=== PATIENT | female | born 1975 | race Caucasian/White ===

== ENCOUNTER → 2023-09-05 12:54 | Outpatient (BNVA) | payer OTHER, SELFPAY | PROVIDERS: Visit Provider Physician Assistant Surgical ==

== ENCOUNTER 2023-09-29 11:00 | Outpatient (AMB) | payer OTHER, SELFPAY ==
--- NOTE | 2023-09-29 11:25 | A.OFFVIS_ITS ---
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 BMI 44.6 Allergies No Known Allergies Allergy (Verified 09/29/23 11:25) Medication List - Last Reconciled 09/29/23 by Bj Tate MD atorvastatin 20 mg PO QDAY bupropion HCl 300 mg PO QAM estradiol (Estrace) 0.5 mg PO DAILY hydroxyzine pamoate 25 mg PO BEDTIME levothyroxine 112 mcg PO DAILY lisinopril 20 mg PO DAILY losartan 25 mg PO DAILY lurasidone 80 mg PO DAILY omeprazole 20 mg PO DAILY progesterone micronized 100 mg PO QAM HPI 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 BMI 44.6 HPI Details Start time: 11.14am, End time: 12.14pm ?I spent 50 minutes speaking with the patient on the phone plus an additional 10 minutes reviewing and updating records for a total of 60 minutes HPI Comments History of Present Illness Details Previous weight loss efforts: [facility] program in [place] Wakes up: 8.30am, Sleeps: 9pm Breakfast: x3/wk 9.30am (banana with peanut butter, bagel) Lunch: 12.30pm (sandwich, or soup) Dinner: 5.30pm (chicken, vegetables, rice) Snacks: 7.30pm (chips, sweets) Exercise: Has an Elliptical Fluids: Coffee 24oz/day (syrup and creamer), iced and hot tea: with sugar and honey, soda: diet soda, juice: occasionally, ETOH: 1-2/wk Seedfuseelob Ultra x3/time [facility] Medical History (Updated 09/29/23 @ 11:34 by Bj Tate MD) Bipolar 1 disorder Anxiety Depression PTSD (post-traumatic stress disorder) GERD (gastroesophageal reflux disease) Hyperlipidemia Hypertension Sleep apnea treated with continuous positive airway pressure (CPAP) Morbid (severe) obesity due to excess calories Surgical History (Updated 09/05/23 @ 15:01 by Irene Winn CMA) Hx of brain surgery Hx of cholecystectomy Hx of hand surgery Hx of knee surgery Hx of tonsillectomy Hx of wisdom tooth extraction Social History (Updated 09/05/23 @ 15:01 by Irene Winn [facility]) Alcohol intake: current Alcohol intake frequency: holidays/special occasions only Alcohol type: beer Patient Tobacco Use Status: Never used Tobacco Assessment & Plan Assessment & Plan (1) Morbid (severe) obesity due to excess calories: Code(s): E66.01 - Morbid (severe) obesity due to excess calories Plan: 1.? Plan for lap sleeve gastrectomy. If diaphragmatic or ventral hernias are present at time of surgery, these will be repaired laparoscopically as well. 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 I emphasized the importance of close follow-up, adherence to instructions and good communication. 2. Nutritional counseling. Start with 2 CELEBRATE REBUILD protein (buy at the [facility]'s gift shop) shakes (ONE scoop EACH in 8oz low fat unsweetened almond milk each) at 9am-11am and 12pm-2pm, 1 protein bar (CELEBRATE protein bars, buy at the [facility]'s [employer] shop) at 2pm-4pm, dinner at 5pm (10 forks of protein and 10 forks of salad/vegetables) AND one more protein bar after dinner at 6pm-8pm. So you do 2 protein shakes, 2 protein bars and one meal per day. Meal to include lean meat (beef, fish, pork, turkey, chicken), or french yogurt, or egg whites, or beans with a salad with olive oil and fruits (berries, pears, apples, kiwi). Avoid salt, breads, potatoes, rice, pasta, desserts. 3. Each shake would be drunk slowly, like coffee in a period of 2 hours. 4. Cut each bar in 4 pieces and eat each piece in 30min ?to make each bar last 2 hours. 5. I emphasized the importance of measuring accurately the food portion and measure it when serving the food in plate 6. The meal portions include 10 full-size forks of meat and 10 full-size forks of salad. You always eat the meat portion but you can replace up to 5 forks for salad/vegetables with rice, potatoes or pasta, or a fruit ?if you like. The less you do it the better weight loss will be. 7. One full-size fork is what it can be scooped on the fork without falling aside and not what can be bit with the fork. Use regular forks like those you find in a typical restaurant. 8.? Please send me weight measurements as soon as possible and then once a week. Always include your diet and exercise plan. 9. Start Elliptical with an incline of 2.0 and resistance of 4.0. Increase resistance by 1 every 3 min to a max resistance of 10.0, and repeat cycles for 300 calories. 10. Alternatively start walking outside daily, tracking calories with a goal of 300 calories per day, daily. Goal is to burn 2000 calories per week on exercise. 11.?Goal is to lose at least 1.5-2lbs per week 12. Goal to lose 10% of your weight before surgery, which is about 26lbs. Ultimate weight goal: 242lbs before surgery 13. Please follow the diet plan exactly without any change. If you don't like something about the plan or you feel hungry you need to communicate with me so I can help you revise the plan. You should not change the plan yourself. Orders: Orders H Pylori Breath Test Today E66.01 - Morbid (severe) obesity due to excess calories, E78.5 - Hyperlipidemia, unspecified, G47.30 - Sleep apnea, unspecified, I10 - Essential (primary) hypertension, K21.9 - Gastro-esophageal reflux disease without esophagitis Complete Blood Count Auto Diff Today E66.01 - Morbid (severe) obesity due to excess calories, E78.5 - Hyperlipidemia, unspecified, G47.30 - Sleep apnea, unspecified, I10 - Essential (primary) hypertension, K21.9 - Gastro-esophageal reflux disease without esophagitis Vitamin B1 Today E66.01 - Morbid (severe) obesity due to excess calories, E78.5 - Hyperlipidemia, unspecified, G47.30 - Sleep apnea, unspecified, I10 - Essential (primary) hypertension, K21.9 - Gastro-esophageal reflux disease wit hout esophagitis Vitamin D 25-OH Total Today E66.01 - Morbid (severe) obesity due to excess calories, E78.5 - Hyperlipidemia, unspecified, G47.30 - Sleep apnea, unspecified, I10 - Essential (primary) hypertension, K21.9 - Gastro-esophageal reflux disease without esophagitis Insulin Today E66.01 - Morbid (severe) obesity due to excess calories, E78.5 - Hyperlipidemia, unspecified, G47.30 - Sleep apnea, unspecified, I10 - Essential (primary) hypertension, K21.9 - Gastro-esophageal reflux disease without esophagitis Hemoglobin A1c Today E66.01 - Morbid (severe) obesity due to excess calories, E78.5 - Hyperlipidemia, unspecified, G47.30 - Sleep apnea, unspecified, I10 - Essential (primary) hypertension, K21.9 - Gastro-esophageal reflux disease without esophagitis Lipid Panel Today E66.01 - Morbid (severe) obesity due to excess calories, E78.5 - Hyperlipidemia, unspecified, G47.30 - Sleep apnea, unspecified, I10 - Essential (primary) hypertension, K21.9 - Gastro-esophageal reflux disease without esophagitis IRON PROFILE Today E66.01 - Morbid (severe) obesity due to excess calories, E78.5 - Hyperlipidemia, unspecified, G47.30 - Sleep apnea, unspecified, I10 - Essential (primary) hypertension, K21.9 - Gastro-esophageal reflux disease without esophagitis Comprehensive Met. Panel Today E66.01 - Morbid (severe) obesity due to excess calories, E78.5 - Hyperlipidemia, unspecified, G47.30 - Sleep apnea, unspecified, I10 - Essential (primary) hypertension, K21.9 - Gastro-esophageal reflux disease without esophagitis Vitamin B12 and Folate Today E66.01 - Morbid (severe) obesity due to excess calories, E78.5 - Hyperlipidemia, unspecified, G47.30 - Sleep apnea, unspecified, I10 - Essential (primary) hypertension, K21.9 - Gastro-esophageal reflux disease without esophagitis Zinc Today E66.01 - Morbid (severe) obesity due to excess calories, E78.5 - Hyperlipidemia, unspecified, G47.30 - Sleep apnea, unspecified, I10 - Essential (primary) hypertension, K21.9 - Gastro-esophageal reflux disease without esophagitis C Reactive Protein Today E66.01 - Morbid (severe) obesity due to excess calories, E78.5 - Hyperlipidemia, unspecified, G47.30 - Sleep apnea, unspecified, I10 - Essential (primary) hypertension, K21.9 - Gastro-esophageal reflux disease without esophagitis Vitamin A Today E66.01 - Morbid (severe) obesity due to excess calories, E78.5 - Hyperlipidemia, unspecified, G47.30 - Sleep apnea, unspecified, I10 - Essential (primary) hypertension, K21.9 - Gastro-esophageal reflux disease without esophagitis TSH reflex Free T4 Today E66.01 - Morbid (severe) obesity due to excess calories, E78.5 - Hyperlipidemia, unspecified, G47.30 - Sleep apnea, unspecified, I10 - Essential (primary) hypertension, K21.9 - Gastro-esophageal reflux disease without esophagitis Ferritin Today E66.01 - Morbid (severe) obesity due to excess calories, E78.5 - Hyperlipidemia, unspecified, G47.30 - Sleep apnea, unspecified, I10 - Essential (primary) hypertension, K21.9 - Gastro-esophageal reflux disease without esophagitis US abdomen comp w elastography Today E66.01 - Morbid (severe) obesity due to excess calories, E78.5 - Hyperlipidemia, unspecified, G47.30 - Sleep apnea, unspecified, I10 - Essential (primary) hypertension, K21.9 - Gastro-esophageal reflux disease without esophagitis XR chest 2V Today E66.01 - Morbid (severe) obesity due to excess calories, E78.5 - Hyperlipidemia, unspecified, G47.30 - Sleep apnea, unspecified, I10 - Essential (primary) hypertension, K21.9 - Gastro-esophageal reflux disease without esophagitis ECG 12 lead EKG Today E66.01 - Morbid (severe) obesity due to excess calories, E78.5 - Hyperlipidemia, unspecified, G47.30 - Sleep apnea, unspecified, I10 - Essential (primary) hypertension, K21.9 - Gastro-esophageal reflux disease without esophagitis [place] upper GI w air Today E66.01 - Morbid (severe) obesity due to excess calories, E78.5 - Hyperlipidemia, unspecified, G47.30 - Sleep apnea, unspecified, I10 - Essential (primary) hypertension, K21.9 - Gastro-esophageal reflux disease without esophagitis Referrals Behavioral Health Referral E66.01 - Morbid (severe) obesity due to excess calories, E78.5 - Hyperlipidemia, unspecified, G47.30 - Sleep apnea, unspecified, I10 - Essential (primary) hypertension, K21.9 - Gastro-esophageal reflux disease without esophagitis Nutrition/Dietitian Referral E66.01 - Morbid (severe) obesity due to excess calories, E78.5 - Hyperlipidemia, unspecified, G47.30 - Sleep apnea, unspecified, I10 - Essential (primary) hypertension, K21.9 - Gastro-esophageal reflux disease without esophagitis Telehealth Telehealth Location of provider rendering services: practice address Location of patient: address on file Patient Identification confirmed using: Name, : Yes Telehealth method: voice only Patient verbally consented to treatment: Yes Patient verbally consented to billing insurance company: Yes Patient informed of any privacy concerns related to visit: Yes Minutes spent on Phone/Video with Pt.: 60 Coding Level of Care Code Tele [facility] Pt Level 5 (37422) Diagnoses Morbid (severe) obesity due to excess calories E66.01 Time Spent (min) 60
[2023-09-29 11:44] VITALS: BMI 44.6
== END 2023-09-29 12:15 | disposition home or self-care (01) ==
LOC: HO.HBS 11:00
PROVIDERS: PCP Nurse Practitioner Family; Visit Provider Surgery
DX: E66.01 Morbid (severe) obesity due to excess calories (principal); Z68.41 Body mass index [BMI] 40.0-44.9, adult
CPT/HCPCS: 99443

== ENCOUNTER → 2023-09-29 11:00 | Outpatient (BNVA) | payer OTHER, SELFPAY | PROVIDERS: PCP Nurse Practitioner Family; Visit Provider Surgery ==

== ENCOUNTER 2023-10-11 14:20 | Outpatient (AMB) | payer OTHER, SELFPAY ==
--- NOTE | 2023-10-11 14:10 | MHC.AMNUTRGE ---
Intake Intake Visit Reasons: VIDEO Initial Nutrition [facility] Academic Assistant Required: No Allergies No Known Allergies Allergy (Verified 09/29/23 11:25) HPI Nutrition Presentation Reason for consult elevated BMI Smoking assessment Reviewed Alcohol assessment Reviewed Diet Assmnt Details I really like the structure of the plan dinner is normally chicken,tuna, or steak with carrots, vegetable medley, or tomato. Likes veg. We talked about social situations and navigating these as far as food and alcohol. She does drink alcohol but we talked about non-alcoholic drinks and post op recs for alcohol. She does report cannabis use , is planning to figure out other forms she can use that are not smoking. [facility] online classes: 03/14 completed and reviewed, scored well. Dietary counseling reduction Who buys your food self Who prepares/cooks your food self Meal frequency regular: snacks and irregular: breakfast, lunch and dinner Diagnosis Nutrition problem #1 overweight/obesity As related to (etiology) #1 excess energy intake and physical inactivity As evidenced by (sign/symptom) #1 high BMI Monitoring/Goals Nutrition problem monitoring total energy intake, level of knowledge/skill, total PRO intake and weight Outcome progress progressing Learning/Education Readiness to learn excellent Stages of change action Educational materials provided Yes Most Recent Diabetes Results: No Data to Display [facility] Medical History (Updated 09/29/23 @ 11:34 by Bj Tate MD) Bipolar 1 disorder Anxiety Depression PTSD (post-traumatic stress disorder) GERD (gastroesophageal reflux disease) Hyperlipidemia Hypertension Sleep apnea treated with continuous positive airway pressure (CPAP) Morbid (severe) obesity due to excess calories Surgical History (Updated 09/05/23 @ 15:01 by Irene Winn CMA) Hx of brain surgery Hx of cholecystectomy Hx of hand surgery Hx of knee surgery Hx of tonsillectomy Hx of wisdom tooth extraction Social History (Updated 09/05/23 @ 15:01 by Irene Winn CMA) Alcohol intake: current Alcohol intake frequency: holidays/special occasions only Alcohol type: beer Patient Tobacco Use Status: Never used Tobacco Assessment & Plan Assessment & Plan (1) Morbid (severe) obesity due to excess calories: Code(s): E66.01 - Morbid (severe) obesity due to excess calories Plan Patient is cleared from a nutrition standpoint for bariatric surgery. Educational requirements have been completed. Reviewed vitamin supplementation and commitment to protein shake for several months post surgery. Encouraged communication with office as needed Telehealth Telehealth Location of provider rendering services: practice address Location of patient: address on file Patient Identification confirmed using: Name, : Yes Telehealth method: voice only Patient verbally consented to treatment: Yes Patient verbally consented to billing insurance company: Yes Patient informed of any privacy concerns related to visit: Yes Minutes spent on Phone/Video with Pt.: 40 Coding Level of Care Code Nutr Indiv Intake (14198) Diagnoses Morbid (severe) obesity due to excess calories E66.01 Time Spent (min) 40
== END 2023-10-11 14:47 | disposition home or self-care (01) ==
LOC: HO.HBS 14:20
PROVIDERS: PCP Nurse Practitioner Family; Visit Provider Dietitian, Registered
DX: E66.01 Morbid (severe) obesity due to excess calories (principal)

== ENCOUNTER → 2023-10-11 14:20 | Outpatient (BNVA) | payer OTHER, SELFPAY | PROVIDERS: PCP Nurse Practitioner Family; Visit Provider Dietitian, Registered | DX: E66.01 Morbid (severe) obesity due to excess calories (principal) | CPT/HCPCS: 97802 ==

== ENCOUNTER 2023-10-17 14:57 | Outpatient (AMB) | payer OTHER, SELFPAY ==
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
== END 2023-10-17 15:21 | disposition home or self-care (01) ==
LOC: HO.HBST 14:58
PROVIDERS: PCP Nurse Practitioner Family; Visit Provider Counselor Mental Health
DX: F31.9 Bipolar disorder, unspecified (principal); F43.10 Post-traumatic stress disorder, unspecified; E66.01 Morbid (severe) obesity due to excess calories
CPT/HCPCS: 90791

== ENCOUNTER → 2023-10-17 14:57 | Outpatient (BNVA) | payer OTHER, SELFPAY | PROVIDERS: PCP Nurse Practitioner Family; Visit Provider Counselor Mental Health ==

== ENCOUNTER 2023-10-18 09:48 | Outpatient (REF) | payer OTHER, SELFPAY ==
--- NOTE | ~2023-10-18 | XR_ITS ---
EXAMINATION: XR CHEST CLINICAL INFORMATION: Morbid obesity COMPARISON: None available. TECHNIQUE: 2 views of the chest were obtained. FINDINGS: Slight elevation the right hemidiaphragm. No pneumothorax. Trachea is midline. Cardiac mediastinal silhouette is not enlarged. No large pleural effusion. Osseous structures are intact. Soft tissues are unremarkable. XR/XR chest 2V IMPRESSION: No acute cardiopulmonary process.
--- NOTE | 2023-10-18 09:56 | ECG_ITS ---
Test Reason : E66.01 Blood Pressure : / mmHG Vent. Rate : 075 BPM Atrial Rate : 075 BPM P-R Int : 172 ms QRS Dur : 084 ms QT Int : 420 ms P-R-T Axes : 012 -05 052 degrees QTc Int : 469 ms Normal sinus rhythm Nonspecific ST and T wave abnormality Prolonged QT Abnormal ECG No previous ECGs available Referred By: Bj Tate Electronically Signed By:ERIC JOHANSEN MD
[2023-10-18 10:19] LABS: MANUAL DIFF FLAG NO
[2023-10-18 12:46] LABS: Alanine Aminotransferase 30 U/L (0-31); Albumin Level 4.4 g/dL (3.5-5.0); Alkaline Phosphatase 97 U/L (39-117); Anion Gap 13 (12-20); Aspartate Amino Transferase 23 U/L (5-31); Bilirubin Total 0.4 mg/dL (0.0-1.0); Blood Urea Nitrogen 14 mg/dL (9-16); C Reactive Protein 0.61 mg/dL (< or = 0.50); Calcium 9.8 mg/dL (8.4-10.2); Carbon Dioxide 26 mmol/L (22-29); Chloride 104 mmol/L (96-108); Cholesterol 107 mg/dL (<200); Estimated Glomerular Filt Rate > 60; Ferritin 69 ng/mL (10-250); Glucose Random 99 mg/dL (60-115); HDL Cholesterol 43 mg/dL (>40); Insulin 15 uU/mL (2-29); Iron 102 mcg/dL (30-160); LDL Cholesterol Calculated 46 mg/dL (<100); Percent Iron Saturation 27 % (15-50); Potassium 3.9 mmol/L (3.3-5.1); Sodium 139 mmol/L (135-145); Total Iron Binding Capacity 375 mcg/dL (228-428); Total Protein 7.4 g/dL (6.5-8.0); Triglycerides 91 mg/dL (<150); Unsaturated Iron Binding 273 ug/dL; Vitamin D 25-OH Total 23.6 ng/mL (>30)
[2023-10-18 12:48] LABS: Basophils Percent Auto 0.4 % (0-2); Eosinophils Absolute Auto 0.1 X10*3/uL (0.0-0.4); Eosinophils Percent Auto 1.1 % (0-4); Hematocrit 44.4 % (37.0-47.0); Hemoglobin 14.9 g/dl (12.0-16.0); Imm Gran Abs Auto 0.02 X10*3/uL (0.00-0.03); Imm Gran Pct Auto 0.2 % (0.0-0.4); Lymphocytes Absolute Auto 2.5 X10*3/uL (1.2-4.9); Lymphocytes Percent Auto 27.9 % (20-40); Mean Corpuscular HGB Conc 33.6 g/dl (31.0-35.0); Mean Corpuscular Hemoglobin 28.8 pg (27.0-33.0); Mean Corpuscular Volume 85.9 fL (80.0-98.0); Mean Platelet Volume 9.1 fL (9.4-12.3); Monocytes Absolute Auto 0.7 X10*3/uL (0.1-1.2); Monocytes Percent Auto 7.3 % (2-11); Neutrophils Absolute Auto 5.7 x10*3/uL (2.0-8.3); Neutrophils Percent Auto 63.1 % (45-73); Platelet Count 336 X10*3/uL (160-400); Red Blood Count 5.17 X10*6/uL (4.20-5.50); Red Cell Distribution Width 14.5 % (11.0-16.0)
[2023-10-18 14:49] LABS: Folate 5.7 ng/mL (> or = 4.0); Vitamin B12 364 pg/mL (200-900)
[2023-10-18 14:54] LABS: Estimated Average Glucose 108 mg/dL; Hemoglobin A1c % 5.4 % (<6.0)
[2023-10-21 04:13] LABS: Zinc 82 mcg/dL (60-130)
[2023-10-23 15:58] LABS: Vitamin B1 7 nmol/L (8-30)
[2023-10-24 02:48] LABS: Vitamin A 56 mcg/dL (38-98)
== END 2023-10-18 09:49 | disposition home or self-care (01) ==
LOC: HO.LAB 09:48
PROVIDERS: PCP Nurse Practitioner Family; Visit Provider Surgery
DX: E66.01 Morbid (severe) obesity due to excess calories (principal); G47.30 Sleep apnea, unspecified; I10 Essential (primary) hypertension; E78.5 Hyperlipidemia, unspecified; K21.9 Gastro-esophageal reflux disease without esophagitis
CPT/HCPCS: 36415; 71046; 80053; 80061; 82306; 82607; 82728; 82746; 83036; 83525; 83540; 84425; 84443; 84590; 84630; 85025; 86140; 93005

== ENCOUNTER → 2023-10-18 09:56 | Outpatient (BNV) | payer OTHER, SELFPAY | PROVIDERS: PCP Nurse Practitioner Family; Visit Provider Internal Medicine Cardiovascular Disease | DX: I45.81 Long QT syndrome (principal) | CPT/HCPCS: 93010 ==

== ENCOUNTER 2023-10-20 07:51 | Outpatient (AMB) | payer OTHER, SELFPAY ==
--- NOTE | 2023-10-20 11:17 | MHC.OFFVISWM ---
Intake VS Expanded 10/20/23 11:18 Height 5 ft 5 in Weight 261 lb BMI 43.4 Body Fat % 58.4 Body Fat Mass 152.4 Fat Free Mass 108.6 Visceral Fat Rating 24 Body Water % 28.5 Body Water Mass 74.3 Basal Metabolic Rate/Score 1,435 Intake Visit Reasons: TV Follow Up SWL - 1ST Allergies No Known Allergies Allergy (Verified 09/29/23 11:25) HPI TV Follow Up SWL - 1ST HPI Details Start time: 11.06am, End time: 11.26am ?I spent 15 minutes speaking with the patient on the phone plus an additional 5 minutes reviewing and updating records for a total of 20 minutes HPI Comments History of Present Illness Details Overall weight loss: 7.2lbs, or 2.7% TBWL Is doing 2 Celebrate Rebuild protein shakes (1 scoop in 8oz almond milk each), 2 Celebrate protein bars and one meal (10 forks of meat and 10 forks of salad or vegetables) Exercise: is doing Elliptical for 300 calories, 6 days per week [facility] Medical History (Updated 10/20/23 @ 11:00 by Bj Tate MD) Abnormal EKG Bipolar 1 disorder Anxiety Depression PTSD (post-traumatic stress disorder) GERD (gastroesophageal reflux disease) Hyperlipidemia Hypertension Sleep apnea treated with continuous positive airway pressure (CPAP) Morbid (severe) obesity due to excess calories Surgical History (Updated 09/05/23 @ 15:01 by Irene Winn CMA) Hx of brain surgery Hx of cholecystectomy Hx of hand surgery Hx of knee surgery Hx of tonsillectomy Hx of wisdom tooth extraction Social History (Updated 09/05/23 @ 15:01 by Irene Winn CMA) Alcohol intake: current Alcohol intake frequency: holidays/special occasions only Alcohol type: beer Patient Tobacco Use Status: Never used Tobacco Assessment & Plan Assessment & Plan (1) Morbid (severe) obesity due to excess calories: Code(s): E66.01 - Morbid (severe) obesity due to excess calories Plan: 1. Continue 2 Celebrate Rebuild protein shakes (1 scoop in 8oz almond milk each), 2 Celebrate protein bars and one meal (10 forks of meat and 10 forks of salad or vegetables) 2. Exercise: continue Elliptical for 300 calories, 6-7 days per week. Goal is to burn 2000 calories per week on aerobic exercise 3. Continue to send me weight measurements weekly on Fridays Orders: Orders CA echo transthorac w con Today R94.31 - Abnormal electrocardiogram [ECG] [EKG] CA stress test Today R94.31 - Abnormal electrocardiogram [ECG] [EKG] Medications: New mecobalamin (vitamin B12) place tablet under tongue and allow to dissolve for at least30 secs before swallowing 1,000 mcg sublingual DAILY 90 tabs 0RF E53.8 - Deficiency of other specified B group vitamins cholecalciferol (vitamin D3) 125 mcg PO DAILY 90 caps 0RF E55.9 - Vitamin D deficiency, unspecified Telehealth Telehealth Location of provider rendering services: practice address Location of patient: address on file Patient Identification confirmed using: Name, : Yes Telehealth method: voice only Patient verbally consented to treatment: Yes Patient verbally consented to billing insurance company: Yes Patient informed of any privacy concerns related to visit: Yes Minutes spent on Phone/Video with Pt.: 20 Coding Level of Care Code Tele Est Pt Level 3 (48292) Diagnoses Morbid (severe) obesity due to excess calories E66.01 Time Spent (min) 20
[2023-10-20 11:18] VITALS: BMI 43.4
== END 2023-10-20 11:27 | disposition home or self-care (01) ==
LOC: HO.HBS 07:51
PROVIDERS: PCP Nurse Practitioner Family; Visit Provider Surgery
DX: E66.01 Morbid (severe) obesity due to excess calories (principal)
CPT/HCPCS: 99213

== ENCOUNTER → 2023-10-20 07:51 | Outpatient (BNVA) | payer OTHER, SELFPAY | PROVIDERS: PCP Nurse Practitioner Family; Visit Provider Surgery ==

== ENCOUNTER 2023-10-23 08:38 | Outpatient (REF) | payer OTHER, SELFPAY ==
--- NOTE | ~2023-10-23 | US_ITS ---
EXAMINATION: US COMPLETE ABDOMEN WITH LIVER ELASTOGRAPHY CLINICAL INFORMATION: Morbid obesity. COMPARISON: None available. TECHNIQUE: Real-time imaging of the abdominal viscera. Noninvasive ultrasound liver fibrosis assessment is performed using Norberto ElastPQ point quantification shear wave elastography (2D-SWE) with a C5-2 MHz transducer. Multiple elastography samples are obtained. FINDINGS: PANCREAS: Normal. The visualized pancreatic head and body are normal in appearance. The remainder of the pancreas is obscured from visualization by the overlying bowel gas. ABDOMINAL AORTA: The proximal, middle, and distal aortic segments are normal in caliber. INFERIOR VENA CAVA: Visualized portions are normal. LIVER: The liver demonstrates normal size, contour and increased echogenicity. No focal lesion or intrahepatic biliary duct dilatation. The right lobe measures 15.7 cm in length. The left lobe measures 10.0 cm in length. Portal flow is towards the liver (hepatopetal). Shear wave liver elastography median stiffness is 1.98 m/s (reference: normal median stiffness is 1.3 m/s or less). IQR/median stiffness to assess sampling precision is 0.11 (reference: good quality data set is IQR/median stiffness of 0.15 or less). GALLBLADDER: Normal. The gallbladder is physiologically distended without evidence of stones, sludge, polyps, wall thickening or pericholecystic fluid. COMMON BILE DUCT: Normal in caliber measuring 0.6 cm in diameter. RIGHT KIDNEY: Normal. No hydronephrosis. No renal calculi or focal parenchymal lesions. The kidney measures 12.0 cm in maximum dimension. LEFT KIDNEY: Normal. No hydronephrosis. No renal calculi or focal parenchymal lesions. The kidney measures 11.0 cm in maximum dimension. SPLEEN: Normal. The spleen measures 9.6 cm in maximum dimension. FREE FLUID: None. US/US abdomen comp w elastography IMPRESSION: 1. There is generalized increase in hepatic echotexture, consistent with fatty infiltration or hepatocellular disease. Please correlate clinically. No focal hepatic mass or intrahepatic biliary dilatation is seen. 2. Liver elastography: Measurements are suggestive of compensated advanced chronic liver disease but need further test for confirmation. REFERENCE: Society of Radiologists in Ultrasound Liver Stiffness Thresholds (2020): LIVER STIFFNESS THRESHOLDS: *Liver Stiffness equal or less than 1.3 m/s: High probability of being normal. *Liver Stiffness less than 1.7 m/s: In the absence of other known clinical signs, rules out compensated advanced chronic liver disease. *Liver Stiffness 1.7-2.1 m/s: Suggestive of compensated advanced chronic liver disease but need further test for confirmation. *Liver Stiffness over 2.1 m/s: Rules in compensated advanced chronic liver disease. *Liver Stiffness over 2.4 m/s: Suggestive of clinically significant portal hypertension. QUALITY OF DATA SET: *IQR/Median value equal or less than 0.15 implies a quality data set. *IQR/Median value over 0.15 implies a poor quality data set. SIGNIFICANT CHANGE FROM PRIOR EXAM: Significant change if liver stiffness measurement is 10% or greater from prior exam. OTHER CONSIDERATIONS: The stage of liver fibrosis may be overestimated in the setting of acute hepatitis, liver inflammation, elevated liver function tests, hepatic vascular congestion, obstructive cholestasis, non-fasting state, and infiltrative diseases such as amyloidosis and lymphoma. In some patients with NAFLD, the liver stiffness thresholds for compensated advanced chronic liver disease may be lower. In causes other than viral hepatitis and NAFLD, liver stiffness thresholds are not well established.
== END 2023-10-23 08:39 | disposition home or self-care (01) ==
LOC: HO.US 08:38
PROVIDERS: PCP Nurse Practitioner Family; Visit Provider Surgery
DX: E66.01 Morbid (severe) obesity due to excess calories (principal); I10 Essential (primary) hypertension; K21.9 Gastro-esophageal reflux disease without esophagitis
CPT/HCPCS: 76700; 76981

== ENCOUNTER 2023-11-17 08:16 | Outpatient (AMB) | payer OTHER, SELFPAY ==
--- NOTE | 2023-11-17 11:15 | MHC.OFFVISWM ---
Intake VS Expanded 11/17/23 11:21 Height 5 ft 5 in Weight 248 lb 2 oz BMI 41.3 Body Fat % 55.1 Body Fat Mass 136.7 Fat Free Mass 111.4 Visceral Fat Rating 22 Body Water % 30.8 Body Water Mass 76.4 Basal Metabolic Rate/Score 1,464 Intake Visit Reasons: TV Follow Up SWL Allergies No Known Allergies Allergy (Verified 09/29/23 11:25) HPI TV Follow Up SWL HPI Details Start time: 11.07am, End time: 11.27am ?I spent 15 minutes speaking with the patient on the phone plus an additional 5 minutes reviewing and updating records for a total of 20 minutes HPI Comments History of Present Illness Details Overall weight loss: 20lbs or 7.46% TBWL Is doing 2 Celebrate Rebuild protein shakes (1 scoop in almond milk), 2 Celebrate protein bars and one meal (10 forks of protein and 10 forks of salad or vegetables) Exercise: walking outside daily for 300 calories, or Elliptical for 300 calories daily PFSH Medical History (Updated 10/28/23 @ 11:48 by Bj Tate MD) Abnormal EKG Bipolar 1 disorder Anxiety Depression PTSD (post-traumatic stress disorder) GERD (gastroesophageal reflux disease) Hyperlipidemia Hypertension Sleep apnea treated with continuous positive airway pressure (CPAP) Morbid (severe) obesity due to excess calories Surgical History (Updated 09/05/23 @ 15:01 by Irene Winn CMA) Hx of brain surgery Hx of cholecystectomy Hx of hand surgery Hx of knee surgery Hx of tonsillectomy Hx of wisdom tooth extraction Social History (Updated 09/05/23 @ 15:01 by Irene Winn CMA) Alcohol intake: current Alcohol intake frequency: holidays/special occasions only Alcohol type: beer Patient Tobacco Use Status: Never used Tobacco Assessment & Plan Assessment & Plan (1) Morbid (severe) obesity due to excess calories: Code(s): E66.01 - Morbid (severe) obesity due to excess calories Plan: 1. Continue same nutritional plan of 2 Celebrate Rebuild protein shakes (1 scoop in almond milk), 2 Celebrate protein bars and one meal (10 forks of protein and 10 forks of salad or vegetables) 2. Exercise: continue walking outside daily for 300 calories, or Elliptical for 300 calories daily 3. Continue to send weight measurementa weekly on Saturdays Telehealth Telehealth Location of provider rendering services: practice address Location of patient: address on file Patient Identification confirmed using: Name, : Yes Telehealth method: voice only Patient verbally consented to treatment: Yes Patient verbally consented to billing insurance company: Yes Patient informed of any privacy concerns related to visit: Yes Minutes spent on Phone/Video with Pt.: 20 Coding Level of Care Code Tele Est Pt Level 3 (74357) Diagnoses Morbid (severe) obesity due to excess calories E66.01 Time Spent (min) 20
[2023-11-17 11:21] VITALS: BMI 41.3
== END 2023-11-17 11:27 | disposition home or self-care (01) ==
LOC: HO.HBS 08:16
PROVIDERS: PCP Nurse Practitioner Family; Visit Provider Surgery
DX: E66.01 Morbid (severe) obesity due to excess calories (principal)
CPT/HCPCS: 99213

== ENCOUNTER → 2023-11-17 08:16 | Outpatient (BNVA) | payer OTHER, SELFPAY | PROVIDERS: PCP Nurse Practitioner Family; Visit Provider Surgery ==

== ENCOUNTER 2023-11-24 08:46 | Outpatient (REF) | payer OTHER, SELFPAY ==
--- NOTE | ~2023-11-24 | FL_ITS ---
EXAMINATION: XR FLUOROSCOPY UPPER GI WITH AIR CLINICAL INFORMATION: Preop evaluation prior to bariatric surgery COMPARISON: None TECHNIQUE: Fluoroscopic air contrast upper GI examination was performed utilizing standard techniques with thin and thick barium and effervescent granules. Numerous spot images were obtained. FINDINGS: Lateral cine images of the oropharynx and hypopharynx demonstrate normal swallow mechanism with normal epiglottic inversion and soft palate elevation. No tracheal penetration, glottic or subglottic aspiration identified. No nasopharyngeal reflux present. Hypopharyngeal structures appear normal without evidence of mass or diverticulum. There is mild cricopharyngeal achalasia present. Surgical clips are present in the right quadrant, consistent with prior history of cholecystectomy. Dual and single contrast images of the esophagus demonstrate a normal caliber and contour. There is felinization of the distal esophageal mucosa. No evidence of stricture, mass, or ulcerations identified. Esophageal peristalsis was normal. No evidence of hiatus hernia identified. No significant gastroesophageal reflux was seen during the course of the examination and on reflux views. Dual contrast and single contrast images of the stomach demonstrated a normal contour. There is suboptimal coating of the superior wall and lesser curvature. The gastric rugal folds have a thickened appearance. There are multiple tiny areas of contrast pooling in the fundus of the stomach that may represent small superficial aphthous ulcers. No masses are present. Contrast freely passed into the gastric antrum and duodenal bulb without delay. Single and air-contrast images of the duodenal bulb demonstrate no abnormality. The duodenal sweep has a normal appearance, course, and mucosal fold appearance. No evidence of malrotation. The imaged proximal jejunum has a normal fold pattern and caliber. FLUOROSCOPY TIME: 3 minutes 52 seconds Number of Spot Images: 3 Number of Cine: 6 DOSE AREA PRODUCT: 2665 uGy-m2 (microgray-meter squared) FL/FL upper GI w air IMPRESSION: 1. Mild cricopharyngeal achalasia. 2. Status post cholecystectomy. 3. Felinization of the distal esophageal mucosa. This is a benign finding that is typically associated with gastroesophageal reflux. 4. Thickened gastric rugal folds. In addition there are multiple tiny areas of contrast pooling in the fundus of the stomach. These findings are suggestive of erosive gastritis. Recommend correlation with EGD. This procedure was performed by Juan Ramon Llamas PA-C, and supervised by Dr. Mae
== END 2023-11-24 08:47 | disposition home or self-care (01) ==
LOC: HO.XRAY 08:46
PROVIDERS: PCP Nurse Practitioner Family; Visit Provider Surgery
DX: E66.01 Morbid (severe) obesity due to excess calories (principal); K21.9 Gastro-esophageal reflux disease without esophagitis
CPT/HCPCS: 74246

== ENCOUNTER → 2023-11-24 08:48 | Outpatient (BNV) | payer OTHER, SELFPAY | PROVIDERS: PCP Nurse Practitioner Family; Visit Provider Physician Assistant Surgical | DX: E66.01 Morbid (severe) obesity due to excess calories (principal); Z01.818 Encounter for other preprocedural examination | CPT/HCPCS: 74246 ==

== ENCOUNTER 2023-11-27 11:18 | Outpatient (AMB) | payer OTHER, SELFPAY ==
--- OUTSIDE RECORDS SUMMARY | 2023-11-27 11:19 | XMS_ITS | Continuity of Care Document ---
Author Organization [facility] ter Address [address] [place] [address]- Care Team Providers Care Welt Insole Channeler Name Role Phone Ami Sumner MD Primary Care Physician [phone] Encounter [facility] Date(s): 05/19/20 - 09/09/[address] [address]- Attending Physician: Ami Sumner MD Admitting Physician: Ami Sumner MD Referring Physician: Ami Sumner MD Allergies, Adverse Reactions, Alerts Substance Reaction Severity Status NKA Active Medications amLODIPine 5 mg oral tablet 5 mg, 1, tablet, By Mouth, Daily, # 30 tablet, Refills 0, Maintenance, 06/08/18 8:47:02 EDT Start Date: 06/08/18 Status: Ordered BuPROpion = 300 mg, By Mouth, Daily, 0 Refills, Maintenance, 06/08/18 8:47:20 EDT Start Date: 06/08/18 Status: Ordered HydrOXYzine = 25 mg, By Mouth, 3 times a day, PRN as needed for anxiety, tabs 2, 0 Refills, Maintenance, 06/08/18 8:53:23 EDT Start Date: 06/08/18 Status: Ordered Ibuprofen 400 mg, By Mouth, PRN, Refills 0, Maintenance, as needed for pain, 06/08/18 8:56:45 EDT Start Date: 06/08/18 Status: Ordered levothyroxine 0.088 mg oral tablet 1 tablet = 88 mcg, By Mouth, Daily, # 30 tablet, 0 Refills, Maintenance, 06/08/18 8:44:30 EDT, Tablet Start Date: 06/08/18 Status: Ordered Lisinopril = 10 mg, By Mouth, Daily, 0 Refills, Maintenance, 06/08/18 8:45:16 EDT Start Date: 06/08/18 Status: Ordered lurasidone 60 mg oral tablet 1 tablet = 60 mg, By Mouth, Daily at bedtime, 0 Refills, Maintenance, 06/08/18 8:44:54 EDT Start Date: 06/08/18 Status: Ordered morphine 15 mg/8 to 12 hr oral tablet, extended release = 15 mg, By Mouth, Every 12 hours, PRN Pain , Severe, # 10 tablet, 0 Refills, Maintenance, 187:58:41 EST, ER Tablet Start Date: 06/16/18 Status: Ordered omeprazole 20 mg oral delayed release tablet 1 tablet = 20 mg, By Mouth, every other day, 0 Refills, Maintenance, 06/08/18 8:49:24 EDT Start Date: 06/08/18 Status: Ordered potassium chloride 20 mEq oral tablet, extended release 1 tablet = 20 mEq, By Mouth, Daily, # 30 tablet, 0 Refills, Maintenance, 06/08/18 8:52:57 EDT, ER Tablet Start Date: 06/08/18 Status: Ordered Vitamin D3 = 5,000 units, By Mouth, Daily, 0 Refills, Maintenance, 06/08/18 8:48:01 EDT Start Date: 06/08/18 Status: Ordered Medical Equipment Implanted Date:06/15/18Target Site:Foot Left Description Quantity MRI Company Model [employer] Bone Graft, Augment Injectable, 1.5CC Kit, Biological, [id number] [employer] Unknown GEOVANNY:No Information Assigning Authority: FDA
--- OUTSIDE RECORDS SUMMARY | 2023-11-27 11:19 | XMS_ITS | Continuity of Care Document ---
Author Organization [facility] ter Address [address] [place] [id number]- Care Team Providers Care Washer And Capper Machine Operator Name Role Phone Ami Sumner MD Primary Care Physician Encounter [facility] Date(s): 12/01/22 - 05/13/[address] [address]- Attending Physician: Mary Ellen Joshi NP Admitting Physician: Adi RIOS, Mary Ellen Song Referring Physician: Adi PACKING AND WRAPPING SUPERVISOR, Mary Ellen Song Allergies, Adverse Reactions, Alerts No Known Allergies Medications amLODIPine 5 mg oral tablet 5 [...] 8:49:24 EDT Start Date: 06/08/18 Status: Ordered PEG-3350 with Electrolytes (Eqv-NuLYTELY) oral powder for reconstitution See Instructions, Mix powder with water according to the product label. On the evening before colonoscopy drink 8 oz eery 15-20 minutes until it gone, # 1 each, 0 Refills, Maintenance, 01/11/23 15:42:00 EDT, [facility]/pharmacy #[id number], Partial fill upon patie... Start Date: 01/11/23 Status: Ordered potassium chloride 20 mEq oral tablet, extended release 1 tablet = 20 mEq, By Mouth, Daily, # 30 tablet, 0 Refills, Maintenance, 06/08/18 8:52:57 EDT, ER Tablet Start Date: 06/08/18 Status: Ordered Vitamin D3 = 5,000 units, By Mouth, Daily, 0 Refills, Maintenance, 06/08/18 8:48:01 EDT Start Date: 06/08/18 Status: Ordered Implantable Device List Procedure Provider Procedure Date Device Type Site Osteotomy Medial Malleolar Mario Briseno MD 06/15/18 Unknown Foot Left Device Identifier Serial Number Lot or Batch Number Manufacturing Date Expiration Date Distinct Identification Code MRI Safety Implantable Status Assigning Authority Unknown Unknown [id number] Unknown 05/04/20 Unknown Unknown Active Ambro[employer] vaishali Patient Care team information Care Team Personnel Name: Ami Sumner MD Position: Reference Physician Member Role: PCP Address: Address: [address] [place] [id number] Care Team Related Persons Name: AMANDA CHO Address: [address] [place] [address]
--- OUTSIDE RECORDS SUMMARY | 2023-11-27 11:19 | XMS_ITS | Continuity of Care Document ---
Author Organization [facility] Address [address] [place] [address]- Care Team Providers Care Cardiac Monitor Technician Name Role Phone Ami Sumner MD Primary Care Physician [phone] Encounter [facility] Date(s): 02/18/22 - 03/20/22 [facility] [address] [place] [address]- Referring Physician: Leta Morales Allergies, Adverse Reactions, Alerts No Known Allergies [...] Site:Foot Left Description Quantity MRI Company Model [employer] Bone Graft, Augment Injectable, 1.5CC Kit, Biological, [id number] [employer] Unknown GEOVANNY:No Information Assigning Authority: FDA
--- OUTSIDE RECORDS SUMMARY | 2023-11-27 11:19 | XMS_ITS | Continuity of Care Document ---
Author Organization [facility] Address [address] [place] [address]- Care Team Providers Care Magnet Maker Name Role Phone Ami Sumner MD Primary Care Physician Encounter [facility] Date(s): 01/11/23 - 02/10/23 [facility] [address] [place] [address]- Attending Physician: Gabi Evans Admitting Physician: Gabi Evans Referring Physician: Gabi Evans Referring Physician: Leta Morales Allergies, Adverse Reactions, [...] each, 0 Refills, Maintenance, 01/11/23 15:42:00 EDT, [facility]/pharmacy #[id number], Partial fill upon patie... Start Date: 01/11/23 [...] Safety Implantable Status Assigning Authority Unknown Unknown [id number] Unknown 05/04/20 Unknown Unknown Active Ambrociok manueln Patient Care team information Care Team Personnel Name: Ami Sumner MD Position: Reference Physician Member Role: PCP Address: Address: [address] [place] [address], [place] [address] Care Team Related Persons Name: AMANDA CHO Address: home [address] [place] [address]
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
== END 2023-11-27 13:40 | disposition home or self-care (01) ==
LOC: HO.HBST 11:18
PROVIDERS: PCP Nurse Practitioner Family; Visit Provider Counselor Mental Health
DX: F31.9 Bipolar disorder, unspecified (principal); F43.10 Post-traumatic stress disorder, unspecified; E66.01 Morbid (severe) obesity due to excess calories
CPT/HCPCS: 90834

== ENCOUNTER → 2023-11-27 11:18 | Outpatient (BNVA) | payer OTHER, SELFPAY | PROVIDERS: PCP Nurse Practitioner Family; Visit Provider Counselor Mental Health ==

== ENCOUNTER → 2023-11-28 10:59 | Outpatient (REF) | payer OTHER, SELFPAY ==
--- NOTE | 2023-11-28 11:01 | CA_ITS ---
Transthoracic Echocardiogram Patient (Last, First, Middle): Albreto Francisco, Gender: Female Date of : 1975 Age: 48 Procedure Date: 11/28/2023 Procedure Type: Transthoracic Echocardiogram Location: OP Height: 165.1 cm Weight: 115.21 kg BSA: 2.19 m2 Heart Rate: bpm BP: 116 / 85 mmHg Chemical Processing Laborer: LISSETTE Referring MD: Bj Tate MD [place]: Dennis Dai MD Symptoms: R94.31 - Abnormal electrocardiogram [ECG] [EKG] Study Quality: Adequate ECG Rhythm: Sinus Conclusions: - Essentially normal study Findings Left Ventricle Normal left ventricular size, thickness, and systolic function. The visually estimated ejection fraction is between 60-65%. Spectral Doppler is indicative of a normal filling pattern. Peak GLS is -20.9%, within normal limits. Right Ventricle Normal right ventricular cavity size and systolic function. Atria Both atria are normal in size. There is no evidence of interatrial shunt. Aortic Valve Normal aortic valve structure and function. There is no aortic valve stenosis. There is no aortic valve regurgitation. Mitral Valve Normal mitral valve structure and function. There is no mitral valve regurgitation. There is no mitral valve stenosis. Pulmonic Valve The pulmonic valve is likely normal. There is trace pulmonic valve regurgitation. Tricuspid Valve Normal tricuspid valve structure. Tricuspid regurgitation envelope is inadequate for calculation of right ventricular systolic pressure. Normal right atrial pressure. Great Vessels The pulmonary artery was not well visualized. There is no dilatation of the ascending aorta measuring 3.10 cm. Venous The inferior vena cava is normal in size and collapses greater than 50% with inspiration. Pericardium/Pleural There is no evidence of pericardial effusion. Prior Study Comparison No prior study available for comparison. Measurements 2D Linear Measurements IVSd: 0.73 0.6-0.9/0.6-1.0 cm LVIDd: 5.07 3.9-5.3/4.2-5.9 cm LVIDd Index: 2.32 2.4-3.2/2.2-3.1 cm/m2 LVIDs: 3.76 2.0-3.6 cm LVPWd: 0.75 0.7-1.1 cm LA Diam: 3.30 2.7-3.8/3.0-4.0 cm LAIDs Index: 1.51 1.5-2.3 cm/m2 LV Mass: 156.58 67-162/88-224 g LV Mass Index: 71.50 43-95/49-115 g/m2 LVOT Diam: 1.90 3.0+(-)1.3 cm 2D Systolic Function EF 4C: 59.20 >55% EF 2C: 69.20 >55% EF BiP: 64.40 >55% Mitral Valve MV Pk E: 1.11 MV PK A: 0.62 MV Decel Time: 222.00 E/A: 1.80 E'Lateral: 11.00 E'Medial: 8.92 E/E' Med: 12.40 E/E' Lat: 10.10 PHT: 65.00 MVA PHT: 3.38 Decel [place]: 5.00 Aortic Valve AoV Pk Reese: 1.39 AoV Mn Reese: 0.96 AoV VTI: 0.32 AoV Pk Grad: 8.00 Aov Mn Grad: 4.00 JADA Cont.VTI: 2.43 LVOT LVOT Pk Reese: 1.15 LVOT Mn Reese: 0.82 LVOT VTI: 0.28 LVOT Pk Grad: 5.00 LVOT Mn Grad: 3.00 LVOT Diam: 1.90 LVOT Area: 2.84 Diastolic Function MV Pk E: 1.11 MV Pk A: 0.62 E/A: 1.80 E'Medial: 8.92 E/E' Med: 12.40 E' Laterial: 11.00 E/E' Lat: 10.10 Right Ventricle TAPSE (mm): 25.20 TVS' Reese: 11.30 Tricuspid Valve RA Press: 3.00 Great Vessels Aorta Sinus of Valsalva: 3.07 2.0-3.5 cm Ao Asc: 3.10 2.1-3.4 cm Ao Arch: 3.20 Updated in Other Vendor System with Status of Final Dennis Dai MD electronically signed on 11/28/2023 4:14:13 PM with status of Final
== END ==
LOC: HO.CARD 10:59
PROVIDERS: PCP Nurse Practitioner Family; Visit Provider Surgery
DX: R94.31 Abnormal electrocardiogram [ECG] [EKG] (principal)
CPT/HCPCS: 93306; 93356

== ENCOUNTER → 2023-11-28 11:01 | Outpatient (BNV) | payer OTHER, SELFPAY | PROVIDERS: PCP Nurse Practitioner Family; Visit Provider Internal Medicine Cardiovascular Disease | DX: R94.31 Abnormal electrocardiogram [ECG] [EKG] (principal) | CPT/HCPCS: 93306; 93356 ==

== ENCOUNTER 2023-11-29 09:43 | Day surgery (SDC) | payer OTHER, SELFPAY ==
--- NOTE | 2023-11-27 13:03 | HO.ANESPROP2 ---
Documented by User: Binta Dhillon NP 11/27/23 13:05 HPI - Anesthesia Eval Consult details Narrative: 48yo F for Upper Endoscopy PMFSH Active Problems Active Problems: All Active Problems Vitamin B1 deficiency (Acute) Abnormal EKG (Acute) Vitamin D deficiency (Acute) Bipolar 1 disorder (Acute) Anxiety (Acute) Depression (Acute) PTSD (post-traumatic stress disorder) (Acute) GERD (gastroesophageal reflux disease) (Acute) Hyperlipidemia (Acute) Hypertension (Acute) Sleep apnea treated with continuous positive airway pressure (CPAP) (Acute) Morbid (severe) obesity due to excess calories (Acute) Past Medical History Medical History Abnormal EKG Bipolar 1 disorder Anxiety Depression PTSD (post-traumatic stress disorder) GERD (gastroesophageal reflux disease) Hyperlipidemia Hypertension Sleep apnea treated with continuous positive airway pressure (CPAP) Morbid (severe) obesity due to excess calories Surgical History Surgical History Hx of brain surgery Hx of cholecystectomy Hx of hand surgery Hx of knee surgery Hx of tonsillectomy Hx of wisdom tooth extraction Social History Social History Alcohol intake: current Alcohol intake frequency: holidays/special occasions only Alcohol type: beer Patient Tobacco Use Status: Never used Tobacco Substance Use Frequency: Daily Are you DNR?: No Advance Directives: No Advance Directives Information Provided: Yes Meds Allergies Allergy/AdvReac Type Severity Reaction Status Date / Time No Known Allergies Allergy Verified 11/29/23 10:30 Home Medications ?Medication ?Instructions ?Recorded ?Confirmed ?Last Taken ?Type atorvastatin 20 mg tablet 20 mg PO QDAY 09/05/23 11/29/23 11/28/23 History bupropion HCl 300 mg 24 hr tablet, 300 mg PO QAM 09/05/23 11/29/23 11/28/23 History extended release estradiol 0.5 mg tablet (Estrace) 0.5 mg PO DAILY 09/05/23 09/29/23 Unknown History hydroxyzine pamoate 25 mg capsule 25 mg PO BEDTIME 09/05/23 09/29/23 Unknown History levothyroxine 112 mcg capsule 112 mcg PO DAILY 09/05/23 11/29/23 11/28/23 History lisinopril 20 mg tablet 20 mg PO DAILY 09/05/23 11/29/23 11/28/23 History losartan 25 mg tablet 25 mg PO DAILY 09/05/23 11/29/23 11/28/23 History lurasidone 80 mg tablet 80 mg PO DAILY 09/05/23 09/29/23 Unknown History omeprazole 20 mg capsule,delayed 20 mg PO DAILY 09/05/23 11/29/23 11/28/23 History release progesterone micronized 100 mg 100 mg PO QAM 09/05/23 11/29/23 11/28/23 History capsule Exam Pertinent Lab Results Pertinent Lab Results: Laboratory Tests 10/18/23 10:17 WBC 9.0 Hgb 14.9 Hct 44.4 Plt Count 336 Sodium 139 Potassium 3.9 Chloride 104 Carbon Dioxide 26 BUN 14 Creatinine 0.89 Narrative Narrative: EKG 11/2023 Vent. Rate : 075 BPM Atrial Rate : 075 BPM P-R Int : 172 ms QRS Dur : 084 ms QT Int : 420 ms P-R-T Axes : 012 -05 052 degrees QTc Int : 469 ms Normal sinus rhythm Nonspecific ST and T wave abnormality Prolonged QT Abnormal ECG No previous ECGs available Assessment and Plan Assessment Anesthesia Assessment: Chart Reviewed Documented by User: Valorie Simeon MD 11/29/23 12:24 [facility] Active Problems Active Problems: All Active Problems Vitamin B1 deficiency (Acute) Abnormal EKG (Acute) Vitamin D deficiency (Acute) Bipolar 1 disorder (Acute) Anxiety (Acute) Depression (Acute) PTSD (post-traumatic stress disorder) (Acute) GERD (gastroesophageal reflux disease) (Acute) Hyperlipidemia (Acute) Hypertension (Acute) Sleep apnea treated with continuous positive airway pressure (CPAP) (Acute) Morbid (severe) obesity due to excess calories (Acute) BMI 40.4 Past Medical History Medical History Abnormal EKG Bipolar 1 disorder Anxiety Depression PTSD (post-traumatic stress disorder) GERD (gastroesophageal reflux disease) Hyperlipidemia Hypertension Sleep apnea treated with continuous positive airway pressure (CPAP) Morbid (severe) obesity due to excess calories Family History Family history of problems with anesthesia: No Surgical History Surgical History Hx of brain surgery Hx of cholecystectomy Hx of hand surgery Hx of knee surgery Hx of tonsillectomy Hx of wisdom tooth extraction History of Problems with Anesthesia: No Social History Social History Alcohol intake: current Alcohol intake frequency: holidays/special occasions only Alcohol type: beer Patient Tobacco Use Status: Never used Tobacco Substance Use Frequency: Daily Are you DNR?: No Advance Directives: No Advance Directives Information Provided: Yes Meds Allergies Allergy/AdvReac Type Severity Reaction Status Date / Time No Known Allergies Allergy Verified 11/29/23 10:30 Home Medications ?Medication ?Instructions ?Recorded ?Confirmed ?Last Taken ?Type atorvastatin 20 mg tablet 20 mg PO QDAY 09/05/23 11/29/23 11/28/23 History bupropion HCl 300 mg 24 hr tablet, 300 mg PO QAM 09/05/23 11/29/23 11/28/23 History extended release estradiol 0.5 mg tablet (Estrace) 0.5 mg PO DAILY 09/05/23 09/29/23 Unknown History hydroxyzine pamoate 25 mg capsule 25 mg PO BEDTIME 09/05/23 09/29/23 Unknown History levothyroxine 112 mcg capsule 112 mcg PO DAILY 09/05/23 11/29/23 11/28/23 History lisinopril 20 mg tablet 20 mg PO DAILY 09/05/23 11/29/23 11/28/23 History losartan 25 mg tablet 25 mg PO DAILY 09/05/23 11/29/23 11/28/23 History lurasidone 80 mg tablet 80 mg PO DAILY 09/05/23 09/29/23 Unknown History omeprazole 20 mg capsule,delayed 20 mg PO DAILY 09/05/23 11/29/23 11/28/23 History release progesterone micronized 100 mg 100 mg PO QAM 09/05/23 11/29/23 11/28/23 History capsule Exam Height,Weight and Vital Signs: Height 5 ft 5 in Weight 110.223 kg Vital Signs Temp Pulse Resp BP Pulse Ox O2 Del Method 97.1 F 64 16 122/76 98 Room Air 11/29/23 10:46 11/29/23 10:46 11/29/23 10:46 11/29/23 10:46 11/29/23 10:46 11/29/23 10:46 Airway Mallampati Class: II TM Dist: >3cm Neck ROM: Full Heart: RRR Lungs: CTAB Assessment and Plan Assessment Anesthesia Assessment: Anesthesia Plan Discussed and Chart Reviewed Final Anesthetic Review Family History of Problems with Anesthesia: No History of Problems with Anesthesia: No NPO: Yes ASA Class: III Final Preanesthetic Review: No Changes in Pt Med Stat, Meds/Allgs Chart Reviewed, Consent Obtained/Reviewed and Anes Risks/Benef Reviewed Patient Risk: Intermediate Procedure Risk: Low Assessment/Block/Sedation in SS: Assess/Block/Sedation-SS Anesthetic Plan Anesthetic Plan: MAC: and TIVA Disposition: Standard PACU
[2023-11-27 14:10] VITALS: BMI 41.3
[2023-11-29 10:23] VITALS: BMI 40.4
[2023-11-29 10:46] VITALS: BP 122/76; PULSE 64; RESP 16; TEMP 36.2; O2SAT 98
--- NOTE | 2023-11-29 10:52 | MHC.SHP ---
Pre-Procedural Eval Section A - 24 Hr Update-Section A only Date of Service: 11/29/23 The patient is an INPATIENT: No The patient has been examined within 24 hours of the surgical procedure. The History & Physical has been completed within 30 days and I have reviewed it.: No Section B - Complete if H&P > 30 days Chief Complaint: Morbid (severe) obesity due to excess calories Details of Present Illness: GERD Relevant Family History (Specify if Yes): No Relevant Social History: None Present Medications: None Medical History: No relevant PMH History of Previous Operations: No relevant previous surgery Allergies: Allergies Allergy/AdvReac Type Severity Reaction Status Date / Time No Known Allergies Allergy Verified 11/29/23 10:30 Review of Systems Sugical H&P ROS: Negative: Constitution, Cardiovascular, Respiratory, Neurological, Psychiatric, Hem-Onc, Allergic/Immunologic, Gastrointestinal, Genitourinary, Musculoskeletal, Integumentary, Endocrine and Eyes/Ears/Nose/Throat Exam Surgical H&P Exam: Normal: HEENT, Normal: Heart, Normal: Lungs, Normal: Extremities, Normal: Abdomen, Normal: Skin and Normal: Neurological Plan Diagnosis/Plan: Unchanged (EGD to assess etiology of GERD. Risks of bleeding and perforation were discussed with the patient and she is in agreement with the plan.) I have reviewed the history and physical and performed a pertinent physical examination on my patient. No changes have occurred unless specified. Time Spent With Patient Time: Total time managing care of this patient today ____ minutes.
--- NOTE | 2023-11-29 10:56 | P.BOP_ITS ---
Brief Operative Note Date of Service: 11/29/23 Pre-op diagnosis: GERD Post-op diagnosis: same Procedure: PROCEDURE DATE: 11/29/2023 PREOPERATIVE DIAGNOSIS: GERD POSTOPERATIVE DIAGNOSIS: ?Same as above. 1) gastritis PROCEDURE: Yiravwzo-pznhrj-vdruewxthizn with biopsies Surgeon: Divya Tate M.D.. Ph.D. Ip Paralegal: None ? Anesthesia: IV sedation Estimated blood loss: ?Minimal FINDINGS AND PROCEDURE: ? OPERATIVE INDICATIONS: ?The patient is a 48 year old female known to me who is interested in bariatric surgery. The patient has GERD. Based on this information I recommended an upper endoscopy to evaluate the patient's symptoms. Risks and complications of the surgery were discussed with the patient in advance particularly the possibility of perforation or bleeding that may require surgical intervention. The patient understood the risks and was in agreement with the plan. ? PROCEDURE: After informed consent was obtained by the patient, the patient was ?transferred to the Operating Room and was placed in the supine position.? After successful induction of IV sedation, a mouth block was inserted and the patient was placed in the left lateral decubitus position. An upper endoscopy was performed next, the oropharynx and esophagus appeared within the normal limits. There was no hiatal hernia. The z-line was smooth. Two biopsies were obtained from the distal esophagus 2-3 cm proximal to the GE junction and two additional biopsies from the GE junction. The stomach was entered and it appeared to be of normal size. There was mild gastritis at distal antrum. There was no stricture or ulcer. A biopsy was obtained from the fundus and the antrum. No significant bleeding was noted from any of the biopsy sites. Retroflexion of the scope revealed no pathology at the fundus and normal GE kevin ction. The scope was then advanced into the duodenum which appeared to be normal as well. At that point the duodenum ?and the stomach were decompressed and the scope was withdrawn from the patient's mouth. The patient extubated and was transferred in stable condition to the Recovery Room for further care. I was present and performed all steps of the procedure. There were no residents to assist with this case. Edgardo Tate M.D., Ph.D. Surgeon: Bj Tate MD Anesthesia: MAC Was an Ip Paralegal used for this Procedure?: No Estimated blood loss (mL): 0 IV fluids (mL): 400 Urine output (mL): 0 (No Sawyer to record output) Pathology: other (1) antrum x1, 2) fundus x1, 3) GE junction x2, 4) distal esophagus x2) Condition: stable Disposition: PACU
[2023-11-29] MEDS: Lactated Ringers 1,000 ML 80 ML IVCONT (10:59)
[2023-11-29 12:05] VITALS: BP 124/67; PULSE 72; RESP 14; TEMP 36.4; O2SAT 97
[2023-11-29 12:20] VITALS: BP 113/74; PULSE 69; RESP 14; O2SAT 99
[2023-11-29 12:35] VITALS: BP 121/71; PULSE 69; RESP 16; TEMP 36.4; O2SAT 99
== END 2023-11-29 12:44 | disposition home or self-care (01) ==
PROVIDERS: PCP Nurse Practitioner Family; Visit Provider Surgery
PROC: 0DJ08ZZ Inspection of Upper Intestinal Tract, Via Natural or Artificial Opening Endoscopic (ICD-10-PCS; CPT 43235; principal; 2023-11-29 11:40)
DX: K21.9 Gastro-esophageal reflux disease without esophagitis (principal); E66.01 Morbid (severe) obesity due to excess calories; Z68.41 Body mass index [BMI] 40.0-44.9, adult; K29.50 Unspecified chronic gastritis without bleeding; I10 Essential (primary) hypertension; G47.33 Obstructive sleep apnea (adult) (pediatric); F43.10 Post-traumatic stress disorder, unspecified; E78.5 Hyperlipidemia, unspecified; F32.A Depression, unspecified; Z79.899 Other long term (current) drug therapy; Z99.89 Dependence on other enabling machines and devices; Z98.890 Other specified postprocedural states
CPT/HCPCS: 43239; 88305; 88313; 88342; J2704

== ENCOUNTER → 2023-11-29 09:43 | Outpatient (BNV) | payer OTHER, SELFPAY | PROVIDERS: PCP Nurse Practitioner Family; Visit Provider Surgery | DX: K21.9 Gastro-esophageal reflux disease without esophagitis (principal); K29.70 Gastritis, unspecified, without bleeding | CPT/HCPCS: 43239 ==

== ENCOUNTER → 2023-12-01 08:43 | Outpatient (REF) | payer OTHER, SELFPAY ==
--- NOTE | 2023-12-01 08:46 | CA_ITS ---
Acquisition Time: 2023-12-01 09:01:25 Total Exercise Time: 00:06:30 Test Indications: ABN EKG Medications: SEE H Protocol: BLANKA Max HR: 151 BPM 88% of Pred: 170 BPM Max BP: 124/070 mmHG Max Work Load: 7.7 METS Exercise stress test with exercise 6 min 30 sec of Blanka protocol achieving 8.8 MPHR and 7.7 METS, without anginal symptoms, without arrhythmias seen through artifact, with normotensive response to exercise, without EKG chnages.. Test reviewed with Dr. Dai Referred By: Bj Tate Overread By: Zainab Mae
== END ==
LOC: HO.CARD 08:43
PROVIDERS: PCP Nurse Practitioner Family; Visit Provider Surgery
DX: R94.31 Abnormal electrocardiogram [ECG] [EKG] (principal)
CPT/HCPCS: 93017

== ENCOUNTER → 2023-12-01 08:46 | Outpatient (BNV) | payer OTHER, SELFPAY | PROVIDERS: PCP Nurse Practitioner Family; Visit Provider Nurse Practitioner | DX: R94.31 Abnormal electrocardiogram [ECG] [EKG] (principal) | CPT/HCPCS: 93016; 93018 ==

== ENCOUNTER 2023-12-25 08:02 | Outpatient (AMB) | payer OTHER, SELFPAY ==
--- NOTE | 2023-12-23 10:04 | MHC.OFFVISWM ---
Intake Visit Reasons: TV Pre Op LSG 01/02/24 Allergies No Known Allergies Allergy (Verified 12/23/23 10:05) Medication List - Last Reconciled 12/23/23 by Bj Tate MD atorvastatin 20 mg PO QDAY bupropion HCl XL 300 mg PO QAM cholecalciferol (vitamin D3) 125 mcg PO DAILY estradiol (Estrace) 0.5 mg PO DAILY hydroxyzine pamoate 25 mg PO BEDTIME levothyroxine 112 mcg PO DAILY lisinopril 20 mg PO DAILY losartan 25 mg PO DAILY lurasidone 80 mg PO DAILY mecobalamin (vitamin B12) 1,000 mcg sublingual DAILY omeprazole 20 mg PO DAILY ondansetron 4 mg PO Q12H pantoprazole 40 mg PO DAILY polyethylene glycol 3350 17 grams PO DAILY progesterone micronized 100 mg PO QAM sucralfate 10 mL PO BID thiamine HCl (vitamin B1) 100 mg PO DAILY HPI HPI TV Pre Op LSG 01/02/24: Details: Start time: 2.30pm, End time: 3pm ?I spent 25 minutes speaking with the patient on the phone plus an additional 5 minutes reviewing and updating records for a total of 30 minutes HPI Comments Details: Overall weight loss: 31.6lbs or 11.78% TBWL Is doing 2 Celebrate Rebuild protein shakes (1 scoop in almond milk), 2 Celebrate protein bars and one meal (10 forks of protein and 10 forks of salad or vegetables) Exercise: walking outside daily for 300 calories, or Elliptical for 300 calories daily PFSH Medical History Abnormal EKG Bipolar 1 disorder Anxiety Depression PTSD (post-traumatic stress disorder) GERD (gastroesophageal reflux disease) Hyperlipidemia Hypertension Sleep apnea treated with continuous positive airway pressure (CPAP) Morbid (severe) obesity due to excess calories Surgical History Hx of brain surgery Hx of cholecystectomy Hx of hand surgery Hx of knee surgery Hx of tonsillectomy Hx of wisdom tooth extraction Social History Alcohol intake: current Alcohol intake frequency: holidays/special occasions only Alcohol type: beer Patient Tobacco Use Status: Never used Tobacco Telehealth Telehealth Telehealth Platform: Telephone Location of provider rendering services: practice address Location of patient: address on file Patient Identification confirmed using: Name, : Yes Telehealth method: voice only Patient verbally consented to treatment: Yes Patient verbally consented to billing insurance company: Yes Patient informed of any privacy concerns related to visit: Yes Minutes spent on Phone/Video with Pt.: 30 Assessment & Plan Assessment & Plan (1) Obesity: Code(s): E66.9 - Obesity, unspecified Category: Medical Qualifiers: Body mass index: BMI 39.0-39.9 Obesity classification: adult class 2 (BMI 35 - 39.9) Obesity type: due to excess calories Serious obesity comorbidity presence: with serious comorbidity Qualified Code(s): E66.01 - Morbid (severe) obesity due to excess calories; Z68.39 - Body mass index [BMI] 39.0-39.9, adult Plan: 1. Plan for lap sleeve gastrectomy including upper GI endoscopy. All tests has been completed and reviewed and the patient is cleared for the surgery. ?If diaphragmatic or ventral hernias are present at time of surgery, these will be repaired laparoscopically as well. Risks and complications were discussed in detail including possible conversion to an open procedure, anastomotic leak, bleeding requiring transfusion, small bowel obstruction, , DVT and pulmonary embolism, cardiac, or pulmonary complications, as terminal make up operator complications such as anastomotic ulcer, insufficient weight loss and vitamin deficiencies. I emphasized the importance of close follow-up, adherence to instructions and good communication. So far she has proven to be an excellent communicator and very compliant with all our directions accomplishing a great weight loss. I believe that she is an excellent candidate and she is ready. 2. Preop prescriptions were provided and explained the purpose of each one. Need to be purchased preop. Start Pantoprazole now as you get it from the pharmacy, 1 pill per day. Sucralfate and Zofran are for after surgery as needed. 3. Bowel prep: please do 7 measuring cups ?of Miralax mixing each one with a an 8oz glass of water, crystal light, gatorade zero, or propel ?on 12/31/23 and the same amount on 01/01/24. The Miralax you begin with one packet at a time in 8oz water or crystal light, gatorade zero, or propel ?as early in the day as you can and you do them back to back until you finish them. Continue the protein shakes during? the bowel prep. 4. Needs to purchase 1oz medicine cups . 5. Needs to purchase Children's liquid Tylenol for postop pain control. 6. She needs to stop the Progesterone and Estradiol as of tomorrow 12/24/23. You can re-start them on 02/02/24. Avoid aspirin, motrin, Advil, Aleve, Ibuprofen, Naproxyn. Tylenol is OK. 7. She needs to purchase the Celebrate 4:1 protein shakes from the hospital's gift shop. 8. Will do basic preop blood work-up any day between Monday12/25/23 and Monday12/29/23 fasting for 12 hours and is scheduled to see the Anesthesiologist prior to the day of surgery. 9. Importance of adherence to postop folllow-up and recommendations was underscored and she understands that. 10. Stop food and bars as of tomorrow 12/24/23 and continue with 3 Celebrate Rebuild protein shakes (ONE scoop EACH in 8oz almond milk) at 9am-11am, 12pm-2pm and 2pm-4pm and TWO more Celebrate Rebuild protein shakes with TWO scoops in 8oz of almond milk at 4pm-6pm and 7pm-9pm 11. No soups, broths or V8 12. The patient's?medical?history has been reviewed and they are considered low risk for post op DVT and therefore DVT prophylaxis is not considered necessary. Travel after surgery was reviewed. The patient has not disclosed any travel plans during the first 30 days after surgery and they have been advised that within the first 30 days after surgery any bus, plane, train or car travel over 2 hours in duration is contraindicated due to the possibility of developing blood clots from immobility. Any travel, needs to include periods of ambulation of 10 minutes in duration every 2 hours.? Patient was instructed to discuss any plans for travel during this period with their bariatric surgeon.? 13. Use your CPAP daily and bring it to the hospital with your mask 14. Please take at the day of surgery the following medications: Lisinopril and Losartan per the following parameters. Measure your blood pressure daily in the morning starting tomorrow. If your blood pressure is: Below 120/70: don't take the Lisinopril or the Losartan 121/71 to 130/85: take the Lisinopril only 131/86 to 140/90: take the Lisinopril and half pill of Losartan Over 141/91: take both the Lisinopril and Losartan 15. Stop any control pills and don't use them for one month after surgery 16. Absolutely no smoking or vaping, or marijuana until the surgery and for at least the first 4 weeks. Only nicotine patches are allowed. 17. Send me weight measurements on Monday12/30/23 and then on Monday01/02/24, the day of surgery before you go to the hospital. 18. Avoid any steroids by mouth for any reason. Let me know if someone prescribes them to you 19. These instructions supersede anything else you read in the handbook, anything you watched in videos or classes or you were told by any other provider. If there is any conflict, you follow the above instructions Orders: Orders Complete Blood Count Auto Diff 12/23/23 E66.9 - Obesity, unspecified Insulin 12/23/23 E66.9 - Obesity, unspecified TSH reflex Free T4 12/23/23 E66.9 - Obesity, unspecified Prothrombin Time INR 12/23/23 E66.9 - Obesity, unspecified Type and Screen 12/23/23 E66.9 - Obesity, unspecified Partial Thromboplastin Time 12/23/23 E66.9 - Obesity, unspecified C Reactive Protein 12/23/23 E66.9 - Obesity, unspecified Lipid Panel 12/23/23 E66.9 - Obesity, unspecified Hemoglobin A1c 12/23/23 E66.9 - Obesity, unspecified Comprehensive Met. Panel 12/23/23 E66.9 - Obesity, unspecified Medications: New pantoprazole 40 mg PO DAILY 90 tabs 0RF K21.9 - Gastro-esophageal reflux disease without esophagitis sucralfate 10 mL PO BID 600 mL 2RF K21.9 - Gastro-esophageal reflux disease without esophagitis ondansetron Only take one every 12 hours as needed if you have nausea 4 mg PO Q12H 20 tabs 0RF nausea and vomiting R11.0 - Nausea polyethylene glycol 3350 Mix each measuring cup with 8oz of water, Crystal light, or Gatorade zero, or Propel and do 7 measuring cups on 12/31/23 and another 7 measuring cups on 01/01/24 17 grams PO DAILY 238 grams 0RF Z01.818 - Encounter for other preprocedural examination
== END 2023-12-25 15:46 | disposition home or self-care (01) ==
LOC: HO.HBS 08:02
PROVIDERS: PCP Nurse Practitioner Family; Referring Provider Nurse Practitioner Family; Visit Provider Surgery
DX: E66.01 Morbid (severe) obesity due to excess calories (principal); Z68.39 Body mass index [BMI] 39.0-39.9, adult
CPT/HCPCS: 99214

== ENCOUNTER → 2023-12-25 08:02 | Outpatient (BNVA) | payer OTHER, SELFPAY | PROVIDERS: PCP Nurse Practitioner Family; Visit Provider Surgery | DX: E66.9 Obesity, unspecified (principal); K21.9 Gastro-esophageal reflux disease without esophagitis; R11.0 Nausea; Z01.818 Encounter for other preprocedural examination ==

== ENCOUNTER → 2023-12-29 08:51 | Outpatient (BNVA) | payer OTHER, SELFPAY | PROVIDERS: PCP Nurse Practitioner Family; Visit Provider Surgery ==

== ENCOUNTER 2024-01-02 05:55 | Inpatient (IN) | payer OTHER, SELFPAY ==
[2023-12-27 10:41] VITALS: BMI 39.1
--- NOTE | 2023-12-28 13:51 | HO.ANESPROP2 ---
HPI - Anesthesia Eval Consult details Narrative: 48yo F for Gastrectomy Sleeve,EGD,possible diaphragmatic hernia,possible ventral hernia,possible open s/p embolization of AV malformation. Followed yearly with [facility]. Last 12/2022 shows nml, no high flow vascular malformations. PMFSH Active Problems Active Problems: All Active Problems Obesity (Acute) Vitamin B1 deficiency (Acute) Vitamin D deficiency (Acute) Abnormal EKG (Acute) Bipolar 1 disorder (Acute) Anxiety (Acute) Depression (Acute) PTSD (post-traumatic stress disorder) (Acute) GERD (gastroesophageal reflux disease) (Acute) Hyperlipidemia (Acute) Hypertension (Acute) Sleep apnea treated with continuous positive airway pressure (CPAP) (Acute) Morbid (severe) obesity due to excess calories (Acute) Past Medical History Medical History (Updated 01/06/24 @ 00:04 by Background Daemon) Wears glasses Wears contact lenses Hypothyroidism YI on CPAP Abnormal EKG Bipolar 1 disorder Anxiety Depression PTSD (post-traumatic stress disorder) GERD (gastroesophageal reflux disease) Hyperlipidemia Hypertension Sleep apnea treated with continuous positive airway pressure (CPAP) Morbid (severe) obesity due to excess calories Family History Family history of problems with anesthesia: No Surgical History Surgical History (Updated 01/06/24 @ 00:04 by Background Daemon) History of loop electrical excision procedure (LEEP) History of esophagogastroduodenoscopy (EGD) (11/29/23) History of ankle surgery Hx of brain surgery Hx of cholecystectomy Hx of hand surgery Hx of knee surgery Hx of tonsillectomy Hx of wisdom tooth extraction History of Problems with Anesthesia: No Social History Social History (Updated 12/27/23 @ 10:49 by Holli Manrique RN) Household Members: Spouse and Children Housing: House Are you a primary resident care director to a significant other at home: No Do you presently have visiting nurse or other home services: No 75 years or older and lives alone: No Alcohol intake: current Alcohol intake frequency: holidays/special occasions only Alcohol type: beer Patient Tobacco Use Status: Never used Tobacco Substance Use Type: Marijuana Meds Allergies Allergy/AdvReac Type Severity Reaction Status Date / Time No Known Allergies Allergy Verified 12/29/23 09:09 Home Medications ?Medication ?Instructions ?Recorded ?Confirmed ?Last Taken ?Type atorvastatin 20 mg tablet 20 mg PO Q OTHER DAY 09/05/23 01/02/24 12/23/23 History bupropion HCl 300 mg 24 hr tablet, 300 mg PO DAILY 09/05/23 01/02/24 01/01/24 History extended release estradiol 0.5 mg tablet (Estrace) 0.5 mg PO DAILY 09/05/23 01/02/24 12/23/23 History hydroxyzine pamoate 25 mg capsule 25 mg PO TID PRN anixety 09/05/23 01/02/24 Unknown History levothyroxine 112 mcg capsule 112 mcg PO DAILY@0600 09/05/23 01/02/24 01/01/24 History lisinopril 20 mg tablet 20 mg PO DAILY 09/05/23 01/02/24 01/02/24 History lurasidone 80 mg tablet 80 mg PO DAILY 09/05/23 01/02/24 01/01/24 History progesterone micronized 100 mg 100 mg PO DAILY 09/05/23 01/02/24 12/23/23 History capsule ondansetron 4 mg disintegrating 4 mg PO Q12H PRN nausea and 01/02/24 01/02/24 Unknown History tablet vomiting pantoprazole 40 mg tablet,delayed 40 mg PO DAILY@0630 01/02/24 01/02/24 Unknown History release Exam Height,Weight and Vital Signs: Height 5 ft 5 in Weight 106.594 kg Narrative Narrative: EKG 10/2023 Vent. Rate : 075 BPM Atrial Rate : 075 BPM P-R Int : 172 ms QRS Dur : 084 ms QT Int : 420 ms P-R-T Axes : 012 -05 052 degrees QTc Int : 469 ms Normal sinus rhythm Nonspecific ST and T wave abnormality Prolonged QT Abnormal ECG No previous ECGs available ECHO 11/2023 Conclusions: - Essentially normal study Exercise stress 11/2023 Protocol: BLANKA Max HR: 151 BPM 88% of Pred: 170 BPM Max BP: 124/070 mmHG Max Work Load: 7.7 METS Exercise stress test with exercise 6 min 30 sec of Blanka protocol achieving 8.8 MPHR and 7.7 METS, without anginal symptoms, without arrhythmias seen through artifact, with normotensive response to exercise, without EKG chnages.. Test reviewed with Dr. Dai Assessment and Plan Assessment Anesthesia Assessment: Chart Reviewed Final Anesthetic Review Family History of Problems with Anesthesia: No History of Problems with Anesthesia: No
[2023-12-29 08:50] LABS: MANUAL DIFF FLAG NO
[2023-12-29 09:16] LABS: Basophils Absolute Auto 0.1 X10*3/uL (0.0-0.2); Basophils Percent Auto 0.7 % (0-2); Eosinophils Absolute Auto 0.1 X10*3/uL (0.0-0.4); Eosinophils Percent Auto 1.4 % (0-4); Hemoglobin 14.7 g/dl (12.0-16.0); Imm Gran Abs Auto 0.02 X10*3/uL (0.00-0.03); Imm Gran Pct Auto 0.3 % (0.0-0.4); Lymphocytes Absolute Auto 2.4 X10*3/uL (1.2-4.9); Lymphocytes Percent Auto 30.6 % (20-40); Mean Corpuscular HGB Conc 33.4 g/dl (31.0-35.0); Mean Corpuscular Hemoglobin 29.1 pg (27.0-33.0); Mean Platelet Volume 9.3 fL (9.4-12.3); Monocytes Absolute Auto 0.6 X10*3/uL (0.1-1.2); Monocytes Percent Auto 8.2 % (2-11); Neutrophils Absolute Auto 4.5 x10*3/uL (2.0-8.3); Neutrophils Percent Auto 58.8 % (45-73); Platelet Count 296 X10*3/uL (160-400); Red Blood Count 5.06 X10*6/uL (4.20-5.50); Red Cell Distribution Width 13.8 % (11.0-16.0); White Blood Count 7.7 X10*3/uL (4.8-10.8)
[2023-12-29 09:21] LABS: INTERNATIONAL NORM RATIO 0.9 (0.9-1.1); Prothrombin Time 11.4 SEC (11.1-13.3)
[2023-12-29 09:23] LABS: Partial Thromboplastin Time 46.8 SEC (26.0-36.8)
[2023-12-29 09:27] LABS: Estimated Average Glucose 108 mg/dL; Hemoglobin A1c % 5.4 % (<6.0)
[2023-12-29 09:54] LABS: Anion Gap 14 (12-20)
[2023-12-29 10:02] LABS: Alanine Aminotransferase 34 U/L (0-31); Albumin Level 4.1 g/dL (3.5-5.0); Alkaline Phosphatase 94 U/L (39-117); Aspartate Amino Transferase 25 U/L (5-31); Bilirubin Total 0.5 mg/dL (0.0-1.0); Blood Urea Nitrogen 15 mg/dL (9-16); C Reactive Protein 1.02 mg/dL (< or = 0.50); Calcium 9.9 mg/dL (8.4-10.2); Carbon Dioxide 24 mmol/L (22-29); Chloride 105 mmol/L (96-108); Cholesterol 115 mg/dL (<200); Creatinine Clr Calc Pharmacy 86.8; Estimated Glomerular Filt Rate > 60; Glucose Random 94 mg/dL (60-115); HDL Cholesterol 45 mg/dL (>40); LDL Cholesterol Calculated 46 mg/dL (<100); Potassium 4.3 mmol/L (3.3-5.1); Sodium 139 mmol/L (135-145); Total Protein 6.7 g/dL (6.5-8.0); Triglycerides 120 mg/dL (<150)
[2023-12-29 10:24] LABS: TSH reflex Free T4 0.59 uIU/mL (0.32-4.0)
[2023-12-29 10:39] LABS: Insulin 12 uU/mL (2-29)
[2024-01-02] VITALS (12 sets, daily range): BP systolic 107–135; BP diastolic 57–74; PULSE 50–75; RESP 12–18; TEMP 36–36.3; O2SAT 93–97; BMI 38.4
[2024-01-02 06:35] LABS: UPreg QC Valid YES; Urine Pregnancy NEGATIVE (NEGATIVE)
[2024-01-02] MEDS: Lactated Ringers 1,000 ML 999 ML IV (06:53)
[2024-01-02] MEDS: Lactated Ringers 1,000 ML 100 ML IVCONT ×3 (06:53→21:52)
[2024-01-02] MEDS: Aprepitant 32 MG/4.4 ML VIAL IVPUSH (06:54)
--- NOTE | 2024-01-02 06:56 | PC.NURSE ---
[facility] called and CPAP check requested. Conf# [id number].
--- NOTE | 2024-01-02 07:31 | P.CONAN_ITS ---
[facility] Active Problems Active Problems: All Active Problems Obesity (Acute) Vitamin B1 deficiency (Acute) Vitamin D deficiency (Acute) Abnormal EKG (Acute) Bipolar 1 disorder (Acute) Anxiety (Acute) Depression (Acute) PTSD (post-traumatic stress disorder) (Acute) GERD (gastroesophageal reflux disease) (Acute) Hyperlipidemia (Acute) Hypertension (Acute) Sleep apnea treated with continuous positive airway pressure (CPAP) (Acute) Morbid (severe) obesity due to excess calories (Acute) Past Medical History Medical History Wears glasses Wears contact lenses Hypothyroidism YI on CPAP Abnormal EKG Bipolar 1 disorder Anxiety Depression PTSD (post-traumatic stress disorder) GERD (gastroesophageal reflux disease) Hyperlipidemia Hypertension Sleep apnea treated with continuous positive airway pressure (CPAP) Morbid (severe) obesity due to excess calories Family History Family history of problems with anesthesia: No Surgical History Surgical History History of loop electrical excision procedure (LEEP) History of esophagogastroduodenoscopy (EGD) (11/29/23) History of ankle surgery Hx of brain surgery Hx of cholecystectomy Hx of hand surgery Hx of knee surgery Hx of tonsillectomy Hx of wisdom tooth extraction History of Problems with Anesthesia: No Social History Social History (Updated 12/27/23 @ 10:49 by Holli Manrique RN) Household Members: Family Housing: House Are you a primary resident care technician to a significant other at home: No Do you presently have visiting nurse or other home services: No Alcohol intake: current Alcohol intake frequency: holidays/special occasions only Alcohol type: beer Patient Tobacco Use Status: Never used Tobacco Substance Use Type: Marijuana Substance Use Frequency: Daily Have you been hit, kicked, punched, or otherwise hurt by someone within the past year? If so, by whom?: No Are you DNR?: No Advance Directives: No Advance Directives Information Provided: No Advance Directives on File: No Recently lost weight without trying: No Nutrition Risks: No Nutritional Risk Patient : No FDLMP: 08/2022 : No Poor oral hygiene: No Meds Allergies Allergy/AdvReac Type Severity Reaction Status Date / Time No Known Allergies Allergy Verified 12/29/23 09:09 Active Medications: Current Medications Lactated Ringer's (Lr) 1,000 mls @ 100 mls/hr IVCONT .Q10H [facility] Last Admin: 01/02/24 06:53 Dose: 100 mls/hr Lactated Ringer's (Lr) 1,000 mls @ 999 mls/hr IV .Q1H1M [facility] Stop: 01/02/24 08:00 Last Admin: 01/02/24 06:53 Dose: 999 mls/hr Home Medications ?Medication ?Instructions ?Recorded ?Confirmed ?Last Taken ?Type atorvastatin 20 mg tablet 20 mg PO Q OTHER DAY 09/05/23 01/02/24 12/23/23 History bupropion HCl 300 mg 24 hr tablet, 300 mg PO QAM 09/05/23 01/02/24 01/01/24 History extended release estradiol 0.5 mg tablet (Estrace) 0.5 mg PO DAILY 09/05/23 01/02/24 12/23/23 History hydroxyzine pamoate 25 mg capsule 25 mg PO BEDTIME 09/05/23 12/23/23 Unknown History levothyroxine 112 mcg capsule 112 mcg PO DAILY 09/05/23 01/02/24 01/01/24 History lisinopril 20 mg tablet 20 mg PO DAILY 09/05/23 01/02/24 01/02/24 History lurasidone 80 mg tablet 80 mg PO DAILY 09/05/23 01/02/24 01/01/24 History omeprazole 20 mg capsule,delayed 20 mg PO DAILY 09/05/23 01/02/24 01/01/24 History release progesterone micronized 100 mg 100 mg PO QAM 09/05/23 01/02/24 12/23/23 History capsule Exam Height,Weight and Vital Signs: Height 5 ft 5 in Weight 104.553 kg Last Vital Signs Temp 97.4 F 01/02/24 06:36 Pulse 75 01/02/24 06:36 Resp 16 01/02/24 06:36 BP 128/71 01/02/24 06:36 Pulse Ox 93 01/02/24 06:36 O2 Del Method Room Air 01/02/24 06:36 Pertinent Lab Results Pertinent Lab Results: kLaboratory Tests 12/29/23 12/29/23 01/02/24 08:37 08:49 06:15 WBC 7.7 RBC 5.06 Hgb 14.7 Hct 44.0 MCV 87.0 MCH 29.1 MCHC 33.4 RDW 13.8 Plt Count 296 MPV 9.3 L Immature Gran % (Auto) 0.3 Neut % (Auto) 58.8 Lymph % (Auto) 30.6 Jewell % (Auto) 8.2 Eos % (Auto) 1.4 Baso % (Auto) 0.7 Lymph # (Auto) 2.4 Jewell # (Auto) 0.6 Eos # (Auto) 0.1 Baso # (Auto) 0.1 Abs Immat Gran (auto) 0.02 Absolute Neuts (auto) 4.5 Absolute Nucleated RBC 0.000 Nucleated RBC % (auto) 0.0 PT 11.4 INR 0.9 APTT 46.8 H Sodium 139 Potassium 4.3 Chloride 105 Carbon Dioxide 24 Anion Gap 14 BUN 15 Creatinine 0.94 Estim Creat Clear Calc 86.8 Estimated GFR > 60 Random Glucose 94 Estimat Average Glucose 108 Hemoglobin A1c % 5.4 Insulin Level 12 Calcium 9.9 Total Bilirubin 0.5 AST 25 ALT 34 H Alkaline Phosphatase 94 C-Reactive Protein 1.02 H Total Protein 6.7 Albumin 4.1 Triglycerides 120 Cholesterol 115 LDL Cholesterol, Calc 46 HDL Cholesterol 45 TSH 0.59 Urine Test NEGATIVE Blood Type O Negative Antibody Screen NEGATIVE Airway Mallampati Class: III TM Dist: >3cm Neck ROM: Full Assessment and Plan Assessment Anesthesia Assessment: Anesthesia Plan Discussed and Chart Reviewed Final Anesthetic Review Family History of Problems with Anesthesia: No History of Problems with Anesthesia: No NPO: Yes ASA Class: III Final Preanesthetic Review: No Changes in Pt Med Stat, Meds/Allgs Chart Reviewed, Consent Obtained/Reviewed, Anes Risks/Benef Reviewed and DNR Form (If Appl.) Patient Risk: Intermediate Procedure Risk: Intermediate Anesthetic Plan Anesthetic Plan: GA Disposition: Standard PACU
--- NOTE | 2024-01-02 07:40 | P.BOP_ITS ---
Brief Operative Note Date of Service: 01/02/24 Pre-op diagnosis: Obesity with comorbidities (see below) Post-op diagnosis: same (& abdominal adhesions) Procedure: INITIAL PATIENT BMI ON PRESENTATION AT OUR OFFICE: 44.6 kg/m2 LAST BMI BEFORE SURGERY: 38.5 kg/m2 COMORBIDITIES: sleep apnea on CPAP, hypertension, hyperlipidemia, GERD, depression, anxiety, hypothyroidism, liver fibrosis ?The patient presented to the Weight Management Program with significant obesity that was negatively impacting the patient's comorbidities as listed above.? The program is a phased program with a special focus on preoperative medical weight management to promote substantial weight loss and prepare the patients for the second phase of the program: bariatric surgery. The patient participated in an intensive weekly lifestyle ?intervention and exercise program during which the patient ?has lost between the initial office visit and the last preoperative visit 37lbs, or 13.8% of initial actual body weight. It was deemed appropriate for the patient to now have bariatric surgery. In light of the current Covid-19 pandemic and the well documented strong association of obesity and increased risk of worse outcomes if infected with Covid-19 (REFERENCES: https://pubmed.ncbi.nlm.nih.gov/36578384/ ,? https://pubmed.ncbi.nlm.nih.gov/28852398/ ), any delay in undergoing bariatric surgery may lead to the patient's worsening health condition and increased?risk of more severe Covid-19 disease if infected. In addition a recent?study from [facility] published in [facility] [employer] on 08/02/2021 ([email or web address]) found that, among patients with obesity, substantial weight loss achieved with surgery was associated with improved outcomes of COVID-19 infection. The findings suggest that obesity can be a modifiable risk factor for the severity of COVID- 19 infection. In addition, the patient met the BMI-criteria for bariatric surgery based on the BMI on initial presentation. The patient should not be penalized for achieving such weight loss because ?it is not sustainable long-term without surgical intervention and it was achieved in preparation for bariatric surgery ?under my direction and based on my published research ([email or web address]).[email or web address] and? https://www.soard.org/article/L6523-9850(22)58030-X/pdf ) ?that a 10% preoperative weight loss improves long-term weight loss after surgery and reduces perioperative complications.? Insurance carriers such as [facility] have endors ed my recommendations ?and have included in their policies criteria to include a 10% preoperative weight loss requirement. PROCEDURE: Esophago-gastroscopy, laparoscopic lysis of adhesions, laparoscopic sleeve gastrectomy and laparoscopic gastropexy INDICATIONS: This is a 48 year-old female who was electively scheduled for laparoscopic, possibly open sleeve gastrectomy. The risks and complications of the procedure were discussed with the patient in advance, particularly the possibility of ; pulmonary embolism; staple line leak; bleeding; GERD; cardiac, pulmonary, or renal complications; as well as long-term problems such as insufficient weight loss, vitamin deficiency, strictures, or ulcers. The patient understood all the risks, and was in agreement to proceed with surgery. DESCRIPTION OF PROCEDURE: After informed consent was obtained from the patient, the patient was given preoperative antibiotics, and was transferred to the operating room. After successful induction of general anesthesia, pneumatic compression devices were placed on both lower extremities. An upper endoscopy was performed next. The oropharynx and esophagus appeared to be within normal limits. There was no diaphragmatic hernia present consistent with the findings of the preoperative upper GI. The stomach was entered. Then after all fluid and air were suctioned and the stomach was fully decompressed, the scope was withdrawn and secured in the mid esophagus. The patient was then prepped and draped in the usual sterile manner, and abdominal access was established at the right upper quadrant with the Patricia technique. A 12 mm blunt port was inserted, and the abdomen was insufflated with CO2 to a pressure of 15 mmHg. Under direct visualization, additional ports were placed, specifically two 5 mm Versi-step ports to the left upper quadrant, and a 5 mm Versi-Step port to the right upper quadrant. 1% lidocaine plain was used to infiltrate all port sites as well as all fascia defects. Using the EndoClose suture passer device, I placed a #1 Polysorb tie across the falciform ligament in order to retract it up against the abdominal wall and prevent injury of the ligament with our instruments during the procedure. There were adhesions deom previous cholecystectomy involving the omentum and let lateral abdominal wall. They were left intact as they did not interfere with our procedure. Following that, the patient was placed in a steep reverse Trendelenburg position. An additional 5 mm port was placed to the right flank for the Mediflex retractor that was used to retract the left lobe of the liver. The gastro-esophageal fat pad was opened with the ultrasonic device (Thunderbeat, Olympus) and the anterior esophagus and hiatus were exposed. The angle of His was opened with the ultrasonic device the fundus of the stomach from any diaphragmatic and splenic attachments. I then opened the gastrocolic ligament between the transverse colon and the greater curvature of the stomach with the ultrasonic device to enter the lesser sac and facilitate the ligation of the short gastric vessels. I started at a mid-point along the greater curvature and using the Thunderbeat, all short gastric vessels were divided all the way to the angle of His until the left denis was completely dissected at its entirety. I then divided the gastro-colic ligament distally to a distance of about 3-4 cm proximal to the pylorus. There were extensive congenital adhesions between the pancreas and posterior gastric wall. Those were lysed completely with the ultrasonic device. Adhesiolysis took approximately 45 min to complete. The stomach was then divided transversely with three Endo KAMERON-45 purple and three KAMERON-60 articulating purple loads using the SIGNIA stapler and loads. Every effort was made that the gastric sleeve had a tubular shape and an even caliber throughout. Once the sleeve resection was completed, the staple line of the gastric sleeve was reinforced with Hemoclips. The resected stomach was retrieved without difficulty from the Patricia port. A gastropexy was then performed in order to prevent postoperative GERD and partial gastric volvulus. Several interrupted 2.0 Surgidac sutures were placed between the sleeve's staple line and the previously divided greater omentum and gastro-colic ligament using the Endo-Stitch device. ?An upper endoscopy was performed. There was no narrowing at the GE junction. The scope was easily advanced all the way to the pylorus which was clearly visualized. There was no narrowing anywhere and the sleeve's caliber was even throughout. The sleeve's staple line was inspected and there was no evidence of ischemia, bleeding or dehiscence. At that point the gastroscope was withdrawn from the patient?s mouth while we were decompressing the bowel and the stomach from any remaining air. I looked into the lesser sac to see how the sleeve was situating and it was situating well. There was no bleeding from the staple line, spleen, or short gastric vessels. The Mediflex retractor was removed, and the undersurface of the liver was inspected and there was no bleeding. The patient was placed in supine position. I closed the fascial defect of the 12 mm port site with a figure of eight #1 Polysorb suture. Then 30 cc Ropivacaine plain with 10 mg of Dexamethasone were used to infiltrate the fascial closure as well as all skin incisions. A total of 7ml Zynrelef was applied in the Patricia wound. At this point, the abdomen was deflated, all ports were removed under direct vision, and no bleeding was noted from any of the port sites. The skin incisions were irrigated with saline and were closed with 4-0 absorbable monofilament sutures. Steri-Strips and OpSites were used to cover all incisions. The patient was extubated and was transferred in stable condition to the recovery room for further care. I was present and performed all curry parts of the procedure. Mr. Russ was the ortho assistant. There were no residents to assist with this case. Edgardo Tate MD, PhD, FACS Surgeon: Bj Tate MD Anesthesia: GETA, local and other (TAP block and 7ml Zynrelef) Was an Account Installer used for this Procedure?: No Account Installer: Karthik Russ Estimated blood loss (mL): 10 IV fluids (mL): 2,500 Urine output (mL): 0 (No Sawyer to record output) Pathology: other (Stomach) Condition: stable Disposition: PACU
--- NOTE | 2024-01-02 07:50 | P.PNGS_ITS ---
Subjective Subjective Date of Service: 01/03/24 Interval history: Feels well. Mild incisional pain. She is tolerating phase 1 bariatric diet Physical Exam 2 Vital Signs: Vital Signs: Last Vital Signs Temp 97.4 F 01/02/24 06:36 Pulse 75 01/02/24 06:36 Resp 16 01/02/24 06:36 BP 128/71 01/02/24 06:36 Pulse Ox 93 01/02/24 06:36 O2 Del Method Room Air 01/02/24 06:36 BMI result Body Mass Index 38.4 GI: Inspection: Yes normal to inspection, Yes incision (clean, dry and intact) and Yes obesity Palpation (GI): Soft to palpation Extrem: Right lower extremity: normal to inspection (no calf tenderness) L eft lower extremity: normal to inspection (no calf tenderness) Objective Data Active Medications Lactated Ringer's (Lr) 1,000 mls @ 100 mls/hr IVCONT .Q10H [facility] Last Admin: 01/02/24 06:53 Dose: 100 mls/hr Documented By: MICKEY Lactated Ringer's (Lr) 1,000 mls @ 999 mls/hr IV .Q1H1M [facility] Stop: 01/02/24 08:00 Last Admin: 01/02/24 06:53 Dose: 999 mls/hr Documented By: MICKEY Labs 01/03/24 05:30 01/03/24 05:30 Labs: Laboratory Results - last 24 hr 01/02/24 06:15 Urine Test NEGATIVE Procedures Date of Service Date of Service: 01/03/24 Progress Note: A&P Assessment and plan (1) Obesity: Status: Acute Assessment and Plan: s/p laparoscopic sleeve gastrectomy, lysis of adhesions and gastropexy Doing well Will check am labs and if OK the patient will be discharged home (2) BMI 38.0-38.9,adult: Status: Acute (3) Sleep apnea treated with continuous positive airway pressure (CPAP): Status: Acute (4) Hypertension: Status: Acute (5) Hyperlipidemia: Status: Acute (6) GERD (gastroesophageal reflux disease): Status: Acute (7) PTSD (post-traumatic stress disorder): Status: Acute (8) Depression: Status: Acute (9) Anxiety: Status: Acute (10) Bipolar 1 disorder: Status: Acute (11) Liver fibrosis: Status: Acute (12) Hypothyroidism: Status: Acute (13) S/P laparoscopic sleeve gastrectomy: Status: Acute (14) Intra-abdominal adhesions: Status: Acute Time Spent With Patient Time: Total time managing care of this patient today ____ minutes. Quality Stroke Does the patient have a stroke diagnosis?: No VTE Prior VTE?: No VTE Risk Level:: Surgical - moderate VTE Device Contraindication: N/A - Device Ordered VTE Drug Contraindication: Treatment Not Indicated
[2024-01-02] MEDS: ceFAZolin Sodium/Dextrose,Iso 2 GM/50 ML PIGGYBACK IV ×2 (08:03→13:41)
[2024-01-02] MEDS: Acetaminophen 1,000 MG/100 ML PIGGYBACK 400 MG IV (08:45)
--- NOTE | 2024-01-02 10:29 | PM.DS ---
DS: Providers Provider Date of Service: 01/03/24 Date of admission: 01/02/24 05:55 Primary care physician: Mary Ellen Joshi NP DS: Diagnosis Discharge Diagnosis (1) Obesity: Status: Acute (2) BMI 38.0-38.9,adult: Status: Acute (3) Sleep apnea treated with continuous positive airway pressure (CPAP): Status: Acute (4) Hypertension: Status: Acute (5) Hyperlipidemia: Status: Acute (6) GERD (gastroesophageal reflux disease): Status: Acute (7) PTSD (post-traumatic stress disorder): Status: Acute (8) Depression: Status: Acute (9) Anxiety: Status: Acute (10) Bipolar 1 disorder: Status: Acute (11) Liver fibrosis: Status: Acute (12) Hypothyroidism: Status: Acute DS: Summary Hospital Course Hospital Course: ADMITTING DIAGNOSIS: obesity, bipolar, anxiety, depression, dimitris, htn, hld, hypothyroid ? DISCHARGE DIAGNOSIS: same, s/p laparoscopic sleeve gastrectomy ? PAST SURGICAL HISTORY: cholecystectomy, brain avm, tonsillectomy, hand surgery ? PROCEDURE: upper endoscopy, laparoscopic sleeve gastrectomy ? DISCHARGE SUMMARY: ? History of Present Illness: ? The patient is a?48 year-old woman with a BMI of?44.6 kg/m2 and associated co-morbidities as described above. The patient had extensive work-up,lost?33.9 lbs preoperatively and was electively scheduled for laparoscopic, possible open sleeve gastrectomy and gastropexy. Risks and complications of the surgery were discussed with the patient in advance, particularly the possibility of , pulmonary embolism, anastomotic leak, bleeding, bowel injury, GERD, cardiac, renal or pulmonary complications. The patient understood all the risks and was in agreement with the surgical plan. ? Hospital Course: ? The patient underwent an uneventful laparoscopic sleeve gastrectomy with gastropexy on the day of admission. Postoperatively, the patient was transferred to the surgical floor. The patient received IV Acetaminophen and IV dilaudid for pain control. Patient was started on bariatric phase 1 diet POD #0. On postoperative day one, the patient was feeling well without nausea, vomiting, fevers, or tachycardia. The patient had some mild incisional pain and the abdomen was soft. ? On the morning of postoperative day one, the patient was continued on 1 ounce of water or ice every half hour. During the day, the patient did fairly well, having some incisional pain, but able to ambulate adequately and to tolerate liquids well. ? Since the patient is doing well, we decided that the patient was ready to be discharged. The patient was given instructions to follow-up with me next week and to call my office for any fever over 101, persistent abdominal pain, nausea, vomiting, GERD, symptoms of DVT such as calf tenderness, or leg swelling, or pulmonary embolism such as chest pain or shortness of breath. The patient was also instructed to drink 40-60 ounces of liquids per day using the 1-ounce cups. The patient had been given prescriptions for Tylenol for pain, Zofran prn for nausea, and pantoprazole and carafate previously. The patient was encouraged to ambulate and use the incentive spirometer. The patient was allowed to shower, but no baths, and encouraged to stay active at home. All of these instructions were given to the patient personally. All questions were answered and the patient understood all instructions, the instructions were also given to the patient in print. Time Attestation Total time managing care of this patient today: 25 mintues. Discharge Coordination Time (in mins): 25 Quality: Safe Use of Opioids Does Pt have an Active Cancer Diagnosis on the Problem List?: No Quality: Stroke Does the patient have a stroke diagnosis?: No Physical Exam Vital Signs: Vital Signs: Last Vital Signs Temp 97.4 F 01/02/24 06:36 Pulse 75 01/02/24 06:36 Resp 16 01/02/24 06:36 BP 128/71 01/02/24 06:36 Pulse Ox 93 01/02/24 06:36 O2 Del Method Room Air 01/02/24 06:36 BMI result Body Mass Index 38.4 DS: Data Data Completed and Pending Pending studies at discharge: Pending at discharge 01/02/24 09:28 Surgical [PTH] Routine Labs on day of discharge: Laboratory Results - last 24 hr 01/02/24 06:15 Urine Test NEGATIVE Discharge Plan Discharge Anticipated Discharge Date/Time: 01/03/24 10:00 Patient Disposition: Home, Self-Care Discharge Diagnosis: s/p laparoscopic sleeve gastrectomy Referrals: Mary Ellen Joshi, GABRIEL [Primary Care Provider] - 1 Week Discharge Medications: Continued pantoprazole 40 mg tablet,delayed release (DR/EC) 40 mg PO DAILY@0630 ondansetron 4 mg tablet,disintegrating 4 mg PO Q12H PRN (Reason: nausea and vomiting) Rx Instructions: Only take one every 12 hours as needed if you have nausea bupropion HCl 300 mg tablet extended release 24 hr 300 mg PO DAILY atorvastatin 20 mg tablet 20 mg PO Q OTHER DAY hydroxyzine pamoate 25 mg capsule 25 mg PO TID PRN (Reason: anixety) lurasidone 80 mg tablet 80 mg PO DAILY Rx Instructions: must administer with food (at least 350 calories) levothyroxine 112 mcg capsule 112 mcg PO DAILY@0600 sucralfate 100 mg/mL suspension 10 ml PO BID Qty: 600 2RF Held lisinopril 20 mg tablet 20 mg PO DAILY Hold Instructions: Resume on 01/04/24. Check your blood pressure every morning as soon as you wake up and send it to Dr. Tate. Do no take the blood pressure medication if the blood pressure is below 120/70. Wait every day to hear back from Dr. Tate before you take the medication. progesterone micronized 100 mg capsule 100 mg PO DAILY Hold Instructions: Resume on 02/03/24. Rx Instructions: off 7 days; repeat cycle estradiol [Estrace] 0.5 mg tablet 0.5 mg PO DAILY Hold Instructions: Resume on 02/03/24. Rx Instructions: off 5 days; repeat cycle Discontinued thiamine HCl (vitamin B1) 100 mg tablet 100 mg PO DAILY Qty: 90 0RF omeprazole 20 mg capsule,delayed release(DR/EC) 20 mg PO DAILY@0630 cholecalciferol (vitamin D3) 125 mcg (5,000 unit) capsule 125 mcg PO DAILY Qty: 90 0RF mecobalamin (vitamin B12) 1,000 mcg tablet,disintegrating 1,000 mcg sublingual DAILY Qty: 90 0RF Rx Instructions: place tablet under tongue and allow to dissolve for at least30 secs before swallowing Discharge Orders: Discharge Order (Routine); Ordered 01/03/24 Ordered By: Bj Tate Activity on Discharge: No heavy lifting Stand Alone Forms: Patient Portal Discharge page Print Language: Icelandic Care Plan Goals: weight loss Health Concerns: obesity Plan of Treatment: No tub baths, sex or returning to work until discussed at first post op appointment. No exercise, alcohol, tobacco or illegal drug use. Continue to use incentive spirometer hourly while awake. Walk in home for 5- 10 minutes every 2 hours during the first week. Follow all instructions in the bariatric handbook and call with any questions.Discharge Instructions 1. Please call your doctor or come back to the emergency room should any new symptoms arise. 2. You will receive a courtesy call from [facility] 24-48 hours after discharge. 3. Activity: abstain from alcohol, practice limited stair climbing, no bending, no driving, no exercise, no illicit substances, no lifting, no sex, no tub bath, no work. 4. Diet: continue as discussed with Dr. Tate. 5. Dressing Change/Wound Care: Your incision is covered by clear bandages and guaze underneath. If the area is tender, you may apply an ice pack for short intervals (no more than 20 minutes on, followed by at least 20 minutes off). Do not apply heat. Do not use creams, lotions, or topical antibiotics unless instructed to do so by your surgeon. These can cause infection or allergic reaction. 6. Call your doctor if: - Your temperature exceeds 101.5 F - You experience excessive pain or swelling - You have an unexpected reaction to medication - You have excessive bleeding - You experience continued vomiting/nausea - Your incision begins to separate - Your incision shows signs of infection such as increased redness, swelling, excessive pain, heat, or drainage (light blood or clear fluid is normal) 7. General instructions: No lifting greater than 5 lbs for 1 week and not more than 20lbs the next 3?weeks. No driving until seen at the office in 5-7 days after surgery. If you do not move your bowels in the next 2 days, please tell?Dr. Tate. Please walk around your home every hour or two to prevent blood clots from forming in your legs. You do not need to wake from sleeping to walk. Please sleep in a bed or couch to prevent kinking at the hips and knees. Please take your incentive spirometer (your lung acute dialysis registered nurse) home with you and use it for the next few days to prevent pneumonia. You may shower, no hot tubs, baths or swimming pools.?Please follow the post op diet instructions you are?given by Dr Tate? and text me daily at 5-6pm for an update.?If you have any issues or concerns or questions please communicate this to him via text.? The Celebrate shakes have all of the bariatric vitamins you need if you consume these shakes. If you are drinking other protein shakes, you will need to purchase the Celebrate multivitamins and calcium that are available in the hospital gift shop on the first floor of the main hospital.??Do not take anything without first discussing with Dr Tate. Please make sure you are consuming at least 40 ounces of fluids per day starting the?day AFTER your discharge from the hospital. Always drink 1-2 ml per minute using the 5ml?syringe. If you drink faster you may experience?bloating,?gas pain, burping, nausea or heartburn. In that case please slow down your pace and use the syringe to?understand better the?proper?pace and volume of drinking. Do not hesitate to contact the office with any questions at . The patient's medical history has been reviewed and they are considered low risk for post op DVT and therefore DVT prophylaxis is not considered necessary. Travel after surgery was reviewed. The patient has not disclosed any travel plans during the first 30 days after surgery and they have been advised that within the first 30 days after surgery any bus, plane, train or car travel over 2 hours in duration is contraindicated due to the possibility of developing blood clots from immobility. Any travel, needs to include periods of ambulation of 10 minutes in duration every 2 hours.? The patient was instructed to discuss any plans for travel during this period with their bariatric surgeon. Assessment: stable s/p laparoscopic sleeve gastrectomy Discharge Date/Time: 01/03/24 09:32
[2024-01-02] MEDS: Metoclopramide HCl 10 MG/2 ML VIAL IVPUSH ×2 (10:34→19:37)
[2024-01-02 10:59] LABS: Hemoglobin 14.7 g/dl (12.0-16.0)
[2024-01-02 11:14] LABS: Anion Gap 16 (12-20); Blood Urea Nitrogen 13 mg/dL (9-16); Calcium 9.6 mg/dL (8.4-10.2); Carbon Dioxide 25 mmol/L (22-29); Chloride 102 mmol/L (96-108); Creatinine Clr Calc Pharmacy 93.8; Estimated Glomerular Filt Rate > 60; Glucose Random 155 mg/dL (60-115); Potassium 4.6 mmol/L (3.3-5.1); Sodium 138 mmol/L (135-145)
--- NOTE | 2024-01-02 13:46 | PHA.MEDREC ---
Pharmacy Consult ? Medication Reconciliation Pharmacy has completed the medication reconciliation. Talked to pt to confirm meds. Pt mentioned that they take estradiol and progesterone and only temporarily stopped it for the surgery,
[2024-01-02] MEDS: Acetaminophen 1,000 MG/100 ML PIGGYBACK 16.7 MG IV ×2 (14:30→19:34)
[2024-01-02] MEDS: ondansetron HCL 4 MG/2 ML VIAL IVPUSH (14:47)
[2024-01-02] MEDS: HYDROmorphone HCl 0.5 MG/0.5 ML SYRINGE 0.25 MG IVPUSH (19:34)
[2024-01-02] MEDS: Famotidine/PF 20 MG/2 ML VIAL IVPUSH (19:34)
[2024-01-02] MEDS: 0.9 % Sodium Chloride Flush 3 ML SYRINGE IVFLUSH (19:37)
[2024-01-03] MEDS: Acetaminophen 1,000 MG/100 ML PIGGYBACK 16.7 MG IV ×2 (01:36→07:14)
[2024-01-03 03:01] VITALS: BP 117/58; PULSE 52; RESP 16; TEMP 36; O2SAT 94
[2024-01-03 05:36] LABS: MANUAL DIFF FLAG NO
[2024-01-03] MEDS: Levothyroxine Sodium 112 MCG TABLET PO (05:37)
[2024-01-03 05:44] LABS: Basophils Percent Auto 0.1 % (0-2); Hematocrit 39.8 % (37.0-47.0); Hemoglobin 13.5 g/dl (12.0-16.0); Imm Gran Abs Auto 0.05 X10*3/uL (0.00-0.03); Imm Gran Pct Auto 0.4 % (0.0-0.4); Mean Corpuscular HGB Conc 33.9 g/dl (31.0-35.0); Mean Corpuscular Hemoglobin 29.5 pg (27.0-33.0); Mean Corpuscular Volume 87.1 fL (80.0-98.0); Mean Platelet Volume 9.5 fL (9.4-12.3); Monocytes Absolute Auto 0.6 X10*3/uL (0.1-1.2); Monocytes Percent Auto 4.6 % (2-11); Neutrophils Absolute Auto 11.2 x10*3/uL (2.0-8.3); Neutrophils Percent Auto 86.9 % (45-73); Platelet Count 245 X10*3/uL (160-400); Red Blood Count 4.57 X10*6/uL (4.20-5.50); Red Cell Distribution Width 13.5 % (11.0-16.0); White Blood Count 12.8 X10*3/uL (4.8-10.8)
[2024-01-03 06:03] LABS: Anion Gap 16 (12-20); Blood Urea Nitrogen 9 mg/dL (9-16); Calcium 9.2 mg/dL (8.4-10.2); Carbon Dioxide 23 mmol/L (22-29); Chloride 104 mmol/L (96-108); Creatinine Clr Calc Pharmacy 96.1; Estimated Glomerular Filt Rate > 60; Glucose Random 132 mg/dL (60-115); Potassium 4.7 mmol/L (3.3-5.1); Sodium 138 mmol/L (135-145)
[2024-01-03] MEDS: Famotidine/PF 20 MG/2 ML VIAL IVPUSH (07:12)
[2024-01-03] MEDS: ondansetron HCL 4 MG/2 ML VIAL IVPUSH (07:12)
[2024-01-03 07:54] VITALS: BP 132/78; PULSE 60; RESP 18; TEMP 36.3; O2SAT 98
[2024-01-03] MEDS: buPROPion HCl XL 300 MG TAB.ER.24H PO (08:52)
[2024-01-03] MEDS: Lurasidone HCl 80 MG TABLET PO (08:52)
--- NOTE | 2024-01-03 09:38 | HO.POSTANES ---
Post Anesthesia Evaluation Post Anesthesia Evaluation Date of Service: 01/03/24 Vital Signs: Vital Signs Temp Pulse Resp BP Pulse Ox O2 Del Method 01/03/24 07:54 97.3 F 60 18 132/78 98 Room Air 01/03/24 03:01 96.8 F 52 16 117/58 L 94 CPAP 01/02/24 23:43 96.8 F 53 18 126/67 93 CPAP Anesthesia: General Endotracheal-GETA Mental Status: Awake Pain Control: Satisfactory Nausea/Vomiting: None Hydration: Adequate Anesthesia-Related Issues: No Anes. Related Issues
--- NOTE | 2024-01-03 09:39 | MHC.CM.PN ---
CM ATTEMPTED TO MEET W/PT X3, PT W/NURSE, GETTING DRESSED AND HAD DISCHARGED FROM UNIT, CM UNABLE TO COMPLETE CM INTAKE HOWEVER PLAN FOR DC IS HOME SELF CARE W/FOLLOW-UP NEXT IN SURGEONS OFFICE.
== END 2024-01-03 09:32 | disposition home or self-care (01) | DRG 620 ==
LOC: HO.SSSA 10:32 → HO.S3 11:12
PROVIDERS: Nurse Practitioner; Physician Assistant Surgical; Admitting Provider Surgery; PCP Nurse Practitioner Family; Visit Provider Surgery
PROC: 0DB64Z3 Excision of Stomach, Percutaneous Endoscopic Approach, Vertical (ICD-10-PCS; CPT 43845; principal; 2024-01-02 07:30)
DX: E66.01 Morbid (severe) obesity due to excess calories (principal); Q43.3 Congenital malformations of intestinal fixation; E78.5 Hyperlipidemia, unspecified; F41.9 Anxiety disorder, unspecified; F32.A Depression, unspecified; K74.00 Hepatic fibrosis, unspecified; G47.33 Obstructive sleep apnea (adult) (pediatric); F43.10 Post-traumatic stress disorder, unspecified; K66.0 Peritoneal adhesions (postprocedural) (postinfection); E03.9 Hypothyroidism, unspecified; Z68.38 Body mass index [BMI] 38.0-38.9, adult; Z79.890 Hormone replacement therapy; Z79.899 Other long term (current) drug therapy
CPT/HCPCS: 36415; 80048; 80053; 80061; 81025; 83036; 83525; 84443; 85014; 85018; 85025; 85610; 85730; 86140; 86850; 86900; 86901; 88304; 88305; 88307; 88342; A4649; C9088; C9145; J0131; J0690; J1100; J1170; J2250; J2405; J2704; J2710; J2765; J2795; J3010; J7120

== ENCOUNTER → 2024-01-02 05:55 | Outpatient (BNV) | payer OTHER, SELFPAY | PROVIDERS: Admitting Provider Surgery; PCP Nurse Practitioner Family; Visit Provider Surgery | DX: E66.01 Morbid (severe) obesity due to excess calories (principal); Z68.38 Body mass index [BMI] 38.0-38.9, adult; Z90.3 Acquired absence of stomach [part of]; Z98.84 Bariatric surgery status | CPT/HCPCS: 43659; 43775; 99024 ==

== ENCOUNTER 2024-01-09 11:18 | Outpatient (AMB) | payer OTHER, SELFPAY ==
--- NOTE | 2024-01-09 11:19 | MHC.OFFVISWM ---
VS Expanded 01/09/24 11:31 BP 119/59 L Blood Pressure Location Rt brachial Blood Pressure Position Sitting Pulse 61 Pulse Source Pulse Oximeter Temp 96.8 F Temperature Source Tympanic Pulse Oximetry 96 Oxygen Delivery Method Room Air Height 5 ft 5 in Weight 288 lb 6.4 oz BMI 48.0 Body Fat % 41.9 Body Fat Mass 95.6 Fat Free Mass 132.8 Visceral Fat Rating 12.0 Body Water % 41.4 Body Water Mass 94.6 Muscle Mass/Score 126.2 Basal Metabolic Rate/Score 1,838 Intake Visit Reasons: (OV) PO LSG 01/02/24 Allergies No Known Allergies Allergy (Verified 01/09/24 11:44) HPI Comments Details: 48-year-old female returns to the office today in follow-up. She is 7 days post sleeve gastrectomy performed on 01/02/2024. Tolerating 3 celebrate 4 in 1 shakes with 1 scoop each and approximately 50 oz of fluids. She has had a bowel movement and offers no significant complaints at today's appointment [facility] Medical History (Updated 01/06/24 @ 00:04 by Karen España) Wears glasses Wears contact lenses Hypothyroidism YI on CPAP Abnormal EKG Bipolar 1 disorder Anxiety Depression PTSD (post-traumatic stress disorder) GERD (gastroesophageal reflux disease) Hyperlipidemia Hypertension Sleep apnea treated with continuous positive airway pressure (CPAP) Morbid (severe) obesity due to excess calories Surgical History (Updated 01/09/24 @ 11:45 by Irene Winn CMA) Hx of laparoscopic partial gastrectomy History of loop electrical excision procedure (LEEP) History of esophagogastroduodenoscopy (EGD) (11/29/23) History of ankle surgery Hx of brain surgery Hx of cholecystectomy Hx of hand surgery Hx of knee surgery Hx of tonsillectomy Hx of wisdom tooth extraction Social History (Updated 12/27/23 @ 10:49 by Holli Manrique RN) Household Members: Spouse and Children Housing: House Are you a primary rn primary care to a significant other at home: No Do you presently have visiting nurse or other home services: No 75 years or older and lives alone: No Alcohol intake: current Alcohol intake frequency: holidays/special occasions only Alcohol type: beer Patient Tobacco Use Status: Never used Tobacco Substance Use Type: Marijuana Physical Exam GI Inspection: Yes incision (Clean, dry, intact.) Assessment & Plan Assessment & Plan (1) S/P laparoscopic sleeve gastrectomy: Code(s): Z98.84 - Bariatric surgery status Category: Surgical Plan: POD 7 s/p LSG on 01/02/[address] Tate Weight loss prior to surgery was 33.9 pounds or 12.6 % TBWL. Original weight on 09/29/2023 was 268.2 pounds and op weight was 234.3 pounds. Be sure to text Dr Tate exactly 1 week after surgery your weight from your home scale so he can adjust your meal plan. Continue meal plan until f/u w Darleen in 2 weeks May shower, no submersion in bath for another week Continue abdominal binder with activity and exercise for the next 2 weeks. Exercise prior to surgery was elliptical and walking outside and may resume No abdominal exercises for 6 weeks post operatively Will be emailed link to post op video for review Reminded of the pace of drinking, 2 mL per minute, 1 oz/15 min.
[2024-01-09 11:31] VITALS: BP 119/59; PULSE 61; TEMP 36; O2SAT 96; BMI 48.0
== END 2024-01-09 12:04 | disposition home or self-care (01) ==
LOC: HO.HBS 11:18
PROVIDERS: PCP Nurse Practitioner Family; Referring Provider Nurse Practitioner Family; Visit Provider Physician Assistant Surgical
DX: Z98.84 Bariatric surgery status (principal)
CPT/HCPCS: 99024

== ENCOUNTER → 2024-01-09 11:18 | Outpatient (BNVA) | payer OTHER, SELFPAY | PROVIDERS: PCP Nurse Practitioner Family; Visit Provider Physician Assistant Surgical | DX: Z48.89 Encounter for other specified surgical aftercare (principal); Z98.84 Bariatric surgery status | CPT/HCPCS: 99212 ==

== ENCOUNTER 2024-01-18 15:08 | Outpatient (AMB) | payer OTHER, SELFPAY ==
[2024-01-18 15:25] VITALS: BP 122/68; BMI 37.0
--- NOTE | 2024-01-18 15:25 | A.OFFPC_ITS ---
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 Allergies No Known Allergies Allergy (Verified 01/18/24 15:27) Medication List - Last Reconciled 01/18/24 by Mario Garcia MD atorvastatin 20 mg PO Q OTHER DAY bupropion HCl XL 300 mg PO DAILY estradiol (Estrace) 0.5 mg PO DAILY hydroxyzine pamoate 25 mg PO TID PRN levothyroxine 112 mcg PO DAILY@0600 lisinopril 20 mg PO DAILY lurasidone 80 mg PO DAILY pantoprazole 40 mg PO DAILY@0630 progesterone micronized 100 mg PO DAILY sucralfate 10 mL PO BID Tobacco use date assessed: 01/18/24 Dental Screening Dental Screen Date: 01/18/24 Did you have a dental visit in the last 12 months?: Yes Did you have a dental problem in the last 6 months where you did not have access to dental care?: No Was dental information given to patient?: Patient has dentist 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 Recent?bariatric?surgery?at?[facility]?and?doing?well Has?lost?over?40?lb?since?the?beginning?of?the?year. Bipolar, Anxiety PTSD. Has therapist & PSY med provider. HTN, AVM brain - gets annual MRI managed by her [place] Physician. HLD & on atorvastatin Mom: Stage IV Lung CA. Dad: Prostate CA No Cigs. EtOH 3 dr in a week. MJ but has been stopped. Daily when tummy heals No other drugs PFSH Medical History Wears glasses Wears contact lenses Hypothyroidism YI on CPAP Abnormal EKG Bipolar 1 disorder Anxiety Depression PTSD (post-traumatic stress disorder) GERD (gastroesophageal reflux disease) Hyperlipidemia Hypertension Sleep apnea treated with continuous positive airway pressure (CPAP) Morbid (severe) obesity due to excess calories Surgical History (Updated 01/09/24 @ 11:45 by Irene Winn [facility]) Hx of laparoscopic partial gastrectomy History of loop electrical excision procedure (LEEP) History of esophagogastroduodenoscopy (EGD) (11/29/23) History of ankle surgery Hx of brain surgery Hx of cholecystectomy Hx of hand surgery Hx of knee surgery Hx of tonsillectomy Hx of wisdom tooth extraction Social History Household Members: Spouse and Children Housing: House Are you a primary manager of care to a significant other at home: No Do you presently have visiting nurse or other home services: No 75 years or older and lives alone: No Alcohol intake: current Alcohol intake frequency: holidays/special occasions only Alcohol type: beer Patient Tobacco Use Status: Never used Tobacco e-Cigarette/Vaping Use: Never Used Substance Use Type: Marijuana service: Yes Current occupational status: retired Cognitive needs: No Hearing needs: No Vision needs: Yes (Patient wears contacts.) Questionnaire PHQ-9 Over the last 2 weeks, how often have you been bothered by any of the following problems? 1. Little interest or pleasure in doing things: not at all 2. Feeling down, depressed, or hopeless: several days 3. Trouble falling or staying asleep, or sleeping too much: more than half the days 4. Feeling tired or having little energy: several days 5. Poor appetite or overeating: not at all 6. Feeling bad about yourself - or that you are a failure or have let yourself or your family down: not at all 7. Trouble concentrating on things, such as reading the newspaper or watching television: not at all 8. Moving or speaking so slowly that other people could have noticed. Or the opposite - being so fidgety or restless that you have been moving around a lot more than usual: not at all 9. Thoughts that you would be better off or of hurting yourself in some way: not at all Total score: 4 Depression Screening Interpretation: Negative Depression Screening Done: Yes 32032 - PHQ-9 Billing: Yes Source: Developed by Drs. Ho Mcdonald, Susy Bullock, Ramone Pickens and colleagues, with an educational maria alejandra from [employer]. Thrive Questionnaire Date Thrive assessed: 01/18/24 I am a: Patient What is your living situation today?: I have a steady place to live Within the past 12 months, did the food you bought not last and you didn't have the money to get more?: Never true Within the past 12 months, did you worry whether your food would run out before you got money to buy more?: Never true Do you have trouble paying for medicines?: No Do you have trouble getting transportation to medical appointments?: No Do you have trouble paying your heating and electricity bill?: No Do you have trouble taking care of your child, family member or friend?: No Do you have trouble with day-to-day activities such as bathing, preparing meals, shopping, managing finances, etc.?: No Are you currently unemployed and looking for a job?: No Are you interested in more education?: No THRIVE Score: 0 AUDIT C Alcohol Use Questionnaire (AUDIT-C) 1. How often do you have a drink containing alcohol?: 2-3 times a week 2. How many drinks containing alcohol do you have on a typical day when you are drinking?: 1 or 2 3. How often do you have six or more drinks on one occasion?: Never Total Score: 3 JEANNE-7 AMB Questionnaire JEANNE-7 Date JEANNE - 7 assessed: 01/18/24 Feeling nervous, anxious, or on edge: 1 = Several days Not being able to stop or control worryin = Several days Worrying too much about different things: 1 = Several days Trouble relaxin = Several days Being so restless that it is hard to sit still: 0 = Not at all Becoming easily annoyed or irritable: 1 = Several days Feeling afraid as if something awful might happen: 0 = Not at all Total JEANNE-7 score (0-4 normal; 5-9 mild; 10-14 moderate; 15-21 severe): 5 Source: Developed by Drs. Ho Mcdonald, Susy Bullock, Ramone Pickens and colleagues, with an educational maria alejandra from [employer]. JEANNE-7 Assessment Billing JEANNE-7 Assessment Tool: JEANNE-7 Assessment 37445 Review of Systems Const Denies chills, Denies fatigue, Denies fever(s), Denies headache(s) and Denies weakness ENT Denies dizziness and Denies headache(s) Card Denies chest pain, Denies lightheadedness, Denies dyspnea and Denies other (Palpitations) Resp Denies cough, Denies dyspnea, Denies wheezing and Denies other ( shortness of breath) Musc Denies numbness and Denies tingling Neuro Denies dizziness, Denies headache(s), Denies numbness, Denies tingling, Denies paresthesias and Denies weakness Psych Denies anxiety and Denies depression Endo Denies fatigue Aller/Immun Denies wheezing Physical exam (Primary Care) Vital Signs: Last Vital Signs BP 122/68 01/18/24 15:25 BMI result Body Mass Index 37.0 Tobacco/Smoking Status: Tobacco use Status Tobacco use date assessed 01/18/24 01/18/24 15:41 Patient Tobacco Use Status Never used Tobacco 01/18/24 15:41 e-Cigarette/Vaping Use Never Used 01/18/24 15:41 PHQ-9: PHQ-9 Score PHQ-9: Total score 4 01/18/24 15:50 Depression Screening Interpretation: Negative Thrive Assessment: Date of Thrive Assessment Date Thrive assessed 01/18/24 01/18/24 15:41 Const General: no acute distress and well developed Nutritional Appearance: well nourished Orientation/consciousness: patient oriented x3 HENMT Head: Yes normocephalic and Yes atraumatic Eyes General: appearance normal, both eyes and all related structures Pupils: Equal, round and reactive pupils present EOM: EOMs intact bilaterally Resp Effort & Inspection: normal respiratory effort Auscultation: clear to auscultation bilaterally Cardio Rate: regular rate Rhythm: regular rhythm Heart sounds: S1 normal heart sound present, S2 normal heart sound present, no gallops, no murmurs and no rubs Neuro General: patient oriented x3 and gait normal Cranial nerves: Yes Equal, round and reactive pupils present Psych Affect: normal affect Assessment and Plan Assessment & Plan (1) S/P laparoscopic sleeve gastrectomy: Code(s): Z98.84 - Bariatric surgery status Plan: Morbid?obesity?and?patient?is?now?s/p?laparoscopic?sleeve?gastrectomy Has?lost?over?40?lb Congratulated?patient Continue?to?follow-up?with?the?bariatric?team (2) Obesity: Code(s): E66.9 - Obesity, unspecified Qualifiers: Body mass index: BMI 39.0-39.9 Obesity classification: adult class 2 (BMI 35 - 39.9) Obesity type: due to excess calories Serious obesity comorbidity presence: with serious comorbidity Qualified Code(s): E66.01 - Morbid (severe) obesity due to excess calories; Z68.39 - Body mass index [BMI] 39.0-39.9, adult Plan: As?above (3) Hypothyroidism: Code(s): E03.9 - Hypothyroidism, unspecified Plan: Last?TSH?was?within?normal?range. Continue?levothyroxine?as?prescribed (4) Bipolar 1 disorder: Code(s): F31.9 - Bipolar disorder, unspecified Plan: Stable?on?current?psych?med?regimen Follow-up?with?behavioral?health?team (5) Depression: Code(s): F32.A - Depression, unspecified Plan: As?above (6) Hypertension: Code(s): I10 - Essential (primary) hypertension Plan: Blood?pressure?is?controlled?and?improving.??Goal?is?less?than?140/90 She?is?on?lisinopril?and?due?to?weight?loss?from?bariatric?surgery,?she?is?only? taking?this?medication?when?blood?pressure?is?elevated (7) Hyperlipidemia: Code(s): E78.5 - Hyperlipidemia, unspecified Plan: Due?to?bariatric?surgery?she?is?only?taking?atorvastatin?every?other?day Continue?weight?loss (8) Sleep apnea treated with continuous positive airway pressure (CPAP): Code(s): G47.30 - Sleep apnea, unspecified Plan: Continue?CPAP Orders: Orders Comprehensive [place]. Panel Fast Today Z00.00 - Encounter for general adult medical examination without abnormal findings Microalbumin, Random (w Creat) Today I10 - Essential (primary) hypertension Lipid Panel Today Z00.00 - Encounter for general adult medical examination without abnormal findings Complete Blood Count Auto Diff Today Z00.00 - Encounter for general adult medical examination without abnormal findings Free T4 (Free Thyroxine) Today E03.9 - Hypothyroidism, unspecified Triiodothyronine T3 Total Today E03.9 - Hypothyroidism, unspecified Thyroid Stimulating Hormone Today E03.9 - Hypothyroidism, unspecified UA and rflx microscopic Today Z00.00 - Encounter for general adult medical examination without abnormal findings Vitamin B12 and Folate Today E53.8 - Deficiency of other specified B group vitamins Vitamin D 25-OH Total Today E55.9 - Vitamin D deficiency, unspecified Coding Level of Care Code New Pt Level 3 (40203) Diagnoses S/P laparoscopic sleeve gastrectomy Z98.84 Class 2 severe obesity due to excess calories with serious comorbidity and body mass index (BMI) of 39.0 to 39.9 in adult E66.01; Z68.39 Body mass index: BMI 39.0-39.9 Obesity classification: adult class 2 (BMI 35 - 39.9) Obesity type: due to excess calories Serious obesity comorbidity presence: with serious comorbidity Hypothyroidism E03.9 Bipolar 1 disorder F31.9 Depression F32.A Hypertension I10 Hyperlipidemia E78.5 Sleep apnea treated with continuous positive airway pressure (CPAP) G47.30 Additional Codes JEANNE-7 Assessment Billing - JEANNE-7 Assessment Tool: JEANNE-7 Assessment 30032 ([id number])
== END 2024-01-18 16:02 | disposition home or self-care (01) ==
PROVIDERS: PCP Family Medicine; Visit Provider Family Medicine
DX: E03.9 Hypothyroidism, unspecified (principal); E66.01 Morbid (severe) obesity due to excess calories; F31.9 Bipolar disorder, unspecified; Z68.39 Body mass index [BMI] 39.0-39.9, adult; Z98.84 Bariatric surgery status; F32.A Depression, unspecified; I10 Essential (primary) hypertension; E78.5 Hyperlipidemia, unspecified; G47.30 Sleep apnea, unspecified
CPT/HCPCS: 99203

== ENCOUNTER 2024-01-29 11:26 | Outpatient (AMB) | payer OTHER, SELFPAY ==
--- NOTE | 2024-01-29 11:06 | MHC.OFFVISWM ---
VS Expanded 01/29/24 11:07 Height 5 ft 5 in Weight 217 lb BMI 36.1 Intake Visit Reasons: (TV) PO LSG 01/02/24 Allergies No Known Allergies Allergy (Verified 01/18/24 15:27) Medication List - Last Reconciled 01/29/24 by REBEKAH Diallo atorvastatin 20 mg PO Q OTHER DAY bupropion HCl XL 300 mg PO DAILY docusate sodium (Colace) 100 mg PO DAILY estradiol (Estrace) 0.5 mg PO DAILY hydroxyzine pamoate 25 mg PO TID PRN levothyroxine 112 mcg PO DAILY@0600 lisinopril 20 mg PO DAILY lurasidone 80 mg PO DAILY pantoprazole 40 mg PO DAILY@0630 progesterone micronized 100 mg PO DAILY sucralfate 10 mL PO BID HPI Comments Details: This?is a?48?yo female who is s/p LSG 01/02/2024. Presents for 1 month post op visit. No complaints of nausea, emesis, abdominal pain or reflux. Has started MoM, Colace and Metamucil for constipation, has had 1-2 small BMs. However pt has had a difficult few weeks due to one stepson being hospitalized for schizophrenia at [place], other son broke his back in a car accident. She wants to start hair/skin/nails supplement. She asks about restarting marijuana use. Present meal plan includes: 8-10am Celebrate 4:1 2 scoops 11am-1pm Celebrate 4:1 2 scoops 2-4pm Rebuild 1 scoop 5-8pm Celebrate protein bar Exercise routine includes: 2000 calories / week, usually more PFSH Medical History Wears glasses Wears contact lenses Hypothyroidism YI on CPAP Abnormal EKG Bipolar 1 disorder Anxiety Depression PTSD (post-traumatic stress disorder) GERD (gastroesophageal reflux disease) Hyperlipidemia Hypertension Sleep apnea treated with continuous positive airway pressure (CPAP) Morbid (severe) obesity due to excess calories Surgical History (Updated 01/09/24 @ 11:45 by Irene Winn CONCRETE POINTER) Hx of laparoscopic partial gastrectomy History of loop electrical excision procedure (LEEP) History of esophagogastroduodenoscopy (EGD) (11/29/23) History of ankle surgery Hx of brain surgery Hx of cholecystectomy Hx of hand surgery Hx of knee surgery Hx of tonsillectomy Hx of wisdom tooth extraction Social History Household Members: Spouse and Children Housing: House Are you a primary lawn care professional to a significant other at home: No Do you presently have visiting nurse or other home services: No 75 years or older and lives alone: No Alcohol intake: current Alcohol intake frequency: holidays/special occasions only Alcohol type: beer Patient Tobacco Use Status: Never used Tobacco e-Cigarette/Vaping Use: Never Used Substance Use Type: Marijuana service: Yes Current occupational status: retired Cognitive needs: No Hearing needs: No Vision needs: Yes (Patient wears contacts.) Telehealth Telehealth Telehealth Platform: Telephone Location of provider rendering services: other Location of patient: address on file Patient Identification confirmed using: Name, : Yes Telehealth method: voice only Patient verbally consented to treatment: Yes Patient verbally consented to billing insurance company: Yes Patient informed of any privacy concerns related to visit: Yes Minutes spent on Phone/Video with Pt.: 20 Assessment & Plan Assessment & Plan (1) S/P laparoscopic sleeve gastrectomy: Code(s): Z98.84 - Bariatric surgery status Category: Surgical (2) Obesity: Code(s): E66.9 - Obesity, unspecified Category: Medical Qualifiers: Obesity type: due to excess calories Obesity classification: adult class 2 (BMI 35 - 39.9) Serious obesity comorbidity presence: with serious comorbidity Body mass index: BMI 39.0-39.9 Qualified Code(s): E66.01 - Morbid (severe) obesity due to excess calories; Z68.39 - Body mass index [BMI] 39.0-39.9, adult Plan Pt to continue same meal plan, will check in with Dr Marie tomorrow. Discussed the recommendation to not smoke after surgery, pt was asking about pot/vaping. Would recommend edibles if needed. No alcohol until 3mo postop. May take hair/skin/nails supplement. RTC 1 month. Patient is obese and is not considered stable at this time. I spent a total of 30 minutes reviewing/updating records, examining the patient and counseling the patient on weight management as detailed above.
[2024-01-29 11:07] VITALS: BMI 36.1
== END 2024-01-29 11:32 | disposition home or self-care (01) ==
LOC: HO.HBS 11:27
PROVIDERS: PCP Family Medicine; Visit Provider Physician Assistant Surgical
DX: E66.01 Morbid (severe) obesity due to excess calories (principal); Z68.39 Body mass index [BMI] 39.0-39.9, adult; Z90.3 Acquired absence of stomach [part of]; Z98.84 Bariatric surgery status
CPT/HCPCS: 99024

== ENCOUNTER → 2024-01-29 11:26 | Outpatient (BNVA) | payer OTHER, SELFPAY | PROVIDERS: PCP Family Medicine; Visit Provider Physician Assistant Surgical ==

== ENCOUNTER → 2024-03-05 09:50 | Outpatient (BNVA) | payer OTHER, SELFPAY | PROVIDERS: PCP Family Medicine; Visit Provider Physician Assistant Surgical ==

== ENCOUNTER 2024-03-06 14:39 | Outpatient (AMB) | payer OTHER, SELFPAY ==
--- NOTE | 2024-03-06 14:37 | MHC.OFFVISWM ---
Intake Visit Reasons: TV PO LSG 01/02/24 Allergies No Known Allergies Allergy (Verified 01/18/24 15:27) Medication List - Last Reconciled 03/06/24 by REBEKAH Diallo atorvastatin 20 mg PO Q OTHER DAY bupropion HCl 100 mg PO BID docusate sodium (Colace) 100 mg PO DAILY estradiol (Estrace) 0.5 mg PO DAILY hydroxyzine pamoate 25 mg PO TID PRN levothyroxine 112 mcg PO DAILY@0600 lisinopril 20 mg PO DAILY lurasidone 80 mg PO DAILY pantoprazole 40 mg PO DAILY@0630 progesterone micronized 100 mg PO DAILY sucralfate 10 mL PO BID HPI Comments Details: This?is a?49?yo female who is s/p LSG 01/02/2024. Presents for 2 month post op visit. Weight at last visit on 01/29/2024 was 217 pounds with a BMI of 36.1, weight today is 203 pounds, representing a 14 pound weight loss with a BMI today of 33.8.? No complaints of nausea, emesis, abdominal pain or reflux, or constipation. Present meal plan includes: 3 shakes 4:1 4 forks protein, 4 forks veg MVI OR a shake based/bar based plan but pt does not have available at the moment Exercise routine includes: was able to reach 3400 sydni burned last week, 3800 sydni goal for this week PFS Medical History (Reviewed 01/18/24 @ 15:29 by Brittany Franz [facility]) Wears glasses Wears contact lenses Hypothyroidism YI on CPAP Abnormal EKG Bipolar 1 disorder Anxiety Depression PTSD (post-traumatic stress disorder) GERD (gastroesophageal reflux disease) Hyperlipidemia Hypertension Sleep apnea treated with continuous positive airway pressure (CPAP) Morbid (severe) obesity due to excess calories Surgical History (Updated 01/09/24 @ 11:45 by Irene Winn CMA) Hx of laparoscopic partial gastrectomy History of loop electrical excision procedure (LEEP) History of esophagogastroduodenoscopy (EGD) (11/29/23) History of ankle surgery Hx of brain surgery Hx of cholecystectomy Hx of hand surgery Hx of knee surgery Hx of tonsillectomy Hx of wisdom tooth extraction Social History (Reviewed 01/18/24 @ 15:29 by Brittany Franz [facility]) Household Members: Spouse and Children Housing: House Are you a primary childcare teacher to a significant other at home: No Do you presently have visiting nurse or other home services: No 75 years or older and lives alone: No Alcohol intake: current Alcohol intake frequency: holidays/special occasions only Alcohol type: beer Patient Tobacco Use Status: Never used Tobacco e-Cigarette/Vaping Use: Never Used Substance Use Type: Marijuana service: Yes Current occupational status: retired Cognitive needs: No Hearing needs: No Vision needs: Yes (Patient wears contacts.) Telehealth Telehealth Telehealth Platform: Telephone Location of provider rendering services: practice address Location of patient: other Assessment & Plan Assessment & Plan (1) S/P laparoscopic sleeve gastrectomy: Code(s): Z98.84 - Bariatric surgery status Category: Surgical (2) Obesity: Code(s): E66.9 - Obesity, unspecified Category: Medical Qualifiers: Obesity type: due to excess calories Obesity classification: adult class 2 (BMI 35 - 39.9) Serious obesity comorbidity presence: with serious comorbidity Body mass index: BMI 39.0-39.9 Qualified Code(s): E66.01 - Morbid (severe) obesity due to excess calories; Z68.39 - Body mass index [BMI] 39.0-39.9, adult Plan Will continue to text Dr. Marie weekly with measurements for meal plan. She is traveling next month and will be back after , can schedule next phone appt then when she is back in the state. I spent a total of 30 minutes reviewing/updating records, examining the patient and counseling the patient on weight management as detailed above.
== END 2024-03-06 14:52 | disposition home or self-care (01) ==
LOC: HO.HBS 14:39
PROVIDERS: PCP Family Medicine; Visit Provider Physician Assistant Surgical
DX: E66.01 Morbid (severe) obesity due to excess calories (principal); Z68.39 Body mass index [BMI] 39.0-39.9, adult; Z90.3 Acquired absence of stomach [part of]; Z98.84 Bariatric surgery status
CPT/HCPCS: 99024

== ENCOUNTER → 2024-03-06 14:39 | Outpatient (BNVA) | payer OTHER, SELFPAY | PROVIDERS: PCP Family Medicine; Visit Provider Physician Assistant Surgical ==

== ENCOUNTER 2024-04-16 12:29 | Outpatient (AMB) | payer OTHER, SELFPAY ==
--- NOTE | 2024-04-16 12:38 | MHC.OFFVISWM ---
VS Expanded 04/16/24 12:41 Height 5 ft 5 in Weight 186 lb BMI 30.9 Intake Visit Reasons: TV PO LSG 01/02/24 Allergies No Known Allergies Allergy (Verified 01/18/24 15:27) Medication List - Last Reconciled 04/16/24 by REBEKAH Diallo atorvastatin 20 mg PO Q OTHER DAY bupropion HCl 100 mg PO BID docusate sodium (Colace) 100 mg PO DAILY estradiol (Estrace) 0.5 mg PO DAILY hydroxyzine pamoate 25 mg PO TID PRN levothyroxine 112 mcg PO DAILY@0600 lisinopril 20 mg PO DAILY lurasidone 80 mg PO DAILY progesterone micronized 100 mg PO DAILY HPI Comments Details: This?is a?49?yo female who is s/p LSG 01/02/2024. Presents for 2.5 month post op visit. Weight at last visit on 03/06/2024 was 203 pounds with a BMI of 33.8, weight today is 186 pounds, representing a 17 pound weight loss with a BMI today of 30.9.? No complaints of nausea, emesis, abdominal pain or reflux, or constipation. Present meal plan includes: 3 shakes 4:1 with 1 scoop 4 forks protein, 4 forks veg MVI OR a shake based/bar based plan with 2 shakes 2 scoops each, 1 rebuild shake, 1 bar Exercise routine includes: average calorie burn per day 600 restarted marijuana smoking April 03 doses lisinopril based on BP readings checked daily, 2-3x/week [facility] Medical History Wears glasses Wears contact lenses Hypothyroidism YI on CPAP Abnormal EKG Bipolar 1 disorder Anxiety Depression PTSD (post-traumatic stress disorder) GERD (gastroesophageal reflux disease) Hyperlipidemia Hypertension Sleep apnea treated with continuous positive airway pressure (CPAP) Morbid (severe) obesity due to excess calories Surgical History (Updated 01/09/24 @ 11:45 by Irene Winn EXERCISE RIDER) Hx of laparoscopic partial gastrectomy History of loop electrical excision procedure (LEEP) History of esophagogastroduodenoscopy (EGD) (11/29/23) History of ankle surgery Hx of brain surgery Hx of cholecystectomy Hx of hand surgery Hx of knee surgery Hx of tonsillectomy Hx of wisdom tooth extraction Social History Household Members: Spouse and Children Housing: House Are you a primary behavioral health care manager to a significant other at home: No Do you presently have visiting nurse or other home services: No 75 years or older and lives alone: No Alcohol intake: current Alcohol intake frequency: holidays/special occasions only Alcohol type: beer Patient Tobacco Use Status: Never used Tobacco e-Cigarette/Vaping Use: Never Used Substance Use Type: Marijuana service: Yes Current occupational status: retired Cognitive needs: No Hearing needs: No Vision needs: Yes (Patient wears contacts.) Telehealth Telehealth Telehealth Platform: Telephone Location of provider rendering services: other Location of patient: address on file Patient Identification confirmed using: Name, : Yes Telehealth method: voice only Patient verbally consented to treatment: Yes Patient verbally consented to billing insurance company: Yes Patient informed of any privacy concerns related to visit: Yes Minutes spent on Phone/Video with Pt.: 15 Assessment & Plan Assessment & Plan (1) S/P laparoscopic sleeve gastrectomy: Code(s): Z98.84 - Bariatric surgery status Category: Surgical (2) Obesity: Code(s): E66.9 - Obesity, unspecified Category: Medical Qualifiers: Obesity type: due to excess calories Obesity classification: adult class 2 (BMI 35 - 39.9) Serious obesity comorbidity presence: with serious comorbidity Body mass index: BMI 39.0-39.9 Qualified Code(s): E66.01 - Morbid (severe) obesity due to excess calories; Z68.39 - Body mass index [BMI] 39.0-39.9, adult Plan Pt to continue same meal plan per Dr. Gustafson Will monitor symptoms off PPI. Continue to check BP and dose lisinopril according to parameters. RTC 4-6 weeks. I spent a total of 30 minutes reviewing/updating records, examining the patient and counseling the patient on weight management as detailed above.
[2024-04-16 12:41] VITALS: BMI 30.9
== END 2024-04-16 12:57 | disposition home or self-care (01) ==
LOC: HO.HBS 12:29
PROVIDERS: PCP Family Medicine; Visit Provider Physician Assistant Surgical
DX: E66.09 Other obesity due to excess calories (principal); Z68.30 Body mass index [BMI] 30.0-30.9, adult; Z90.3 Acquired absence of stomach [part of]; Z98.84 Bariatric surgery status
CPT/HCPCS: 99214

== ENCOUNTER → 2024-04-16 12:29 | Outpatient (BNVA) | payer OTHER, SELFPAY | PROVIDERS: PCP Family Medicine; Visit Provider Physician Assistant Surgical ==

== ENCOUNTER 2024-06-13 12:32 | Outpatient (AMB) | payer OTHER, SELFPAY ==
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
[2024-06-13 12:37] VITALS: BMI 28.3
== END 2024-06-13 12:50 | disposition home or self-care (01) ==
LOC: HO.HBS 12:32
PROVIDERS: PCP Family Medicine; Visit Provider Physician Assistant Surgical
DX: E66.3 Overweight (principal); Z68.28 Body mass index [BMI] 28.0-28.9, adult; Z90.3 Acquired absence of stomach [part of]; Z98.84 Bariatric surgery status
CPT/HCPCS: 99214; G2211

== ENCOUNTER 2024-07-02 09:55 | Outpatient (REF) | payer OTHER, SELFPAY ==
[2024-07-02 10:13] LABS: MANUAL DIFF FLAG NO
[2024-07-02 10:48] LABS: Basophils Absolute Auto 0.1 X10*3/uL (0.0-0.2); Basophils Percent Auto 0.8 % (0-2); Eosinophils Absolute Auto 0.1 X10*3/uL (0.0-0.4); Eosinophils Percent Auto 1.2 % (0-4); Hematocrit 43.8 % (37.0-47.0); Hemoglobin 14.8 g/dl (12.0-16.0); Imm Gran Abs Auto 0.02 X10*3/uL (0.00-0.03); Imm Gran Pct Auto 0.3 % (0.0-0.4); Lymphocytes Absolute Auto 2.6 X10*3/uL (1.2-4.9); Lymphocytes Percent Auto 35.6 % (20-40); Mean Corpuscular HGB Conc 33.8 g/dl (31.0-35.0); Mean Corpuscular Hemoglobin 30.2 pg (27.0-33.0); Mean Corpuscular Volume 89.4 fL (80.0-98.0); Monocytes Absolute Auto 0.5 X10*3/uL (0.1-1.2); Monocytes Percent Auto 7.3 % (2-11); Neutrophils Percent Auto 54.8 % (45-73); Platelet Count 313 X10*3/uL (160-400); Red Cell Distribution Width 15.2 % (11.0-16.0); White Blood Count 7.2 X10*3/uL (4.8-10.8)
[2024-07-02 11:04] LABS: Estimated Average Glucose 103 mg/dL; Hemoglobin A1C 124.3798 umol/L; Hemoglobin A1c % 5.2 % (<6.0); Total Hemoglobin (HGBA1C) 3778.8929 umol/L
[2024-07-02 11:30] LABS: Alanine Aminotransferase 28 U/L (0-31); Albumin Level 4.2 g/dL (3.5-5.0); Alkaline Phosphatase 117 U/L (39-117); Anion Gap 15 (12-20); Aspartate Amino Transferase 25 U/L (5-31); Bilirubin Total 0.6 mg/dL (0.0-1.0); Blood Urea Nitrogen 12 mg/dL (9-16); C Reactive Protein 0.43 mg/dL (< or = 0.50); Calcium 9.8 mg/dL (8.4-10.2); Carbon Dioxide 24 mmol/L (22-29); Chloride 102 mmol/L (96-108); Cholesterol 127 mg/dL (<200); Estimated Glomerular Filt Rate > 60; Glucose Random 98 mg/dL (60-115); HDL Cholesterol 61 mg/dL (>40); Iron 142 mcg/dL (30-160); LDL Cholesterol Calculated 54 mg/dL (<100); Percent Iron Saturation 48 % (15-50); Potassium 4.3 mmol/L (3.3-5.1); Sodium 137 mmol/L (135-145); Total Iron Binding Capacity 293 mcg/dL (228-428); Total Protein 6.7 g/dL (6.5-8.0); Triglycerides 63 mg/dL (<150); Unsaturated Iron Binding 151 ug/dL
[2024-07-02 11:31] LABS: Ferritin 126 ng/mL (10-250); Insulin 5 uU/mL (2-29); TSH reflex Free T4 4.93 uIU/mL (0.32-4.0); Vitamin D 25-OH Total 63.1 ng/mL (>30)
[2024-07-02 11:48] LABS: Folate 19.1 ng/mL (> or = 4.0); Vitamin B12 1290 pg/mL (200-900)
[2024-07-02 12:06] LABS: Free T4 (Free Thyroxine) 0.93 ng/dL (0.71-1.85)
[2024-07-07 16:03] LABS: Zinc 75 mcg/dL (60-130)
== END 2024-07-02 09:56 | disposition home or self-care (01) ==
LOC: HO.LAB 09:55
PROVIDERS: Visit Provider Physician Assistant Surgical
DX: Z98.84 Bariatric surgery status (principal); Z13.1 Encounter for screening for diabetes mellitus
CPT/HCPCS: 36415; 80053; 80061; 82306; 82607; 82728; 82746; 83036; 83525; 83540; 84425; 84439; 84443; 84590; 84630; 85025; 86140

== ENCOUNTER 2024-09-16 13:04 | Outpatient (AMB) | payer OTHER, SELFPAY ==
--- NOTE | 2024-09-16 12:07 | MHC.OFFVISWM ---
VS Expanded 09/16/24 12:10 Height 5 ft 5 in Weight 161 lb BMI 26.8 Intake Visit Reasons: TV PO LSG 01/02/24 Allergies No Known Allergies Allergy (Verified 01/18/24 15:27) Medication List - Last Reconciled 09/16/24 by REBEKAH Diallo atorvastatin 20 mg PO Q OTHER DAY bupropion HCl 100 mg PO BID docusate sodium (Colace) 100 mg PO DAILY estradiol (Estrace) 0.5 mg PO DAILY hydroxyzine pamoate 25 mg PO TID PRN levothyroxine 112 mcg PO DAILY@0600 lisinopril 20 mg PO DAILY lurasidone 80 mg PO DAILY progesterone micronized 100 mg PO DAILY HPI Comments Details: This?is a?49?yo female who is s/p LSG 01/02/2024. Presents for 9 month post op visit. Weight at last visit on 06/13/2024 was 170.6 pounds, weight today is 161 pounds, representing a 9.6 pound weight loss with a BMI today of 26.8.? No complaints of nausea, emesis, abdominal pain or reflux, or constipation. Pt reports having to cook more for holiday guests, doing shakes less. She goes to family therapy with her and plans to address some concerns about ways he could support her better. Present meal plan includes: 3 shakes 4:1 with 1 scoop 1 bar 4 forks protein, 4 forks veg MVI, taking hair/skin/nails OR a shake based/bar based plan with 2 shakes 2 scoops each, 1 rebuild shake, 1 bar Exercise routine includes: average calorie burn per day 600 when she was exercising doses lisinopril based on BP readings checked daily, has not needed recently Pt reports issues of excess skin of arms, legs, abdomen. Primarily, her arms have excess skin of upper arms which is very heavy and causes discomfort/strain on her shoulders and upper back. [facility] Medical History Wears glasses Wears contact lenses Hypothyroidism YI on CPAP Abnormal EKG Bipolar 1 disorder Anxiety Depression PTSD (post-traumatic stress disorder) GERD (gastroesophageal reflux disease) Hyperlipidemia Hypertension Sleep apnea treated with continuous positive airway pressure (CPAP) Morbid (severe) obesity due to excess calories Surgical History (Updated 01/09/24 @ 11:45 by Irene Winn [facility]) Hx of laparoscopic partial gastrectomy History of loop electrical excision procedure (LEEP) History of esophagogastroduodenoscopy (EGD) (11/29/23) History of ankle surgery Hx of brain surgery Hx of cholecystectomy Hx of hand surgery Hx of knee surgery Hx of tonsillectomy Hx of wisdom tooth extraction Social History Household Members: Spouse and Children Housing: House Are you a primary childcare center administrator to a significant other at home: No Do you presently have visiting nurse or other home services: No 75 years or older and lives alone: No Alcohol intake: current Alcohol intake frequency: holidays/special occasions only Alcohol type: beer Patient Tobacco Use Status: Never used Tobacco e-Cigarette/Vaping Use: Never Used Substance Use Type: Marijuana service: Yes Current occupational status: retired Cognitive needs: No Hearing needs: No Vision needs: Yes (Patient wears contacts.) Telehealth Telehealth Telehealth Platform: Telephone Location of provider rendering services: other Location of patient: address on file Patient Identification confirmed using: Name, : Yes Telehealth method: voice only Patient verbally consented to treatment: Yes Patient verbally consented to billing insurance company: Yes Patient informed of any privacy concerns related to visit: Yes Minutes spent on Phone/Video with Pt.: 17 Assessment & Plan Assessment & Plan (1) Overweight: Code(s): E66.3 - Overweight Category: Medical (2) S/P laparoscopic sleeve gastrectomy: Code(s): Z98.84 - Bariatric surgery status Category: Surgical Plan Pt will continue plan per Dr Marie, resuming exercise now that her elliptical has been moved to basement and is more accessible. She is interested in skin removal surgery, has to discuss with her PCP because of her [employer] insurance. Labs reviewed, TSH slightly elevated, pt will discuss with her PCP. RTC end of December for in person, will need physical exam. I spent a total of 30 minutes reviewing/updating records, examining the patient and counseling the patient on weight management as detailed above.
[2024-09-16 12:10] VITALS: BMI 26.8
--- OUTSIDE RECORDS SUMMARY | 2024-09-16 14:06 | XMS_ITS | Patient Health Record ---
Author Organization [facility] Address [address] [place] [address] REASON FOR REFERRAL No Information PLAN OF TREATMENT No Information Insurance Providers Payer Name Payer Address Payer Phone Subscriber Number Group Number Insured Name Patient Relationship to Insured Coverage Start Date Coverage End Date [employer] [address] [place] [id number] [phone] [id number] Alberto Francisco Self - patient is the insured
--- OUTSIDE RECORDS SUMMARY | 2024-09-16 14:07 | XMS_ITS ---
Author Organization [facility] Address [address] [place] [address] Care Team Providers Care Material Loader Name Role Phone BRICE LYLES Unavailable [phone] REASON FOR VISIT not able to make it Encounters Encounter Location Date Provider Diagnosis [facility] [address] [facility] [address] [place] [address] 08/30/2023 BRICE LYLES ASSESSMENTS Encounter Date Diagnosis Assessment Notes Treatment Notes Treatment Clinical Notes Section Notes 08/30/2023 Total time spent today was 60 minutes of which greater than 50% was spent on coordinating and counseling We are a board certified obesity and weight management practice Patient has trialed behavioral modification, dietary restrictions and exercise for a minimum of 6 months The most recent [place] [employer] of clinical endocrinologists and [place] [employer] guidelines recommend patients who have overweight BMI or obesity BMI, who also have metabolic syndrome, prediabetes, or at risk of developing type 2 diabetes should aim for a weight loss goal of at least 10% of the baseline body weight Patient counseled regarding effects of GLP/GIP-1 agonists, and other FDA approved wgt loss meds with regards to a multifactorial approach of weight loss as mentioned above and not solely appetite suppression. We have discussed the mechanism of GLP-1's/GIP, dual incretins I think this would be fantastic option for her given her metabolic workup and body composition We have discussed the risks and benefits and side effects including/and not limited to Sarcopenia, intestinal obstruction, constipation, nausea, lethargy, headache Discussed importance of protein consumption for muscle maintenance as well as strength and resistance training ,probiotics, B12 complex biotin , iron and other nutrients, To help avoid telogen effluvium There is no history of medullary thyroid cancer or multiple endocrine neoplasia There is also no history of cardiovascular disease, hypertension, palpitations, or arrhythmias In the setting of potential stimulant/amphetamin e use such as phentermine We have also discussed risks and benefits, and the use of compounded medications to help offset the national shortages as well as financial implications vs trade name drugs GLP must be discontinued upon initiation We have discussed the lifelong requirement of nutritional supplementation And adherence to an exercise regimen as well as importance of follow-up The patient understands and agrees Patient has been found to be obese with a BMI of (). Patient has class () obesity. Patient was reassured and welcomed to the practice. We discussed that we stress a hollistic medical approach with emphasis on lifestyle modification. Patient was informed that a healthy lifestyle with exercise and good eating habits can help reduce his risk of medical complications. He is explained that obesity increases his risk of diabetes, cardiovascular disease, or organ damage. We spent a lot of time discussing the relationship between food, exercise, sleep, mental health and obesity. Patient was counseled on the importance EATING local, organic food when possible. Patient was educated on clean 15 and dirty dozen. I provided information about reading books called The Food Rules by Eugene Rosales and Eat Fat Get Lean by Dr Jc Malone. Self education is important in the journey for weight management. Patient was offered diagnostic testing. We want to measure visceral adiposity, advanced body composition, adverse lipids, fatty acid balance, risk for heart disease and atherosclerosis, markers of inflammation and genetic susceptibility. Patient was counseled on weight management and was advised to lose weight using A. Meal Replacement Products We discussed the lifelong requirement of nutritional supplementation and adherence to an exercise regimen as well as importance of dietary f/u Patient was educated on the replacement products called optifast. This is a good way of taking fixed amount of calories. It has been shown in studies to be ineffective weight management tool. We also recommend maintaining adequate protein intake and muscle composition, 1.5mg/kg This however has to be coupled with lifestyle intervention as well as laboratory data and EKG monitoring. It is impossible to know how a person will tolerate complete meal replacement. The side effects of meal replacement and weight loss could include syncopal attacks, dizziness, gallstones, potential cholecystectomy, possible heart attack and even . The benefits of meal replacement would be potential weight loss but no guarantees can be made. Meal replacement products are not covered by insurance. Once the patient has bought these products we cannot return them B. Lifestyle management which includes several strategies as below 1. Eat a low carbohydrate good fat good protein diet. Eliminate refined carbohydrates from the diet. Continue blood sugar and sugared beverages. Eat local organic when possible. Cook your own meals. Read food labels. None about healthy snacks. Portion control and food with low glycemic index 2. Exercise regularly. Try to get at least 6000 steps a day. Use a predominant to track activity level. Consider using apps like Kadoink, Shoes of Preypal, lose it, stick as needed for self-monitoring and weight management. Consider group exercises. Consider hiring a personal care assistant. Regular exercise is curry to sustainable health and prevents as a buffer against weight regain 3. Sleep is most important for healing. Tried to sleep at least 8 hours a night. A good quality sleep needs a sleep ritual with ideal room temperature of around 68. It might help to take a shower and have no electronics in the room and sleep in a very dark room without artificial light. Start her sleep routine and get up early in the morning and go to bed on time 4. Make a social connection. Surround yourself with positive people with positive energy. Connect with friends and family. 5. Get into the habit of meditating and mindfulness while doing everything. 6. Go outside and connect with nature. C. Prescription medications Patient was educated on the use of prescription medications for medical weight loss. This is a growing list and includes phentermine, Topamax,Qsymia, contrave, belviq and saxenda, wegovy All prescription medications could have side effects including but not limited to kidney stones, seizure disorder cardiac arrhythmias heart attack pancreatitis etc. etc.. Patient was encouraged to read the prescription insert and have coaching with their pharmacist and make an informed decision about taking medication and know that these medications are being prescribed with good intentions and we do not know how a patient would react to her medication. Sudden medications are FDA approved for weight loss and there is also off label use depending on patient's inability to afford medications in an attempt to lose weight D. Behavioral counseling was done to establish a relationship between food and an mood. Patient was provided information about local counseling and psychiatry and Dr Inman at [place]. We would like to cover regular topics and build on low glycemic eating exercise mindful eating, using yoga and meditation along with deep breathing and connecting with friends and family. E. MASS PAT reviewed, Patient's current medications were reviewed and opinion was given on medication that can cause weight gain and can be substituted F. Patient was assessed for risk with obesity including and not limiting to atherosclerosis heart disease stroke kidney disease, restrictive lung disease, irritable bowel syndrome and overall mortality. Risk of developing prediabetes diabetes and metabolic syndrome was discussed G. Therapeutic plan: We have decided to make therapeutic plan which would include choosing wisely on calories restricting portion getting active, tracking weight, getting good quality sleep and working on time management H. Patient will follow up in (4) weeks for weight management Of note, some information is being carried forward from prior records for informational purposes only and is being cited so that efficiency, safety and quality of the patient's care is not compromised This note was prepared using voice recognition software and direct typing Please excuse inadvertent harpsichord maker or typing errors, or uncorrected word substitutions Although every attempt has been made by the provider to proofread this document, occasional misspellings and typographical errors may still be present Due to the previous pandemic, and the use of personal protective equipment (PPE) This may decrease voice recognition accuracy Inadvertent harpsichord maker errors may occur PLAN OF TREATMENT No Information Progress Notes * Alberto CHO SDOB: [birth year] (49 yo M)Acc No.[id number]:08/30/2023 Patient:??Alberto CHO S Provider:??BRICE LYLES NP :1975?Age:48 Y?Sex:Marcie stoddard Date:08/30/2023 Address:[address] [place], [place] [id number] Subjective: * Chief Complaints: * ?1. Not able to make it . * HPI: ?Constitutional:? Patient is here today for a weight management consultation visit ?Patient seen and examined. ? Full past medical history, social history, family history, ?allergies and current medications were reviewed and updated. ?Body composition analysis reviewed today, as expected increased BMI, ?visceral adiposity, fat mass index, waist cirumference ?Good skeletal mass composition, Good water composition ?Caloric energy expenditure discussed ?we discussed the importance of protein calorie nutrition, maintaning muscle mass, vit b12, biotin, iron ?while on GLP-1 medications, dual incretins, appetitite suppressants ?#Weight Management ?08/30/2023: Weight lbs, BMI: ?Patient referred to us from . ?Patient works as ?Highest weight: lbs ?Lowest weight: lbs ?Goal weight: lbs ?YI screening/STOP-BANG/[place], * ?Metabolic workup:* ?Thyroid? No recent screening ?Diabetes? No recent screening ?Has not had an echocardiogram recently. ?Diet: ?Exercise: Currently steps daily. ?Non-smoker. ?ETOH use:. * ROS:?All Other Systems:?Review of Systems (ROS)??All others negative except those mentioned in HPI.? * Medical History:?? Objective: * Examination: ?General Examination: ?GENERAL APPEARANCE:??in no acute distress, well developed, well nourished.??HEAD:??normocephalic, atraumatic.??EYES:??pupils equal, round, reactive to light and accommodation.??EARS:??normal.??ORAL CAVITY:??mucosa moist.??THROAT:??clear.??NECK/THYROID:??neck supple, full range of motion, no cervical lymphadenopathy.??SKIN:??no suspicious lesions, warm and dry.??HEART:??no murmurs, regular rate and rhythm, S1, S2 normal.??LUNGS:??clear to auscultation bilaterally.??ABDOMEN:??normal, bowel sounds present, soft, nontender, nondistended.??EXTREMITIES:??no clubbing, cyanosis, or edema.??NEUROLOGIC:??nonfocal, motor strength normal upper and lower extremities, sensory exam intact.? Assessment: * Assessment: Total time spent today was 6 0 minutes of which greater than 50% was spent on coordinating and counseling We are a board certified obesity and weight management practice Patient has trialed behavioral modification, dietary restrictions and exercise for a minimum of 6 months The most recent [place] [employer] of clinical endocrinologists and [place] [employer]in[employer] guidelines recommend patients who have overweight BMI or obesity BMI, who also have metabolic syndrome, prediabetes, or at risk of developing type 2 diabetes should aim for a weight loss goal of at least 10% of the baseline body weight Patient counseled regarding effects of GLP/GIP-1 agonists, and other FDA approved wgt loss meds with regards to a multifactorial approach of weight loss as mentioned above and not solely appetite suppression. We have discussed the mechanism of GLP-1's/GIP, dual incretins I think this would be fantastic option for her given her metabolic workup and body composition We have discussed the risks and benefits and side effects including/and not limited to Sarcopenia, intestinal obstruction, constipation, nausea, lethargy, headache Discussed importance of protein consumption for muscle maintenance as well as strength and resistance training ,probiotics, B12 complex biotin , iron and other nutrients, To help avoid telogen effluvium There is no history of medullary thyroid cancer or multiple endocrine neoplasia There is also no history of cardiovascular disease, hypertension, palpitations, or arrhythmias In the setting of potential stimulant/amphetamine use such as phentermine We have also discussed risks and benefits, and the use of compounded medications to help offset the national shortages as well as financial implications vs trade name drugs GLP must be discontinued upon initiation We have discussed the lifelong requirement of nutritional supplementation And adherence to an exercise regimen as well as importance of follow-up The patient understands and agrees Patient has been found to be obese with a BMI of (). Patient has class () obesity. Patient was reassured and welcomed to the practice. We discussed that we stress a hollistic medical approach with emphasis on lifestyle modification. Patient was informed that a healthy lifestyle with exercise and good eating habits can help reduce his risk of medical complications. He is explained that obesity increases his risk of diabetes, cardiovascular disease, or organ damage. We spent a lot of time discussing the relationship between food, exercise, sleep, mental health and obesity. Patient was counseled on the importance EATING local, organic food when possible. Patient was educated on clean 15 and dirty dozen. I provided information about reading books called The Food Rules by Eugene Rosales and Eat Fat Get Lean by Dr Jc Malone. Self education is important in the journey for weight management. Patient was offered diagnostic testing. We want to measure visceral adiposity, advanced body composition, adverse lipids, fatty acid balance, risk for heart disease and atherosclerosis, markers of inflammation and genetic susceptibility. Patient was counseled on weight management and was advised to lose weight using A. Meal Replacement Products We discussed the lifelong requirement of nutritional supplementation and adherence to an exercise regimen as well as importance of dietary f/u Patient was educated on the replacement products called optifast. This is a good way of taking fixed amount of calories. It has been shown in studies to be ineffective weight management tool. We also recommend maintaining adequate protein intake and muscle composition, 1.5mg/kg This however has to be coupled with lifestyle intervention as well as laboratory data and EKG monitoring. It is impossible to know how a person will tolerate complete meal replacement. The side effects of meal replacement and weight loss could include syncopal attacks, dizziness, gallstones, potential cholecystectomy, possible heart attack and even . The benefits of meal replacement would be potential weight loss but no guarantees can be made. Meal replacement products are not covered by insurance. Once the patient has bought these products we cannot return them B. Lifestyle management which includes several strategies as below 1. Eat a low carbohydrate good fat good protein diet. Eliminate refined carbohydrates from the diet. Continue blood sugar and sugared beverages. Eat local organic when possible. Cook your own meals. Read food labels. None about healthy snacks. Portion control and food with low glycemic index 2. Exercise regularly. Try to get at least 6000 steps a day. Use a predominant to track activity level. Consider using apps like Kadoink, Shoes of Preypal, lose it, stick as needed for self-monitoring and weight management. Consider group exercises. Consider hiring a personal care assistant. Regular exercise is curry to sustainable health and prevents as a buffer against weight regain 3. Sleep is most important for healing. Tried to sleep at least 8 hours a night. A good quality sleep needs a sleep ritual with ideal room temperature of around 68. It might help to take a shower and have no electronics in the room and sleep in a very dark room without artificial light. Start her sleep routine and get up early in the morning and go to bed on time 4. Make a social connection. Surround yourself with positive people with positive energy. Connect with friends and family. 5. Get into the habit of meditating and mindfulness while doing everything. 6. Go outside and connect with nature. C. Prescription medications Patient was educated on the use of prescription medications for medical weight loss. This is a growing list and includes phentermine, Topamax,Qsymia, contrave, belviq and saxenda, wegovy All prescription medications could have side effects including but not limited to kidney stones, seizure disorder cardiac arrhythmias heart attack pancreatitis etc. etc.. Patient was encouraged to read the prescription insert and have coaching with their pharmacist and make an informed decision about taking medication and know that these medications are being prescribed with good intentions and we do not know how a patient would react to her medication. Sudden medications are FDA approved for weight loss and there is also off label use depending on patient's inability to afford medications in an attempt to lose weight D. Behavioral counseling was done to establish a relationship between food and an mood. Patient was provided information about local counseling and psychiatry and Dr Inman at [place]. We would like to cover regular topics and build on low glycemic eating exercise mindful eating, using yoga and meditation along with deep breathing and connecting with friends and family. E. MASS PAT reviewed, Patient's current medications were reviewed and opinion was given on medication that can cause weight gain and can be substituted F. Patient was assessed for risk with obesity including and not limiting to atherosclerosis heart disease stroke kidney disease, restrictive lung disease, irritable bowel syndrome and overall mortality. Risk of developing prediabetes diabetes and metabolic syndrome was discussed G. Therapeutic plan: We have decided to make therapeutic plan which would include choosing wisely on calories restricting portion getting active, tracking weight, getting good quality sleep and working on time management H. Patient will follow up in (4) weeks for weight management Of note, some information is being carried forward from prior records for informational purposes only and is being cited so that efficiency, safety and quality of the patient's care is not compromised This note was prepared using voice recognition software and direct typing Please excuse inadvertent harpsichord maker or typing errors, or uncorrected word substitutions Although every attempt has been made by the provider to proofread this document, occasional misspellings and typographical errors may still be present Due to the previous pandemic, and the use of personal protective equipment (PPE) This may decrease voice recognition accuracy Inadvertent harpsichord maker errors may occur. Plan: * Treatment: * Images: Billing Information: * Visit Code:?? * Procedure Codes:?? * Sign off status: Pending * Provider:??BRICE LYLES NP Date:??08/08 History and Physical Notes * HPI (History of Present Illness) Category Sub-Category Detail Notes Category Not es Constitutional Patient is here today for a weight management consultation visit Patient seen and examined. Full past medical history, social history, family history, allergies and current medications were reviewed and updated. Body composition analysis reviewed today, as expected increased BMI, visceral adiposity, fat mass index, waist cirumference Good skeletal mass composition, Good water composition Caloric energy expenditure discussed we discussed the importance of protein calorie nutrition, maintaning muscle mass, vit b12, biotin, iron while on GLP-1 medications, dual incretins, appetitite suppressants #Weight Management 08/30/2023: Weight lbs, BMI: Patient referred to us from . Patient works as Highest weight: lbs Lowest weight: lbs Goal weight: lbs YI screening/STOP-BANG/[place], * Metabolic workup:* Thyroid? No recent screening Diabetes? No recent screening Has not had an echocardiogram recently. Diet: Exercise: Currently steps daily. Non-smoker. ETOH use: Examination Category Sub-Category Detail Notes Category Not es General Examination GENERAL APPEARANCE: in no ac sulaiman distress, well developed, well nourished HEAD: normocephalic, atrau matic EYES: pupils equal, round, reactive to light and accommodation EARS: normal THROAT: clear NECK/THYROID: neck supple, full ra nge of motion, no cervical lymphadenopathy HEART: no murmurs, regular rate and rhythm, S1, S2 normal LUNGS: clear to auscultatio n bilaterally ABDOMEN: normal, bowel sounds present, soft, nontender, nondistended NEUROLOGIC: nonfocal, motor stre ngth normal upper and lower extremities, sensory exam intact SKIN: no suspicious lesion s, warm and dry EXTREMITIES: no clubbing, cyanosi s, or edema ORAL CAVITY: mucosa moist
== END 2024-09-16 13:04 | disposition home or self-care (01) ==
LOC: HO.HBS 13:04
PROVIDERS: PCP Family Medicine; Visit Provider Physician Assistant Surgical
DX: E66.3 Overweight (principal); Z98.84 Bariatric surgery status
CPT/HCPCS: 98014

== ENCOUNTER 2024-10-21 08:09 | Outpatient (AMB) | payer OTHER, SELFPAY ==
[2024-10-21 08:10] VITALS: BMI 26.8
--- NOTE | 2024-10-21 08:10 | A.OFFVIS_ITS ---
Vital Signs 10/21/24 08:10 Height 5 ft 5 in Weight 160 lb 15.987 oz BMI 26.8 Intake Visit Reasons: Hemorrhoid Intake Note: This patient presents for hemorrhoids. Pt c/o; reports severe pain, reports history of rectal bleeding in the past, no constipation, never had a colonoscopy. Bereavement Program Coordinator Required: No Watchmaker Apprentice: Watchmaker Apprentice offered & declined Accompanied by: Spouse Allergies No Known Allergies Allergy (Verified 10/21/24 08:18) Medication List - Last Reconciled 10/21/24 by Duane Yoder MD atorvastatin 20 mg PO Q OTHER DAY bupropion HCl 100 mg PO BID docusate sodium (Colace) 100 mg PO DAILY estradiol (Estrace) 0.5 mg PO DAILY hydroxyzine pamoate 25 mg PO TID PRN levothyroxine 112 mcg PO DAILY@0600 lisinopril 20 mg PO DAILY lurasidone 80 mg PO DAILY progesterone micronized 100 mg PO DAILY HPI HPI Hemorrhoid: Details: [age] year old female referred for hemorrhoid issues. She says she has had a long history of hemorrhoids. She the hemorrhoid surgery about 30 years ago and 20 years ago. She says over the years she continued to have some periods of swelling and pain. She says about 3 weeks ago, she had an episode of severe swelling and pain which lasted for few days. She saw her primary care physician and was therefore referred to me. She says that she has had discomfort and pain with the hemorrhoids for so many years now. She says that her hemorrhoids ?come out all the time. She also has had chronic constipation but this seems to be well controlled with Colace. She denies significant bleeding. [facility] Medical History (Updated 10/21/24 @ 08:41 by Duane Yoder MD) Prolapsed hemorrhoids Wears glasses Wears contact lenses Hypothyroidism YI on CPAP Abnormal EKG Bipolar 1 disorder Anxiety Depression PTSD (post-traumatic stress disorder) GERD (gastroesophageal reflux disease) Hyperlipidemia Hypertension Sleep apnea treated with continuous positive airway pressure (CPAP) Morbid (severe) obesity due to excess calories Surgical History Hx of laparoscopic partial gastrectomy History of loop electrical excision procedure (LEEP) History of esophagogastroduodenoscopy (EGD) (11/29/23) History of ankle surgery Hx of brain surgery Hx of cholecystectomy Hx of hand surgery Hx of knee surgery Hx of tonsillectomy Hx of wisdom tooth extraction Social History Household Members: Spouse and Children Housing: House Are you a primary personal care worker to a significant other at home: No Do you presently have visiting nurse or other home services: No 75 years or older and lives alone: No Alcohol intake: current Alcohol intake frequency: holidays/special occasions only Alcohol type: beer Patient Tobacco Use Status: Never used Tobacco e-Cigarette/Vaping Use: Never Used Substance Use Type: Marijuana service: Yes Current occupational status: retired Cognitive needs: No Hearing needs: No Vision needs: Yes (Patient wears contacts.) Review of Systems Const Denies chills and Denies fever(s) Card Denies chest pain, Denies dyspnea and Denies dyspnea on exertion Resp Denies cough, Denies dyspnea and Denies dyspnea on exertion GI Denies hematochezia and Denies change in bowel habits Denies hematuria Musc Denies back pain and Denies limited range of motion Neuro Denies focal weakness and Denies convulsions Psych Denies depression and Denies mood swings Physical Exam Vital Signs: BMI result Body Mass Index 26.8 Const General: comfortable and no acute distress Orientation/consciousness: patient oriented x3 Neck Neck: Yes no lymphadenopathy Resp Auscultation: clear to auscultation bilaterally Cardio Rhythm: regular rhythm GI Other: Rectal exam shows external hemorrhoids with some prolapse of internal component on both the left and right side Palpation (GI): Soft to palpation, nontender and no guarding Neuro General: patient oriented x3 Office Procedures Anoscopy She was an vani-knife position. The anoscope was gently inserted. A full examination of the anal canal was done. She did have mixed internal and external hemorrhoidal columns, multiple, on both the left and right side. The internal component appears to prolapse easily. There were no other lesions. There was no fissure or ulceration. There was no induration on digital exam. There was no bleeding. [id number] Assessment & Plan Assessment & Plan (1) Prolapsed hemorrhoids: Code(s): K64.8 - Other hemorrhoids Category: Medical Plan: She has multiple internal and external hemorrhoidal columns. She says that these are chronically prolapse. She also describes significant discomfort including pain. She wants to proceed with another hemorrhoidectomy. She has had 2 hemorrhoidectomies in the distant past I had a long discussion with her about the technique of exam under anesthesia and hemorrhoidectomy. I reviewed the risks including but not limited to bleeding, infections, postop pain and poor healing, as well as the benefits and alternatives. I explained to her what to expect postoperatively. She says in view of her chronic discomfort she wants to proceed. Coding Level of Care Code New Pt Level 3 (12344) Diagnoses Prolapsed hemorrhoids K64.8 CPT Codes Details - CPT: 82835-[id number] ([id number])
== END 2024-10-21 08:43 | disposition home or self-care (01) ==
PROVIDERS: PCP Family Medicine; Visit Provider Surgery
DX: K64.8 Other hemorrhoids (principal)
CPT/HCPCS: 46600; 99203

== ENCOUNTER → 2024-10-21 08:09 | Outpatient (BNVA) | payer OTHER, SELFPAY | PROVIDERS: PCP Family Medicine; Visit Provider Surgery | DX: K64.8 Other hemorrhoids (principal) | CPT/HCPCS: 46600; 99202 ==

== ENCOUNTER 2024-12-27 06:48 | Day surgery (SDC) | payer OTHER, SELFPAY ==
--- OUTSIDE RECORDS SUMMARY | 2024-12-25 15:13 | XMS_ITS | Encounter Summary ---
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 This section includes the names of all active insurance providers for the patient. Insurance Provider Type of Coverage Plan Name Start of Policy Coverage End of Policy Coverage Group Number Member ID Insurance Provider's Telephone Number Policy Desai's Name Patient's Relationship to Policy Desai [facility] Feb 04, 2019 [id number] GABRIELLE CHO PATIENT [facility] [place] [facility] [employer] Feb 04, 2019 [id number] GABRIELLE CHO PATIENT MEDICARE (WNR) MEDICARE (M) PART A Feb 05, 2000 PART A [id number] GABRIELLE HUGO PATIENT MEDICARE (WNR) MEDICARE (M) PART A Feb 05, 2000 PART A [id number] [phone] GABRIELLE VAZQUEZ PATIENT MEDICARE (WNR) MEDICARE (M) PART A Feb 05, 2000 PART A [phone] GABRIELLE HUGO PATIENT Selected Encounter This section includes the information on record at [place] for the Encounter. Date/Time Encounter Type Encounter Description Reason Provider Source Jun 03, 2024 11:00 AM PSYTX W PT 45 [facility]UTES [facility] ICD-10-CM F43.0 Acute stress reaction MALINOFSKY,TER GRETCHEN E Encounter Template Text not used by [place] Assessments - Encounter Diagnoses This section includes the primary and secondary diagnoses documented for the Encounter. Date/Time Primary/Secondary Diagnosis Diagnosis Name Provider Source Jun 03, 2024 12:39 PM PRIMARY Acute stress reaction MALINOFSJONE,TER GRETCHEN [facility] [facility] Jun 03, 2024 12:39 PM SECONDARY Other stressful life events affecting family and household CATIEFSJONETER GRETCHEN [facility] Jun 03, 2024 12:39 PM SECONDARY Post-traumatic stress disorder, unspecified MALINOFSKY,TER GRETCHEN [facility] Plan of Treatment: Future Appointments (+ 6 months) and Future Tests (+/- 45 days) The Plan of Treatment section includes future care activities for the patient from all [place] treatmentfacilities. This section includes future appointments and future orders which are active, pending or scheduled. Future Appointments This section includes appointments that were scheduled to occur 6 months from the date of the Encounter, up to a maximum of 20 appointments. The data comes from all [place] treatment facilities. Appointment Date/Time Appointment Type Appointme nt Facility Name Jun 10, 2024 11:00 AM AMBULATORY - [place]ATRY [place] [facility] Jun 28, 2024 11:30 AM [facility]BULATORY - [facility] Jul 08, 2024 11:00 AM AMBULATORY - [place]IATRY [place] [facility] Jul 15, 2024 10:30 AM AMBULATORY - [place]ATRY [place] [facility] Jul 15, 2024 11:00 AM AMBUL[facility]ORY [facility] Jul 22, 2024 11:00 AM AMBULATORY - [facility] Aug 12, 2024 01:00 PM AMBULATORY - PSYCHIATRY [facility] Aug 19, 2024 11:00 AM AMBULATORY - [facility]IAT[facility] Aug 19, 2024 03:00 PM AMBULATORY - PS[facility]IATRY [facility] Sep 02, 2024 11:00 AM AMBULATORY - PS[facility]IAT[facility] Sep 13, 2024 03:00 PM AMBULATORY - PSYCHIATRY [facility] Sep 16, 2024 08:00 AM AM[facility]ULATORY [facility] MEDICINE [facility] Sep 16, 2024 11:00 AM AMBULATORY - PS[facility]IATRY [facility] Sep 24, 2024 01:00 PM AMBULATORY - PSYCHIATRY [facility] Oct 04, 2024 08:30 AM AMBULATORY - MEDICINE [facility] Oct 09, 2024 09:00 AM AMBULATORY - PSYCHIATRY [facility] Oct 14, 2024 11:00 AM AMBUL[facility]ORY [facility] Oct 16, 2024 04:00 PM AM[facility]ULATORY [facility] MEDICINE [facility] Oct 17, 2024 10:00 AM AMBULATORY [facility]ATRY [facility] Oct 18, 2024 08:30 AM AMBULATORY - MEDICINE [place] [facility] Social History: Smoking Status (Most current) and Tobacco Use (All prior to encounter date) This section includes the most current, and the historical, smoking and tobacco- related health factors from the [place] facility where the Encounter took place. Current Smoking Status This section includes the most current smoking, or tobacco-related health factor, from the [place] facility where the Encounter took place. Date/Time Current Smoking Status Comment Facil ity Sep 11, 2023 12:30 PM VA-TOBACCO NEVER USED [place] [facility] Tobacco Use History This section includes a history of the smoking, or tobacco-related health factors, that were collected on or before the date of the Encounter. The data comes from the [place] facility where the Encounter took place. Date/Time Smoking Status/Tobacco Use Comment F acility Sep 30, 2022 10:00 AM VA-TOBACCO NEVER USED [facility] Apr 21, 2020 03:34 PM VA-TOBACCO NEVER USED [facility] Jan 10, 2019 11:51 AM VA-TOBACCO NEVER USED [facility] Mar 09, 2018 11:27 AM LIFETIME NON-TOBACCO USER [facility] Advance Directives: All historical and current Section Date Range: From patient's date of to the date document was created. This section includes ALL of a patient's completed or amended VA Advance and Rescinded Directives. The entries below indicate that a directive exists for the patient, but an actual copy is not included with this document. The data comes from all [place] facilities. Date Advance Directives Provider Source Feb 23, 2016 ADVANCE DIRECTIVE DISCUSSION MAHAD MCKENZIE [facility] Jan 13, 2004 ADVANCE DIRECTIVE JOSE NAJERA [facility] Encounter Notes: All associated encounter notes This section contains the clinical notes associated to the Encounter. Date/Time Encounter Note(s) Provider Source Jun 03, 2024 12:29 PM TELEHEALTH NOTE: LOCAL TITLE: [place] VIDEO CONNECT PSYCHOLOGY NOTE STANDARD TITLE: TELEHEALTH NOTE DATE OF NOTE: JUN 03, 2024@12:29 ENTRY DATE: JUN 03, 2024@12:29:27 AUTHOR: ALBER BROWNING EXP COSIGNER: URGENCY: STATUS: COMPLETED [facility] Video Connect (VVC) Standard Documentation VVC Clinician Resources Only: E911 (Emergency Call Relay Center): [phone] National [facility] Crisis Line - 988 then press #1. [facility] Suicide Coordinator [phone], Ext. [phone]; Back-up Ext. [phone] [place] Police, Reanna JIMENEZ [phone] Introduction: Visit is being conducted by [place] Video Connect. identified with VISUAL RECOGNITION Emergency Plan: [place] confirmed and/or provided the following information in case of emergency or technology failure. PATIENT PHONE - PHONE NUMBER [CELLULAR] - Is patient phone number correct, if not, enter below: 's phone number: ALBERTO HUGO MARQUIS [address], [place], [address] 's present location and address for appointment: [place], [place] 's emergency contact name and phone number: on file [place] reported that location is private and safe: Yes Informed Consent: [place] informed of the risks and benefits of Telehealth video care. [place] has the right to refuse video services. If refuses video visit, a [id number] visit will be scheduled. verbalized consent for this video visit: Yes provided consent for any other persons present for visit: Yes If yes, who and relationship to patient:dalia Kelly Secure visit: Visit was locked for security and privacy:Yes ........................ ........................ .................... Alberto Cho attended this with the presence and support of Amanda. The rationale for the visit was reviewed (see Crisis note, 05/30/2024). PROBLEM: Recent crisis with stuart Dawson. DIAGNOSIS: Acute Stress Reaction PTSD INTERVENTIONS: (1) The premise of the Finding Solid Ground program was explained: how it works and what it involves. Both Alberto and Amanda agreed to practice it regularly, to make it second nature. I will send them the first chapter through Secure Message to Alberto. (2) Suggestion to get more help for son Samir (who is denying his mental illness) through the Department of Mental Health ([facility]). (3) Practical suggestions on how to respond to Samir from a nurturing mother value prior to engaging into the parental guidance value. Practical suggestion to share her mothersome worry for him, rather than just rules. Practical suggestions on how to engage Samir's reasoning power, towards his own better choices, and improved mother-son interaction. (4) Suggestion that they can reach out to Dr. Kwabena Good when/as needed. Return to Clinic: June 10, am. ........................ .............. Related to: Service Connected Condition, [facility] Diagnoses: Acute stress disorder ([facility] [id number]) - Acute stress reaction (ICD-10-CM F43.0) (Primary) Post-traumatic stress disorder ([facility] [id number]) - Post-traumatic stress disorder, unspecified (ICD-10-CM F43.10) Other Stressful Life Events Affecting Family and Household (ICD-10-CM Z63.79) Procedures: Psychotherapy 38-52 min - Clinical Psychologist /guadalupe/ ALBER BROWNING,PhD Neuropsychologist Signed: 06/03/2024 12:41 ALBER BROWNING [facility]
--- OUTSIDE RECORDS SUMMARY | 2024-12-25 15:13 | XMS_ITS | Encounter Summary ---
Author Name [facility] [place] [facility] [place] [facility] [place] Address [address] [place] [address] Care Team Providers Care Supervisor Labor Gang Name Role Phone ZOE COPE Primary Care [...] Desai's Name Patient's Relationship to Policy Desai [facility] Feb 04, 2019 [id number] GABRIELLE CHO PATIENT HEALTH [facility] [employer] E [employer] [facility] Feb 04, 2019 [id number] [phone] GABRIELLE CHO PATIENT MEDICARE (WNR) MEDICARE (M) PART A Feb 05, 2000 PART A [id number] GABRIELLE HUGO PATIENT MEDICARE (WNR) MEDICARE (M) PART A Feb 05, 2000 PART A [id number] GABRIELLE CHO PATIENT MEDICARE (WNR) MEDICARE (M) PART A Feb 05, 2000 PART A [id number] [phone] GABRIELLE HUGO PATIENT Selected Encounter This section includes the information on record at [place] for the Encounter. Date/Time Encounter Type Encounter Description Reason Provider Source Jul 15, 2024 11:00 AM PSYTX W PT 30 [facility]UTES [facility] ICD-10-CM F43.0 Acute stress reaction MALINOFSKY,TER GRETCHEN IHE Encounter Template Text not used by [place] Assessments - Encounter Diagnoses This section includes the primary and secondary diagnoses documented for the Encounter. Date/Time Primary/Secondary Diagnosis Diagnosis Name Provider Source Jul 15, 2024 02:31 PM PRIMARY Acute stress reaction MALINOFSKY,TER GRETCHEN [facility] [place] [facility] Jul 15, 2024 02:31 PM SECONDARY Bipolar disorder, current episode depressed, moderate MALINOFSKY,TER GRETCHEN [facility] [place] [facility] Jul 15, 2024 02:31 PM SECONDARY Other obesity due to excess calories MALINOFSKY,TER GRETCHEN [facility] [place] [facility] Jul 15, 2024 02:31 PM SECONDARY Post-traumatic stress disorder, unspecified MALINOFSKY,TER GRETCHEN [facility] [place] [facility] Plan of Treatment: Future Appointments (+ 6 months) and Future Tests (+/- 45 days) The Plan of Treatment section includes future care activities for the patient from all [place] treatmentfacilities. This section includes future appointments and future orders which are active, pending or scheduled. Future Appointments This section includes appointments that were scheduled to occur 6 months from the date of the Encounter, up to a maximum of 20 appointments. The data comes from all [place] treatment facilities. Appointment Date/Time Appointment Type Appointme nt Facility Name Jul 22, 2024 11:00 AM AMBULATORY - [place]ATRY [facility] [place] [facility] Aug 12, 2024 01:00 PM AMBULATORY - PSYCHIATRY [facility] Aug 19, 2024 11:00 AM AM[facility]UL[facility]ORY [place]IATRY [facility] [place] [facility] Aug 19, 2024 03:00 PM [facility] [place] [facility] Sep 02, 2024 11:00 AM AMBULATORY [facility]IAT[facility] [place] [facility] Sep 13, 2024 03:00 PM AMBULATORY - PSYCHIATRY [facility] Sep 16, 2024 08:00 AM AMBULATORY [facility] MEDICINE [facility] [place] [facility] Sep 16, 2024 11:00 AM AMBULATORY - PS[facility]CHIATRY [facility] [place] [facility] Sep 24, 2024 01:00 PM AMBULATORY - PSYCHIATRY [facility] Oct 04, 2024 08:30 AM AMBULATORY - MEDICINE [facility] Oct 09, 2024 09:00 AM AMBULATORY - PSYCHIATRY [facility] Oct 14, 2024 11:00 AM AMBULATORY - PS[facility]CHIATRY [facility] [place] [facility] Oct 16, 2024 04:00 PM AM[facility]ULATORY - MEDICINE [facility] [place] [facility] Oct 17, 2024 10:00 AM AMBULATORY - PSYCHIATRY [facility] [place] [facility] Oct 18, 2024 08:30 AM [facility]ORY [place]ICINE [facility] [place] [facility] Oct 28, 2024 11:00 AM AMBULATORY - PS[facility]CHIATRY [facility] [place] [facility] Nov 25, 2024 11:00 AM AMBULATORY - PSYCHIATRY [facility] [place] [facility] Dec 02, 2024 09:27 AM AMBULATORY - NONE [facility] December 09, 2024 11:00 AM AMBULATORY - PSYCHIATRY [facility] [place] [facility] December 19, 2024 11:00 AM AMBULATORY - [place]IATRY [facility] [place] [facility] Active, Pending, and Scheduled Orders This section includes a listing of several types of active, pending, and scheduled orders, including clinic medications orders, diagnostic test orders, procedure orders and consult orders; where the start date of the order is 45 days before the date of the Encounter or 45 days after the date of theEncounter. The data comes from all [place] treatment facilities. Test Date/Time Test Type Test Details Facility Name Aug 28, 2024 01:19 PM Consult Order COMMUNITY CARE-GEN SURGERY Cons Gate Attendant's Choice [facility] [place] [facility] Social History: Smoking Status (Most current) and Tobacco Use (All prior to encounter date) This section includes the most current, and the historical, smoking and tobacco- related health factors from the [place] facility where the Encounter took place. Current Smoking Status This section includes the most current smoking, or tobacco-related health factor, from the [place] facility where the Encounter took place. Date/Time Current Smoking Status Comment Enedina cortez Sep 11, 2023 12:30 PM [facility] Tobacco Use History This section includes a history of the smoking, or tobacco-related health factors, that were collected on or before the date of the Encounter. The data comes from the [place] facility where the Encounter took place. Date/Time Smoking Status/Tobacco Use Comment Darlene harden Sep 30, 2022 10:00 AM VA-TOBACCO NEVER USED [facility] [place] [facility] Apr 21, 2020 03:34 PM VA-TOBACCO NEVER USED [facility] [place] [facility] Jan 10, 2019 11:51 AM VA-TOBACCO NEVER USED [facility] [facility] [place] [facility] Mar 09, 2018 11:27 AM LIFET[facility] Advance Directives: All historical and current Section Date Range: From patient's date of to the date document was created. This section includes ALL of a patient's completed or amended [place] Advance and Rescinded Directives. The entries below indicate that a directive exists for the patient, but an actual copy is not included with this document. The data comes from all [place] facilities. Date Advance Directives Provider Source Feb 23, 2016 ADVANCE DIRECTIVE DISCUSSION MAHAD MCKENZIE [facility] Jan 13, 2004 ADVANCE DIRECTIVE JOSE NAJERA [facility] Encounter Notes: All associated encounter notes This section contains the clinical notes associated to the Encounter. Date/Time Encounter Note(s) Provider Source Jul 15, 2024 11:00 AM TELEHEALTH NOTE: LOCAL TITLE: [facility]CT PSYCHOLOGY NOTE STANDARD TITLE: TELEHEALTH NOTE DATE OF NOTE: JUL 15, 2024@11:00 ENTRY DATE: JUL 15, 2024@13:51:53 AUTHOR: ALBER BROWNING COSIGNER: URGENCY: STATUS: COMPLETED [facility] Connect ([facility]VC) Standard Documentation VVC Clinician Resources Only: E911 (Emergency Call Relay Center): [phone] National Veterans Crisis Line - 988 then press #1. [facility] Suicide Coordinator [phone], Ext. [phone]; Back-up Ext. [phone] [place] Police, Reanna JIMENEZ [phone] Introduction: Visit is being conducted by [place] [facility]. [place] identified with VISUAL RECOGNITION. Emergency Plan: [place] confirmed and/or provided the following information in case of emergency or technology failure. PATIENT PHONE - PHONE NUMBER [CELLULAR] - Is patient phone number correct, if not, enter below: 's phone number: ALBERTO CHO [address] [place], [place], [address] [place]'s present location and address for appointment: in her cabin in [place]'s emergency contact name and phone number: Amanda, , on file [place] reported that location is private and safe: Yes Informed Consent: [place] informed of the risks and benefits of Telehealth video care. [place] has the right to refuse video services. If refuses video visit, a [id number] visit will be scheduled. [place] verbalized consent for this video visit: Yes provided consent for any other persons present for visit: N/A If yes, who and relationship to patient: Secure visit: Visit was locked for security and privacy:Yes ........................ ........................ ................. Alberto Cho attended 27 minutes of this individual psychotherapy session with clinical psychologist. PROBLEM: Crisis regarding stuart Otto. [Please see last week's note for information]. UPDATE: Since last week, a Police Department counselor went to meet with Fam. Fam refused to be seen by the counselor, who was outside his door. So PD counselor asked if Fam would consent if Fam's father were to be present. Fam agreed. PD Counselor attempted to entice Fam to go for [facility] treatment with the offer of getting him a dog. With father Amanda present, [place] agreed to go to [place] for equestrian training. 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 More recently (today?) Fam called Amanda, saying he had no money, not even for food. Fam had quit school, and was no longer receiving money as a result of quitting school, through [facility]. So, Amanda picked up a pizza for Fam. Alexandra Dominguez explained also that Fam has panhandled for subsistence money since he lost his [facility] funding.. I asked Alexandra Alberto to review for me how Amanda speaks to Fam. What she explained sounded logical, what a family member would say to try to convince a patient who still had self awareness and logic. I explained to Alexandra Dominguez, that she herself has previously shared that Fam has a paranoid state of mind, and that he has bipolar mood d/o. Therefore, I asked her, as she also has a bipolar mood d/o, does she really think the line of logical reasoning used by Amanda would work with Fam? Alexandra Dominguez, answered NO. In her experience with bipolar mood d/o, she suffered [loss of functionality, psychotic thinking] and was only able to recover rational thinking and good functionality when she was medicated for the mood disorder. I then explained to Alexandra Dominguez, that it is EXTREMELY IMPORTANT to have the conjoint therapy with Amanda, with Dr. Henok Aquino. I suggested she have it scheduled on a regular, monthly basis. I suggested she should continue this conjoint therapy even if and when the crises nimesh. This understanding of not only Fam's mental illness, but Alexandra Dominguez's own vulnerability to further trauma is important for Amanda to have. This should start now and well through solid periods of stability. DIAGNOSIS: Acute Stress Reaction PTSD INTERVENTION: Discussion about the HIGH IMPORTANCE of regular conjoint therapy with . BEHAVIORAL OBSERVATIONS: Continues to report high stress. Told me she was less able to follow through o on her diet and exercise because of the stress. RESPONSE TO INTERVENTION: She stated she did NOT receive the phone message from Dr. Aquino, but she did call Mental Health to schedule the appointment. When she heard she could not receive one until end of August 2024, she decided NOT to schedule, out of frustration. I replied, suggesting, that she go ahead and make the appointment and then also request regular monthly appointments with Dr. Aquino. She agreed. REQUEST TO DR. AQUINO: I then explained to enrico Dominguez, that it is EXTREMELY IMPORTANT to have the conjoint therapy with Amanda, with Dr. Henok Aquino. I suggested she have it scheduled on a regular, monthly basis. I suggested she should continue this conjoint therapy even if and when the crises nimesh. This understanding of not only Fam's mental illness, but enrico Dominguez's own vulnerability to further trauma is important for and father Amanda to have. This should start now and well through solid periods of stability. Related to: Service Connected Condition, [facility] Diagnoses: Acute stress disorder ([facility] [id number]) - Acute stress reaction (ICD-10-CM F43.0) (Primary) Bipolar affective disorder, currently depressed, moderate ([facility] [id number]) - Bipolar disorder, current episode depressed, moderate (ICD-10-CM F31.32) Post-traumatic stress disorder ([facility] [id number]) - Post-traumatic stress disorder, unspecified (ICD-10-CM F43.10) Obesity ([facility] [id number]) - Other obesity due to excess calories (ICD-10-CM E66.09) Procedures: Psychotherapy 16-37 min - Synchronous Telemedicine Service - Clinical Psychologist /guadalupe/ ALBER BROWNING,PhD Neuropsychologist Signed: 07/15/2024 14:31 Receipt Acknowledged By: 07/15/2024 15:23 /guadalupe/ FRANCISCO HERNANDEZ, PHD CLINICAL PSYCHOLOGIST 07/16/2024 08:52 /guadalupe/ HENOK AQUINO, PH.D. [facility]
--- OUTSIDE RECORDS SUMMARY | 2024-12-25 15:13 | XMS_ITS ---
Author Name [facility] [place] [facility] [place] [facility] [facility] [place] Address [address] [place] [address] Care Team Providers Care Correctional Corporal Name Role Phone ZOE COPE Primary Care [...] Desai's Name Patient's Relationship to Policy Desai [facility] Feb 04, 2019 [id number] [phone] GABRIELLE CHO PATIENT [facility] Feb 04, 2019 [id number] [phone] GABRIELLE CHO PATIENT MEDICARE (WNR) MEDICARE (M) PART A Feb 05, 2000 PART A [id number] GABRIELLE HUGO PATIENT MEDICARE (WNR) MEDICARE (M) PART A Feb 05, 2000 PART A [id number] GABRIELLE CHO PATIENT MEDICARE (WNR) MEDICARE (M) PART A Feb 05, 2000 PART A [id number] [phone] GABRIELLE HUGO PATIENT Selected Encounter This section includes the information on record at [place] for the Encounter. Date/Time Encounter Type Encounter Description Reason Provider Source Apr 15, 2024 12:30 PM OFFICE O/P EST SF [facility] - IND ICD-10-CM F31.32 Bipolar disorder, current episode depressed, moderate JOSE ALFREDO FLORES E Encounter Template Text not used by [place] Assessments - Encounter Diagnoses This section includes the primary and secondary diagnoses documented for the Encounter. Date/Time Primary/Secondary Diagnosis Diagnosis Name Provider Source Apr 15, 2024 01:05 PM PRIMARY Bipolar disorder, current episode depressed, moderate MARKJOSE ALFREDO [facility] Apr 15, 2024 01:05 PM SECONDARY Acute stress reaction JOSE ALFREDO FLORES [facility] Apr 15, 2024 01:05 PM SECONDARY Binge eating disorder JOSE ALFREDO FLORES [facility] Apr 15, 2024 01:05 PM SECONDARY Post-traumatic stress disorder, unspecified JO[facility]EDO [facility] Plan of Treatment: Future Appointments (+ 6 months) and Future Tests (+/- 45 days) The Plan of Treatment section includes future care activities for the patient from all [place] [facility]. This section includes future appointments and future orders which are active, pending or scheduled. Future Appointments This section includes appointments that were scheduled to occur 6 months from the date of the Encounter, up to a maximum of 20 appointments. The data comes from all [place] treatment facilities. Appointment Date/Time Appointment Type Appointme nt Facility Name Apr 18, 2024 02:00 PM AMBULATORY - [facility] Apr 19, 2024 11:30 AM [facility] May 09, 2024 02:00 PM [facility] May 27, 2024 11:00 AM [facility] [place] [facility] Jun 03, 2024 11:00 AM AM[facility]UL[facility] [place] [facility] Jun 10, 2024 11:00 AM AMBULATORY [facility] [place] [facility] Jun 28, 2024 11:30 AM AMBULATORY - [facility]AB MEDICIN [facility] [place] [facility] Jul 08, 2024 11:00 AM AMBULATORY [facility] [place] [facility] Jul 15, 2024 10:30 AM AMBULATORY [facility] [place] [facility] Jul 15, 2024 11:00 AM AMBULATORY [facility] [place] [facility] Jul 22, 2024 11:00 AM AMBULATORY [facility] [place] [facility] Aug 12, 2024 01:00 PM AMBULATORY - PSYCHIATRY [facility] Aug 19, 2024 11:00 AM AMBULATORY [facility] [place] [facility] Aug 19, 2024 03:00 PM AMBULATORY - [facility] [place] [facility] Sep 02, 2024 11:00 AM AMBULATORY - PS[facility] [place] [facility] Sep 13, 2024 03:00 PM AMBULATORY - PSYCHIATRY [facility] Sep 16, 2024 08:00 AM AMBULATORY - MEDICINE [place] [facility] [place] [facility] Sep 16, 2024 11:00 AM AMBULATORY [facility] PS[facility] [place] [facility] Sep 24, 2024 01:00 PM AMBULATORY - PSYCHIATRY [facility] Oct 04, 2024 08:30 AM AMBULATORY - MEDICINE [facility] Social History: Smoking Status (Most current) and Tobacco Use (All prior to encounter date) This section includes the most current, and the historical, smoking and tobacco- related health factors from the [place] facility where the Encounter took place. Current Smoking Status This section includes the most current smoking, or tobacco-related health factor, from the [place] facility where the Encounter took place. Date/Time Current Smoking Status Octavia cortez Sep 11, 2023 12:30 PM VA-TOBACCO NEVER USED [facility] Tobacco Use History This section includes a history of the smoking, or tobacco-related health factors, that were collected on or before the date of the Encounter. The data comes from the [place] facility where the Encounter took place. Date/Time Smoking Status/Tobacco Use Comment F acility Sep 30, 2022 10:00 AM VA-TOBACCO NEVER USED [place] [facility] [place] [facility] Apr 21, 2020 03:34 PM VA-TOBACCO NEVER USED [facility] [place] [facility] Jan 10, 2019 11:51 AM VA-TOBACCO NEVER USED [facility] [place] [facility] Mar 09, 2018 11:27 AM LIFETIME NON-TOBACCO USER [place] [facility] [place] [facility] Advance Directives: All historical and current Section Date Range: From patient's date of to the date document was created. This section includes ALL of a patient's completed or amended [place] Advance and Rescinded Directives. The entries below indicate that a directive exists for the patient, but an actual copy is not included with this document. The data comes from all [place] facilities. Date Advance Directives Provider Source Feb 23, 2016 ADVANCE DIRECTIVE DISCUSSION MAHAD MCKENZIE [facility] Jan 13, 2004 ADVANCE DIRECTIVE JOSE NAJERA [facility] Radiology Reports: +/- 30 days of the encounter Radiology Reports For cases when an order for radiology services may have been completed prior to the date of the Encounter, the report list includes the Radiology Reports that were completed up to 30 days before dateof the Encounter. For cases when an order for radiology services may have been completed after the date of the Encounter, the report list also includes the Radiology Reports that were completed up to30 days after date of the Encounter. The data comes from all [place] treatment facilities. Date/Time Radiology Report Provider Source Apr 12, 2024 02:12 PM OUTSIDE MAMMO/SCRE ENING, INCLUDING CAD, BILAT: ALBERTO CHO [id number] F Exm Date: APR 12, 2024@14:12 Req Phys: ZOE COPE Pat Loc: CWM/NO/PACT 5 (Req'g Loc) Img Loc: OUTSIDE GENERAL RADIOLOGY Service: Unknown Screen: Patient is unable to answer or is unsure Screen Comment: cc exam (Case [id number] COMPLETE) OUTSIDE MAMMO/SCREENING, INCLUDIN(RAD Detailed) CPT:06779 Reason for Study: annual screening mammogram Clinical History: Report Status: Electronically Filed Date Reported: APR 12, 2024 Report: Community care exam; see CPRS/JLV for outside radiology report/results Impression: Community care exam; see CPRS/JLV for outside radiology report/results Primary Diagnostic Code: BI-RADS CATEGORY 1 (Negative) VERIFIED BY: / *ELECTRONICALLY FILED* [facility] [place] [facility] Encounter Notes: All associated encounter notes This section contains the clinical notes associated to the Encounter. Date/Time Encounter Note(s) Provider Source Apr 15, 2024 12:47 PM TELEHEALTH NOTE: LOCAL TITLE: [place] [employer] PSYCHIATRIST NOTE STANDARD TITLE: TELEHEALTH NOTE DATE OF NOTE: APR 15, 2024@12:47 ENTRY DATE: APR 15, 2024@12:47:45 AUTHOR: EVERTON FLORES EXP COSIGNER: URGENCY: STATUS: COMPLETED [place] e[employer] Connect (VVC) Standard Documentation V[facility] Clinician Resources Only: E911 (Emergency Call Relay Center): [phone] National Veterans Crisis Line - 988 then press #1. [facility] Suicide Coordinator [phone], Ext. [phone]; Back-up Ext. [phone] [place] TONY Yang [place] [phone] Introduction: Visit is being conducted by [place] [employer]. [place] identified with 2 identifiers: [X] Full Name [X] Date of [ ] VA ID Card Emergency Plan: [place] confirmed and/or provided the following information in case of emergency or technology failure. PATIENT PHONE - PHONE NUMBER [CELLULAR] - Is patient phone number correct, if not, enter below: 's phone number: ALBERTO HAMILTONMarilyn CHO [phone] [place], [place], [phone] 's present location and address for appointment: [address] [place] [address] AGUSTIN Murphy [place]'s emergency contact name and phone number: None given [place] reported that location is private and safe: Yes Informed Consent: informed of the risks and benefits of Telehealth video care. [place] has the right to refuse video services. If refuses video visit, a [id number] visit will be scheduled. verbalized consent for this video visit: Yes [place] provided consent for any other persons present for visit: N/A If yes, who and relationship to patient: Secure visit: Visit was locked for security and privacy:Yes ALBERTO CHO, a 49 year old WHITE FEMALE was seen by [facility] today for scheduled mental health follow-up. MENTAL HEALTH NOTE: [place] was seen by [facility] today for 18 min for routine mental health follow up. Two forms of identification was used. DIAGNOSES AND PROBLEMS TREATED THIS VISIT: Bipolar Disorder Type I, MRE Depressed without psychotic features, PTSD-Chronic, MST, History of Bulimia Eating Disorder, now stable, Cannabis Use Disorder, S/P Weight Loss Surgery SUBJECTIVE: Alberto says that she is doing well. She is down to 188 pounds from 271 before her surgery. She is happy with her results so far, but is motivated to keep working at losing weight. She continues to exercise regularly and strives to burn about 600 calories with each session of exercise. Her friends have been complimenting her on her weight loss, which feels nice. She realizes how far she let herself go over the years. Alberto says that her medications are working well for her. She denies any side effects from them. She does report a bad taste when she cuts the bupropion immediate release tabs in half to get to the 150 mg dose. But she prefers doing this than having to take a third dose of the wellbutrin. Alberto says she is up in [place] for another two weeks and then back to [place] for two weeks and then will be back up here the whole month of June. Alberto says when she was in [place] this last time she felt great. She had joined a gym and was getting out of the house every day to do this and also had water massages at the gym which were wonderful. She looks forward to going back there in a couple of weeks. SUBSTANCE ABUSE: Caffeine: Tobacco: denies Cocaine: denies Opioid: denies Alcohol: she reports social drinking; history of rehab once after DUI when she was young. Cannabis: smokes marijuana SUICIDE RISK SCREEN 1. Are you having thoughts today about killing yourself? No 2. Do you have a plan to kill yourself? No Describe plan: 3. Do you have the means to carry out the plan? No 4. Risk level: Low (no suicide specific actions are needed) Previous medication trials: Latuda, wellbutrin, naltrexone, hydroxyzine, ambien, Depakote, Paxil, [place] (said she had lab abnormality with it and was stopped), Prozac, sertraline, lexapro, abilify, gabapentin, Prazosin, Geodon, Lamictal, and seroquel (had a lot of weight gain with it) Current meds: Active and Recently Outpatient Medications (excluding Supplies): Active Outpatient Medications Status 1) ATORVASTATIN CALCIUM 20MG TAB TAKE ONE-HALF TABLET BY ACTIVE MOUTH ONCE DAILY FOR HIGH CHOLESTEROL 2) BUPROPION HCL 100MG TAB TAKE ONE AND ONE-HALF TABLETS ACTIVE BY MOUTH TWICE DAILY DOSE INCREASE. TAKE THE 2ND DAILY DOSE IN THE EARLY AFTERNOON. 3) CETIRIZINE HCL 10MG TAB TAKE ONE TABLET BY MOUTH ONCE ACTIVE DAILY FOR ALLERGIES 4) CHOLECALCIF 50MCG (D3-2,000UNIT) TAB TAKE ONE TABLET ACTIVE BY MOUTH ONCE DAILY FOR VITAMIN D DEFICIENCY 5) ESTRADIOL 0.5MG TAB TAKE ONE TABLET BY MOUTH ONCE ACTIVE DAILY FOR POST MENOPAUSAL SYMPTOMS 6) HYDROXYZINE PAMOATE 25MG CAP TAKE ONE CAPSULE BY ACTIVE MOUTH THREE TIMES A DAY AND TAKE ONE CAPSULE THREE TIMES DAILY NEEDED FOR ANXIETY 7) LEVOTHYROXINE NA (SYNTHROID) 112MCG TAB TAKE ONE ACTIVE TABLET BY MOUTH EVERY MORNING 30 MINUTES BEFORE BREAKFAST FOR THYROID - TAKE ON AN EMPTY STOMACH WITH A FULL GLASS OF WATER 8) LISINOPRIL 20MG TAB TAKE ONE TABLET BY MOUTH ONCE ACTIVE DAILY TO CONTROL BLOOD PRESSURE CHANGE IN DOSE 9) LURASIDONE HCL 80MG TAB TAKE ONE TABLET BY MOUTH ONCE ACTIVE DAILY FOR BIPOLAR DEPRESSION 10) OMEPRAZOLE 20MG EC CAP TAKE ONE CAPSULE BY MOUTH ACTIVE EVERY MORNING 30 MINUTES BEFORE BREAKFAST 11) PROGESTERONE 100MG CAP TAKE ONE CAPSULE BY MOUTH ONCE ACTIVE DAILY TO PROTECT UTERINE LINING MEDICATION ADHERENCE: takes medications most days MEDICATION SIDE EFFECTS: none OBJECTIVE:recent labs:LAB RESULTS LAST 1440 HRS - NONE FOUND Weight: 213.6 lb [96.89 kg] (02/12/2024 13:34) BMI: 34.5 MENTAL STATUS EXAM: Orientation and Consciousness: Alert and fully oriented. Appearance and Behavior: Middle aged white female with hair pulled back dressed in work out clothes on her elliptical at home. Eye Contact: Good. Speech: Normal rate and volume. Mood/Affect: good. Affect: euthymic. Thought Production/Content: Logical, sequential & relevant to discussion. Perceptual Disturbances: None. Attention, concentration and memory based on answers to session questions: Good. Insight/Judgment: Both good. SI/HI: Neither elicited. Ability to Provide informed consent: Yes. ASSESSMENT:49 year old WHITE FEMALE, presents today for mental health follow up. TREATMENT PLAN/ DISCUSSION/ RATIONALE: 1.::: Medication management: Reviewed medications with Alberto today. She continues on Wellbutrin IR 150 mg BID and Latuda 80 mg with a meal and Hydroxyzine 25 mg TID and 25 mg TID prn anxiety (she doesn't use more than the TID dosing most of the time). Alberto denies any side effects from her current medications. No changes to Alberto's medications today. She is at the max single dose of Bupropion IR (150 mg). We could go higher on the Bupropion IR if we needed to, but Alberto would have to take a third daily dose. Alberto prefers to remain with the 150 mg BID of Wellbutrin IR for now. Alberto seems in quite good spirits today. She has really persevered with losing weight and getting back to better health. No evidence of TD noted on video exam today. Last metabolic labs done in August. Will plan to repeat these in August of 2024 or sooner if concerns arise. She continues in individual therapy with Dr. Najera. Encouraged her to keep up the good work. Next Visit: in 2 months. Patient is aware of how to access [facility] open access clinic in [facility] during weekdays for immediate mental health needs if I am not available. Patient has capacity to make his own medication decisions at present time. I asked the patient to come for sooner appointment if the patient does not like the effect of psychiatric medication or if has side effects with psychiatric medication. The side effect profile of the atypical antipsychotic medication was discussed with the patient. The risk of EPS, weight gain, metabolic syndrome (including risk of diabetes and hyperlipidemia), sedation, falling, and TD with the atypical antipsychotic agent was reviewed with the patient. The pt demonstrated reasonable understanding of the side effect profile of the atypical antipsychotic medication. The patient agrees to the medication. The benefits of treatment outweigh risks for this patient. The patient's primary care physician follows blood pressure, weights, lipids, glucose The pt understands not to combine psychiatric meds with alcohol or street drugs. Because the pt reports significant benefit from psychiatric medication, it is reasonable to continue to prescribe the psychiatric medication, even if there is risk of relapse to substance abuse -- the benefits of psychiatric medications outweigh the risks, even in the setting of substance abuse (and by helping to calm psychiatric symptoms, the medications may help decrease the risk/severity of substance abuse relapses) ::: Psychotropic meds were reconciled; and no discrepancies were noted. Discussed R/B/SE/A and necessity for lab monitoring; as well as off-label use, drug-drug interactions, potential for suicidal thinking with some psychotropics. Patient provided with updated medication list and reminded of importance of ensuring that changes including OTCs/herbals get added. Patient voiced understanding and agreement with current treatment plan. ::: Reviewed most recent labs, No studies ordered at this visit. ::: Had a supportive discussion with pt and cont to provide psychoeducation and brief supportive therapy including again providing psychoeducation on sleep hygiene, diet, exercise and med compliance. Pt agrees to present to ER or call 911 for psychiatric emergencies, including SI/HI. ::: SAFETY PLAN: Pt was educated about emergency services available at this facility e.g., ER) and in the community (including Crisis Line, 911, [place] National Suicide Prevention Lifeline: 3-041-275-SIPI). Patient is instructed to contact me should symptoms worsen or side effects develop. Pt agreed to use these resources if warranted. ::: Pt was educated about risks of interactions between drugs/alcohol and psychotropic medications and voiced understanding. Pt was also warned not to drive or operate heavy machinery until the effects of psychotropic medications is known. CRISIS PLAN: The patient denied suicidal and violent ideation, but the Veterans Crisis Line information and number were given to patient. The patient also understands to call 911 or to go to ER in the event of an emergency. AIMS Testing: AIMS (Mental Health Instrument) The patient was evaluated for symptoms of tardive dyskinesia using the AIMS. Total score for items 1-7: 0 Medication Reconciliation: Outpatient: Has the patient been taking medications as documented in the EMLR? YES: The patient has been taking medications as documented in the EMLR. Essential Medication List for Review used to complete this medication reconciliation. INCLUDED IN THIS LIST: Alphabetical list of active outpatient prescriptions dispensed from this [facility] (local) and dispensed from another [place] or DoD facility (remote) as well as inpatient orders (local, pending and active), local clinic medications, locally documented non-VA medications, and local prescriptions that have or been discontinued in the past 90 days. - All changes in medications, including all non-VA/Herbal/OTC medications were entered into CPRS. - If there were any medications the patient should no longer take, they were discontinued. - The patient/caregiver was instructed to update this list, discard old lists, and take this list to the next appointment, whether with a VA or non-VA provider. /guadalupe/ EVERTON FLORES MD PSYCHIATRIST Signed: 04/15/2024 13:07 EVERTON FLORES [facility]
--- OUTSIDE RECORDS SUMMARY | 2024-12-25 15:14 | XMS_ITS ---
Author Name [facility] [place] Address [address] [place] [address] Care Team Providers Care Appeals Board Referee Name Role Phone ZOE COPE Primary Care Provider UnavailHUEY Lockwood Primary Care Provider Unavailabl e Insurance Providers: [...] Desai's Name Patient's Relationship to Policy Desai [facility] Feb 04, 2019 [id number] GABRIELLE CHO PATIENT [facility] [place] HIGH DEDUCTIBL E HEALTH PLAN HDHP Feb 04, 2019 [id number] [phone] GABRIELLE CHO PATIENT MEDICARE (WNR) MEDICARE (M) PART A Feb 05, 2000 PART A [id number] GABRIELLE HUGO PATIENT MEDICARE (WNR) MEDICARE (M) PART A Feb 05, 2000 PART A [id number] GABRIELLE CHO PATIENT MEDICARE (WNR) MEDICARE (M) PART A Feb 05, 2000 PART A [id number] GABRIELLE HUGO PATIENT Selected Encounter This section includes the information on record at [place] for the Encounter. Date/Time Encounter Type Encounter Description Reason Pro vider Source Jul 15, 2024 10:30 AM Outpatient Encounter [facility] Encounter Template Text not used by [place] Plan of Treatment: Future Appointments (+ 6 months) and Future Tests (+/- 45 days) The Plan of Treatment section includes future care activities for the patient from all [place] [facility]. This section includes future appointments and future [...] AMBULATORY - [place]IATRY [facility] [place] [facility] Aug 12, 2024 01:00 PM AMBULATORY - PSYCHIATRY [facility] Aug 19, 2024 11:00 AM AMBULATORY [place] [facility]AT[facility] [place] [facility] Aug 19, 2024 03:00 PM AMBULATORY [place] PS[place]IATRY [facility] [place] [facility] Sep 02, 2024 11:00 AM AMBULATORY [place] [facility]IATRY [facility] [place] [facility] Sep 13, 2024 03:00 PM AMBULATORY - PSYCHIATRY [facility] Sep 16, 2024 08:00 AM AM[place]ULATORY [place]IC[place] [facility] [place] [facility] Sep 16, 2024 11:00 AM AMBULATORY - PS[facility]CHIATRY [facility] [place] [facility] Sep 24, 2024 01:00 PM AMBULATORY - PSYCHIATRY [facility] Oct 04, 2024 08:30 AM AMBULATORY - MEDICINE [facility] Oct 09, 2024 09:00 AM AMBULATORY - PSYCHIATRY [facility] Oct 14, 2024 11:00 AM AMBULATORY [facility]IATRY [facility] [place] [facility] Oct 16, 2024 04:00 PM AM[place]ULATORY [place] [facility] [place] [place] [facility] Oct 17, 2024 10:00 AM AMBULATORY [place]RY [place] [facility] [place] [facility] Oct 18, 2024 08:30 AM AM[place]ULATORY [place] [facility] [place] [place] [facility] Oct 28, 2024 11:00 AM AMBULATORY [place]RY [place] [facility] [place] [facility] Nov 25, 2024 11:00 AM AMBULATORY [place]RY [place] [facility] [place] [facility] Dec 02, 2024 09:27 AM AMBULATORY - NONE [facility] December 09, 2024 11:00 AM AMBULATORY [place]RY [place] [facility] [place] [facility] December 19, 2024 11:00 AM AMBULATORY [place] [facility] [place] [facility] Active, Pending, and Scheduled Orders This [...] PM Consult Order COMMUNITY CARE-GEN SURGERY Cons Utilities [facility] Social History: Smoking Status (Most current) [...] 11, 2023 12:30 PM VA-TOBACCO NEVER USED [place] [facility] Tobacco Use History This section includes a history of the smoking, or tobacco-related health factors, that were collected on or before the date of the Encounter. The data comes from the [place] facility where the Encounter took place. Date/Time Smoking Status/Tobacco Use Comment F dereck Sep 30, 2022 10:00 AM VA-TOBACCO NEVER USED [place] [facility] [place] [facility] Apr 21, 2020 03:34 PM VA-TOBACCO NEVER USED [place] [facility] [facility] Jan 10, 2019 11:51 AM VA-TOBACCO NEVER USED [place] [facility] [facility] Mar 09, 2018 11:27 AM LIFETIME NON-TOBACCO USER [place] [facility] Advance Directives: All historical and current [...] 23, 2016 ADVANCE DIRECTIVE DISCUSSION MAHAD MCKENZIE [facility] Jan 13, 2004 ADVANCE DIRECTIVE JOSE NAJERA [facility] Encounter Notes: All associated encounter notes This section contains the clinical notes associated to the Encounter. Date/Time Encounter Note(s) Provider Source Jul 16, 2024 08:13 AM ADMINISTRATIVE NOTE: LOCAL TITLE: ADMINISTRATIVE RECALL NOTE STANDARD TITLE: ADMINISTRATIVE NOTE DATE OF NOTE: JUL 16, 2024@08:13 ENTRY DATE: JUL 16, 2024@08:14:52 AUTHOR: LEON RAMIREZ EXP COSIGNER: URGENCY: STATUS: COMPLETED ADMINISTRATIVE RECALL NOTE Has ADDENDA RTC orders: Unable to contact patient: Attempts to contact: 1st attempt: Left voicemail 2nd attempt: [facility]: 4th attempt: /guadalupe/ LEON RAMIREZ [employer] Signed: 07/16/2024 08:15 07/17/2024 ADDENDUM STATUS: COMPLETED RTC orders: Unable to contact patient: Attempts to contact: 1st attempt: Left voicemail 2nd attempt: [facility] 3rd attempt: Left vm 4th attempt: /guadalupe/ LEON RAMIREZ [employer] Signed: 07/17/2024 08:11 07/18/2024 ADDENDUM STATUS: COMPLETED RTC orders: Unable to contact patient: Attempts to contact: 1st attempt: Left voicemail 2nd attempt: [facility] 3rd attempt: Left vm 4th attempt: Left vm /guadalupe/ LEON RAMIREZ [employer] Signed: 07/18/2024 09:32 LEON RAMIREZ [facility] Jul 15, 2024 11:02 AM CLERICAL NOTE: LOCAL TITLE: APPOINTMENT NO SHOW STANDARD TITLE: CLERICAL NOTE DATE OF NOTE: JUL 15, 2024@11:02 ENTRY DATE: JUL 15, 2024@11:02:23 AUTHOR: EVERTON FLORES COSIGNER: URGENCY: STATUS: COMPLETED Patient Name: ALBERTO CHO Patient SSN: [id number] Date and time of Appointment No show : 07/15/24 10:30 PATIENT PHONE - PHONE NUMBER [CELLULAR] - Patient's medical record was reviewed. Follow-up actions were determined and initiated: Please check/complete as applies: [X]Telephoned Directly [X]Re-scheduled for next available appt [X]Sent a N0-show letter ( must call for appointment) [ ]Other (Emergent/Overbook, etc.): Additional Comments: Spoke to Alberto by phone at 10:57 am. We will have her appt. today rescheduled. Future Clinic Visits 07/22/2024 11:00 CWM/NO/VVC/MHC/MALINOFSKY 08/19/2024 13:30 CWM/NO/PACT 5 /guadalupe/ EVERTON FLORES MD PSYCHIATRIST Signed: 07/15/2024 11:03 Receipt Acknowledged By: 07/15/2024 14:39 /guadalupe/ LEON RAMIREZ [employer] EVERTON FLORES [facility]
--- OUTSIDE RECORDS SUMMARY | 2024-12-25 15:14 | XMS_ITS ---
Author Name [facility] [place] Address [address] [place] [address] Care Team Providers Care Edger Liner Name Role Phone ZOE COPE Primary Care [...] Name Patient's Relationship to Policy Desai [facility] Feb 04, 2019 [id number] GABRIELLE CHO PATIENT [facility] HIGH DEDUCTIBL E HEALTH PLAN HDHP Feb 04, 2019 [id number] GABRIELLE CHO PATIENT MEDICARE (WNR) MEDICARE (M) PART A Feb 05, 2000 PART A [id number] GABRIELLE HUGO PATIENT MEDICARE (WNR) MEDICARE (M) PART A Feb 05, 2000 PART A [id number] GABRIELLE CHO PATIENT MEDICARE (WNR) MEDICARE (M) PART A Feb 05, 2000 PART A [id number] GABRIELLE HUGO PATIENT Selected Encounter This section includes the information on record at [place] for the Encounter. Date/Time Encounter Type Encounter Description Reason Provider Source Mar 18, 2024 12:30 PM OFFICE O/P EST LOW 20 MIN [facility] - IND ICD-10-CM F43.10 Post-traumatic stress disorder, unspecified JOSE ALFREDO FLORES [facility] Encounter Template Text not used by [place] Assessments - Encounter Diagnoses This section includes the primary and secondary diagnoses documented for the Encounter. Date/Time Primary/Secondary Diagnosis Diagnosis Name Provider Source Mar 18, 2024 04:26 PM PRIMARY Post-traumatic stress disorder, unspecified MARKJOSE ALFREDO [place] [facility] Mar 18, 2024 04:26 PM SECONDARY Acute stress reaction MARKJOSE ALFREDO [place] [facility] [place] [facility] Mar 18, 2024 04:26 PM SECONDARY Binge eating disorder JOSE ALFREDO FLORES [place] [facility] Mar 18, 2024 04:26 PM SECONDARY Bipolar disorder, current episode depressed, moderate JOSE ALFREDO FLORES [facility] Plan of Treatment: Future Appointments (+ 6 months) and Future Tests (+/- 45 days) The Plan of Treatment section includes future care activities for the patient [facility] [place] [facility] This section includes future appointments and future orders which are active, pending or scheduled. Future Appointments This section includes appointments that were scheduled to occur 6 months from the date of the Encounter, up to a maximum of 20 appointments. The data comes from all [place] treatment facilities. Appointment Date/Time Appointment Type Appointme nt Facility Name Mar 21, 2024 02:00 PM AMBULATORY - PS[place]IATRY [place] [facility] Apr 04, 2024 10:30 AM AMBULATORY - MEDICINE [facility] [facility] Apr 04, 2024 02:00 PM [facility] Apr 11, 2024 11:00 AM AMBULATORY - REHAB MEDICIN E [facility] [place] [place] [facility] Apr 15, 2024 12:30 PM AMBULATORY - PS[place]CHIATRY [facility] [place] [facility] Apr 18, 2024 02:00 PM AMBULATORY - PS[place]CHIATRY [facility] [place] [facility] Apr 19, 2024 11:30 AM AMBULATORY - REHAB MEDICIN E [facility] [place] [facility] May 09, 2024 02:00 PM AMBULATORY - PSYCHIATRY [facility] [place] [facility] May 27, 2024 11:00 AM AMBULATORY - PSYCHIATRY [facility] [place] [facility] Jun 03, 2024 11:00 AM AMBULATORY - PS[place]CHIATRY [facility] [place] [facility] Jun 10, 2024 11:00 AM AMBULATORY - PSYCHIATRY [facility] [place] [facility] Jun 28, 2024 11:30 AM AMBULATORY - REHAB MEDICIN E [facility] [place] [facility] Jul 08, 2024 11:00 AM AMBULATORY - PSYCHIATRY [facility] [place] [place] [facility] Jul 15, 2024 10:30 AM AMBULATORY - PSYCHIATRY [facility] [place] [facility] Jul 15, 2024 11:00 AM AMBULATORY - PSYCHIATRY [facility] [place] [facility] Jul 22, 2024 11:00 AM AMBULATORY - PSYCHIATRY [facility] [place] [facility] Aug 12, 2024 01:00 PM AMBULATORY - PSYCHIATRY [facility] Aug 19, 2024 11:00 AM [...] and tobacco- related health factors from the [place] facility where the Encounter took place. Current Smoking Status This section includes the most current smoking, or tobacco-related health factor, from the [place] facility where the Encounter took place. Date/Time Current Smoking Status Comment Enedina cortez Sep 11, 2023 12:30 PM [facility] Tobacco Use History This section includes a history of the smoking, or tobacco-related health factors, that were collected on or before the date of the Encounter. The data comes from the [place] facility where the Encounter took place. Date/Time Smoking Status/Tobacco Use Comment F acility Sep 30, 2022 10:00 AM VA-TOBACCO NEVER USED [place] [facility] [place] [facility] Apr 21, 2020 03:34 PM VA-TOBACCO NEVER USED [place] [facility] [facility] Jan 10, 2019 11:51 AM VA-TOBACCO NEVER USED [place] [facility] [place] [facility] Mar 09, 2018 11:27 AM LIFETIME NON-TOBACCO USER [facility] Advance Directives: All historical and current Section Date Range: From patient's date of to the date document was created. This section includes ALL of a patient's completed or amended [place] Advance and Rescinded Directives. The entries below indicate that a directive exists for the patient, but an actual copy is not included with this document. The data comes from all [facility]. Date Advance Directives Provider Source Feb 23, 2016 ADVANCE DIRECTIVE DISCUSSION MAHAD MCKENZIE [facility] Jan 13, 2004 ADVANCE DIRECTIVE JOSE NAJERA [facility] Radiology Reports: +/- 30 days of the [...] the Encounter. The data comes from all [place] treatment facilities. Date/Time Radiology Report Provider Source Apr 12, 2024 02:12 PM OUTSIDE MAMMO/SCRE ENING, INCLUDING CAD, BILAT: ALBERTO CHO [id number] -[id number] F Exm Date: APR 12, 2024@14:12 Req Phys: ZOE COPE Pat Loc: CWM/NO/PACT 5 (Req'g Loc) Img Loc: OUTSIDE GENERAL RADIOLOGY Service: Unknown Screen: Patient is unable to answer or is unsure Screen Comment: cc exam (Case [id number] COMPLETE) OUTSIDE MAMMO/SCREENING, INCLUDIN(RAD Detailed) CPT:88468 Reason for Study: annual screening mammogram Clinical History: Report Status: Electronically Filed Date Reported: APR 12, 2024 Report: Community care exam; see CPRS/JLV for outside radiology report/results Impression: Community care exam; see CPRS/JLV for outside radiology report/results Primary Diagnostic Code: BI-RADS CATEGORY 1 (Negative) VERIFIED BY: / *ELECTRONICALLY FILED* [place] [facility] [place] [facility] Encounter Notes: All associated encounter notes This section contains the clinical notes associated to the Encounter. Date/Time Encounter Note(s) Provider Source Mar 18, 2024 12:36 PM TELEHEALTH NOTE: LOCAL TITLE: [place] [employer] PSYCHIATRIST NOTE STANDARD TITLE: TELEHEALTH NOTE DATE OF NOTE: MAR 18, 2024@12:36 ENTRY DATE: MAR 18, 2024@12:37:01 AUTHOR: EVERTON FLORES EXP COSIGNER: URGENCY: STATUS: COMPLETED [place] [facility] ([facility]) Standard Documentation [facility] Clinician Resources Only: E911 (Emergency Call Relay Center): [phone] National Veterans Crisis Line - 988 then press #1. [place] Suicide Coordinator [phone], Ext. [phone]; Back-up Ext. [phone] [place] PoliceTONY [place] [phone] Introduction: Visit is being conducted by [place] z[employer]. Rodeo identified with 2 identifiers: [X] Full Name [X] Date of [ ] VA ID Card Emergency Plan: confirmed and/or provided the following information in case of emergency or technology failure. PATIENT PHONE - PHONE NUMBER [CELLULAR] - Is patient phone number correct, if not, enter below: Rodeo's phone number: ALBERTO CHO [address] [place], [place], [address] Rodeo's present location and address for appointment: [address] [place] [address] Rodeo's emergency contact name and phone number: None given reported that location is private and safe: Yes Informed Consent: Rodeo informed of the risks and benefits of Telehealth video care. has the right to refuse video services. If refuses video visit, a [id number] visit will be scheduled. Rodeo verbalized consent for this video visit: Yes Rodeo provided consent for any other persons present for visit: N/A If yes, who and relationship to patient: Secure visit: Visit was locked for security and privacy:Yes ALBERTO CHO, a 49 year old WHITE FEMALE was seen by [facility] today for scheduled mental health follow-up. MENTAL HEALTH NOTE: Rodeo was seen by [facility] for 20 min for routine mental health follow up. Two forms of identification was used. DIAGNOSES AND PROBLEMS TREATED THIS VISIT: Bipolar Disorder Type I, MRE Depressed without psychotic features, PTSD-Chronic, MST, History of Bulimia Eating Disorder, now stable, Cannabis Use Disorder, S/P Weight Loss Surgery SUBJECTIVE: Alberto says that she is doing better. She feels that things with her have been a little better since they have been down in [place]. He seems more available to her and understanding. Alberto was really feeling like he didn't have time for her before when they were in [place]. She says that she has been under a great deal of stress managing the diet that follows weight loss surgery and the exercise that she has to follow. She isn't losing the weight as fast as her surgeon would like, so she has to increase her exercise this week to 3800 calories burned which is about 600 calories per day on the elliptical. She can either work on the treadmill or the elliptical. She finds the exercise boring and uninteresting. She is trying to stay motivated to do it, but says it is not always easy. She had to get a gym membership because with the heat and humidity she hasn't been able to go for her walks like she had been doing. Alberto says her children seem to be doing alright without her and her . Alberto is happy about this. Her one son lost his keys to his apartment and couldn't get in until the following day when the office was open again. She said he had to sleep somewhere else that night. She says sometimes he has to learn through lived experience. Alberto has been back to eating solid foods again (four bites of protein a day). She is doing her best with the diet she has. She does get frustrated by the things she has to do and doesn't feel she can share this with her because he treats her like a chronic complainer. Alberto continues in therapy with Dr. Najera which has been supportive. Alberto says she hasn't taken care of herself in so long, that she is finding a return of her old self now that she is focusing on herself again. Alberto would like to increase her wellbutrin further to help her anxiety and depression. She denies any side effects from it. She says she would prefer to keep it to twice daily dosing as she isn't good about remembering more than two doses a day of medication. SUBSTANCE ABUSE: Caffeine: Tobacco: denies Cocaine: denies [...] Latuda, wellbutrin, naltrexone, hydroxyzine, ambien, Depakote, Paxil, Bertram (said she had lab abnormality with it [...] 2) BUPROPION HCL 100MG TAB TAKE ONE TABLET BY MOUTH ACTIVE TWICE DAILY FOR DEPRESSION SWITCHING FROM XL TO IR. TAKE THE SECOND DAILY DOSE IN THE EARLY AFTERNOON. 3) [...] and Behavior: Middle aged white female with long blond hair tied back in ponytail wearing eyeglasses dressed in green t-shirt sitting in her car. Eye Contact: Good. Speech: Normal rate and [...] Alberto today. She continues on Wellbutrin IR 100 mg BID and Latuda 80 mg with a meal and Hydroxyzine 25 mg TID and 25 mg TID prn anxiety (she doesn't use more than the TID dosing most of the time). Alberto denies any side effects from her current medications. She would like to increase her wellbutrin more to help with anxiety and depression. Will increase her to 150 mg BID for now and see how she does. She will continue on the Latuda 80 mg daily and Hydroxyzine without change. No evidence of TD noted on video exam today. Last metabolic labs done in August. Will plan to repeat these in August of 2024 or sooner if concerns arise. Alberto seems in fair spirits today. She is demonstrating perseverence in the face of some challenges with weight loss and with her relationship. She continues in individual therapy with Dr. Najera. Encouraged her to keep up the good work. Next Visit: in 1 month. Patient is aware of how to access [facility] open access clinic in [facility] during weekdays for immediate mental health needs [...] in the community (including Crisis Line, 911, [place] National Suicide Prevention Lifeline: 9-486-115-TALK). Patient is instructed to contact me should [...] denied suicidal and violent ideation, but the [facility] Crisis Line information and number were given to patient. The patient also understands to call 911 or to go to ER in the event of an emergency. Medication Reconciliation: Outpatient: Has the patient been taking medications as documented in the EMLR? YES: The patient has been taking medications as documented in the EMLR. Essential Medication List for Review used to complete this medication reconciliation. INCLUDED IN THIS LIST: Alphabetical list of active outpatient prescriptions dispensed from this [place] (local) and dispensed from another [place] or DoD facility (remote) as well as [...] provider. /guadalupe/ EVERTON FLORES MD PSYCHIATRIST Signed: 03/18/2024 16:27 EVERTON FLORES [place] [facility]
--- OUTSIDE RECORDS SUMMARY | 2024-12-25 15:14 | XMS_ITS | Encounter Summary ---
Author Name [facility] [place] Address [address] [place] [address] Care Team Providers Care Regulatory Affairs Consultant Name Role Phone ZOE COPE Primary Care [...] Name Patient's Relationship to Policy Desai [facility] Feb 04, 2019 [id number] GABRIELLE CHO PATIENT HEALTH [place] HIGH DEDUCTIBL E HEALTH PLAN HDHP Feb 04, 2019 [id number] GABRIELLE CHO PATIENT MEDICARE (WNR) MEDICARE (M) PART A Feb 05, 2000 PART A [id number] GABRIELLE HUGO PATIENT MEDICARE (WNR) MEDICARE (M) PART A Feb 05, 2000 PART A [id number] GABRIELLE CHO PATIENT MEDICARE (WNR) MEDICARE (M) PART A Feb 05, 2000 PART A [id number] GABRIELLE HUGO PATIENT Selected Encounter This section includes the information on record at [place] for the Encounter. Date/Time Encounter Type Encounter Description Reason Pro vider Source Jul 16, 2024 11:44 AM Outpatient Encounter ADMIN PAT ACTIVTIES (MASNONCT) IHE Encounter Template Text not used by [place] Plan of Treatment: Future Appointments (+ 6 months) and Future Tests (+/- 45 days) The Plan of Treatment section includes future care activities for the patient from all [place] treatmentfacilities. This section includes future appointments and future orders which are active, pending or scheduled. Future Appointments This section includes appointments that were scheduled to occur 6 months from the date of the Encounter, up to a maximum of 20 appointments. The data comes from all [place] treatment facilities. Appointment Date/Time Appointment Type Appointme nt Facility Name Jul 22, 2024 11:00 AM AMBULATORY - PSYCHIATRY [place] [facility] [place] [facility] Aug 12, 2024 01:00 PM AMBULATORY - PSYCHIATRY [facility] Aug 19, 2024 11:00 AM AMBULATORY - PSYCHIATRY [place] [facility] [place] [facility] Aug 19, 2024 03:00 PM AMBULATORY - PSYCHIATRY [place] [facility] [place] [facility] Sep 02, 2024 11:00 AM AMBULATORY - PSYCHIATRY [place] [facility] [place] [facility] Sep 13, 2024 03:00 PM AMBULATORY - PSYCHIATRY [facility] Sep 16, 2024 08:00 AM AMBULATORY - MEDICINE [place] [facility] [place] [facility] Sep 16, 2024 11:00 AM AMBULATORY - PSYCHIATRY [place] [facility] [place] [facility] Sep 24, 2024 01:00 PM AMBULATORY - PSYCHIATRY [facility] Oct 04, 2024 08:30 AM AMBULATORY - MEDICINE [facility] Oct 09, 2024 09:00 AM AMBULATORY - PSYCHIATRY [facility] Oct 14, 2024 11:00 AM AMBULATORY - PSYCHIATRY [place] [facility] [place] [facility] Oct 16, 2024 04:00 PM AMBULATORY - MEDICINE HI [facility] [place] [facility] Oct 17, 2024 10:00 AM AMBULATORY - PSYCHIATRY [place] [facility] [place] [facility] Oct 18, 2024 08:30 AM AMBULATORY - MEDICINE HI [facility] [place] [facility] Oct 28, 2024 11:00 AM AMBULATORY - PSYCHIATRY [place] [facility] [place] [facility] Nov 25, 2024 11:00 AM AM[facility] Dec 02, 2024 09:27 AM AMBULATORY - NONE [facility] December 09, 2024 11:00 AM AMBULATORY - [facility] December 19, 2024 11:00 AM [facility] Active, Pending, and Scheduled Orders This section includes a listing of several types of active, pending, and scheduled orders, including clinic medications orders, diagnostic test orders, procedure orders and consult orders; where the start date of the order is 45 days before the date of the Encounter or 45 days after the date of theEncounter. The data comes from all [place] treatment facilities. Test Date/Time Test Type Test Details Facility Name Aug 28, 2024 01:19 PM Consult Order COMMUNITY CARE-GEN SURGERY Cons Pony Trimmer[facility] Choice [facility] Social History: Smoking Status (Most current) and Tobacco Use (All prior to encounter date) This section includes the most current, and the historical, smoking and tobacco- related health factors from the [place] facility where the Encounter took place. Current Smoking Status This section includes the most current smoking, or tobacco-related health factor, from the [place] facility where the Encounter took place. Date/Time Current Smoking Status Comment Enedina leijay Sep 11, 2023 12:30 PM VA-TOBACCO NEVER USED [facility] Tobacco Use History This section includes a history of the smoking, or tobacco-related health factors, that were collected on or before the date of the Encounter. The data comes from the [place] facility where the Encounter took place. Date/Time Smoking Status/Tobacco Use Comment F acchio Sep 30, 2022 10:00 AM VA-TOBACCO [facility] Apr 21, 2020 03:34 PM VA-TOBACCO NEVER USED [place] [facility] [place] [facility] Jan 10, 2019 11:51 AM VA-TOBACCO NEVER USED [place] [facility] [place] [facility] Mar 09, 2018 11:27 AM LIFETIME NON-TOBACCO USER [facility] Advance Directives: All historical and current Section Date Range: From patient's date of to the date document was created. This section includes ALL of a patient's completed or amended [place] Advance and Rescinded Directives. The entries below indicate that a directive exists for the patient, but an actual copy is not included with this document. The data comes from all [place] facilities. Date Advance Directives Provider Source Feb 23, 2016 ADVANCE DIRECTIVE DISCUSSION MAHAD MCKENZIE [facility] Jan 13, 2004 ADVANCE DIRECTIVE JOSE NAJERA [facility] Encounter Notes: All associated encounter notes This section contains the clinical notes associated to the Encounter. Date/Time Encounter Note(s) Provider Source Jul 16, 2024 11:44 AM ADMINISTRATIVE NOTE: LOCAL TITLE: CCC: SCHEDULING ADMINISTRATION STANDARD TITLE: ADMINISTRATIVE NOTE DATE OF NOTE: JUL 16, 2024@11:44 ENTRY DATE: JUL 16, 2024@11:44:21 AUTHOR: JOSSY FAJARDO EXP COSIGNER: URGENCY: STATUS: COMPLETED CCC: SCHEDULING ADMINISTRATION Has ADDENDA REQUESTING TO PCP APPT SHE WILL BE OUT OF TOWN UNTIL OCTOBER. REQUESTING IF POSSIBLE AN APPT ON 10/18/24 HER SPOUSE HAS APPT THAT DAY WELL /leola FAJARDO ADVANCED DOOR SLINGER Signed: 07/16/2024 11:44 Receipt Acknowledged By: 07/16/2024 11:54 /guadalupe/ KARELY CASTELLON Advanced Presser Cotton Ginning 07/16/2024 11:47 /guadalupe/ Opal Cao RN Primary Care Staff Nurse 07/16/2024 ADDENDUM STATUS: COMPLETED Same day appt scheduled. /leola CASTELLON Advanced Presser [employer] Ginning Signed: 07/16/2024 11:54 JOSSY FAJARDO [facility]
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
--- OUTSIDE RECORDS SUMMARY | 2024-12-25 15:14 | XMS_ITS ---
Author Name [place] Address [address] [place] [address] Care Team Providers Care Cost Estimating Engineer Name Role Phone ZOE COPE Primary Care [...] Desai's Name Patient's Relationship to Policy Desai [facility] Feb 04, 2019 [id number] [phone] GABRIELLE CHO PATIENT HEALTH [place] HIGH DEDUCTIBL E HEALTH PLAN HDHP Feb 04, 2019 [id number] [phone] GABRIELLE CHO PATIENT MEDICARE (WNR) MEDICARE (M) PART A Feb 05, 2000 PART A [id number] 75A [phone] GABRIELLE HUGO PATIENT MEDICARE (WNR) MEDICARE (M) PART A Feb 05, 2000 PART A [id number] [phone] GABRIELLE VAZQUEZ PATIENT MEDICARE (WNR) MEDICARE (M) PART A Feb 05, 2000 PART A [id number] [phone] GABRIELLE HUGO PATIENT Selected Encounter This section includes the information on record at [place] for the Encounter. Date/Time Encounter Type Encounter Description Reason Pro vider Source Feb 22, 2024 02:00 PM Outpatient Encounter [facility] Encounter Template Text not used by [place] Plan of Treatment: Future Appointments (+ 6 months) and Future Tests (+/- 45 days) The Plan of Treatment section includes future care activities for the patient [facility] [place] [facility] This section includes future appointments and future orders which are active, pending or scheduled. Future Appointments This section includes appointments that were scheduled to occur 6 months from the date of the Encounter, up to a maximum of 20 appointments. The data comes from all [place] treatment facilities. Appointment Date/Time Appointment Type Appointme nt Facility Name Feb 29, 2024 04:30 PM AMBULATORY - PSYCHIATRY [place] [facility] [place] [facility] Mar 06, 2024 02:30 PM AMBULATORY - MEDICINE [place] C [place] [place] [facility] Mar 15, 2024 02:00 PM AMBULATORY - PSYCHIATRY [facility] Mar 18, 2024 12:30 PM AMBULATORY - PSYCHIATRY [place] [facility] [place] [facility] Mar 21, 2024 02:00 PM AMBULATORY - PSYCHIATRY [place] [facility] [place] [facility] Apr 04, 2024 10:30 AM AMBULATORY - MEDICINE [place] C [facility] [place] [facility] Apr 04, 2024 02:00 PM AMBULATORY - PSYCHIATRY [place] [facility] [place] [facility] Apr 11, 2024 11:00 AM AMBULATORY - REHAB MEDICIN E [facility] [place] [facility] Apr 15, 2024 12:30 PM AMBULATORY - PSYCHIATRY [place] [facility] [place] [facility] Apr 18, 2024 02:00 PM AMBULATORY - PSYCHIATRY [place] [facility] [place] [facility] Apr 19, 2024 11:30 AM AMBULATORY - REHAB MEDICIN E [facility] [place] [facility] May 09, 2024 02:00 PM AMBULATORY - PSYCHIATRY [facility] [place] [facility] May 27, 2024 11:00 AM AMBULATORY - PSYCHIATRY [facility] [place] [facility] Jun 03, 2024 11:00 AM AMBULATORY - PSYCHIATRY [place] [facility] [place] [facility] Jun 10, 2024 11:00 AM AMBULATORY - PSYCHIATRY [facility] [place] [facility] Jun 28, 2024 11:30 AM AMBULATORY - REHAB MEDICIN E [place] [facility] [place] [facility] Jul 08, 2024 11:00 AM AMBULATORY - PSYCHIATRY [place] [facility] [place] [facility] Jul 15, 2024 10:30 AM AMBULATORY - PSYCHIATRY [facility] [place] [facility] Jul 15, 2024 11:00 AM AMBULATORY - PSYCHIATRY [place] [facility] [place] [facility] Jul 22, 2024 11:00 AM AMBULATORY - PSYCHIATRY [place] [facility] [place] [facility] Social History: Smoking Status (Most current) and Tobacco Use (All prior to encounter date) This section includes the most current, and the historical, smoking and tobacco- related health factors from the [place] facility where the Encounter took place. Current Smoking Status This section includes the most current smoking, or tobacco-related health factor, from the [place] facility where the Encounter took place. Date/Time Current Smoking Status Comment Enedina cortez Sep 11, 2023 12:30 PM [facility]TOBACCO [facility] [place] [facility] Tobacco Use History This section includes a history of the smoking, or tobacco-related health factors, that were collected on or before the date of the Encounter. The data comes from the [place] facility where the Encounter took place. Date/Time Smoking Status/Tobacco Use Comment Darlene harden Sep 30, 2022 10:00 AM VA-TOBACCO NEVER USED [place] [facility] [place] [facility] Apr 21, 2020 03:34 PM VA-TOBACCO NEVER USED [place] [facility] [place] [facility] Jan 10, 2019 11:51 AM VA-TOBACCO NEVER USED [place] [facility] [place] [facility] Mar 09, 2018 11:27 AM LIFETIME NON-TOBACCO USER [place] [facility] [place] [facility] Advance Directives: All historical and current Section Date Range: From patient's date of to the date document was created. This section includes ALL of a patient's completed or amended [place] Advance and Rescinded Directives. The entries below indicate that a directive exists for the patient, but an actual copy is not included with this document. The data comes from all [place] facilities. Date Advance Directives Provider Source Feb 23, 2016 ADVANCE DIRECTIVE DISCUSSION MAHAD MCKENZIE [facility] Jan 13, 2004 ADVANCE DIRECTIVE JOSE NAJERA [facility] Encounter Notes: All associated encounter notes This section contains the clinical notes associated to the Encounter. Date/Time Encounter Note(s) Provider Source Feb 22, 2024 02:13 PM CLERICAL NOTE: LOCAL TITLE: APPOINTMENT NO SHOW STANDARD TITLE: CLERICAL NOTE DATE OF NOTE: FEB 22, 2024@14:13 ENTRY DATE: FEB 22, 2024@14:13:38 AUTHOR: ALBER BROWNING EXP COSIGNER: URGENCY: STATUS: COMPLETED Patient Name: LEE CHO Patient SSN: [id number] Date and time of Appointment No show : 02/22/24 14:00 PATIENT PHONE - PHONE NUMBER [CELLULAR] - Patient's medical record was reviewed. Follow-up actions were determined and initiated: Please check/complete as applies: [X]Telephoned Directly [ ]Re-scheduled for next available appt [ ]Sent a N0-show letter ( must call for appointment) [ ]Other (Emergent/Overbook, etc.): Additional Comments: answered the call, and said she forgot about the appointment. She could not do the appointment at this time, because she was being measured for an article of clothing. Future Clinic Visits 02/29/2024 14:00 CWM/NO/VVC/MHC/PSYCHOLO GY 03/15/2024 14:00 CWM/SO/MHC/KATHRYN MYO 03/18/2024 12:30 CWM/NO/VVC/MHC/MARK 04/04/2024 10:30 COM CARE-MAMMO FEM SCRN 08/19/2024 13:30 CWM/NO/PACT 5 /es/ ALBER BROWNING,PhD Neuropsychologist Signed: 02/22/2024 14:14 ALBER BROWNINGRL [facility] [place] [facility]
--- OUTSIDE RECORDS SUMMARY | 2024-12-25 15:14 | XMS_ITS | Encounter Summary ---
Author Name [facility] [place] Organization [facility] [place] [facility] [place] Address [address] [place] [address] Care Team Providers Care Chiseler Head Name Role Phone ZOE COPE Primary Care [...] Name Patient's Relationship to Policy [facility] Feb 04, 2019 [id number] GABRIELLE CHO PATIENT [facility] HDHP Feb 04, 2019 [id number] GABRIELLE CHO PATIENT MEDICARE (WNR) MEDICARE (M) PART A Feb 05, 2000 PART A [id number] GABRIELLE HUGO PATIENT MEDICARE (WNR) MEDICARE (M) PART A Feb 05, 2000 PART A [id number] GABRIELLE CHO PATIENT MEDICARE (WNR) MEDICARE (M) PART A Feb 05, 2000 PART A [id number] [phone] GABRIELLE HUGO PATIENT Selected Encounter This section includes the information on record at [place] for the Encounter. Date/Time Encounter Type Encounter Description Reason Provider Source Oct 04, 2024 08:30 AM OFF/OP EST DECEMBER X REQ PHY/QHP PRIMARY CARE/MEDICINE ICD-10-CM K64.9 Unspecified hemorrhoids MARYANN ENG Marilyn Encounter Template Text not used by PR Assessments - Encounter Diagnoses This section includes the primary and secondary diagnoses documented for the Encounter. Date/Time Primary/Secondary Diagnosis Diagnosis Name Provider Source Oct 04, 2024 10:14 AM PRIMARY Unspecified hemorrhoids MARYANN ENG [place] Plan of Treatment: Future Appointments (+ 6 months) and Future Tests (+/- 45 days) The Plan of Treatment section includes future care activities for the patient from all [place] treatmentfacilities. This section includes future appointments and future orders which are active, pending or scheduled. Future Appointments This section includes appointments that were scheduled to occur 6 months from the date of the Encounter, up to a maximum of 20 appointments. The data comes from all [place] treatment facilities. Appointment Date/Time Appointment Type Appointme nt Facility Name Oct 09, 2024 09:00 AM AMBULATORY - PSYCHIATRY [facility] Oct 14, 2024 11:00 AM AMBULATORY - PS[place]CHIATRY [facility] [place] [facility] Oct 16, 2024 04:00 PM AMBULATORY - MEDICINE [facility] [place] [facility] Oct 17, 2024 10:00 AM AMBULATORY - PSYCHIATRY [facility] [place] [facility] Oct 18, 2024 08:30 AM AMBULATORY - MEDICINE [facility] [place] [facility] Oct 28, 2024 11:00 AM AMBULATORY - PSYCHIATRY [facility] [place] [facility] Nov 25, 2024 11:00 AM AMBULATORY - PSYCHIATRY [facility] [place] [facility] Dec 02, 2024 09:27 AM AMBULATORY - [facility] December 09, 2024 11:00 AM AMBULATORY - PSYCHIATRY [facility] [place] [facility] December 19, 2024 11:00 AM AMBULATORY - PSYCHIATRY [facility] [place] [facility] Jan 06, 2025 11:00 AM AMBULATORY - PSYCHIATRY [facility] [place] [facility] Jan 16, 2025 09:00 AM AMBULATORY - MEDICINE [facility] [place] [facility] Jan 20, 2025 11:00 AM AMBULATORY - PSYCHIATRY [facility] [place] [facility] Feb 03, 2025 11:00 AM AMBULATORY - PSYCHIATRY [facility] [place] [facility] Mar 13, 2025 11:00 AM [facility] Active, Pending, and Scheduled Orders This section includes a listing of several types of active, pending, and scheduled orders, including clinic medications orders, diagnostic test orders, procedure orders and consult orders; where the start date of the order is 45 days before the date of the Encounter or 45 days after the date of theEncounter. The data comes from all [place] treatment facilities. Test Date/Time Test Type Test Details Facility Name Aug 28, 2024 01:19 PM Consult Order COMMUNITY CARE-GEN SURGERY Cons Fleet Dispatch Manager's Choice [facility] Oct 04, 2024 09:28 AM Consult Order COMMUNITY CARE-GEN SURGERY Cons Fleet Dispatch Manager's Choice [facility] Lab Results: +/- 30 days of the encounter This section includes the Chemistry and Hematology Lab Results on record with PR for the patient. Radiology Reports and Pathology Reports are provided separately, in subsequent sections. Lab Results This section contains the Chemistry/Hematology Results that were resulted 30 days before or 30 daysafter the date of the Encounter. Date/Time Source Result Type Result - Unit Interpretation Reference Range Specimen Type Comment Oct 18, 2024 09:37 AM [facility] LYME SEROLOGY PANEL SERUM Specimen Type: SERUM Comment: The LYME SEROLOGY PANEL was performed using the FDA-approved Carlos IRVIN Borrelia burdorferi modified two-tier test system. This modified methodology uses a second EIA in place of a western immunoblot assay, which the FDA has determined is substantially equivalent to or better than standard two-tier testing using western blot. Supplemental testing with a second EIA meets CDC guidelines for Lyme disease testing. Performance characteristics of the panel were validated at the [facility]. Results are considered positive only if the initial screening EIA is positive or equivocal, and either or both supplemental EIAs (for IgM and IgG) are positive. Diagnosis of Lyme disease should not be based solely on laboratory results. Clinical and exposure history must be considered. Positive antibody results reflect prior immunologic exposure, and do not necessarily indicate active infection. False positive results are possible in patients with other spirochetal infections, infectious mononucleosis, and connective tissue disorders. Negative results do not exclude B. burgdorferi infection. Only 10-40% of patients with erythema migrans alone have detectable antibodies. False negative results are possible, if specimens are drawn too soon after infection before an antibody response. Antibody induction may be aborted by early antibiotic therapy. Results in immunosuppressed individuals should be interpreted with caution. If Lyme disease is strongly suspected, but antibody was not detected, a second specimen collected about 2-4 weeks after the first should be tested. This test is NOT for use in screening individuals without signs, symptoms or exposure history. Physicians should report all cases of Lyme disease to their state and local health departments, if applicable. Ordering Provider: ZOE COPE Report Released Date/Time: Oct 18, 2024 09:12 AM Reporting Lab: [facility] [address] [address] Performing Lab: [facility] [address] [facility] [address] TIER 1 LYME SCREENING EIA Negative Negat noah LYME AB FINAL INTERPRETATION Negative Ne gative Oct 18, 2024 09:37 AM [facility] EHRLICHIA CHAFFEENSIS Ab PANEL SERUM Specimen Type: SERUM Comment: REFERENCE RANGE: <1:64 REFERENCE RANGE: <1:20 Antibody Not Detected Ehrlichia chaffeenis has been identified as the causative agent of Human Monocytic Ehrlichiosis (HME). Infected individuals produce specific antibodies to E. chaffeensis that can be detected by an immuno- fluorescent antibody (IFA) test. Single IgG IFA titers of 1:64 or greater indicate exposure to E. chaffeensis. A four-fold rise in IgG titers between acute and convalescent samples and/or the presence of IgM antibody against E. chaffeensis suggest recent or current infection. This test was developed and its analytical performance characteristics have been determined by [facility] [place]. It has not been cleared or approved by the U.S. Food and Drug Administration. This assay has been validated pursuant to the CLIA regulations and is used for clinical purposes. Test Performed by [employer], [facility] [place], [address] [place], [place] Jey Meza M.D., Ph.D., Director of Laboratories , CLIA [id number] TEST PERFORMED AT: , Ordering Provider: ZOE COPE Report Released Date/Time: Oct 18, 2024 09:12 AM Reporting Lab: [facility] [address] [address] Performing Lab: [facility] [address] [address] E. chaffeensis Ab IgG <1:64 SEE BELOW E. chaffeensis Ab IgM <1:20 SEE BELOW EHRLICHIA CHAFFEENSIS AB INTER SEE NOTE Oct 18, 2024 09:37 AM [facility] ANAPLASMA AND EHRLICHIA AB PANEL SERUM Specim en Type: SERUM Comment: REFERENCE RANGE: <1:64 REFERENCE RANGE: <1:20 Antibody Not Detected Ehrlichia chaffeenis has been identified as the causative agent of Human Monocytic Ehrlichiosis (HME). Infected individuals produce specific antibodies to E. chaffeensis that can be detected by an immuno- fluorescent antibody (IFA) test. Single IgG IFA titers of 1:64 or greater indicate exposure to E. chaffeensis. A four-fold rise in IgG titers between acute and convalescent samples and/or the presence of IgM antibody against E. chaffeensis suggest recent or current infection. This test was developed and its analytical performance characteristics have been determined by [place], [place]. It has not been cleared or approved by the U.S. Food and Drug Administration. This assay has been validated pursuant to the CLIA regulations and is used for clinical purposes. REFERENCE RANGE: <1:64 REFERENCE RANGE: <1:20 Antibody Not Detected Anaplasma phagocytophilum is the tick-borne agent causing Human Granulocytic Ehrlichiosis (HGE). HGE is distinct and separate from Human Monocytic Ehrlichiosis (HME), caused by Ehrlichia chaffeensis. Serologic crossreactivity between A. phagocyto- philum and E. chaffeensis is minimal (5-15%). This test was developed and its analytical performance characteristics have been determined by [facility] [place], [place]. It has not been cleared or approved by the U.S. Food and Drug Administration. This assay has been validated pursuant to the CLIA regulations and is used for clinical purposes. Test Performed by [facility] [place], [address] [place] [address] Jey Meza M.D., Ph.D., Director of Laboratories , CLIA [id number] TEST PERFORMED AT: , Ordering Provider: ZOE COPE Report Released Date/Time: Oct 18, 2024 09:12 AM Reporting Lab: [facility] [address] [address] Performing Lab: [facility] [address] [address] E. chaffeensis Ab IgG <1:64 SEE BELOW E. chaffeensis Ab IgM <1:20 SEE BELOW A.phagocytophilum Ab IgG <1:64 SEE BEL OW A.phagocytophilum Ab IgM <1:20 SEE BEL OW EHRLICHIA CHAFFEENSIS AB INTER SEE NOTE A. phagocytophilum inter SEE NOTE Oct 18, 2024 09:37 AM [facility] MALARIA/BABESIA EXAM BLOOD Specimen Type: BLO OD Comment: Due to the cyclical shed rates of these parasites, one negative specimen does not rule out the possibility of a parasitic infection. Obtain specimens at 6-hour intervals for 36 hours for a comprehensive examination. Test Performed by [employer] [place], [address] [place] [address] Jey Meza M.D., Ph.D., Director of Laboratories , CLIA [id number] TEST PERFORMED AT: , Ordering Provider: ZOE COPE Report Released Date/Time: Oct 18, 2024 09:12 AM Reporting Lab: [facility] [address] [address] Performing Lab: [facility] [address] [address] MALARIA/BABESIA EXAM Negative Negative Oct 11, 2024 08:19 AM [facility] LIPID PANEL FASTING SERUM Specimen Type: SERU M No comment entered. Ordering Provider: ZOE COPE Report Released Date/Time: Oct 11, 2024 08:18 AM Reporting Lab: [facility] [address] [address] Performing Lab: [facility] [address] [address] CHOLESTEROL 144 mg/dL TRIGLYCERIDE 64 mg/dL 0-150 LDL calculated 52 mg/dL 0-129 CHOL/HDL 1.8 HDL CHOLESTEROL 79 mg/dL H 40-60 Oct 11, 2024 08:19 AM [facility] BASIC METABOLIC PANEL (non-fasting) SERUM Spe cimen Type: SERUM No comment entered. Ordering Provider: ZOE COPE Report Released Date/Time: Oct 11, 2024 08:18 AM Reporting Lab: [facility] [address] [address] Performing Lab: [facility] [address] [address] UREA NITROGEN 15 mg/dL 7-25 GLUCOSE 95 mg/dL 65-100 SODIUM 139 mmol/L 135-145 POTASSIUM 4.2 mmol/L 3.5-5.0 CHLORIDE 105 mmol/L 100-110 CO2 27 meq/L 20-30 CALCIUM 9.7 mg/dL 8.5-10.2 CREATININE, Serum 0.81 mg/dL 0.50-1.40 eGFR(CKD-EPI 2020) 87 mL/min >60 Oct 11, 2024 08:19 AM [facility] HEMOGLOBIN A1C PANEL BLOOD Specimen Type: BLO OD Comment: Values obtained from A1C measurements can vary. For atypical A1C assays, a reported value of 7.0 could actually be between 6.72 and 7.28 if measured by a reference method. A reported value of 9.0 could actually be between 8.73 and 9.27. Ref: http://www.ngsp.org/CAPdata.asp Ordering Provider: ZOE COPE Report Released Date/Time: Oct 11, 2024 08:18 AM Reporting Lab: [facility] [address] [address] Performing Lab: [facility] [address] [address] HEMOGLOBIN A1C 5.0 4.0-5.6 Oct 11, 2024 08:19 AM [facility] TSH SERUM Specimen Type: SERUM No comment entered. Ordering Provider: ZOE COPE Report Released Date/Time: Oct 11, 2024 08:18 AM Reporting Lab: [facility] [address] Performing Lab: [facility] [address] [address] TSH 2.44 u[IU]/mL 0.35-5.00 Oct 11, 2024 08:19 AM [facility] LIVER FUNCTION SERUM Specimen Type: SERUM No comment entered. Ordering Provider: ZOE COPE Report Released Date/Time: Oct 11, 2024 08:18 AM Reporting Lab: [facility] [address] [address] Performing Lab: [facility] [address] [address] PROTEIN,TOTAL 6.5 g/dL 6.0-8.3 ALBUMIN 3.8 g/dL 3.5-5.0 ALKALINE PHOSPHATASE 84 U/L 40-150 AST 21 U/L 5-34 ALT 26 U/L BILIRUBIN, TOTAL 0.8 mg/dL 0.2-1.2 Oct 11, 2024 08:19 AM [facility] CBC AND DIFF (AUTO) BLOOD Specimen Type: BLOO D No comment entered. Ordering Provider: ZOE COPE Report Released Date/Time: Oct 11, 2024 08:18 AM Reporting Lab: [facility] [address] [address] Performing Lab: [facility]ENTER[facility] [address] [address] WBC 7.92 10*3/uL 4.50-11.00 RBC 4.64 10*6/uL 3.93-5.16 HGB 14.2 g/dL 12-15.2 HCT 41.9 36.6-45.6 MCV 90.3 fL 82-99 MCHC 33.9 g/dL 30.8-35.1 PLT 246 10*3/uL 140-360 RDW-CV 14.5 12.0-16.0 MONO, ABS 0.49 10*3/uL 0.30-1.10 MCH 30.6 pg 26.2-32.6 NEUT % 58.1 43.7-75.8 LYMPH % 33.3 14.0-42.3 MONO % 6.2 5.1-13.7 EOS % 1.6 0.4-6.8 BASO % 0.5 0.1-2.0 NEUT, ABS 4.60 10*3/uL 2.20-7.60 LYMPH, ABS 2.64 10*3/uL 1.00-3.20 EOS, ABS 0.13 10*3/uL 0.03-0.44 BASO, ABS 0.04 10*3/uL 0.01-0.13 IMMATURE GRAN % 0.3 0.0-0.7 IMMATURE GRAN, ABS 0.02 10*3/uL 0.00-0.0 6 NRBC % 0.0 0.0-0.0 NRBC, ABS 0.00 10*3/uL 0.00-0.00 Vital Signs: All taken on the encounter date This section contains inpatient and outpatient Vital Signs collected on the date of the Encounter. Date/Time Temperature Pulse Blood Pressure Respiratory Rate SP02 Pain Height Weight Body Mass Index Source Oct 04, 2024 08:03 AM 98 77 130/79 18 96 6 [place] Social History: Smoking Status (Most current) and Tobacco Use (All prior to encounter date) This section includes the most current, and the historical, smoking and tobacco- related health factors from the PR facility where the Encounter took place. Current Smoking Status This section includes the most current smoking, or tobacco-related health factor, from the PR facility where the Encounter took place. Date/Time Current Smoking Status Comment Facil lissy May 26, 2021 01:30 PM VA-TOBACCO NEVER USED [place] Advance Directives: All historical and current Section Date Range: From patient's date of to the date document was created. This section includes ALL of a patient's completed or amended [place] Advance and Rescinded Directives. The entries below indicate that a directive exists for the patient, but an actual copy is not included with this document. The data comes from all [place] facilities. Date Advance Directives Provider Source Feb 23, 2016 ADVANCE DIRECTIVE DISCUSSION MAHAD MCKENZIE [facility] Jan 13, 2004 ADVANCE DIRECTIVE JOSE NAJERA [facility] Encounter Notes: All associated encounter notes This section contains the clinical notes associated to the Encounter. Date/Time Encounter Note(s) Provider Source Oct 04, 2024 08:33 AM PRIMARY CARE NOTE: LOCAL TITLE: WALK-IN NOTE PRIMARY CARE (T) STANDARD TITLE: PRIMARY CARE NOTE DATE OF NOTE: OCT 04, 2024@08:33 ENTRY DATE: OCT 04, 2024@08:33:08 AUTHOR: MARYANN ENG COSIGNER: URGENCY: STATUS: COMPLETED WALK-IN NOTE PRIMARY CARE (T) Has ADDENDA Data: 49year old FEMALE [place] reports to Primary Care clinic for Walk-In visit. 's PCP is ZOE COPE Today Vet walks in to clinic with complaint of large painful hemorrhoid. Last recorded Vital Signs are: Temperature:98 F [36.7 C] (10/04/2024 08:03) Pulse:77 (10/04/2024 08:03) Blood Pressure:130/79 (10/04/2024 08:03) Respiration:18 (10/04/2024 08:03) Pain:6 (10/04/2024 08:03) Vet reports current allergies are: Remote Allergy Data No Remote Allergy/ADR Data available for this patient Current Medications from Active Med list include: Active Outpatient Medications (including Supplies): Active Outpatient Medications Status ====== 1) ATORVASTATIN CALCIUM 20MG TAB TAKE ONE-HALF TABLET BY MOUTH ACTIVE ONCE DAILY Indication: FOR HIGH CHOLESTEROL 2) BUPROPION HCL 100MG TAB TAKE ONE AND ONE-HALF TABLETS BY ACTIVE MOUTH TWICE DAILY TAKE THE 2ND DAILY DOSE IN THE EARLY AFTERNOON. Indication: FOR DEPRESSION 3) CETIRIZINE HCL 10MG TAB TAKE ONE TABLET BY MOUTH ONCE DAILY ACTIVE FOR ALLERGIES 4) CHOLECALCIF 50MCG (D3-2,000UNIT) TAB TAKE ONE TABLET BY ACTIVE MOUTH ONCE DAILY Indication: FOR VITAMIN D DEFICIENCY 5) ESTRADIOL 0.5MG TAB TAKE ONE TABLET BY MOUTH ONCE DAILY ACTIVE Indication: FOR POST MENOPAUSAL SYMPTOMS 6) FLUTICASONE PROP 50MCG 120D NASAL INHL INSTILL 2 SPRAYS INTO ACTIVE EACH NOSTRIL ONCE DAILY Indication: FOR NASAL IRRITATION/INFLAMMATION 7) HYDROXYZINE PAMOATE 25MG CAP TAKE ONE CAPSULE BY MOUTH THREE ACTIVE TIMES A DAY AND TAKE ONE CAPSULE THREE TIMES DAILY NEEDED Indication: FOR ANXIETY 8) LEVOTHYROXINE NA 112MCG TAB TAKE ONE TABLET BY MOUTH EVERY ACTIVE MORNING 30 MINUTES BEFORE BREAKFAST FOR THYROID - TAKE ON AN EMPTY STOMACH WITH A FULL GLASS OF WATER 9) LISINOPRIL 20MG TAB TAKE ONE TABLET BY MOUTH ONCE DAILY TO ACTIVE CONTROL BLOOD PRESSURE CHANGE IN DOSE 10) LURASIDONE HCL 80MG TAB TAKE ONE TABLET BY MOUTH ONCE DAILY ACTIVE Indication: FOR BIPOLAR DEPRESSION 11) OMEPRAZOLE 20MG EC CAP TAKE ONE CAPSULE BY MOUTH EVERY ACTIVE MORNING 30 MINUTES BEFORE BREAKFAST Indication: FOR GASTROESOPHAGEAL REFLUX DISEASE 12) PROGESTERONE 100MG CAP TAKE ONE CAPSULE BY MOUTH ONCE DAILY ACTIVE Indication: TO PROTECT UTERINE LINING Action: [place] reports to sick call with reports of a large painful hemorrhoid. States has a long history of them, Has had surgical excision as well. Also states history of a hemorrhoid that was clotted and needed surgical removal Currently reports starting Monday with increase pain to an existing large hemorrhoid Denies blood in stool or wiping States using Tucks medicated pads with no effect. Discussed findings with Tj Núñez NP. She was examined by her and new medications ordered to belt picker sitz bath in [facility]. advised if pain worsens she would need to go to ER for evaluation. in agreement with plan and verbalized understanding, Reminders Info Only: [facility] Video Connect Capable DUE NOW AIMS Testing Oct 13 MH Atyp Antipsych Metabol Syndrome DUE NOW Avg Risk Colorectal Cancer Screen Aug 03 Hepatitis B Serology/Immunization DUE NOW Influenza Immunization DUE NOW Medication Reconciliation DUE NOW Td/Tdap Immunization Jun 16 COVID-19 Immunization DUE NOW Herpes Zoster (Shingles) Vaccine DUE NOW RHS Screen DUE NOW (Optional) Whole Health Documentation DUE NOW /guadalupe/ MARYANN ENG RN PRIMARY CARE RN Signed: 10/04/2024 10:15 Receipt Acknowledged By: 10/06/2024 13:55 /leola NÚÑEZ NP NURSE PRACTITIONER 10/06/2024 ADDENDUM STATUS: COMPLETED Called MALENA Patel to call back to let us know how she is doingre: hemorrhoids. Gen Surg Consult is active. /leola NÚÑEZ NP NURSE PRACTITIONER Signed: 10/06/2024 13:55 10/11/2024 ADDENDUM STATUS: COMPLETED was in clinic and states she is felling bettter. States she has a GI consult next Monday. /leola ENG RN PRIMARY CARE RN Signed: 10/11/2024 08:28 MARYANN ENG
--- OUTSIDE RECORDS SUMMARY | 2024-12-25 15:14 | XMS_ITS | Encounter Summary ---
Author Name [facility] [facility] [place] Address [address] [place] [address] Care Team Providers Care Layup Worker Name Role Phone ZOE COPE Primary Care Provider UnavailHUEY Lockwood Primary Care Provider Unavailekta e Insurance Providers: All historical and current [...] Desai's Name Patient's Relationship to Policy Desai [facility] Feb 04, 2019 [id number] [facility] HIGH [employer] E [employer] HDHP Feb 04, 2019 [id number] [phone] GABRIELLE CHO PATIENT MEDICARE (WNR) MEDICARE (M) PART A Feb 05, 2000 PART A [id number] GABRIELLE HUGO PATIENT MEDICARE (WNR) MEDICARE (M) PART A Feb 05, 2000 PART A [id number] GABRIELLE CHO PATIENT MEDICARE (WNR) MEDICARE (M) PART A Feb 05, 2000 PART A [id number] [phone] GABRIELLE HUGO PATIENT Selected Encounter This section includes the information on [place] at [place] for the [place]counter. Date/Time Encounter Type Encounter Description Reason Provider Source Feb 17, 2024 09:37 AM EMERGENCY DEPT VISIT MOD [facility] EMERGENCY DEPT ICD-10-CM H00.015 Hordeolum externum left lower eyelid SEEMA ROSAS Marilyn Encounter Template Text not used by [place] Assessments - Encounter Diagnoses This section includes the primary and secondary diagnoses documented for the Encounter. Date/Time Primary/Secondary Diagnosis Diagnosis Name Provider Source Feb 17, 2024 10:25 AM PRIMARY Hordeolum externum left lower eyelid SEEMA ROSAS [facility] Plan of Treatment: Future Appointments (+ 6 months) and Future Tests (+/- 45 days) The Plan of Treatment section includes future care activities for the patient from all [place] treatmentfacilities. This section includes future appointments and future orders which are active, pending or scheduled. Future Appointments This section includes appointments that were scheduled to occur 6 months from the date of the Encounter, up to a maximum of 20 appointments. The data comes from all [place] treatment facilities. Appointment Date/Time Appointment Type Appointme nt Facility Name Feb 22, 2024 02:00 PM AM[place] [facility] [place] [facility] Feb 29, 2024 04:30 PM [place] [facility] [place] [facility] Mar 06, 2024 02:30 PM AM[place]ULATORY - [place]ICINE [place] [facility] [place] [facility] Mar 15, 2024 02:00 PM AMBULATORY - PSYCHIATRY [facility] Mar 18, 2024 12:30 PM AM[place]ORY [place] [facility] [place] [facility] Mar 21, 2024 02:00 PM AM[place]UL[place]ORY [place] [facility] [place] [facility] Apr 04, 2024 10:30 AM AM[place]ULATORY [place]IC[place] [facility] [place] [facility] Apr 04, 2024 02:00 PM AM[place]ORY [place] [facility] [place] [facility] Apr 11, 2024 11:00 AM AMBULATORY - [place]ICIN [place] [facility] [place] [facility] Apr 15, 2024 12:30 PM AMBULATORY - [facility]IATRY [facility] [place] [facility] Apr 18, 2024 02:00 PM AMBULATORY - PS[place]CHIATRY [facility] [place] [facility] Apr 19, 2024 11:30 AM AMBULATORY - REHAB MEDICIN [facility] [place] [facility] May 09, 2024 02:00 PM AMBULATORY - PS[facility]CHIATRY [facility] [place] [facility] May 27, 2024 11:00 AM AMBULATORY - PS[facility]CHIATRY [facility] [place] [facility] Jun 03, 2024 11:00 AM AMBULATORY - PS[facility]CHIATRY [facility] [place] [facility] Jun 10, 2024 11:00 AM AMBULATORY - PS[facility]CHIATRY [facility] [place] [facility] Jun 28, 2024 11:30 AM AMBULATORY - REHAB MEDICIN E [facility] [place] [facility] Jul 08, 2024 11:00 AM AMBULATORY - PS[facility]CHIATRY [facility] [place] [facility] Jul 15, 2024 10:30 AM AMBULATORY - PS[facility]CHIATRY [facility] [place] [facility] Jul 15, 2024 11:00 AM AMBULATORY - PS[facility]IATRY [facility] [place] [facility] Vital Signs: All taken on the encounter date This section contains inpatient and outpatient Vital Signs collected on the date of the Encounter. Date/Time Temperature Pulse Blood Pressure Respiratory Rate SP02 Pain Height Weight Body Mass Index Source Feb 17, 2024 09:54 AM 98.3 65 131/84 16 99 3 [facility] Social History: Smoking Status (Most current) and Tobacco Use (All prior to encounter date) This section includes the most current, and the historical, smoking and tobacco- related health factors from the [place] facility where the Encounter took place. Current Smoking Status This section includes the most current smoking, or tobacco-related health factor, from the [place] facility where the Encounter took place. Date/Time Current Smoking Status Octavia cortez Feb 06, 2007 01:58 PM LIFETIME NON-USER OF TOBACCO [facility] Tobacco Use History This section includes a history of the smoking, or tobacco-related health factors, that were collected on or before the date of the Encounter. The data comes from the [place] facility where the Encounter took place. Date/Time Smoking Status/Tobacco Use Comment F acility Jun 07, 2005 05:16 PM TOBACCO USE SCREENING [facility] Mar 23, 2004 08:37 AM TOBACCO USE SCREENING [facility] Advance Directives: All historical and current Section Date Range: From patient's date of to the date document was created. This section includes ALL of a patient's completed or amended [place] Advance and Rescinded Directives. The entries below indicate that a directive exists for the patient, but an actual copy is not included with this document. The data comes from all [place] facilities. Date Advance Directives Provider Source Feb 23, 2016 ADVANCE DIRECTIVE DISCUSSION MAHAD MCKENZIE [facility] Jan 13, 2004 ADVANCE DIRECTIVE JOSE NAJERA [facility] Encounter Notes: All associated encounter notes This section contains the clinical notes associated to the Encounter. Date/Time Encounter Note(s) Provider Source Feb 17, 2024 10:16 AM EMERGENCY DEPT NOT E: LOCATION: [place]/EMERGENCY ROOM 8 VISIT DATE: FEB 17, 2024@09:37 LOCAL TITLE: ER IDN SECONDARY [id number] (PART 5) DISPOSITION/DCINST/EDU STANDARD TITLE: EMERGENCY DEPT NOTE DATE OF NOTE: FEB 17, 2024@10:16 ENTRY DATE: FEB 17, 2024@10:16:48 AUTHOR: SEEMA ZARCO COSIGNER: GIOVANY JUNIOR URGENCY: STATUS: COMPLETED IDN [id number] (PART 5) DISCHARGE DISPOSITION/INSTRUCTIONS Patient Wristband Removal: Patient is being discharged home. Primary Care Provider: Future Appointment(s): No data available Disposition: Discharged After care sheet given? Yes Condition on Discharge: Stable Date/Time of Discharge: Feb@10:17 Patient Instructions: PATIENT INSTRUCTIONS: You have a stye on your left lower eyelid. This is causing a lot of inflammation around your eye, and also causing your lymph nodes to swell. The most important and most effective treatment for a stye is warm compresses, several times daily. You have also been prescribed an antibiotic, amoxicillin. Take the full course of antibiotics even if you are feeling better. (This antibiotic should not increase sun sensitivity. You may also take Tylenol and/or ibuprofen as needed for pain.) Discard any contact lenses or cases that have been used on this eye, and do not wear any new contacts until your symptoms are fully resolved. Follow-up with your primary physician, or your water commissioner, if symptoms continue. Or, return to the emergency department as needed. Return to ER if condition worsens. Take medications as prescribed. Follow-up Activity-Limitations: No Restrictions PATIENT EDUCATION ASSESSMENT Education Topic: LEARNING BARRIERS: No Barriers READING LIMITATIONS: None LEARNING PREFERENCES: One-on-One DISCHARGE INSTRUCTIONS PERTINENT TO DIAGNOSIS WERE GIVEN TO THE PATIENT/CAREGIVER TEACHING STRATEGY: Printed Materials EDUCATION PROVIDED TO:Patient EVALUATION OF PATIENT/FAMILY RESPONSE: Verbalizes Understanding The treatment that I received was: MD Exam, Prescriptions Follow up: PCP My Nurse's Name is: Giovany My Physician's Name is: Dr. Ralph KHAN [facility] 09/30/03 REVISION APPROVED [facility] 04/03/13 /guadalupe/ SEEMA ZARCO RN Signed: 02/17/2024 10:18 /es/ GIOVANY LYONS,RN Cosigned: 02/17/2024 10:19 Receipt Acknowledged By: * AWAITING SIGNATURE * MELISSA WILCOX --- Interdisciplinary Note --- << Interdisciplinary Note >> LOCATION: [place]/EMERGENCY ROOM 8 VISIT DATE: FEB 17, 2024@09:37 LOCAL TITLE: ER IDN PRIMARY [id number] (PART 1) NURSING TRIAGE ASSESSMEN STANDARD TITLE: NURSING EMERGENCY DEPT TRIAGE NOTE DATE OF NOTE: FEB 17, 2024@09:56 ENTRY DATE: FEB 17, 2024@09:56:53 AUTHOR: JOSSY COPELAND COSIGNER: URGENCY: STATUS: COMPLETED Emergency Department/Urgent Care Center Triage Patient age:49 Sex: FEMALE On arrival patient was: AMBULATORY Patient phone number: Allergies: Patient has answered NKA Subjective/Chief Complaint: L eye pain/Sore throat Objective: Reports that she felt stye forming on L eye Monday. Hx of same. No redness noted to sclera. No drainage noted. Stye noted to bottom eyelid. Today with minor sore throat and swollen lymph nodes The patient is not a fall risk. Vital Signs: VITAL SIGNS: TEMPERATURE: 98.3 F [36.8 C] (02/17/2024 09:54) PULSE: 65 (02/17/2024 09:54) RESPIRATION: 16 (02/17/2024 09:54) BLOOD PRESSURE: 131/84 (02/17/2024 09:54) PAIN SCALE: 3 (02/17/2024 09:54) HEIGHT: 66 in [167.6 cm] (01/04/2018 08:43) WEIGHT: 251 lb [113.85 kg] (02/01/2018 08:05) BODY MASS INDEX: 40.6 PULSE OXIMETRY: 99% (02/17/2024 09:54) Emergency Severity Index (BETZY) level Level 4 Current Medications: Active Outpatient Medications (including Supplies): No Medications Found Current Problems: Active problems - Computerized Problem List is the source for the following: PROBLEM 1. Benign paroxysmal positional vertigo 2. Mixed hyperlipidemia 3. Binge eating disorder 4. Obstructive sleep apnea syndrome 5. Noncompliance with therapeutic regimen 6. Closed fracture ankle, trimalleolar 7. Cervical intraepithelial neoplasia grade 2 8. Vitamin D deficiency 9. Noncompliance with medication regimen (SNOMED CT 978593000) 10. Hypothyroidism (SNOMED CT 26297933) 11. Impaired fasting glycaemia (SNOMED CT 263824476) 12. Hypertension 13. Edema 14. Gastroesophageal reflux disease (SNOMED CT 208768869) 15. ATTENTION DEFICIT DISORDER 16. Pain in joint involving hand 17. Pain, neck NEC 18. Contusion of unspecified part of lower limb 19. Obesity (SNOMED CT 607643517) 20. Vaginitis and vulvovaginitis 21. Skin Tags 22. Abnormal Glandular Papanicolaou Smear of Cervix 23. Hemorrhoids 24. Oligomenorrhea 25. Hyperlipidemia 26. Nonunion of fracture 27. Intermittent claudication (SNOMED CT 62624502) 28. Cerebral Arteriovenous Malformations 29. Posttraumatic stress disorder (SNOMED CT 83890876) 30. POLYSUBSTANCE DEPENDENCE, IN REMISSION 31. Mixed bipolar affective disorder, moderate (SNOMED CT 926794122) 32. Personality Disorder NOS * 33. ALCOHOL ABUSE,UNSPECIFIED 34. CANNABIS ABUSE,UNSPECIFIED 35. BN - Bulimia nervosa (SNOMED CT 59738094) Suicide Screen: Mccreary Suicide Severity Rating Scale (C-SSRS) screener 1. Over the past month, have you wished you were or wished you could go to sleep and not wake up? No 2. Over the past month, have you had any actual thoughts of killing yourself? No 3. Over the past month, have you been thinking about how you might do this? Response not required due to responses to other questions. 4. Over the past month, have you had these thoughts and had some intention of acting on them? Response not required due to responses to other questions. 5. Over the past month, have you started to work out or worked out the details of how to kill yourself? Response not required due to responses to other questions. 6. If yes, at any time in the past month did you intend to carry out this plan? Response not required due to responses to other questions. 7. In your lifetime, have you ever done anything, started to do anything, or prepared to do anything to end your life (for example, collected pills, obtained a gun, gave away valuables, went to the roof but didn't jump)? No 8. If YES, was this within the past 3 months? Response not required due to responses to other questions. SUSPECTED SOURCE OF INFECTION ASSESSMENT Does the Patient/Caregiver report: Fever, Altered Mental Status that is new (Confusion, disorientation, and agitation), recent Surgery, Recent infection they are/have been treated for, a wound that is not healing, presence of a Sawyer Catheter, frequent UTIs with current symptoms, Tachycardia (HR >90), Hypotension (SBP <100), or Tachypnea (RR>22)? No FALL ASSESSMENT Does the Patient/caregiver report: Altered Mental Status, syncope, dizziness, falls, weakness, use of assistive devices or other secondary diagnosis concerning for fall risk? No. Is Patient: Female: If not applicable: Other: Hormone replacement. states she does not have cycles TREATMENT INITIATED: EXAM ROOM Are you safe and cared for where you live: Yes Do you have thoughts of harming others: No Do you have any guns, knives, tasers, pepper spray or other weapons on you or in your belongings? No /guadalupe/ JOSSY COPELAND RN Signed: 02/17/2024 09:58 << Interdisciplinary Note - Cont. >> LOCAL TITLE: ER IDN SECONDARY [id number] (PART 3) PROVIDER EXAMINATION N STANDARD TITLE: PHYSICIAN EMERGENCY DEPT E & M NOTE DATE OF NOTE: FEB 17, 2024@10:06 STATUS: COMPLETED CC left eye stye, lymphadenopathy HPI 49 y/o FEMALE presents with complaint of a stye on her left lower eyelid that has been present for 4 days. Pain and swelling are gradually worsening. She is having discharge from the stye and from the eye, most notable in the mornings. In the past couple days she is also noted some swollen lymph nodes in front of her left ear and under her left jaw. She has had no pain in the eye itself, or any vision changes. She has had no known fever. No ear pain. She has a little sore throat. No cough or shortness of breath. She has been applying warm compresses to the eye. She has had styes in the past, but this is not a regular occurrence for her. ROS: Pertinent + and - noted in HPI, otherwise negative for all systems. PMH: Active problems - Computerized Problem List is the source for the following: PROBLEM LAST MOD PROVIDER 1. Benign paroxysmal positional vertigo 01/04/18 HUEY PIERRE 2. Mixed hyperlipidemia 01/04/18 HUEY PIERRE 3. Binge eating disorder 07/27/17 JS BARROS 4. Obstructive sleep apnea syndrome 03/31/17 HUEY PIERRE 5. Noncompliance with therapeutic regimen 06/28/16 JESUS ALANIS 6. Closed fracture ankle, trimalleolar 02/10/16 HODA PARADA 7. Cervical intraepithelial neoplasia grade 2 05/21/15 HUEY PIERRE 8. Vitamin D deficiency 05/21/15 HUEY PIERRE 9. Noncompliance with medication regimen (SNOMED CT 112/07/19 HUEY PIERRE 10. Hypothyroidism (SNOMED CT 12670238) 03/31/17 HUEY PIERRE 11. Impaired fasting glycaemia (SNOMED CT 207559584) 05/21/15 HEUY PIERRE 12. Hypertension 11/12/10 PRIYANKA LORD 13. Edema 11/12/10 PRIYANKA LORD 14. Gastroesophageal reflux disease (SNOMED CT 045755241/ HUEY PIERRE 15. ATTENTION DEFICIT DISORDER 03/05/10 RICHARD URIARTE 16. Pain in joint involving hand 17. Pain, neck NEC 18. Contusion of unspecified part of lower limb 19. Obesity (SNOMED CT 876195017) 03/31/17 HUEY PIERRE 20. Vaginitis and vulvovaginitis 21. Skin Tags 11/25/08 BRUNO LOZA 22. Abnormal Glandular Papanicolaou Smear of Cervix 05/31/11 BRUNO LOZA 23. Hemorrhoids 02/15/08 BRUNO LOZA 24. Oligomenorrhea 02/15/08 BRUNO LOZA 25. Hyperlipidemia 02/13/08 SHIMA FLOOD 26. Nonunion of fracture 02/15/08 BRUNO LOZA 27. Intermittent claudication (SNOMED CT 62591748) 08/25/15 HUEY PIERRE 28. Cerebral Arteriovenous Malformations 02/15/08 SHIMA FLOOD 29. Posttraumatic stress disorder (SNOMED CT 50781528)06/15/15 0 30. POLYSUBSTANCE DEPENDENCE, IN REMISSION 08/19/04 TANISHA MAGALLON 31. Mixed bipolar affective disorder, moderate (OJTJKU13/17/15 GREG BELLO 32. Personality Disorder NOS * 33. ALCOHOL ABUSE,UNSPECIFIED 04/20/04 FANNIE HERNANDEZ 34. CANNABIS ABUSE,UNSPECIFIED 04/20/04 FANNIE HERNANDEZ 35. BN - Bulimia nervosa (SNOMED CT 65408405) 02/19/16 JAIME POLLOCK ALLERGIES/ADR's: Patient has answered NKA Active Outpatient Medications (including Supplies): Pending Outpatient Medications Status 1) AMOXICILLIN 500MG CAP TAKE ONE CAPSULE BY MOUTH THREE PENDING TIMES A DAY PE VS TEMPERATURE: 98.3 F 36.8 C (02/17/2024 09:54) PULSE: 65 (02/17/2024 09:54) RESPIRATION: 16 (02/17/2024 09:54) BLOOD PRESSURE: 131/84 (02/17/2024 09:54) PAIN SCALE: 3 (02/17/2024 09:54) PULSE OXIMETRY: 99% (02/17/2024 09:54) GENERAL: Overall well-appearing. Well-developed, well-nourished,in no apparent acute distress. SKIN: Overall skin is warm and dry. HEAD: Head is normocephalic and atraumatic. EYES: Pupils are equal, round, and reactive to light. Extra-occular movements grossly intact Without pain. Large stye noted to the left lower eyelid along the lash margin, with erythema and edema of the left eyelid. There is pale yellow exudate under the left lower eyelid, and some dark yellow crusted discharge at the corner of the eye. No periorbital erythema, edema, or tenderness. ENT: Nares appear normal, with no apparent nasal congestion. Mucus membranes moist. Palpable and tender preauricular lymphadenopathy anterior to the left ear, and palpable tender lymphadenopathy left submandibular. No anterior or posterior cervical lymphadenopathy. Posterior oropharynx is clear with no erythema or edema or exudate or asymmetry. No Carla's angina. NECK: Supple,trachea midline, normal ROM. No focal tenderness. No cervical lymphadenopathy. No meningismus. CV: Regular rate and rhythm. Warm and well-perfused throughout. No significant peripheral edema. RESP: Breathing even and unlabored. Lungs are clear to auscultation bilaterally. No cough noted throughout exam. ABDOMEN: Soft and nondistended. No hepatosplenomegaly noted. Nontender and no rebound or guarding. MSK: Normal movement and range of motion throughout. No focal tenderness. No deformities or obvious acute injuries. NEURO: Alert and oriented. Cranial nerves II-XII grossly intact. No weakness or numbness appreciated. PSYCH: Patient is appropriate throughout exam, with normal mood and affect. A/P/ ED Course/ Medical Decision Making Patient presents with left eye stye, increasing pain and swelling, with lymphadenopathy. No fevers. No pain within the eye itself, no pain with eye movements, no vision changes. Upon presentation patient is overall well-appearing, not acutely distressed. She is afebrile with overall normal vital signs. She does have a large stye with lower eyelid edema, erythema, and eye discharge. She also has tender lymphadenopathy preauricular and submandibular. although she is systemically well, since symptoms are worsening, with eyelid edema and eye discharge and increasing lymphadenopathy, risk for progression to periorbital cellulitis, will treat with a course of antibiotics. Differential Diagnosis to include stye, chalazion, preorbital cellulitis, periorbital cellulitis, orbital cellulitis, other ENT infection lymphadenopathy, lymphadenitis, Diagnosis: Left eye stye, preauricular lymphadenopathy, submandibular lymphadenopathy Disposition: Discharge home I appreciate the opportunity to participate in this 's care. PATIENT INSTRUCTIONS: You have a stye on your left lower eyelid. This is causing a lot of inflammation around your eye, and also causing your lymph nodes to swell. The most important and most effective treatment for a stye is warm compresses, several times daily. You have also been prescribed an antibiotic, amoxicillin. Take the full course of antibiotics even if you are feeling better. (This antibiotic should not increase sun sensitivity. You may also take Tylenol and/or ibuprofen as needed for pain.) Discard any contact lenses or cases that have been used on this eye, and do not wear any new contacts until your symptoms are fully resolved. Follow-up with your primary physician, or your water commissioner, if symptoms continue. Or, return to the emergency department as needed. MEDICATION RECONCILIATION: The current medications are those recorded on the patient's electronic medication tab as active Inpatient/Outpatient/Non-VA Medications. Medication Reconciliation was done with information from the following sources: - Patient Interview - Portions of this note were completed with use of [employer] voice recognition software. Although it was edited for correctness and completion, typographical errors may be present. Please interpret accordingly. /guadalupe/ SEEMA ROSAS Emergency Department Physician Signed: 02/17/2024 10:15 << Interdisciplinary Note - Cont. >> LOCAL TITLE: ER IDN SECONDARY [id number] (PART 5) [facility] STANDARD TITLE: EMERGENCY DEPT NOTE DATE OF NOTE: FEB 17, 2024@10:16 STATUS: COMPLETED IDN [id number] (PART 5) DISCHARGE DISPOSITION/INSTRUCTIONS Patient Wristband Removal: Patient is being discharged home. Primary Care Provider: Future Appointment(s): No data available Disposition: Discharged After care sheet given? Yes Condition on Discharge: Stable Date/Time of Discharge: Feb@10:17 Patient Instructions: PATIENT INSTRUCTIONS: You have a stye on your left lower eyelid. This is causing a lot of inflammation around your eye, and also causing your lymph nodes to swell. The most important and most effective treatment for a stye is warm compresses, several times daily. You have also been prescribed an antibiotic, amoxicillin. Take the full course of antibiotics even if you are feeling better. (This antibiotic should not increase sun sensitivity. You may also take Tylenol and/or ibuprofen as needed for pain.) Discard any contact lenses or cases that have been used on this eye, and do not wear any new contacts until your symptoms are fully resolved. Follow-up with your primary physician, or your water commissioner, if symptoms continue. Or, return to the emergency department as needed. Return to ER if condition worsens. Take medications as prescribed. Follow-up Activity-Limitations: No Restrictions PATIENT EDUCATION ASSESSMENT Education Topic: LEARNING BARRIERS: No Barriers READING LIMITATIONS: None LEARNING PREFERENCES: One-on-One DISCHARGE INSTRUCTIONS PERTINENT TO DIAGNOSIS WERE GIVEN TO THE PATIENT/CAREGIVER TEACHING STRATEGY: Printed Materials EDUCATION PROVIDED TO:Patient EVALUATION OF PATIENT/FAMILY RESPONSE: Verbalizes Understanding The treatment that I received was: MD Exam, Prescriptions Follow up: PCP My Nurse's Name is: Giovany My Physician's Name is: Dr. Rosas APPROVED [facility] 09/30/03 REVISION APPROVED [facility] 04/03/13 /guadalupe/ SEEMA ZARCO RN Signed: 02/17/2024 10:18 /guadalupe/ GIOVANY LYONS,RN Cosigned: 02/17/2024 10:19 Receipt Acknowledged By: * AWAITING SIGNATURE * MELISSA WILCOX SARAH E [facility] Feb 17, 2024 10:06 AM PHYSICIAN EMERGENC Y DEPT E & M NOTE: LOCATION: [place]/EMERGENCY ROOM 8 VISIT DATE: FEB 17, 2024@09:37 LOCAL TITLE: ER IDN SECONDARY [id number] (PART 3) PROVIDER EXAMINATION N STANDARD TITLE: PHYSICIAN EMERGENCY DEPT E & M NOTE DATE OF NOTE: FEB 17, 2024@10:06 ENTRY DATE: FEB 17, 2024@10:06:38 AUTHOR: SEEMA ROSAS EXP COSIGNER: URGENCY: STATUS: COMPLETED CC left eye stye, lymphadenopathy HPI 49 y/o FEMALE presents with complaint of a stye on her left lower eyelid that has been present for 4 days. Pain and swelling are gradually worsening. She is having discharge from the stye and from the eye, most notable in the mornings. In the past couple days she is also noted some swollen lymph nodes in front of her left ear and under her left jaw. She has had no pain in the eye itself, or any vision changes. She has had no known fever. No ear pain. She has a little sore throat. No cough or shortness of breath. She has been applying warm compresses to the eye. She has had styes in the past, but this is not a regular occurrence for her. ROS: Pertinent + and - noted in HPI, otherwise negative for all systems. PMH: Active problems - Computerized Problem List is the source for the following: PROBLEM LAST MOD PROVIDER 1. Benign paroxysmal positional vertigo 01/04/18 HUEY PIERRE 2. Mixed hyperlipidemia 01/04/18 HUEY PIERRE 3. Binge eating disorder 07/27/17 JS BARROS 4. Obstructive sleep apnea syndrome 03/31/17 HUEY PIERRE 5. Noncompliance with therapeutic regimen 06/28/16 JESUS ALANIS 6. Closed fracture ankle, trimalleolar 02/10/16 HODA PARADA 7. Cervical intraepithelial neoplasia grade 2 05/21/15 HUEY PIERRE 8. Vitamin D deficiency 05/21/15 HUEY PIERRE 9. Noncompliance with medication regimen (SNOMED CT HUEY PIERRE 10. Hypothyroidism (SNOMED CT 51834195) 03/31/17 HUEY PIERRE 11. Impaired fasting glycaemia (SNOMED CT 190971484) 05/21/15 HUEY PIERRE 12. Hypertension 11/12/10 PRIYANKA LORD 13. Edema 11/12/10 PRIYANKA LORD 14. Gastroesophageal reflux disease (SNOMED CT 534009470/ HUEY PIERRE 15. ATTENTION DEFICIT DISORDER 03/05/10 RICHARD URIARTE 16. Pain in joint involving hand 17. Pain, neck NEC 18. Contusion of unspecified part of lower limb 19. Obesity (SNOMED CT 418766935) 03/31/17 HUEY PIERRE 20. Vaginitis and vulvovaginitis 21. Skin Tags 11/25/08 BRUNO LOZA 22. Abnormal Glandular Papanicolaou Smear of Cervix 05/31/11 BRUNO LOZA 23. Hemorrhoids 02/15/08 BRUNO LOZA 24. Oligomenorrhea 02/15/08 BRUNO LOZA 25. Hyperlipidemia 02/13/08 SHIMA FLOOD 26. Nonunion of fracture 02/15/08 BRUNO LOZA 27. Intermittent claudication (SNOMED CT 45422639) 08/25/15 HUEY PIERER 28. Cerebral Arteriovenous Malformations 02/15/08 SHIMA FLOOD 29. Posttraumatic stress disorder (SNOMED CT 18109184)06/15/15 0 30. POLYSUBSTANCE DEPENDENCE, IN REMISSION 08/19/04 TANISHA MAGALLON 31. Mixed bipolar affective disorder, moderate (JOMXVP79/17/15 GREG BELLO 32. Personality Disorder NOS * 33. ALCOHOL ABUSE,UNSPECIFIED 04/20/04 FANNIE HERNANDEZ 34. CANNABIS ABUSE,UNSPECIFIED 04/20/04 FANNIE HERNANDEZ 35. BN - Bulimia nervosa (SNOMED CT 22326594) 02/19/16 JAIME POLLOCK ALLERGIES/ADR's: Patient has answered NKA Active Outpatient Medications (including Supplies): Pending Outpatient Medications Status 1) AMOXICILLIN 500MG CAP TAKE ONE CAPSULE BY MOUTH THREE PENDING TIMES A DAY PE VS TEMPERATURE: 98.3 F 36.8 C (02/17/2024 09:54) PULSE: 65 (02/17/2024 09:54) RESPIRATION: 16 (02/17/2024 09:54) BLOOD PRESSURE: 131/84 (02/17/2024 09:54) PAIN SCALE: 3 (02/17/2024 09:54) PULSE OXIMETRY: 99% (02/17/2024 09:54) GENERAL: Overall well-appearing. Well-developed, well-nourished,in no apparent acute distress. SKIN: Overall skin is warm and dry. HEAD: Head is normocephalic and atraumatic. EYES: Pupils are equal, round, and reactive to light. Extra-occular movements grossly intact Without pain. Large stye noted to the left lower eyelid along the lash margin, with erythema and edema of the left eyelid. There is pale yellow exudate under the left lower eyelid, and some dark yellow crusted discharge at the corner of the eye. No periorbital erythema, edema, or tenderness. ENT: Nares appear normal, with no apparent nasal congestion. Mucus membranes moist. Palpable and tender preauricular lymphadenopathy anterior to the left ear, and palpable tender lymphadenopathy left submandibular. No anterior or posterior cervical lymphadenopathy. Posterior oropharynx is clear with no erythema or edema or exudate or asymmetry. No Carla's angina. NECK: Supple,trachea midline, normal ROM. No focal tenderness. No cervical lymphadenopathy. No meningismus. CV: Regular rate and rhythm. Warm and well-perfused throughout. No significant peripheral edema. RESP: Breathing even and unlabored. Lungs are clear to auscultation bilaterally. No cough noted throughout exam. ABDOMEN: Soft and nondistended. No hepatosplenomegaly noted. Nontender and no rebound or guarding. MSK: Normal movement and range of motion throughout. No focal tenderness. No deformities or obvious acute injuries. NEURO: Alert and oriented. Cranial nerves II-XII grossly intact. No weakness or numbness appreciated. PSYCH: Patient is appropriate throughout exam, with normal mood and affect. A/P/ ED Course/ Medical Decision Making Patient presents with left eye stye, increasing pain and swelling, with lymphadenopathy. No fevers. No pain within the eye itself, no pain with eye movements, no vision changes. Upon presentation patient is overall well-appearing, not acutely distressed. She is afebrile with overall normal vital signs. She does have a large stye with lower eyelid edema, erythema, and eye discharge. She also has tender lymphadenopathy preauricular and submandibular. although she is systemically well, since symptoms are worsening, with eyelid edema and eye discharge and increasing lymphadenopathy, risk for progression to periorbital cellulitis, will treat with a course of antibiotics. Differential Diagnosis to include stye, chalazion, preorbital cellulitis, periorbital cellulitis, orbital cellulitis, other ENT infection lymphadenopathy, lymphadenitis, Diagnosis: Left eye stye, preauricular lymphadenopathy, submandibular lymphadenopathy Disposition: Discharge home I appreciate the opportunity to participate in this 's care. PATIENT INSTRUCTIONS: You have a stye on your left lower eyelid. This is causing a lot of inflammation around your eye, and also causing your lymph nodes to swell. The most important and most effective treatment for a stye is warm compresses, several times daily. You have also been prescribed an antibiotic, amoxicillin. Take the full course of antibiotics even if you are feeling better. (This antibiotic should not increase sun sensitivity. You may also take Tylenol and/or ibuprofen as needed for pain.) Discard any contact lenses or cases that have been used on this eye, and do not wear any new contacts until your symptoms are fully resolved. Follow-up with your primary physician, or your water commissioner, if symptoms continue. Or, return to the emergency department as needed. MEDICATION RECONCILIATION: The current medications are those recorded on the patient's electronic medication tab as active Inpatient/Outpatient/Non-VA Medications. Medication Reconciliation was done with information from the following sources: - Patient Interview - Portions of this note were completed with use of [employer] voice recognition software. Although it was edited for correctness and completion, typographical errors may be present. Please interpret accordingly. /guadalupe/ SEEMA ROSAS Emergency Department Physician Signed: 02/17/2024 10:15 --- Interdisciplinary Note --- << Interdisciplinary Note >> LOCATION: [facility]/EMERGENCY ROOM 8 VISIT DATE: FEB 17, 2024@09:37 LOCAL TITLE: ER IDN PRIMARY [id number] (PART 1) NURSING TRIAGE ASSESSMEN STANDARD TITLE: NURSING EMERGENCY DEPT TRIAGE NOTE DATE OF NOTE: FEB 17, 2024@09:56 ENTRY DATE: FEB 17, 2024@09:56:53 AUTHOR: JOSSY COPELAND COSIGNER: URGENCY: STATUS: COMPLETED Emergency Department/Urgent Care Center Triage Patient age:49 Sex: FEMALE On arrival patient was: AMBULATORY Patient phone number: Allergies: Patient has answered NKA Subjective/Chief Complaint: L eye pain/Sore throat Objective: Reports that she felt stye forming on L eye Monday. Hx of same. No redness noted to sclera. No drainage noted. Stye noted to bottom eyelid. Today with minor sore throat and swollen lymph nodes The patient is not a fall risk. Vital Signs: VITAL SIGNS: TEMPERATURE: 98.3 F [36.8 C] (02/17/2024 09:54) PULSE: 65 (02/17/2024 09:54) RESPIRATION: 16 (02/17/2024 09:54) BLOOD PRESSURE: 131/84 (02/17/2024 09:54) PAIN SCALE: 3 (02/17/2024 09:54) HEIGHT: 66 in [167.6 cm] (01/04/2018 08:43) WEIGHT: 251 lb [113.85 kg] (02/01/2018 08:05) BODY MASS INDEX: 40.6 PULSE OXIMETRY: 99% (02/17/2024 09:54) Emergency Severity Index (BETZY) level Level 4 Current Medications: Active Outpatient Medications (including Supplies): No Medications Found Current Problems: Active problems - Computerized Problem List is the source for the following: PROBLEM 1. Benign paroxysmal positional vertigo 2. Mixed hyperlipidemia 3. Binge eating disorder 4. Obstructive sleep apnea syndrome 5. Noncompliance with therapeutic regimen 6. Closed fracture ankle, trimalleolar 7. Cervical intraepithelial neoplasia grade 2 8. Vitamin D deficiency 9. Noncompliance with medication regimen (SNOMED CT 519667241) 10. Hypothyroidism (SNOMED CT 31405803) 11. Impaired fasting glycaemia (SNOMED CT 536823439) 12. Hypertension 13. Edema 14. Gastroesophageal reflux disease (SNOMED CT 896932835) 15. ATTENTION DEFICIT DISORDER 16. Pain in joint involving hand 17. Pain, neck NEC 18. Contusion of unspecified part of lower limb 19. Obesity (SNOMED CT 985069403) 20. Vaginitis and vulvovaginitis 21. Skin Tags 22. Abnormal Glandular Papanicolaou Smear of Cervix 23. Hemorrhoids 24. Oligomenorrhea 25. Hyperlipidemia 26. Nonunion of fracture 27. Intermittent claudication (SNOMED CT 11107001) 28. Cerebral Arteriovenous Malformations 29. Posttraumatic stress disorder (SNOMED CT 06840405) 30. POLYSUBSTANCE DEPENDENCE, IN REMISSION 31. Mixed bipolar affective disorder, moderate (SNOMED CT 349971436) 32. Personality Disorder NOS * 33. ALCOHOL ABUSE,UNSPECIFIED 34. CANNABIS ABUSE,UNSPECIFIED 35. BN - Bulimia nervosa (SNOMED CT 80548248) Suicide Screen: Mccreary Suicide Severity Rating Scale (C-SSRS) screener 1. Over the past month, have you wished you were or wished you could go to sleep and not wake up? No 2. Over the past month, have you had any actual thoughts of killing yourself? No 3. Over the past month, have you been thinking about how you might do this? Response not required due to responses to other questions. 4. Over the past month, have you had these thoughts and had some intention of acting on them? Response not required due to responses to other questions. 5. Over the past month, have you started to work out or worked out the details of how to kill yourself? Response not required due to responses to other questions. 6. If yes, at any time in the past month did you intend to carry out this plan? Response not required due to responses to other questions. 7. In your lifetime, have you ever done anything, started to do anything, or prepared to do anything to end your life (for example, collected pills, obtained a gun, gave away valuables, went to the roof but didn't jump)? No 8. If YES, was this within the past 3 months? Response not required due to responses to other questions. SUSPECTED SOURCE OF INFECTION ASSESSMENT Does the Patient/Caregiver report: Fever, Altered Mental Status that is new (Confusion, disorientation, and agitation), recent Surgery, Recent infection they are/have been treated for, a wound that is not healing, presence of a Sawyer Catheter, frequent UTIs with current symptoms, Tachycardia (HR >90), Hypotension (SBP <100), or Tachypnea (RR>22)? No FALL ASSESSMENT Does the Patient/caregiver report: Altered Mental Status, syncope, dizziness, falls, weakness, use of assistive devices or other secondary diagnosis concerning for fall risk? No. Is Patient: Female: If not applicable: Other: Hormone replacement. states she does not have cycles TREATMENT INITIATED: EXAM ROOM Are you safe and cared for where you live: Yes Do you have thoughts of harming others: No Do you have any guns, knives, tasers, pepper spray or other weapons on you or in your belongings? Sherri /guadalupe/ JOSSY COPELAND RN Signed: 02/17/2024 09:58 << Interdisciplinary Note - Cont. >> LOCAL TITLE: ER IDN SECONDARY [id number] (PART 3) PROVIDER EXAMINATION N STANDARD TITLE: PHYSICIAN EMERGENCY DEPT E & M NOTE DATE OF NOTE: FEB 17, 2024@10:06 STATUS: COMPLETED CC left eye stye, lymphadenopathy HPI 49 y/o FEMALE presents with complaint of a stye on her left lower eyelid that has been present for 4 days. Pain and swelling are gradually worsening. She is having discharge from the stye and from the eye, most notable in the mornings. In the past couple days she is also noted some swollen lymph nodes in front of her left ear and under her left jaw. She has had no pain in the eye itself, or any vision changes. She has had no known fever. No ear pain. She has a little sore throat. No cough or shortness of breath. She has been applying warm compresses to the eye. She has had styes in the past, but this is not a regular occurrence for her. ROS: Pertinent + and - noted in HPI, otherwise negative for all systems. PMH: Active problems - Computerized Problem List is the source for the following: PROBLEM LAST MOD PROVIDER 1. Benign paroxysmal positional vertigo 01/04/18 HUEY PIERRE 2. Mixed hyperlipidemia 01/04/18 GABBY,HUEY R 3. Binge eating disorder 07/27/17 JS BARROS 4. Obstructive sleep apnea syndrome 03/31/17 HUEY PIERRE R 5. Noncompliance with therapeutic regimen 06/28/16 ELLISSanyaJESUS 6. Closed fracture ankle, trimalleolar 02/10/16 HODA PARADA 7. Cervical intraepithelial neoplasia grade 2 05/21/15 HUEY PIERRE R 8. Vitamin D deficiency 05/21/15 HUEY PIERRE R 9. Noncompliance with medication regimen (SNOMED CT 112/07/19 HUEY PIERRE R 10. Hypothyroidism (SNOMED CT 48152332) 03/31/17 HUEY PIERRE R 11. Impaired fasting glycaemia (SNOMED CT 780419352) 05/21/15 HUEY PIERRE R 12. Hypertension 11/12/10 PRIYANKA LORD 13. Edema 11/12/10 PRIYANKA LORD 14. Gastroesophageal reflux disease (SNOMED CT 466802537/ HUEY PIERRE R 15. ATTENTION DEFICIT DISORDER 03/05/10 RICHARD URIARTE 16. Pain in joint involving hand 17. Pain, neck NEC 18. Contusion of unspecified part of lower limb 19. Obesity (SNOMED CT 375546470) 03/31/17 HUEY PIERRE R 20. Vaginitis and vulvovaginitis 21. Skin Tags 11/25/08 BRUNO LOZA 22. Abnormal Glandular Papanicolaou Smear of Cervix 05/31/11 BRUNO LOZA 23. Hemorrhoids 02/15/08 BRUNO LOZA C 24. Oligomenorrhea 02/15/08 BRUNO LOZA C 25. Hyperlipidemia 02/13/08 SHIMA FLOOD 26. Nonunion of fracture 02/15/08 BRUNO LOZA 27. Intermittent claudication (SNOMED CT 57747271) 08/25/15 HUEY PIERRE 28. Cerebral Arteriovenous Malformations 02/15/08 SHIMA FLOOD 29. Posttraumatic stress disorder (SNOMED CT 09824644)06/15/15 0 30. POLYSUBSTANCE DEPENDENCE, IN REMISSION 08/19/04 TANISHA MAGALLON 31. Mixed bipolar affective disorder, moderate (ACEWFK40/17/15 GREG BELLO 32. Personality Disorder NOS * 33. ALCOHOL ABUSE,UNSPECIFIED 04/20/04 FANNIE HERNANDEZ 34. CANNABIS ABUSE,UNSPECIFIED 04/20/04 FANNIE HERNANDEZ 35. BN - [facility] 02/19/16 JAIME POLLOCK ALLERGIES/ADR's: Patient has answered NKA Active Outpatient Medications (including Supplies): Pending Outpatient Medications Status 1) AMOXICILLIN 500MG CAP TAKE ONE CAPSULE BY MOUTH THREE PENDING TIMES A DAY PE VS TEMPERATURE: 98.3 F 36.8 C (02/17/2024 09:54) PULSE: 65 (02/17/2024 09:54) RESPIRATION: 16 (02/17/2024 09:54) BLOOD PRESSURE: 131/84 (02/17/2024 09:54) PAIN SCALE: 3 (02/17/2024 09:54) PULSE OXIMETRY: 99% (02/17/2024 09:54) GENERAL: Overall well-appearing. Well-developed, well-nourished,in no apparent acute distress. SKIN: Overall skin is warm and dry. HEAD: Head is normocephalic and atraumatic. EYES: Pupils are equal, round, and reactive to light. Extra-occular movements grossly intact Without pain. Large stye noted to the left lower eyelid along the lash margin, with erythema and edema of the left eyelid. There is pale yellow exudate under the left lower eyelid, and some dark yellow crusted discharge at the corner of the eye. No periorbital erythema, edema, or tenderness. ENT: Nares appear normal, with no apparent nasal congestion. Mucus membranes moist. Palpable and tender preauricular lymphadenopathy anterior to the left ear, and palpable tender lymphadenopathy left submandibular. No anterior or posterior cervical lymphadenopathy. Posterior oropharynx is clear with no erythema or edema or exudate or asymmetry. No Carla's angina. NECK: Supple,trachea midline, normal ROM. No focal tenderness. No cervical lymphadenopathy. No meningismus. CV: Regular rate and rhythm. Warm and well-perfused throughout. No significant peripheral edema. RESP: Breathing even and unlabored. Lungs are clear to auscultation bilaterally. No cough noted throughout exam. ABDOMEN: Soft and nondistended. No hepatosplenomegaly noted. Nontender and no rebound or guarding. MSK: Normal movement and range of motion throughout. No focal tenderness. No deformities or obvious acute injuries. NEURO: Alert and oriented. Cranial nerves II-XII grossly intact. No weakness or numbness appreciated. PSYCH: Patient is appropriate throughout exam, with normal mood and affect. A/P/ ED Course/ Medical Decision Making Patient presents with left eye stye, increasing pain and swelling, with lymphadenopathy. No fevers. No pain within the eye itself, no pain with eye movements, no vision changes. Upon presentation patient is overall well-appearing, not acutely distressed. She is afebrile with overall normal vital signs. She does have a large stye with lower eyelid edema, erythema, and eye discharge. She also has tender lymphadenopathy preauricular and submandibular. although she is systemically well, since symptoms are worsening, with eyelid edema and eye discharge and increasing lymphadenopathy, risk for progression to periorbital cellulitis, will treat with a course of antibiotics. Differential Diagnosis to include stye, chalazion, preorbital cellulitis, periorbital cellulitis, orbital cellulitis, other ENT infection lymphadenopathy, lymphadenitis, Diagnosis: Left eye stye, preauricular lymphadenopathy, submandibular lymphadenopathy Disposition: Discharge home I appreciate the opportunity to participate in this 's care. PATIENT INSTRUCTIONS: You have a stye on your left lower eyelid. This is causing a lot of inflammation around your eye, and also causing your lymph nodes to swell. The most important and most effective treatment for a stye is warm compresses, several times daily. You have also been prescribed an antibiotic, amoxicillin. Take the full course of antibiotics even if you are feeling better. (This antibiotic should not increase sun sensitivity. You may also take Tylenol and/or ibuprofen as needed for pain.) Discard any contact lenses or cases that have been used on this eye, and do not wear any new contacts until your symptoms are fully resolved. Follow-up with your primary physician, or your water commissioner, if symptoms continue. Or, return to the emergency department as needed. MEDICATION RECONCILIATION: The current medications are those recorded on the patient's electronic medication tab as active Inpatient/Outpatient/Non-VA Medications. Medication Reconciliation was done with information from the following sources: - Patient Interview - Portions of this note were completed with use of [employer] voice recognition software. Although it was edited for correctness and completion, typographical errors may be present. Please interpret accordingly. /guadalupe/ SEEMA ROSAS Emergency Department Physician Signed: 02/17/2024 10:15 << Interdisciplinary Note - Cont. >> LOCAL TITLE: ER IDN SECONDARY [id number] (PART 5) DISPOSITION/[facility] STANDARD TITLE: EMERGENCY DEPT NOTE DATE OF NOTE: FEB 17, 2024@10:16 STATUS: COMPLETED IDN [id number] (PART 5) DISCHARGE DISPOSITION/INSTRUCTIONS Patient Wristband Removal: Patient is being discharged home. Primary Care Provider: Future Appointment(s): No data available Disposition: Discharged After care sheet given? Yes Condition on Discharge: Stable Date/Time of Discharge: Feb@10:17 Patient Instructions: PATIENT INSTRUCTIONS: You have a stye on your left lower eyelid. This is causing a lot of inflammation around your eye, and also causing your lymph nodes to swell. The most important and most effective treatment for a stye is warm compresses, several times daily. You have also been prescribed an antibiotic, amoxicillin. Take the full course of antibiotics even if you are feeling better. (This antibiotic should not increase sun sensitivity. You may also take Tylenol and/or ibuprofen as needed for pain.) Discard any contact lenses or cases that have been used on this eye, and do not wear any new contacts until your symptoms are fully resolved. Follow-up with your primary physician, or your water commissioner, if symptoms continue. Or, return to the emergency department as needed. Return to ER if condition worsens. Take medications as prescribed. Follow-up Activity-Limitations: No Restrictions PATIENT EDUCATION ASSESSMENT Education Topic: LEARNING BARRIERS: No Barriers READING LIMITATIONS: None LEARNING PREFERENCES: One-on-One DISCHARGE INSTRUCTIONS PERTINENT TO DIAGNOSIS WERE GIVEN TO THE PATIENT/CAREGIVER TEACHING STRATEGY: Printed Materials EDUCATION PROVIDED TO:Patient EVALUATION OF PATIENT/FAMILY RESPONSE: Verbalizes Understanding The treatment that I received was: MD Exam, Prescriptions Follow up: PCP My Nurse's Name is: Giovany My Physician's Name is: Dr. Ralph KHAN [facility] 09/30/03 REVISION APPROVED [facility] 04/03/13 /guadalupe/ SEEMA ZARCO RN Signed: 02/17/2024 10:18 /es/ GIOVANY LYONS,RN Cosigned: 02/17/2024 10:19 Receipt Acknowledged By: * AWAITING SIGNATURE * MELISSA WILCOX SARAH [facility] Feb 17, 2024 09:56 AM NURSING EMERGENCY DEPT TRIAGE NOTE: LOCAL TITLE: ER IDN PRIMARY [id number] (PART 1) NURSING TRIAGE ASSESS STANDARD TITLE: NURSING EMERGENCY DEPT TRIAGE NOTE DATE OF NOTE: FEB 17, 2024@09:56 ENTRY DATE: FEB 17, 2024@09:56:53 AUTHOR: JOSSY COPELAND EXP COSIGNER: URGENCY: STATUS: COMPLETED Emergency Department/Urgent Care Center Triage Patient age:49 Sex: FEMALE On arrival patient was: AMBULATORY Patient phone number: Allergies: Patient has answered NKA Subjective/Chief Complaint: L eye pain/Sore throat Objective: Reports that she felt stye forming on L eye Monday. Hx of same. No redness noted to sclera. No drainage noted. Stye noted to bottom eyelid. Today with minor sore throat and swollen lymph nodes The patient is not a fall risk. Vital Signs: VITAL SIGNS: TEMPERATURE: 98.3 F [36.8 C] (02/17/2024 09:54) PULSE: 65 (02/17/2024 09:54) RESPIRATION: 16 (02/17/2024 09:54) BLOOD PRESSURE: 131/84 (02/17/2024 09:54) PAIN SCALE: 3 (02/17/2024 09:54) HEIGHT: 66 in [167.6 cm] (01/04/2018 08:43) WEIGHT: 251 lb [113.85 kg] (02/01/2018 08:05) BODY MASS INDEX: 40.6 PULSE OXIMETRY: 99% (02/17/2024 09:54) Emergency Severity Index (BETZY) level Level 4 Current Medications: Active Outpatient Medications (including Supplies): No Medications Found Current Problems: Active problems - Computerized Problem List is the source for the following: PROBLEM 1. Benign paroxysmal positional vertigo 2. Mixed hyperlipidemia 3. Binge eating disorder 4. Obstructive sleep apnea syndrome 5. Noncompliance with therapeutic regimen 6. Closed fracture ankle, trimalleolar 7. Cervical intraepithelial neoplasia grade 2 8. Vitamin D deficiency 9. Noncompliance with medication regimen (SNOMED CT 827164605) 10. Hypothyroidism (SNOMED CT 65145654) 11. Impaired fasting glycaemia (SNOMED CT 545493547) 12. Hypertension 13. Edema 14. Gastroesophageal reflux disease (SNOMED CT 493353966) 15. ATTENTION DEFICIT DISORDER 16. Pain in joint involving hand 17. Pain, neck NEC 18. Contusion of unspecified part of lower limb 19. Obesity (SNOMED CT 519370230) 20. Vaginitis and vulvovaginitis 21. Skin Tags 22. Abnormal Glandular Papanicolaou Smear of Cervix 23. Hemorrhoids 24. Oligomenorrhea 25. Hyperlipidemia 26. Nonunion of fracture 27. Intermittent claudication (SNOMED CT 93631871) 28. Cerebral Arteriovenous Malformations 29. Posttraumatic stress disorder (SNOMED CT 39756888) 30. POLYSUBSTANCE DEPENDENCE, IN REMISSION 31. Mixed bipolar affective disorder, moderate (SNOMED CT 727144667) 32. Personality Disorder NOS * 33. ALCOHOL ABUSE,UNSPECIFIED 34. CANNABIS ABUSE,UNSPECIFIED 35. BN - Bulimia nervosa (SNOMED CT 80458072) Suicide Screen: Mccreary Suicide Severity Rating Scale (C-SSRS) screener 1. Over the past month, have you wished you were or wished you could go to sleep and not wake up? No 2. Over the past month, have you had any actual thoughts of killing yourself? No 3. Over the past month, have you been thinking about how you might do this? Response not required due to responses to other questions. 4. Over the past month, have you had these thoughts and had some intention of acting on them? Response not required due to responses to other questions. 5. Over the past month, have you started to work out or worked out the details of how to kill yourself? Response not required due to responses to other questions. 6. If yes, at any time in the past month did you intend to carry out this plan? Response not required due to responses to other questions. 7. In your lifetime, have you ever done anything, started to do anything, or prepared to do anything to end your life (for example, collected pills, obtained a gun, gave away valuables, went to the roof but didn't jump)? No 8. If YES, was this within the past 3 months? Response not required due to responses to other questions. SUSPECTED SOURCE OF INFECTION ASSESSMENT Does the Patient/Caregiver report: Fever, Altered Mental Status that is new (Confusion, disorientation, and agitation), recent Surgery, Recent infection they are/have been treated for, a wound that is not healing, presence of a Sawyer Catheter, frequent UTIs with current symptoms, Tachycardia (HR >90), Hypotension (SBP <100), or Tachypnea (RR>22)? No FALL ASSESSMENT Does the Patient/caregiver report: Altered Mental Status, syncope, dizziness, falls, weakness, use of assistive devices or other secondary diagnosis concerning for fall risk? No. Is Patient: Female: If not applicable: Other: Hormone replacement. states she does not have cycles TREATMENT INITIATED: EXAM ROOM Are you safe and cared for where you live: Yes Do you have thoughts of harming others: No Do you have any guns, knives, tasers, pepper spray or other weapons on you or in your belongings? No /es/ JOSSY COPELAND RN Signed: 02/17/2024 09:58 JOSSY COPELAND [facility]
--- OUTSIDE RECORDS SUMMARY | 2024-12-25 15:14 | XMS_ITS | Encounter Summary ---
Author Name [facility] [place] [facility] [place] [facility] [facility] [place] Address [address] [place] [address] Care Team Providers Care Manager Case Name Role Phone ZOE COPE Primary Care [...] Name Patient's Relationship to Policy Desai [facility] Feb 04, 2019 [id number] GABRIELLE CHO PATIENT [facility] [employer] [facility] Feb 04, 2019 [id number] [phone] [id number] GABRIELLE CHO PATIENT MEDICARE (WNR) MEDICARE (M) PART A Feb 05, 2000 PART A [id number] GABRIELLE HUGO PATIENT MEDICARE (WNR) MEDICARE (M) PART A Feb 05, 2000 PART A [id number] GABRIELLE CHO PATIENT MEDICARE (WNR) MEDICARE (M) PART A Feb 05, 2000 PART A [id number] [phone] GABRIELLE HUGO PATIENT Selected Encounter This section includes the information on record at [place] for the Encounter. Date/Time Encounter Type Encounter Description Reason Provider Source Apr 19, 2024 11:30 AM [place] [facility] 1+ULTRASOUND EA 15 OCCUPATIONAL THERAPY ICD-10-CM M25.521 Pain in right elbow BEV OSBORNE IHMarilyn Encounter Template Text not used by [place] Assessments - Encounter Diagnoses This section includes the primary and secondary diagnoses documented for the Encounter. Date/Time Primary/Secondary Diagnosis Diagnosis Name Provider Source Apr 19, 2024 03:25 PM PRIMARY Pain in right elbow BEV OSBORNE [place] [facility] [place] [facility] Plan of Treatment: Future Appointments (+ 6 [...] Date/Time Appointment Type Appointme nt Facility Name May 09, 2024 02:00 PM AMBULATORY - PS[place]CHIATRY [place] [facility] [place] [facility] May 27, 2024 11:00 AM AMBULATORY - [place]ATRY [place] [facility] [place] [facility] Jun 03, 2024 11:00 AM AMBULATORY - [place]ATRY [place] [facility] [place] [facility] Jun 10, 2024 11:00 AM AMBULATORY - [place]ATRY [place] [facility] [place] [facility] Jun 28, 2024 11:30 AM AMBULATORY - REHAB MEDICIN [place] [facility] [place] [facility] Jul 08, 2024 11:00 AM AMBULATORY - [place]ATRY [place] [facility] [place] [facility] Jul 15, 2024 10:30 AM AMBULATORY - [place]IATRY [place] [facility] [place] [facility] Jul 15, 2024 11:00 AM AMBUL[place]ORY [place]ATRY [place] [facility] [place] [facility] Jul 22, 2024 11:00 AM AMBULATORY - PS[place]IATRY [place] [facility] [place] [facility] Aug 12, 2024 01:00 PM AMBULATORY - PSYCHIATRY [facility] Aug 19, 2024 11:00 AM AMBULATORY - PS[place]CHIATRY [place] [facility] [place] [facility] Aug 19, 2024 03:00 PM AMBULATORY - PS[place]CHIATRY [place] [facility] [place] [facility] Sep 02, 2024 11:00 AM AMBULATORY - PS[place]CHIATRY [place] [facility] [place] [facility] Sep 13, 2024 03:00 PM AMBULATORY - PSYCHIATRY [facility] Sep 16, 2024 08:00 AM AMBULATORY - MEDICINE [place] [facility] [place] [facility] Sep 16, 2024 11:00 AM AMBULATORY - PS[place]CHIATRY [place] [facility] [place] [facility] Sep 24, 2024 01:00 PM AMBULATORY - PSYCHIATRY [facility] Oct 04, 2024 08:30 AM AMBULATORY - MEDICINE [facility] Oct 09, 2024 09:00 AM AMBULATORY - PSYCHIATRY [facility] Oct 14, 2024 11:00 AM AMBULATORY - [place]ATRY [place] [facility] [place] [facility] Social History: Smoking Status (Most current) and [...] VA-TOBACCO NEVER USED [place] [facility] [place] [facility] Tobacco Use History This section includes a history of the smoking, or tobacco-related health factors, that were collected on or before the date of the Encounter. The data comes from the [place] facility where the Encounter took place. Date/Time Smoking Status/Tobacco Use Comment Darlene harden Sep 30, 2022 10:00 AM VA-TOBACCO NEVER USED [place] [facility] [place] [facility] Apr 21, 2020 03:34 PM VA-TOBACCO NEVER USED [place] [facility] [place] [facility] Jan 10, 2019 11:51 AM VA-TOBACCO NEVER USED [facility] [place] [facility] Mar 09, 2018 11:27 AM LIFETIME NON-TOBACCO USER [facility] Advance Directives: All historical and current Section Date Range: From patient's date of to the date document was created. This section includes ALL of a patient's completed or amended [place] Advance and Rescinded Directives. The entries below indicate that a directive exists for the patient, but an actual copy is not included with this document. The data comes from all [place] facilities. Date Advance Directives Provider Source Feb 23, 2016 ADVANCE DIRECTIVE DISCUSSION MAHAD MCKENZIE [facility] Jan 13, 2004 ADVANCE DIRECTIVE JOSE NAJERA [facility] Radiology Reports: +/- 30 days of the [...] the Encounter. The data comes from all [place] treatment facilities. Date/Time Radiology Report Provider Source Apr 12, 2024 02:12 PM OUTSIDE MAMMO/SCRE ENING, INCLUDING CAD, BILAT: LEE CHO [id number] -[id number] F Exm Date: APR 12, 2024@14:12 Req Phys: ZOE COPE Pat Loc: [facility]/NO/PACT 5 (Req'g Loc) Img Loc: OUTSIDE GENERAL RADIOLOGY Service: Unknown Screen: Patient is unable to answer or is unsure Screen Comment: cc exam (Case [id number] COMPLETE) OUTSIDE MAMMO/SCREENING, INCLUDIN(RAD Detailed) CPT:23291 Reason for Study: annual screening mammogram Clinical History: Report Status: Electronically Filed Date Reported: APR 12, 2024 Report: Community care exam; see CPRS/JLV for outside radiology report/results Impression: Community care exam; see CPRS/JLV for outside radiology report/results Primary Diagnostic Code: BI-RADS CATEGORY 1 (Negative) VERIFIED BY: / *ELECTRONICALLY FILED* [place] [facility] Encounter Notes: All associated encounter notes This section contains the clinical notes associated to the Encounter. Date/Time Encounter Note(s) Provider Source Apr 19, 2024 11:18 AM OCCUPATIONAL THERAPY NOTE: LOCAL TITLE: OCCUPATIONAL THERAPY STANDARD TITLE: OCCUPATIONAL THERAPY NOTE DATE OF NOTE: APR 19, 2024@11:18 ENTRY DATE: APR 19, 2024@11:18:29 AUTHOR: BEV OSBORNE EXP COSIGNER: URGENCY: STATUS: COMPLETED Initial Evaluation date: Apr Progress Note Date: Treatment #: 2 Treatment time: 28 minutes Diagnosis: Pain in right Elbow(ICD-10-CM M25.521) Provider: Adi QUISPE Treatment Precautions: Patient identified by full name and date of SUBJECTIVE: Pt reports that her elbow is markedly better since the last tx. Pain Level: 0/10 OBJECTIVE: THERAPEUTIC EXERCISE: MINUTES: MANUAL THERAPY: *mobilization/FDM/IASTM to R mobile wad/common extensor tendon MINUTES: 15 THERAPEUTIC DYNAMIC ACTIVITIES: MINUTES: NEUROMUSCULAR EDUCATION: MINUTES: OTHER: MINUTES: MODALITIES: *US 1.4 w/cm2 100% 3MHz over R mobile wad/common extensor tendon MINUTES: 8 [] Contraindication screen completed prior to modality [] Skin intact pre/post SELF CARE/EDUCATION: MINUTES: Patient education was provided for all aspects of care during this clinical encounter. ASSESSMENT: pt reports much improved discomfort following last week's session. persistent tightness throughout mobile wad w/ palpable fasciculations noted. pt reported some soreness following tx. PLAN: continue w/ OT POC; modify tx as needed. pt to return next week before moving back [facility]. will reassess. /guadalupe/ Bev Osborne, MS OTR/L, CHT Occupational Therapist Signed: 04/19/2024 15:25 BEV OSBORNE [facility]
--- OUTSIDE RECORDS SUMMARY | 2024-12-25 15:15 | XMS_ITS | Encounter Summary ---
Author Name [facility] [place] [facility] [place] Address [address] [place] [address] Care Team Providers Care Instructional Systems Design Consultant Name Role Phone ZOE COPE Primary [...] Desai's Name Patient's Relationship to Policy Desai [facility] Feb 04, 2019 [id number] GABRIELLE CHO PATIENT [facility] Feb 04, 2019 [id number] GABRIELLE CHO PATIENT MEDICARE (WNR) MEDICARE (M) PART A Feb 05, 2000 PART A [id number] GABRIELLE HUGO PATIENT MEDICARE (WNR) MEDICARE (M) PART A Feb 05, 2000 PART A [id number] GABRIELLE CHO PATIENT MEDICARE (WNR) MEDICARE (M) PART A Feb 05, 2000 PART A [id number] GABRIELLE HUGO PATIENT Selected Encounter This section includes the information on record at [place] for the Encounter. Date/Time Encounter Type Encounter Description Reason Provider Source Oct 28, 2024 11:00 AM PSYTX W PT 45 [facility]UTES [facility] - IND ICD-10-CM Z63.79 Other stressful life events affecting family and household MALINOFSKY,TER GRETCHEN E Encounter Template Text not used by [place] Assessments - Encounter Diagnoses This section includes the primary and secondary diagnoses documented for the Encounter. Date/Time Primary/Secondary Diagnosis Diagnosis Name Provider Source Oct 28, 2024 04:41 PM PRIMARY Other stressful life events affecting family and household MALINOFSKY,TER GRETCHEN [place] [facility] [place] [facility] Oct 28, 2024 04:41 PM SECONDARY Acquired absence of stomach [part of] MALINOFSKY,TER GRETCHEN [facility] [place] [facility] Oct 28, 2024 04:41 PM SECONDARY Post-traumatic stress disorder, unspecified MALINOFSKY,TER GRETCHEN [place] [facility] [place] [facility] Plan of Treatment: Future Appointments (+ 6 months) and Future Tests (+/- 45 days) The Plan of Treatment section includes future care activities for the patient from all [place] treatmentfacilities. This section includes future appointments and future orders which are active, pending or scheduled. Future Appointments This section includes appointments that were scheduled to occur 6 months from the date of the Encounter, up to a maximum of 20 appointments. The data comes from all [place] treatment facilities. Appointment Date/Time Appointment Type Appointme nt Facility Name Nov 25, 2024 11:00 AM AMBULATORY - [place]ATRY [place] [facility] [place] [facility] Dec 02, 2024 09:27 AM AMBULATORY - NONE [facility] December 09, 2024 11:00 AM AMBULATORY - [place]IATRY [place] [facility] [place] [facility] December 19, 2024 11:00 AM AMBULATORY [place]IATRY [place] [facility] [place] [facility] Jan 06, 2025 11:00 AM [facility] Jan 16, 2025 09:00 AM AMBULATORY - MEDICINE [facility] Jan 20, 2025 11:00 AM AMBULATORY - PSYCHIATRY [facility] Feb 03, 2025 11:00 AM AMBULATORY - PSYCHIATRY [facility] Mar 13, 2025 11:00 AM AMBULATORY PSYCHIATRY [facility] Active, Pending, and Scheduled Orders This section includes a listing of several types of active, pending, and scheduled orders, including clinic medications orders, diagnostic test orders, procedure orders and consult orders; where the start date of the order is 45 days before the date of the Encounter or 45 days after the date of the Encounter. The data comes from all [place] treatment facilities. 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 Radiology Reports and Pathology Reports are provided separately, in subsequent sections. Lab Results This section contains the Chemistry/Hematology Results that were resulted 30 days before or 30 daysafter the date of the Encounter. Date/Time Source Result Type Result - Unit Interpretation Reference Range Specimen Type Comment Oct 18, 2024 09:37 AM [facility] LYME SEROLOGY PANEL SERUM Specimen Type: [...] of the panel were validated at the [place] [facility]. Results are considered positive [...] Oct 18, 2024 09:12 AM Reporting Lab: [facility] [address] [facility] [address] Performing Lab: [facility] [address] [facility] [address] TIER 1 LYME SCREENING EIA Negative Negat noah LYME AB FINAL INTERPRETATION Negative Ne gative Oct 18, 2024 09:37 AM [facility] EHRLICHIA CHAFFEENSIS Ab PANEL SERUM Specimen [...] analytical performance characteristics have been determined by [place]. It has not been cleared or approved by the U.S. Food and Drug Administration. This assay has been validated pursuant to the CLIA regulations and is used for clinical purposes. Test Performed by [employer] [facility], [facility], [address] [place], [place] Jey Meza M.D., Ph.D., Director of Laboratories , [place] [id number] TEST PERFORMED AT: , Ordering Provider: ZOE COPE Report Released Date/Time: Oct 18, 2024 09:12 AM Reporting Lab: [facility] [address] [facility] [address] Performing Lab: [facility] [address] [address] E. chaffeensis Ab IgG <1:64 SEE BELOW E. chaffeensis Ab IgM <1:20 SEE BELOW EHRLICHIA CHAFFEENSIS AB INTER SEE NOTE Oct 18, 2024 09:37 AM [facility] ANAPLASMA AND EHRLICHIA AB PANEL SERUM [...] analytical performance characteristics have been determined by [place]. It has not been cleared or [...] analytical performance characteristics have been determined by [email or web address] [place], [place]. It has not been cleared or approved by the U.S. Food and Drug Administration. This assay has been validated pursuant to the CLIA regulations and is used for clinical purposes. Test Performed by [facility] [email or web address] [place], [address] [place] [address] Jey Meza M.D., Ph.D., Director of Laboratories , CLIA [id number] TEST PERFORMED AT: , Ordering Provider: ZOE COPE Report Released Date/Time: Oct 18, 2024 09:12 AM Reporting Lab: [facility] [address] [address] Performing Lab: [facility] [address] E. chaffeensis Ab IgG <1:64 SEE BELOW E. chaffeensis Ab IgM <1:20 SEE BELOW A.phagocytophilum Ab IgG <1:64 SEE BEL OW A.phagocytophilum Ab IgM <1:20 SEE BEL OW EHRLICHIA CHAFFEENSIS AB INTER SEE NOTE A. phagocytophilum inter SEE NOTE Oct 18, 2024 09:37 AM [facility] MALARIA/BABESIA EXAM BLOOD Specimen Type: BLO OD Comment: Due to the cyclical shed rates of these parasites, one negative specimen does not rule out the possibility of a parasitic infection. Obtain specimens at 6-hour intervals for 36 hours for a comprehensive examination. Test Performed by [facility] [email or web address] [place], [address] [place] [address] Jey Meza M.D., Ph.D., Director of Laboratories , CLIA [id number] TEST PERFORMED AT: , Ordering Provider: ZOE COPE Report Released Date/Time: Oct 18, 2024 09:12 AM Reporting Lab: [facility] [address] [address] Performing Lab: [facility] [address] MALARIA/BABESIA EXAM Negative Negative Oct 11, 2024 08:19 AM [facility] LIPID PANEL FASTING SERUM Specimen Type: SERU M No comment entered. Ordering Provider: ZOE COPE Report Released Date/Time: Oct 11, 2024 08:18 AM Reporting Lab: [facility] [address] [facility] [address] Performing Lab: [address] [address] CHOLESTEROL 144 mg/dL TRIGLYCERIDE 64 mg/dL 0-150 LDL calculated 52 mg/dL 0-129 CHOL/HDL 1.8 HDL CHOLESTEROL 79 mg/dL H 40-60 Oct 11, 2024 08:19 AM [facility] BASIC METABOLIC PANEL (non-fasting) SERUM Spe cimen Type: SERUM No comment entered. Ordering Provider: ZOE COPE Report Released Date/Time: Oct 11, 2024 08:18 AM Reporting Lab: [address] [address] Performing Lab: [facility] [address] [facility] [address] UREA NITROGEN 15 mg/dL 7-25 GLUCOSE 95 mg/dL 65-100 SODIUM 139 mmol/L 135-145 POTASSIUM 4.2 mmol/L 3.5-5.0 CHLORIDE 105 mmol/L 100-110 CO2 27 meq/L 20-30 CALCIUM 9.7 mg/dL 8.5-10.2 CREATININE, Serum 0.81 mg/dL 0.50-1.40 eGFR(CKD-EPI 2020) 87 mL/min >60 Oct 11, 2024 08:19 AM [facility] HEMOGLOBIN A1C PANEL BLOOD Specimen Type: [...] Oct 11, 2024 08:18 AM Reporting Lab: [facility] [place] [facility] [address] [facility] [address] Performing Lab: [facility] [place] [facility] [address] [facility] [address] HEMOGLOBIN A1C 5.0 4.0-5.6 Oct 11, 2024 08:19 AM [facility] [place] [facility] TSH SERUM Specimen Type: SERUM No comment entered. Ordering Provider: ZOE COPE Report Released Date/Time: Oct 11, 2024 08:18 AM Reporting Lab: [facility] [place] [facility] [address] [facility] [address] Performing Lab: [place] [facility] [place] [facility] [address] [facility] [address] TSH 2.44 u[IU]/mL 0.35-5.00 Oct 11, 2024 08:19 AM [facility] [place] [facility] LIVER FUNCTION SERUM Specimen Type: SERUM No comment entered. Ordering Provider: ZOE COPE Report Released Date/Time: Oct 11, 2024 08:18 AM Reporting Lab: [place] [facility] [place] [facility] [address] [facility] [address] Performing Lab: [place] [facility] [place] [facility] [address] [facility] [address] PROTEIN,TOTAL 6.5 g/dL 6.0-8.3 ALBUMIN 3.8 g/dL 3.5-5.0 ALKALINE PHOSPHATASE 84 U/L 40-150 AST 21 U/L 5-34 ALT 26 U/L BILIRUBIN, TOTAL 0.8 mg/dL 0.2-1.2 Oct 11, 2024 08:19 AM [facility] [place] [facility] CBC AND DIFF (AUTO) BLOOD Specimen Type: BLOO D No comment entered. Ordering Provider: ZOE COPE Report Released Date/Time: Oct 11, 2024 08:18 AM Reporting Lab: [facility] [place] [facility] [address] [facility] [address] Performing Lab: [place] [facility] [place] [facility] [address] [facility] [address] WBC 7.92 10*3/uL 4.50-11.00 RBC 4.64 10*6/uL [...] 0.0 0.0-0.0 NRBC, ABS 0.00 10*3/uL 0.00-0.00 Social History: Smoking Status (Most current) and Tobacco Use (All prior to encounter date) This section includes the most current, and the historical, smoking and tobacco- related health factors from the [place] facility where the Encounter took place. Current Smoking Status This section includes the most current smoking, or tobacco-related health factor, from the [place] facility where the Encounter took place. Date/Time Current Smoking Status Comment Enedina ity Sep 11, 2023 12:30 PM VA-TOBACCO NEVER USED [place] [facility] Tobacco Use History This section includes a history of the smoking, or tobacco-related health factors, that were collected on or before the date of the Encounter. The data comes from the [place] facility where the Encounter took place. Date/Time Smoking Status/Tobacco Use Comment F acility Sep 30, 2022 10:00 AM VA-TOBACCO NEVER USED [facility] Apr 21, 2020 03:34 PM VA-TOBACCO NEVER USED [facility] Jan 10, 2019 11:51 AM VA-TOBACCO NEVER USED [facility] Mar 09, 2018 11:27 AM LIFETIME NON-TOBACCO USER [facility] [place] [facility] Advance Directives: All historical and current Section Date Range: From patient's date of to the date document was created. This section includes ALL of a patient's completed or amended [place] Advance and Rescinded Directives. The entries below indicate that a directive exists for the patient, but an actual copy is not included with this document. The data comes from all [place] facilities. Date Advance Directives Provider Source Feb 23, 2016 ADVANCE DIRECTIVE DISCUSSION MAHAD MCKENZIE [facility] Jan 13, 2004 ADVANCE DIRECTIVE [facility] Encounter Notes: All associated encounter notes This section contains the clinical notes associated to the Encounter. Date/Time Encounter Note(s) Provider Source Oct 28, 2024 04:20 PM TELEHEALTH NOTE: LOCAL TITLE: [place] VIDEO CONNECT PSYCHOLOGY NOTE STANDARD TITLE: TELEHEALTH NOTE DATE OF NOTE: OCT 28, 2024@16:20 ENTRY DATE: OCT 28, 2024@16:20:53 AUTHOR: ALBER BROWNING EXP COSIGNER: URGENCY: STATUS: COMPLETED [place] [facility] Connect (VVC) Standard Documentation VVC Clinician Resources Only: E911 (Emergency Call Relay Center): [phone] National Veterans Crisis Line - 988 then press #1. [facility] Suicide Coordinator [phone], Ext. [phone]; Back-up Ext. [phone] [place] Police, Reanna JIMENEZ [phone] Introduction: Visit is being conducted by [place] [facility]. [place] identified with VISUAL RECOGNITION. Emergency Plan: [place] confirmed and/or provided the following information in case of emergency or technology failure. PATIENT PHONE - PHONE NUMBER [CELLULAR] - Is patient phone number correct, if not, enter below: [place]'s phone number: ALBERTO HUGO MARQUIS [address] [place], [place], [address] [place]'s present location and address for appointment: home above address 's emergency contact name and phone number: Amanda on file [place] reported that location is private and safe: Yes Informed Consent: informed of the risks and benefits of Telehealth video care. has the right to refuse video services. If refuses video visit, a tcdl-[id number] visit will be scheduled. verbalized consent for this video visit: Yes [place] provided consent for any other persons present for visit: N/A If yes, who and relationship to patient: Secure visit: Visit was locked for security and privacy:Yes Does this visit involve laterality/specific side of body? N/A .......................... .......................... ..................... Alberto Hugo Marquis attended 50 minutes of individual psychotherapy. GOALS: Her goals in the past years, at least 2, have been concerned with family relationships and weight/obesity. PROGRESS: She has made gains in both family relationships and weight/obesity. SESSION FOCUS: Today, she expresses upset at hearing that couples therapist Dr. Kwabena Good will no longer be working at [facility]. It's taken a year and a half, for () Amanda to open up, and now that he's opened up and there is rapport with Dr. Yuan, he's gone! Alexandra was crying as she said this. 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 Sandeep Barillas broke this news to them in a very empathic way. She asks whether it's possible to continue with Dr. Good via [facility]? I offered to pass this along to Dr. Barillas, who may possibly know if this is possible. INTERVENTION: TW gave feedback about the releasing/relief aspect of tears and sharing her disappointment in this session. TW shared congratulations for the couples work they accomplished, and also the likelihood that gains will likely be maintained; as the couple certainly has gained skills and awareness together. BEHAVIORAL OBSERVATION: Good feelings (related to her progress) and also worry and disappointment (regarding the loss of her couples therapist). No SI, nor other danger to self (or other). RTC: Scheduled, biweekly. .......................... .................. 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 RADIO TOWER TECHNICIAN, CLINICAL PSYCHOLOGIST ALBER BROWNING [facility]
--- OUTSIDE RECORDS SUMMARY | 2024-12-25 15:15 | XMS_ITS | Encounter Summary ---
Author Name [facility] [place] Address [address] [place] [address] Care Team Providers Care Marina Dry Dock Manager Name Role Phone ZOE COPE Primary Care [...] Name Patient's Relationship to Policy [facility] Feb 04, 2019 [id number] GABRIELLE CHO PATIENT [facility] HIGH DEDUCTIBL E HEALTH PLAN HD[facility] Feb 04, 2019 [id number] [phone] GABRIELLE CHO PATIENT MEDICARE (WNR) MEDICARE (M) PART A Feb 05, 2000 PART A [id number] [phone] GABRIELLE HUGO PATIENT MEDICARE (WNR) MEDICARE (M) PART A Feb 05, 2000 PART A [id number] GABRIELLE CHO PATIENT MEDICARE (WNR) MEDICARE (M) PART A Feb 05, 2000 PART A [id number] [phone] GABRIELLE HUGO PATIENT Selected Encounter This section includes the information on record at [place] for the Encounter. Date/Time Encounter Type Encounter Description Reason Provider Source Feb 01, 2024 02:00 PM CRISIS INTERVENTION PER [facility] - IND ICD-10-CM F31.32 Bipolar disorder, current episode depressed, moderate MALINOFSKY,TER GRETCHEN IHE Encounter Template Text not used by [place] Assessments - Encounter Diagnoses This section includes the primary and secondary diagnoses documented for the Encounter. Date/Time Primary/Secondary Diagnosis Diagnosis Name Provider Source Feb 01, 2024 07:11 PM PRIMARY Bipolar disorder, current episode depressed, moderate MALINOFSKY,TER GRETCHEN [facility] [place] [facility] Feb 01, 2024 07:11 PM SECONDARY Acute stress reaction MALINOFSKY,TER GRETCHEN [facility] [place] [facility] Feb 01, 2024 07:11 PM SECONDARY Other obesity due to excess calories MALINOFSKY,TER GRETCHEN [facility] [place] [facility] Feb 01, 2024 07:11 PM SECONDARY Post-traumatic stress disorder, unspecified MALINOFSKY,TER GRETCHEN [facility] [place] [facility] Plan of Treatment: Future Appointments (+ 6 months) and Future Tests (+/- 45 days) The Plan of Treatment section includes future care activities for the patient from all [place] treatmentfacilities. This section includes future appointments and future orders which are active, pending or scheduled. Future Appointments This section includes appointments that were scheduled to occur 6 months from the date of the Encounter, up to a maximum of 20 appointments. The data comes from all [place] treatment facilities. Appointment Date/Time Appointment Type Appointme nt Facility Name Feb 12, 2024 12:30 PM AMBULATORY - PSYCHIATRY [facility] [place] [facility] Feb 12, 2024 01:30 PM AMBULATORY - MEDICINE [facility] [place] [facility] 2024 03:00 PM AMBULATORY - PSYCHIATRY [facility] Feb 17, 2024 09:37 AM AMBULATORY - NONE [facility] Feb 22, 2024 02:00 PM AMBULATORY - PSYCHIATRY [facility] [place] [facility] Feb 29, 2024 04:30 PM AMBULATORY - PS[facility]CHIATRY [facility] [place] [facility] Mar 06, 2024 02:30 PM AMBULATORY - MEDICINE [facility] [place] [facility] Mar 15, 2024 02:00 PM AMBULATORY - PSYCHIATRY [facility] Mar 18, 2024 12:30 PM AMBULATORY - PS[facility]CHIATRY [facility] [place] [facility] Mar 21, 2024 02:00 PM AMBULATORY - PS[facility]CHIATRY [facility] [place] [facility] Apr 04, 2024 10:30 AM AMBULATORY - MEDICINE [facility] [place] [facility] Apr 04, 2024 02:00 PM AMBULATORY - PS[facility]IATRY [facility] [place] [facility] Apr 11, 2024 11:00 AM AMBULATORY - REHAB MEDICIN E [facility] [place] [facility] Apr 15, 2024 12:30 PM AMBULATORY - PS[facility]CHIATRY [facility] [place] [facility] Apr 18, 2024 02:00 PM AMBULATORY - PS[facility]CHIATRY [facility] [place] [facility] Apr 19, 2024 11:30 AM AMBULATORY - REHAB MEDICIN E [facility] [place] [facility] May 09, 2024 02:00 PM AMBULATORY - PSYCHIATRY [facility] [place] [facility] May 27, 2024 11:00 AM AMBULATORY - PS[facility]CHIATRY [facility] [place] [facility] Jun 03, 2024 11:00 AM AMBULATORY - PS[facility]CHIATRY [facility] [place] [facility] Jun 10, 2024 11:00 AM AMBULATORY - PSYCHIATRY [facility] [place] [facility] Social History: Smoking Status (Most current) and Tobacco Use (All prior to encounter date) This section includes the most current, and the historical, smoking and tobacco- related health factors from the VA facility where the Encounter took place. Current Smoking Status This section includes the most current smoking, or tobacco-related health factor, from the [place] facility where the Encounter took place. Date/Time Current Smoking Status Octavia cortez Sep 11, 2023 12:30 PM VA-TOBACCO NEVER USED [facility] [place] [facility] Tobacco Use History This section includes a history of the smoking, or tobacco-related health factors, that were collected on or before the date of the Encounter. The data comes from the [place] facility where the Encounter took place. Date/Time Smoking Status/Tobacco Use Comment F acility Sep 30, 2022 10:00 AM VA-TOBACCO NEVER USED [facility] [place] [facility] Apr 21, 2020 03:34 PM VA-TOBACCO NEVER USED [facility] [place] [facility] Jan 10, 2019 11:51 AM VA-TOBACCO NEVER USED [facility] [place] [facility] Mar 09, 2018 11:27 AM LIFETIME NON-TOBACCO USER [facility] [place] [facility] Advance Directives: All historical and current Section Date Range: From patient's date of to the date document was created. This section includes ALL of a patient's completed or amended [place] Advance and Rescinded Directives. The entries below indicate that a directive exists for the patient, but an actual copy is not included with this document. The data comes from all [place] facilities. Date Advance Directives Provider Source Feb 23, 2016 ADVANCE DIRECTIVE DISCUSSION MAHAD MCKENZIE [facility] Jan 13, 2004 ADVANCE DIRECTIVE JOSE NAJERA [facility] Encounter Notes: All associated encounter notes This section contains the clinical notes associated to the Encounter. Date/Time Encounter Note(s) Provider Source Jan 31, 2024 02:00 PM TELEHEALTH NOTE: LOCAL TITLE: [facility] VIDEO CONNECT PSYCHOLOGY NOTE STANDARD TITLE: TELEHEALTH NOTE DATE OF NOTE: JAN 31, 2024@14:00 ENTRY DATE: FEB 01, 2024@18:48:09 AUTHOR: ALBER BROWNING EXP COSIGNER: URGENCY: STATUS: COMPLETED CO VIDEO CONNECT PSYCHOLOGY NOTE Has ADDENDA [facility] Connect ([facility]VC) Standard Documentation V[facility] Clinician Resources Only: E911 (Emergency Call Relay Center): [phone] [facility] Crisis Line - 248 then press #1. TONY Suicide Coordinator [phone], Ext. [phone]; Back-up Ext. [phone] TONY [place] [phone] Introduction: Visit is being conducted by [place] [employer] Connect. [place] identified via VISUAL RECOGNITION Emergency Plan: confirmed and/or provided the following information in case of emergency or technology failure. PATIENT PHONE - PHONE NUMBER [CELLULAR] - Is patient phone number correct, if not, enter below: [place]'s phone number: ALBERTO CHO [address], [place], [address] [place]'s present location and address for appointment: home above address 's emergency contact name and phone number: Amanda on file reported that location is private and safe: Yes Informed Consent: [place] informed of the risks and benefits of Telehealth video care. has the right to refuse video services. If refuses video visit, a [id number] visit will be scheduled. verbalized consent for this video visit: Yes [place] provided consent for any other persons present for visit: N/A If yes, who and relationship to patient: Secure visit: Visit was locked for security and privacy:Yes ........................ ........................ ........... Alberto Cho 1975 attended this individual psychotherapy session for 55 minutes. She is in crisis. FAMLY STRESS has been extraordinary. Her health has been compromised. Amanda's health has been compromised. PROBLEM: Amanda is driving one adult child to school/work, and repairing the other child's car (who drives under the influence and has psychosis). He is unable to say No when he should. Details: Son Samir was discharged from inpatient unit, allowed to leave on his own word that he was fine. No antipsychotic was delivered. enrico Dominguez foresees that he shall end up from his next MVA while DUI. Other son Raghu has no money, but bought $400 worth of clothes online. Raghu had MVA which injured his back, and now he is unable to work/pay his rent. There is an managing attorney working on this legal case. Other son Chai asked the couple to babysit his baby. Alberto said they cannot do it; but she expects Amanda will say yes. Amanda says he needs a break, but the most he will do for a break is go to mow the lawn at their [place]. enrico Dominguez herself lost only 0.2 lbs this past week, and her bariatric surgeon believes she is not following diet/exercise as prescribed. She feels very sad that she is not believed. She has followed the diet/expercise regimen. Therefore, she believes the stress is compromising her body. INTERVENTION: (1) Clear directive that her health and Amanda's health is top priority. They cannot help any child if their own health is so compromised d/t self-destructive parenting. (2) As Amanda is unable to say no, she must say NO for both of them. (3) Couples therapy is needed, to support their need for Amanda to start saying NO when he should, towards ending destructive parenting. (4) I will send the couple the book [employer] by Hood Shelby MD (5) I suggested Alexandra Dominguez thank herself and thank her body also, for their work together. I told Alberto I believed her: I believed that she has been diligently following her diet/exercise regimen. ........................ ........................ ................. Related to: Service Connected Condition, [facility] Diagnoses: Bipolar affective disorder, currently depressed, moderate (SCT [id number]) - Bipolar disorder, current episode depressed, moderate (ICD-10-CM F31.32) (Primary) Post-traumatic stress disorder (SCT [id number]) - Post-traumatic stress disorder, unspecified (ICD-10-CM F43.10) Obesity (SCT [id number]) - Other obesity due to excess calories (ICD-10-CM E66.09) Procedures: Crisis Intervention Sv,per hr - Synchronous Telemedicine Service - Clinical Psychologist /guadalupe/ ALBER BROWNING,PhD Neuropsychologist Signed: 02/01/2024 19:13 Receipt Acknowledged By: 02/02/2024 10:41 /guadalupe/ KATHRYN AQUINO, PH.D. PSYCHOLOGIST 02/12/2024 ADDENDUM STATUS: COMPLETED Adding diagnosis ACUTE STRESS DISORDER d/t family stress. /guadalupe/ ALBER BROWNING,PhD Neuropsychologist Signed: 02/12/2024 07:36 [facility]
--- OUTSIDE RECORDS SUMMARY | 2024-12-25 15:15 | XMS_ITS ---
Author Name [facility] [facility] [place] Address [address] [place] [address] Care Team Providers Care Clerical Secretary Name Role Phone MARY ELLEN COPE Primary Care Provider Unavailabl e HUEY [...] Name Patient's Relationship to Policy Desai [facility] Feb 04, 2019 [id number] [phone] GABRIELLE CHO PATIENT [facility] E [facility] Feb 04, 2019 [id number] [id number] GABRIELLE CHO PATIENT MEDICARE (WNR) MEDICARE (M) PART A Feb 05, 2000 PART A [id number] GABRIELLE HUGO PATIENT MEDICARE (WNR) MEDICARE (M) PART A Feb 05, 2000 PART A [id number] [phone] GABRIELLE VAZQUEZ PATIENT MEDICARE (WNR) MEDICARE (M) PART A Feb 05, 2000 PART A [id number] GABRIELLE HUGO PATIENT Selected Encounter This section includes the information on record at [place] for the Encounter. Date/Time Encounter Type Encounter Description Reason Provider Source Oct 18, 2024 08:30 AM OFFICE O/P EST MOD 30 MIN PRIMARY CARE/MEDICINE ICD-10-CM I10 Essential (primary) hypertension ANATOLIY,MARY ELLEN ASHLEY E Encounter Template Text not used by [place] Assessments - Encounter Diagnoses This section includes the primary and secondary diagnoses documented for the Encounter. Date/Time Primary/Secondary Diagnosis Diagnosis Name Provider Source Oct 18, 2024 09:45 AM PRIMARY Essential (primary) hypertension ANATOLIY,MARY ELLEN ASHLEY [place] [facility] Oct 18, 2024 09:45 AM SECONDARY Encounter for immunization OPAL CAO [place] [facility] Oct 18, 2024 09:45 AM SECONDARY Hypothyroidism, unspecified ANATOLIY,MARY ELLEN ASHLEY [place] [facility] Oct 18, 2024 09:45 AM SECONDARY Other obesity due to excess calories ANATOLIYFLORA ASHLEY [place] [facility] Oct 18, 2024 09:45 AM SECONDARY Unspecified hemorrhoids ANATOLIYMARY ELLEN ASHLEY [facility] [place] [facility] Plan of Treatment: Future Appointments (+ 6 months) and Future Tests (+/- 45 days) The Plan of Treatment section includes future care activities for the patient from all [place] treatmentfacilities. This section includes future appointments and future orders which are active, pending or scheduled. Future Appointments This section includes appointments that were scheduled to occur 6 months from the date of the Encounter, up to a maximum of 20 appointments. The data comes from all [place] treatment facilities. Appointment Date/Time Appointment Type Appointme nt Facility Name Oct 28, 2024 11:00 [facility] Nov 25, 2024 11:00 AM [facility] [place] [facility] Dec 02, 2024 09:27 AM AMBULATORY - NONE [facility] December 09, 2024 11:00 AM [facility] December 19, 2024 11:00 AM AMBULATORY - PSYCHIATRY [place] [facility] Jan 06, 2025 11:00 AM AMBULATORY - PSYCHIATRY [place] [facility] Jan 16, 2025 09:00 AM [facility] Jan 20, 2025 11:00 AM [facility] [place] [place] [facility] Feb 03, 2025 11:00 AM [facility] Mar 13, 2025 11:00 AM [facility] Active, Pending, and Scheduled Orders This section includes a listing of several types of active, pending, and scheduled orders, including clinic medications orders, diagnostic test orders, procedure orders and consult orders; where the start date of the order is 45 days before the date of the Encounter or 45 days after the date of theEncounter. The data comes from all [place] treatment facilities. Test Date/Time Test Type Test Details Facility Name Oct 04, 2024 09:28 AM Consult Order [facility]-GEN SURGERY [place] [facility] Manager's Choice [facility] Lab Results: +/- 30 days of the encounter This section includes the Chemistry and Hematology Lab Results on record with [place] for the patient. Radiology Reports and Pathology Reports are provided separately, in subsequent sections. Lab Results This section contains the Chemistry/Hematology Results that were resulted 30 days before or 30 daysafter the date of the Encounter. Date/Time Source Result Type Result - Unit Interpretation Reference Range Specimen Type Comment Oct 18, 2024 09:37 AM [facility] LYME SEROLOGY PANEL SERUM Specimen Type: [...] of the panel were validated at the [facility]. Results are considered positive [...] local health departments, if applicable. Ordering Provider: MAR YELLEN COPE Report Released Date/Time: Oct 18, 2024 09:12 AM Reporting Lab: [facility] [address] [phone] Performing Lab: [facility] [address] [address] TIER 1 LYME SCREENING EIA Negative Negat noah LYME AB FINAL INTERPRETATION Negative Ne gative Oct 18, 2024 09:37 AM [facility] EHRLICHIA CHAFFEENSIS Ab PANEL SERUM Specimen [...] characteristics have been determined by [facility] [place]. It has not been cleared or approved by the U.S. Food and Drug Administration. This assay has been validated pursuant to the CLIA regulations and is used for clinical purposes. Test Performed by [facility], [facility] [place], [address] [place], [place] Jey Meza M.D., Ph.D., Director of Laboratories , CLIA [id number] TEST PERFORMED AT: , Ordering Provider: MARY ELLEN COPE Report Released Date/Time: Oct 18, 2024 09:12 AM Reporting Lab: [facility] [address] [phone] Performing Lab: [facility] [address] [address] E. chaffeensis Ab IgG <1:64 SEE BELOW E. chaffeensis Ab IgM <1:20 SEE BELOW EHRLICHIA CHAFFEENSIS AB INTER SEE NOTE Oct 18, 2024 09:37 AM [facility] ANAPLASMA AND EHRLICHIA AB PANEL SERUM [...] analytical performance characteristics have been determined by [facility]. It has not been cleared or [...] analytical performance characteristics have been determined by [facility] [place], [place]. It has not been cleared or approved by the U.S. Food and Drug Administration. This assay has been validated pursuant to the CLIA regulations and is used for clinical purposes. Test Performed by [facility] [place], [address] [place] [address] Jey Meza M.D., Ph.D., Director of Laboratories , CLIA [id number] TEST PERFORMED AT: , Ordering Provider: MARY ELLEN COPE Report Released Date/Time: Oct 18, 2024 09:12 AM Reporting Lab: [facility] [address] [id number] Performing Lab: [facility] [address] [address] E. chaffeensis Ab IgG <1:64 SEE BELOW E. chaffeensis Ab IgM <1:20 SEE BELOW A.phagocytophilum Ab IgG <1:64 SEE BEL OW A.phagocytophilum Ab IgM <1:20 SEE BEL OW EHRLICHIA CHAFFEENSIS AB INTER SEE NOTE A. phagocytophilum inter SEE NOTE Oct 18, 2024 09:37 AM [facility] MALARIA/BABESIA EXAM BLOOD Specimen Type: BLO OD Comment: Due to the cyclical shed rates of these parasites, one negative specimen does not rule out the possibility of a parasitic infection. Obtain specimens at 6-hour intervals for 36 hours for a comprehensive examination. Test Performed by [facility] [place], [address] [place] [address] Jey Meza M.D., Ph.D., Director of Laboratories , CLIA [id number] TEST PERFORMED AT: , Ordering Provider: MARY ELLEN COPE Report Released Date/Time: Oct 18, 2024 09:12 AM Reporting Lab: [facility] [address] [address] Performing Lab: [facility] [address] [address] MALARIA/BABESIA EXAM Negative Negative Oct 11, 2024 08:19 AM [facility] LIPID PANEL FASTING SERUM Specimen Type: SERU M No comment entered. Ordering Provider: MARY ELLEN COPE Report Released Date/Time: Oct 11, 2024 08:18 AM Reporting Lab: [facility] [address] [address] Performing Lab: [facility] [address] [address] CHOLESTEROL 144 mg/dL TRIGLYCERIDE 64 mg/dL 0-150 LDL calculated 52 mg/dL 0-129 CHOL/HDL 1.8 HDL CHOLESTEROL 79 mg/dL H 40-60 Oct 11, 2024 08:19 AM [facility] BASIC METABOLIC PANEL (non-fasting) SERUM Spe cimen Type: SERUM No comment entered. Ordering Provider: MARY ELLEN COPE Report Released Date/Time: Oct 11, 2024 08:18 AM Reporting Lab: [facility] [address] [address] Performing Lab: [facility] [address] [address] UREA NITROGEN 15 mg/dL 7-25 GLUCOSE 95 mg/dL 65-100 SODIUM 139 mmol/L 135-145 POTASSIUM 4.2 mmol/L 3.5-5.0 CHLORIDE 105 mmol/L 100-110 CO2 27 meq/L 20-30 CALCIUM 9.7 mg/dL 8.5-10.2 CREATININE, Serum 0.81 mg/dL 0.50-1.40 eGFR(CKD-EPI 2020) 87 mL/min >60 Oct 11, 2024 08:19 AM [facility] HEMOGLOBIN A1C PANEL BLOOD Specimen Type: BLO OD Comment: Values obtained from A1C measurements can vary. For atypical A1C assays, a reported value of 7.0 could actually be between 6.72 and 7.28 if measured by a reference method. A reported value of 9.0 could actually be between 8.73 and 9.27. Ref: http://www.ngsp.org/CAPdata.asp Ordering Provider: MARY ELLEN COPE Report Released Date/Time: Oct 11, 2024 08:18 AM Reporting Lab: [facility] [place] [facility] [address] [address] Performing Lab: [facility] [place] [id number] HEMOGLOBIN A1C 5.0 4.0-5.6 Oct 11, 2024 08:19 AM [facility] LIVER FUNCTION SERUM Specimen Type: SERUM No comment entered. Ordering Provider: MARY ELLEN COPE Report Released Date/Time: Oct 11, 2024 08:18 AM Reporting Lab: [facility] [address] [address] Performing Lab: [facility] [address] [address] PROTEIN,TOTAL 6.5 g/dL 6.0-8.3 ALBUMIN 3.8 g/dL 3.5-5.0 ALKALINE PHOSPHATASE 84 U/L 40-150 AST 21 U/L 5-34 ALT 26 U/L BILIRUBIN, TOTAL 0.8 mg/dL 0.2-1.2 Oct 11, 2024 08:19 AM [facility] TSH SERUM Specimen Type: SERUM No comment entered. Ordering Provider: MARY ELLEN OCPE Report Released Date/Time: Oct 11, 2024 08:18 AM Reporting Lab: [facility] [place] [facility] [address] [address] Performing Lab: [facility] [address] [address] TSH 2.44 u[IU]/mL 0.35-5.00 Oct 11, 2024 08:19 AM [facility] CBC AND DIFF (AUTO) BLOOD Specimen Type: BLOO D No comment entered. Ordering Provider: MARY ELLEN COPE Report Released Date/Time: Oct 11, 2024 08:18 AM Reporting Lab: [facility] [address] [address] Performing Lab: [facility] [address] [address] WBC 7.92 10*3/uL 4.50-11.00 RBC 4.64 10*6/uL [...] Height Weight Body Mass Index Source Oct 18, 2024 08:29 AM 64 101/68 18 98 166 27 [facility] Immunizations: All administered on the encounter date This section contains immunizations associated to the Encounter. Immunization Series Date Issued Administered By Site Reaction Lot Number CVX Code Drug Coding Support Specialist Comment(s) Source RSV, BIVALENT, PROTEIN SUBUNIT RSVPREF, DILUENT RECONSTITUTED , 0.5 ML, PF Oct 18, 2024 OPAL CAO RIGHT DELTO ID [id number] [employer] ADMINISTERE D AT IN, Dilutenet [id number] [place] [facility] ZOSTER RECOMBINANT 1 Oct 18, 2024 OPAL CAO LEFT DELTO ID [id number] GLAXOSMITHKLI NE ADMINISTERE D AT IN, Dilutent [id number] 01/20/26 IN [facility] Social History: Smoking Status (Most current) and Tobacco Use (All prior to encounter date) This section includes the most current, and the historical, smoking and tobacco- related health factors from the [place] facility where the Encounter took place. Current Smoking Status This section includes the most current smoking, or tobacco-related health factor, from the [place] facility where the Encounter took place. Date/Time Current Smoking Status Comment Enedina cortez Sep 11, 2023 12:30 PM VA-TOBACCO NEVER USED [facility] Tobacco Use History This section includes a history of the smoking, or tobacco-related health factors, that were collected on or before the date of the Encounter. The data comes from the [place] facility where the Encounter took place. Date/Time Smoking Status/Tobacco Use Comment Darlene dereck Sep 30, 2022 10:00 AM VA-TOBACCO NEVER USED [place] [facility] Apr 21, 2020 03:34 PM VA-TOBACCO NEVER USED IN [place] [facility] Jan 10, 2019 11:51 AM VA-TOBACCO NEVER USED IN [place] [facility] Mar 09, 2018 11:27 AM LIFETIME NON-TOBACCO USER [facility] Advance Directives: All historical and current Section Date Range: From patient's date of to the date document was created. This section includes ALL of a patient's completed or amended [place] Advance and Rescinded Directives. The entries below indicate that a directive exists for the patient, but an actual copy is not included with this document. The data comes from all [place] facilities. Date Advance Directives Provider Source Feb 23, 2016 ADVANCE DIRECTIVE DISCUSSION MAHAD MCKENZIE [facility] Jan 13, 2004 ADVANCE DIRECTIVE JOSE NAJERA [facility] Encounter Notes: All associated encounter notes This section contains the clinical notes associated to the Encounter. Date/Time Encounter Note(s) Provider Source Oct 28, 2024 09:32 AM [facility] DIALOG NOTE: LOCAL TITLE: SECURE MESSAGING STANDARD TITLE: [facility] DIALOG NOTE DATE OF NOTE: OCT 28, 2024@09:32 ENTRY DATE: OCT 28, 2024@09:32:34 AUTHOR: MARY ELLEN COPE EXP COSIGNER: URGENCY: STATUS: COMPLETED SECURE MESSAGING Has ADDENDA Timothy Alberto Good news all your tick titers are negative. We can recheck them again in January if you want. See you then Take good care Mary Ellen /guadalupe/ CHRIST DICK Nurse Practitioner Signed: 10/28/2024 09:33 Receipt Acknowledged By: 10/28/2024 11:10 /leola BLUNT REGISTERED NURSE 10/28/2024 ADDENDUM STATUS: COMPLETED Secure message sent. /leola BLUNT REGISTERED NURSE Signed: 10/28/2024 11:10 MARY ELLEN COPE [place] [facility] Oct 18, 2024 08:45 AM PREVENTIVE MEDICINE NURSING NOTE: LOCAL TITLE: CLINICAL REMINDERS/NURSING STANDARD TITLE: PREVENTIVE MEDICINE NURSING NOTE DATE OF NOTE: OCT 18, 2024@08:45 ENTRY DATE: OCT 18, 2024@08:45:12 AUTHOR: OPAL CAO EXP COSIGNER: URGENCY: STATUS: COMPLETED CLINICAL REMINDERS/NURSING Has ADDENDA Influenza Immunization: Deferral / Refusal The patient declines to receive the recommended dose of seasonal influenza vaccine. Immunization: INFLUENZA, UNSPECIFIED FORMULATION Refusal Reason: PATIENT DECISION Patient refuses all immunization(s) in the FLU group Date Documented: 10/18/24 08:45 COVID-19 Immunization: Refused Moderna Monovalent COVID-19 vaccine Immunization: COVID-19 (MODERNA), MRNA, LNP-S, PF, 50 MCG/0.5 ML (AGES 12+ YEARS) Refusal Reason: PATIENT DECISION Patient refuses all immunization(s) in the COVID-19 group Date Documented: 10/18/24 08:45 /leola HOANG Primary Care Staff Nurse Signed: 10/18/2024 08:46 10/18/2024 ADDENDUM STATUS: COMPLETED Herpes Zoster (Shingles) Vaccine: Administered: ZOSTER RECOMBINANT Date Administered: Oct 18, 2024 08:30 Series: Series 1 Coding Support Specialist: [employer] Lot: [id number] Exp Date: Jan 20, 2026 NDC: [id number] Admin Route/Site: INTRAMUSCULAR/LEFT DELTOID Dosage: 0.5mL Vaccine Information Statement(s): RECOMBINANT ZOSTER VACCINE VIS Sep 10, 2021 (OCCITAN) Order By: Policy Administered By: Opal Cao Comment: Suzette FY9NL 01/20/26 The Recombinant Zoster Vaccine Information Statement (VIS) was reviewed with the patient/caregiver which lists the benefits and risks of the vaccine and the risks of not receiving the Recombinant Zoster vaccine. The patient/caregiver denied any prior severe reaction to this vaccine or its components or a severe allergic reaction, such as anaphylaxis, to any vaccine or any injectable therapy. The patient/caregiver gave verbal consent to receive the vaccine. RSV Immunization: Respiratory Syncytial Virus (RSV) Vaccine: RSV vaccine administered today. Administered: RSV, BIVALENT, PROTEIN SUBUNIT RSVPREF, DILUENT RECONSTITUTED, 0.5 ML, PF Date Administered: Oct 18, 2024 08:30 Coding Support Specialist: [employer] Lot: [id number] Exp Date: Jul 06, 2025 NDC: [id number] Admin Route/Site: INTRAMUSCULAR/RIGHT DELTOID Dosage: 0.5mL Vaccine Information Statement(s): RSV (RESPIRATORY SYNCYTIAL VIRUS) VACCINE VIS May 23, 2024 (OCCITAN) Order By: Policy Administered By: Opal Cao Comment: Radha [id number] Vaccine Information Sheet (VIS) was given to the patient/caregiver, education regarding adverse reactions was discussed, as well as barriers to learning, if any, were acknowledged. /guadalupe/ OPAL Serrano [facility] Primary Care Staff Nurse Signed: 10/18/2024 09:27 OPAL CAO [place] [facility] Oct 18, 2024 08:35 AM PRIMARY CARE NURSE PRACTITIONER OUTPATIENT NOTE: LOCAL TITLE: NURSE PRACTITIONER OUTPATIENT NOTE STANDARD TITLE: PRIMARY CARE NURSE PRACTITIONER OUTPATIENT NOTE DATE OF NOTE: OCT 18, 2024@08:35 ENTRY DATE: OCT 18, 2024@08:35:57 AUTHOR: MARY ELLEN COPE EXP COSIGNER: URGENCY: STATUS: COMPLETED Chief complaint: Pt is a 49 who comes in for follow up of medical problems as noted below. HPI: HTN she has lost BP Lost about 100 Lbs. from 2022 until now, some of weight loss was intentional with diet and exercise in the 2022 to 2023 year then she consulted with [place] weight management and had sleeve in December of 2024 and since then lost another 48 lbs. HLD has been on atorva 10mg every other day, since losing weight LDL has significantly improved she would love to get off if possible last LDL this week checked was in the 50s! Tick bite while in [place] on right posterior thigh, denies any sx like EM, fevers headache joint pain or dizziness, she pulled off tick did not seem engorged, no rash since then but wanted to be checked for Lyme this occurred between 4-5 weeks ago wants RSV vaccine has new born grandchild at home, also due for shingles vaccine is fine with getting both Right groin folliculitis, has used adalpine topical in past and seems to help will also add in topical Abx Left groin hyperpigmented lesion, has had SK and Skin tags in the past would like it looked at denies bleeding at site or any itching or irritation Hemorrhoids has large external not currently thrombosed she has appt with general surgery this week, she is due for colonoscopy as well but would like to wait until hemorrhoid taken care of PMH: Active problems - Computerized Problem List is the source for the followin. Acute stress disorder 2. History of sleeve gastrectomy 3. Cannabis abuse 4. Bipolar affective disorder, currently depressed, moderate 5. Binge eating disorder 6. Kyphosis of cervicothoracic spine 7. Cerebral arteriovenous malformation 12/26/22 normal MRA of brain w+w/o contrast no high flow malformations seen 8. Menopausal flushing 9. Rosacea 10. Impaired fasting glucose 11. Obstructive sleep apnea of adult 12. Post-traumatic stress disorder 13. Benign essential hypertension 14. Hypothyroid 15. Obesity 16. Hemorrhoids 17. Pain of left ankle joint Allergies: Patient has answered NKA The following VA and Non-VA meds were reconciled with patient: Active and Recently Outpatient Medications (excluding Supplies): [...] DAILY Indication: FOR VITAMIN D DEFICIENCY 5) DOCUSATE NA 100MG CAP TAKE ONE CAPSULE BY MOUTH TWICE DAILY ACTIVE NEEDED TO SOFTEN STOOL Indication: TO SOFTEN STOOL 6) ESTRADIOL 0.5MG TAB TAKE ONE TABLET BY MOUTH ONCE DAILY ACTIVE Indication: FOR POST MENOPAUSAL SYMPTOMS 7) FLUTICASONE PROP 50MCG 120D NASAL INHL INSTILL 2 SPRAYS INTO ACTIVE EACH NOSTRIL ONCE DAILY Indication: FOR NASAL IRRITATION/INFLAMMATION 8) HYDROCORTISONE 1/PRAMOXINE 1% RTL FOAM INSERT 1 ACTIVE APPLICATORFUL RECTALLY FOUR TIMES DAILY NEEDED Indication: FOR HEMORRHOIDS 9) HYDROXYZINE PAMOATE 25MG CAP TAKE ONE CAPSULE BY MOUTH THREE ACTIVE TIMES A DAY AND TAKE ONE CAPSULE THREE TIMES DAILY NEEDED Indication: FOR ANXIETY 10) IBUPROFEN 600MG TAB TAKE ONE TABLET BY MOUTH THREE TIMES ACTIVE DAILY NEEDED TAKE WITH FOOD Indication: FOR INFLAMMATION 11) LEVOTHYROXINE NA 112MCG TAB TAKE ONE TABLET BY MOUTH EVERY ACTIVE MORNING 30 MINUTES BEFORE BREAKFAST FOR THYROID - TAKE ON AN EMPTY STOMACH WITH A FULL GLASS OF WATER 12) LISINOPRIL 20MG TAB TAKE ONE TABLET BY MOUTH ONCE DAILY TO ACTIVE CONTROL BLOOD PRESSURE CHANGE IN DOSE 13) LURASIDONE HCL 80MG TAB TAKE ONE TABLET BY MOUTH ONCE DAILY ACTIVE (S) Indication: FOR BIPOLAR DEPRESSION 14) OMEPRAZOLE 20MG EC CAP TAKE ONE CAPSULE BY MOUTH EVERY ACTIVE MORNING 30 MINUTES BEFORE BREAKFAST Indication: FOR GASTROESOPHAGEAL REFLUX DISEASE 15) PROGESTERONE 100MG CAP TAKE ONE CAPSULE BY MOUTH ONCE DAILY ACTIVE Indication: TO PROTECT UTERINE LINING Allergies: Patient has answered NKA VITAL SIGNS: 98 F [36.7 C] (10/04/2024 08:03) 64 (10/18/2024 08:29) 18 (10/18/2024 08:29) 101/68 (10/18/2024 08:29) 6 (10/04/2024 08:03) 66 in [167.6 cm] (02/09/2022 11:19) 166 lb [75.30 kg] (10/18/2024 08:29) BMI: 26.8 ROS: General: no fever, no unexplained weight loss or gain CV: denies CP, SOB, palpitations Lung: denies Dyspnea or wheezing Skin: groin nodules non painful non itchy Psych: denies SI Neuro: denies dizziness, falls PHYSICAL EXAM General: No acute distress, speech is clear, forming sentences. CV: S1S2, RRR, no m/r/g Lung: CTAB, no wheeze, rhonchi, or crackles no audible cough Ext: no edema, warm and well perfused bilat. Skin: Right groin with hyperpigmented lesion that has stuck on appearance also with left groin with well healed what appears to be fold infected follicle Neuro: CN 2-12 grossly intact Psych: A&Ox3, appropriate mood and affect HGB A1C (WR): 5.0 WBC: 7.92 RBC: 4.64 HGB: 14.2 HCT: 41.9 MCV: 90.3 MCHC: 33.9 RDW: 14.5 PLT: 246 MCH: 30.6 Neut %: 58.1 Lymph %: 33.3 [place] %: 6.2 Eos %: 1.6 Baso %: 0.5 Neut, Abs: 4.60 Lymph, Abs: 2.64 [place], Abs: 0.49 Eos, Abs: 0.13 Baso, Abs: 0.04 Immature Granulocytes %: 0.3 Immature Granulocytes, Abs: 0.02 NRBC%: 0.0 NRBC#: 0.00 TSH (Access): 2.44 GLUCOSE: 95 UREA NITROGEN: 15 SODIUM: 139 POTASSIUM: 4.2 CHLORIDE: 105 CO2: 27 CALCIUM: 9.7 CHOLESTEROL: 144 PROTEIN,TOTAL: 6.5 ALBUMIN: 3.8 ALKALINE PHOSPHATASE: 84 SGOT: 21 SGPT: 26 TRIGLYCERIDE: 64 LDL CHOL: 52 CHOL/HDL RATIO: 1.8 HDL: 79 H BILIRUBIN,TOT.: 0.8 CREATININE-EGFR: 0.81 eGFR CKD-EPI 2020: 87 Future Clinic Visits 10/28/2024 11:00 [facility] 6 AM 11/11/2024 11:00 [facility] 6 AM 11/25/2024 11:00 [facility] 6 AM ASSESSMENT AND PLAN: HTN -Has been on Lisinopril 20mg daily -BP at home and here has been <120/80, at times with dizziness -Dc Lisinopril and monitor home readings -If continues <120s/80s no need to get back on -Of BP >130/90 can get back on lower dose at 10mg HLD -LDL in 50s all levels are normal with her statin every other day -advised to stop statin -recheck levels in may will calc ascvd risk at that visit Tick bite -pulled off likely <36 hours attached and not engorged -No treatment needed at this time asymptomatic -Check Lyme and tick titers -Consider repeat in January when she returns Right groin folliculitis -Rx for adalpine topical -Rx For mupirocin can alternate the 2 -Avoid popping or squeezing, can use moist heat when once flares Left groin hyperpigmented lesion -Most c/w skin tag vs SK -derm consult placed non urgent Hemorrhoids -External -Has gen surge appt next week -Cont. Stool softener high fiber avoid prolonged sitting Return to clinic to see me in 9 months, RTC sooner if needed. Clinical Reminders Avg Risk Colorectal Cancer Screen: AVERAGE RISK colorectal cancer screening is due based on information available to this clinical reminder Defer reminder for 3 months Reason: she is likely having hemorrhoidectomy will get done in fall at her f/u can order Medication Reconciliation: Outpatient: Has the patient been taking medications as documented in the EMLR? YES: The patient has been taking medications as documented in the EMLR. Essential Medication List for Review used to complete this medication reconciliation. INCLUDED IN THIS LIST: Alphabetical list of active outpatient prescriptions dispensed from this [place] (local) and dispensed from another [place] or DoD facility (remote) as well as [...] with a VA or non-VA provider. /guadalupe/ CHRIST DICK Nurse Practitioner Signed: 10/18/2024 09:41 MARY ELLEN COPE IN [facility]
--- OUTSIDE RECORDS SUMMARY | 2024-12-25 15:15 | XMS_ITS ---
Author Organization [facility] Address [address] [place] [address] Care Team Providers Care Venue Manager Name Role Phone BRICE LYLES Unavailable [phone] REASON FOR VISIT not able to make it Encounters Encounter Location Date Provider Diagnosis [facility] [address] [facility] [address] [place] [address] 08/30/2023 BRICE LYLES Assessments Encounter Date Diagnosis (ICD Code) Assessment Notes Treatment Notes Treatment Clinical Notes Section Notes 08/30/2023 Total time spent today was 60 minutes of which greater than 50% was spent on coordinating and counseling We are a board certified obesity and weight management practice Patient has trialed behavioral modification, dietary restrictions and exercise for a minimum of 6 months The most recent [place] Association of clinical endocrinologists and [place] College of endocrinology guidelines recommend patients who [...] or arrhythmias In the setting of potential stimulant/amphetami ne use such as phentermine We have also [...] track activity level. Consider using apps like WhenSoon, BluelightApppal, lose it, stick as needed for self-monitoring and weight management. Consider group exercises. Consider hiring a personalized living manager nurse. Regular exercise is curry to sustainable health [...] counseling and psychiatry and Dr Inman at [facility]. We would like to cover regular topics [...] software and direct typing Please excuse inadvertent box order person or typing errors, or uncorrected word substitutions Although every attempt has been made by the provider to proofread this document, occasional misspellings and typographical errors may still be present Due to the previous pandemic, and the use of personal protective equipment (PPE) This may decrease voice recognition accuracy Inadvertent box order person errors may occur Plan Of Treatment No Information Progress Notes * Alberto CHO SDOB: [birth year] (49 yo M)Acc No.[id number]:08/30/2023 Patient:?Alberto CHO S Provider:?BRICE LYLES NP :[id number]???Age:48 Y???Sex:Male Mike e:08/30/2023 Address:[address] [place] [address] Subjective: * Chief Complaints: * ???1. Not able to make it. * HPI: ???Constitutional:? Patient is here today for a weight [...] Lowest weight: lbs Goal weight: lbs YI screening/STOP-BANG/[place], * Metabolic workup:* Thyroid? No recent screening Diabetes? No recent screening Has not had an echocardiogram recently. Diet: Exercise: Currently steps daily. Non-smoker. ETOH use:. * ROS:?All Other Systems:?Review of Systems (ROS)?All others negative except those mentioned in HPI.? * Medical History:? Objective: * Vitals:? * Examination: ???General Examination: ?GENERAL APPEARANCE:?in no acute distress, well developed, well nourished.?HEAD:?normocephalic, atraumatic.?EYES:?pupils equal, round, reactive to light and accommodation.?EARS:?normal.?ORAL CAVITY:?mucosa moist.?THROAT:?clear.?NECK/THYROID:?neck supple, full range of motion, no cervical lymphadenopathy.?SKIN:?no suspicious lesions, warm and dry.?HEART:?no murmurs, regular rate and rhythm, S1, S2 normal.?LUNGS:?clear to auscultation bilaterally.?ABDOMEN:?normal, bowel sounds present, soft, nontender, nondistended.?EXTREMITIES:?no clubbing, cyanosis, or edema.?NEUROLOGIC:?nonfocal, motor strength normal upper and lower extremities, sensory exam intact.? Assessment: * Assessment: Total time spent today was 6 0 minutes of which greater than 50% was spent on coordinating and counseling We are a board certified obesity and weight management practice Patient has trialed behavioral modification, dietary restrictions and exercise for a minimum of 6 months The most recent [place] Association of clinical endocrinologists and [place] College of endocrinology guidelines recommend patients who [...] track activity level. Consider using apps like WhenSoon, myfitnesspal, lose it, stick as needed for self-monitoring and weight management. Consider group exercises. Consider hiring a personalized living manager nurse. Regular exercise is curry to sustainable health [...] counseling and psychiatry and Dr Inman at [facility]. We would like to cover regular topics [...] software and direct typing Please excuse inadvertent box order person or typing errors, or uncorrected word substitutions Although every attempt has been made by the provider to proofread this document, occasional misspellings and typographical errors may still be present Due to the previous pandemic, and the use of personal protective equipment (PPE) This may decrease voice recognition accuracy Inadvertent box order person errors may occur. Plan: * Treatment: * Billing Information: * Visit Code:? * Procedure Codes:? * Electronic signature of BHAVNA LYLES on 12/25/2024 at 03:14 PM EDT Sign off status: Pending * Provider:?BRICE LYLES NP Date:?2023 Generated for Jazmin guillaume/Irena/eTransmitting on:?12/25/2024 03:14 PM EDT History and Physical Notes * HPI (History [...] Lowest weight: lbs Goal weight: lbs YI screening/STOP-BANG/[place], * Metabolic workup:* Thyroid? No recent screening Diabetes? No recent screening Has not had an echocardiogram recently. Diet: Exercise: Currently steps daily. Non-smoker. ETOH use: Examination Category Sub-Category Detail Notes Category Not es General Examination GENERAL APPEARANCE: in no ac [place] distress, well developed, well nourished HEAD: normocephalic, [...]
--- OUTSIDE RECORDS SUMMARY | 2024-12-25 15:15 | XMS_ITS | Encounter Summary ---
Author Name [facility] Address [address] [place] [address] Care Team Providers Care Rn Compliance Name Role Phone ZOE COPE Primary Care [...] Name Patient's Relationship to Policy Desai [facility] Feb 04, 2019 [id number] [phone] GABRIELLE CHO PATIENT [facility] [employer] [facility] Feb 04, 2019 [id number] [phone] GABRIELLE CHO PATIENT MEDICARE (WNR) MEDICARE (M) PART A Feb 05, 2000 PART A [id number] [phone] GABRIELLE HUGO PATIENT MEDICARE (WNR) MEDICARE (M) PART A Feb 05, 2000 PART A [id number] GABRIELLE CHO PATIENT MEDICARE (WNR) MEDICARE (M) PART A Feb 05, 2000 PART A [id number] [phone] GABRIELLE HUGO PATIENT Selected Encounter This section includes the information on record at [place] for the Encounter. Date/Time Encounter Type Encounter Description Reason Provider Source Jan 30, 2024 10:00 AM [place] [facility] 1+ULTRASOUND EA 15 OCCUPATIONAL THERAPY ICD-10-CM M77.12 Lateral epicondylitis , left elbow MACHON,BEV E IHE Encounter Template Text not used by [place] Assessments - Encounter Diagnoses This section includes the primary and secondary diagnoses documented for the Encounter. Date/Time Primary/Secondary Diagnosis Diagnosis Name Provider Source Jan 30, 2024 11:50 AM PRIMARY Lateral epicondylitis, left elbow OSCARONKWABENAE E [facility] [place] [facility] Plan of Treatment: Future Appointments (+ [...] Appointment Type Appointme nt Facility Name Feb 01, 2024 02:00 PM [place] [facility] [place] [facility] Feb 12, 2024 12:30 PM [facility] [place] [facility] [place] [facility] Feb 12, 2024 01:30 PM [facility] [place] [facility] 2024 03:00 PM AMBULATORY - PSYCHIATRY [facility] Feb 17, 2024 09:37 AM AMBULATORY - NONE [facility] Feb 22, 2024 02:00 PM [facility] [place] [facility] [place] [facility] Feb 29, 2024 04:30 PM [facility] [place] [facility] [place] [facility] Mar 06, 2024 02:30 PM [facility]ULATORY [place]ICINE [place] [facility] [place] [facility] Mar 15, 2024 02:00 PM AMBULATORY - PSYCHIATRY [facility] Mar 18, 2024 12:30 PM [facility] [place] [facility] Mar 21, 2024 02:00 PM [facility] [place] [facility] Apr 04, 2024 10:30 AM [facility] [place] [facility] Apr 04, 2024 02:00 PM [facility] [place] [facility] Apr 11, 2024 11:00 AM [facility] [place] [facility] Apr 15, 2024 12:30 PM [facility] [place] [facility] Apr 18, 2024 02:00 PM [facility] [place] [facility] Apr 19, 2024 11:30 AM AMBULATORY - [facility]AB MEDICIN [facility] [place] [facility] May 09, 2024 02:00 PM [facility] [place] [facility] May 27, 2024 11:00 AM AM[facility]UL[facility] [place] [facility] Jun 03, 2024 11:00 AM [facility]UL[facility]RY [facility] [place] [facility] Social History: Smoking Status (Most current) and Tobacco Use (All prior to encounter date) This section includes the most current, and the historical, smoking and tobacco- related health factors from the VA facility where the Encounter took place. Current Smoking Status This section includes the most current smoking, or tobacco-related health factor, from the VA facility where the Encounter took place. Date/Time Current Smoking Status Comment Enedina cortez Sep 11, 2023 12:30 PM VA-TOBACCO NEVER USED [facility] [place] [facility] Tobacco Use History This section includes a history of the smoking, or tobacco-related health factors, that were collected on or before the date of the Encounter. The data comes from the [place] facility where the Encounter took place. Date/Time Smoking Status/Tobacco Use Comment F dereck Sep 30, 2022 10:00 AM VA-TOBACCO NEVER USED [facility] [place] [facility] Apr 21, 2020 03:34 PM VA-TOBACCO NEVER USED [facility] [place] [facility] Jan 10, 2019 11:51 AM [facility] Mar 09, 2018 11:27 AM LIFETIME [facility] Advance Directives: All historical and current [...] 23, 2016 ADVANCE DIRECTIVE DISCUSSION MAHAD MCKENZIE [facility] Jan 13, 2004 ADVANCE DIRECTIVE JOSE NAJERA [facility] Encounter Notes: All associated encounter notes This section contains the clinical notes associated to the Encounter. Date/Time Encounter Note(s) Provider Source Jan 30, 2024 10:00 AM OCCUPATIONAL THERAPY DISCHARGE NOTE: LOCAL TITLE: OCCUPATIONAL THERAPY DISCHARGE NOTE STANDARD TITLE: OCCUPATIONAL THERAPY DISCHARGE NOTE DATE OF NOTE: JAN 30, 2024@10:00 ENTRY DATE: JAN 30, 2024@10:49:57 AUTHOR: BEV OSBORNE COSIGNER: ZOE COPE URGENCY: STATUS: COMPLETED Initial Evaluation date: Aug Progress Note Date: Treatment #: 10 Treatment time: 30 minutes Diagnosis: Lateral Epicondylitis, left Elbow(ICD-10-CM M77.12) Provider: Adi OT Treatment Precautions: Patient identified by full name and date of SUBJECTIVE: Pt reports 99% improvement. This will be her last visit. She is wondering about her R shoulder, if she needs a new consult or not. Pain Level: 0/10 at rest OBJECTIVE: THERAPEUTIC EXERCISE: MINUTES: MANUAL THERAPY: *mobilization/FDM/IASTM to L mobile wad/common extensor tendon MINUTES: 15 THERAPEUTIC DYNAMIC ACTIVITIES: MINUTES: NEUROMUSCULAR EDUCATION: MINUTES: OTHER: MINUTES: MODALITIES: *US 1.4 w/cm2 100% 3MHz over L mobile wad/common extensor tendon MINUTES: 8 [] Contraindication screen completed prior to modality [] Skin intact pre/post SELF CARE/EDUCATION: MINUTES: Patient education was provided for all aspects of care during this clinical encounter. ASSESSMENT: pt tolerated tx well this date. decreased tightness and ttp noted throughout mobile wad. some ttp noted at the distal aspect of the mobile wad. pt is confident in being discharged a this time. will think about needing a referral for her R shoulder and requesting as appropriate. PLAN: d/c from direct OT services. Pt will continue to engage in stretching prn. She was in agreement w/ this POC. LTG's: 1. pain <3-4/10 at all times-MET 2. pt will report 50% improvement since initiating tx-MET STG's: 1. initiate HEP-MET 2. trial modalities (US, ionto) for pain/symptom management-MET 3. patient will report decreased pain in L lateral elbow to <8/10 at worst-MET 4. compliant with brace/sleeve wear-MET 5. improve L laserist by 10-15#-MET The practitioner's co-signature on this note signifies agreement with plan of care and clinical diagnosis code. /guadalupe/ Bev Osborne MS OTR/Ezequiel, CHT Occupational Therapist Signed: 01/30/2024 11:50 /guadalupe/ CHRIST DICK Nurse Practitioner Cosigned: 01/30/2024 13:36 [facility]
--- OUTSIDE RECORDS SUMMARY | 2024-12-25 15:15 | XMS_ITS | Encounter Summary ---
Author Name [facility] Organization [facility] [place] Address [address] [place] [address] Care Team Providers Care Hydro Station Supervisor Name Role Phone ZOE COPE Primary Care [...] Desai's Name Patient's Relationship to Policy Desai [facility] Feb 04, 2019 [id number] [id number] GABRIELLE CHO PATIENT [facility] [place] [facility] DEDUCTIBL E HEALTH PLAN HDHP Feb 04, 2019 [id number] GABRIELLE CHO PATIENT MEDICARE (WNR) MEDICARE (M) PART A Feb 05, 2000 PART A [id number] GABRIELLE HUGO PATIENT MEDICARE (WNR) MEDICARE (M) PART A Feb 05, 2000 PART A [id number] GABRIELLE CHO PATIENT MEDICARE (WNR) MEDICARE (M) PART A Feb 05, 2000 PART A [id number] [phone] GABRIELLE HUGO PATIENT Selected Encounter This section includes the information on record at [place] for the Encounter. Date/Time Encounter Type Encounter Description Reason Provider Source Nov 25, 2024 11:00 AM PSYTX W PT 30 MINUTES [facility] - IND ICD-10-CM F43.0 Acute stress reaction MALINOFSKY,TER GRETCHEN IHE Encounter Template Text not used by [place] Assessments - Encounter Diagnoses This section includes the primary and secondary diagnoses documented for the Encounter. Date/Time Primary/Secondary Diagnosis Diagnosis Name Provider Source Nov 25, 2024 03:32 PM PRIMARY Acute stress reaction MALINOFSKY,TER GRETCHEN [facility] [place] [facility] Nov 25, 2024 03:32 PM SECONDARY Other obesity due to excess calories MALINOFSKY,TER GRETCHEN [facility] [place] [facility] Nov 25, 2024 03:32 PM SECONDARY Post-traumatic stress disorder, unspecified MALINOFSKY,TER GRETCHEN [facility] [place] [facility] Plan of Treatment: Future Appointments (+ 6 months) and Future Tests (+/- 45 days) The Plan of Treatment section includes future care activities for the patient from all [place] treatmentfacilities. This section includes future appointments and future orders which are active, pending or scheduled. Future Appointments This section includes appointments that were scheduled to occur 6 months from the date of the Encounter, up to a maximum of 20 appointments. The data comes from all [place] treatment facilities. Appointment Date/Time Appointment Type Appointme nt Facility Name Dec 02, 2024 09:27 AM AMBULATORY - NONE [facility] December 09, 2024 11:00 AM AMBULATORY - PSYCHIATRY [place] [facility] [place] [facility] December 19, 2024 11:00 AM AMBULATORY - PSYCHIATRY [place] [facility] [place] [facility] Jan 06, 2025 11:00 AM AMBULATORY - PSYCHIATRY [place] [facility] [place] [facility] Jan 16, 2025 09:00 AM AMBULATORY - MEDICINE AL [facility] [place] [facility] Jan 20, 2025 11:00 AM AMBULATORY - PSYCHIATRY [place] [facility] [place] [facility] Feb 03, 2025 11:00 AM AMBULATORY - PSYCHIATRY [place] [facility] [place] [facility] Mar 13, 2025 11:00 AM AMBULATORY - PSYCHIATRY [place] [facility] [place] [facility] May 27, 2025 09:00 AM AMBULATORY - MEDICINE [facility] Social History: Smoking Status (Most current) and Tobacco Use (All prior to encounter date) This section includes the most current, and the historical, smoking and tobacco- related health factors from the AL facility where the Encounter took place. Current Smoking Status This section includes the most current smoking, or tobacco-related health factor, from the AL facility where the Encounter took place. Date/Time Current Smoking Status Comment Enedina ity Sep 11, 2023 12:30 PM [facility]ACCO [facility] Tobacco Use History This section includes a history of the smoking, or tobacco-related health factors, that were collected on or before the date of the Encounter. The data comes from the AL facility where the Encounter took place. Date/Time Smoking Status/Tobacco Use Comment F acility Sep 30, 2022 10:00 AM VA-TOBACCO NEVER USED [facility] Apr 21, 2020 03:34 PM VA-TOBACCO NEVER USED [place] [facility] [place] [facility] Jan 10, 2019 11:51 AM VA-TOBACCO NEVER USED [place] [facility] [place] [facility] Mar 09, 2018 11:27 AM LIFETIME NON-TOBACCO USER [facility] Advance Directives: All historical and current Section Date Range: From patient's date of to the date document was created. This section includes ALL of a patient's completed or amended [place] Advance and Rescinded Directives. The entries below indicate that a directive exists for the patient, but an actual copy is not included with this document. The data comes from all [place] facilities. Date Advance Directives Provider Source Feb 23, 2016 ADVANCE DIRECTIVE DISCUSSION MAHAD MCKENZIE [facility] Jan 13, 2004 ADVANCE DIRECTIVE JOSE NAJERA [facility] Encounter Notes: All associated encounter notes This section contains the clinical notes associated to the Encounter. Date/Time Encounter Note(s) Provider Source Nov 25, 2024 11:00 AM TELEHEALTH NOTE: LOCAL TITLE: AL VIDEO CONNECT PSYCHOLOGY NOTE STANDARD TITLE: TELEHEALTH NOTE DATE OF NOTE: NOV 25, 2024@11:00 ENTRY DATE: NOV 25, 2024@15:18:34 AUTHOR: ALBER BROWNING COSIGNER: URGENCY: STATUS: COMPLETED VA Video Connect (VVC) Standard Documentation VVC Clinician Resources Only: E911 (Emergency Call Relay Center): [phone] [facility] Crisis Line - 988 then press #1. [facility] Suicide Coordinator [phone], Ext. [phone]; Back-up Ext. [phone] [place] Police, CW, Reanna [phone] Introduction: Visit is being conducted by [facility]. identified with VISUAL RECOGNITION. Emergency Plan: [place] confirmed and/or provided the following information in case of emergency or technology failure. PATIENT PHONE - PHONE NUMBER [CELLULAR] - Is patient phone number correct, if not, enter below: [place]'s phone number: ALBERTO CHO [address], [place], [phone] 's present location and address for appointment: outside, on [facility] home 's emergency contact name and phone number: Amanda , on file [place] reported that location is private and safe: Yes Informed Consent: informed of the risks and benefits of Telehealth video care. [place] has the right to refuse video services. If refuses video visit, a dwpw-pa-dosp visit will be scheduled. [place] verbalized consent for this video visit: Yes [place] provided consent for any other persons present for visit: N/A If yes, who and relationship to patient: Secure visit: Visit was locked for security and privacy:Yes Does this visit involve laterality/specific side of body? N/A .......................... ...................... Alberto Cho attended 23 minutes of individual psychotherapy. GOALS: Her goals in the past years, at least 2, have been concerned with family relationships and weight/obesity. PROGRESS: She has made gains in both family relationships and weight/obesity. TODAY'S CONCERNS of Alexandra: She was in [place], making very difficult decisions on behalf of her father and his . He had medical issues requiring hospitalization. The hospital plan was to discharge him to his home. Alexandra c/o vehemently to hospital career discovery teacher and with tears, that her father could not be cared for at home by his blind (who was herself showing signs of dementia). A nurse upon seeing this suggested to her privately that Alexandra could disagree with the discharge plan, and so she did. Now her father has been discharged to Assisted Living near the hospital. Alexandra then coordinated with her brother Mirella and their plan is to move their father to an Assisted Living facility in [place], near both of their homes. Father's shall be persuaded to join them, as the house shall be cleaned out and father will not be returning there at all. There is another situation that Alexandra had to contend with, a family member of the , who is trying to empty out the [employer] bank accounts. So Alexandra is working on preventing that, for the elder couple's sake, and also for the fact that most of that money was her father's earnings/investments. INTERVENTION: Suggesting to Alexandra to remind herself of the resourcefulness and strengths she found in herself every day. Review with Alexandra of the self-care and grounding/relaxation and self- compassion strategies. Reminding about use of paper and pencil for decision-making comparisions. Reminding about use of distress tolerance techniques from DBT and other methods we've talked about over the years. BEHAVIORAL OBSERVATIONS: She is looking physically very well with her success weight management. She is successful in her decision -making and appropriately assertive with her father's situation. RTC: in 2 weeks Related to: Service Connected Condition, [facility] Diagnoses: Acute stress disorder (SCT 79329199) - Acute stress reaction (ICD-10-CM F43.0) (Primary) Post-traumatic stress disorder (SCT 47873959) - Post-traumatic stress disorder, unspecified (ICD-10-CM F43.10) Obesity (SCT 402759999) - Other obesity due to excess calories (ICD-10-CM E66.09) Procedures: Psychotherapy 16-37 min - Synchronous Telemedicine Service - Clinical Psychologist /guadalupe/ ALBER BROWNING,PhD Neuropsychologist Signed: 11/25/2024 15:34 ALBER BROWNING [facility]
--- OUTSIDE RECORDS SUMMARY | 2024-12-25 15:15 | XMS_ITS | Encounter Summary ---
Author Name [facility] [place] Organization [facility] [place] Address [address] [place] [address] Care Team Providers Care Lactation Nurse Name Role Phone ZOE COPE Primary Care [...] Desai's Name Patient's Relationship to Policy Desai [facility] Feb 04, 2019 [id number] [id number] [phone] GABRIELLE CHO PATIENT [facility] [place] [facility]IGH DEDUCTIBL E HEALTH PLAN HDHP Feb 04, 2019 [id number] [phone] GABRIELLE CHO PATIENT MEDICARE (WNR) MEDICARE (M) PART A Feb 05, 2000 PART A [id number] GABRIELLE HUGO PATIENT MEDICARE (WNR) MEDICARE (M) PART A Feb 05, 2000 PART A [id number] [phone] GABRIELLE VAZQUEZ PATIENT MEDICARE (WNR) MEDICARE (M) PART A Feb 05, 2000 PART A [id number] GABRIELLE HUGO PATIENT Selected Encounter This section includes the information on record at MD for the Encounter. Date/Time Encounter Type Encounter Description Reason Provider Source Apr 04, 2024 02:00 PM PSYTX W PT 45 MINUTES [facility]ENT[facility]IC - IND ICD-10-CM F43.0 Acute stress reaction MALINOFSKY,TER GRETCHEN E Encounter Template Text not used by MD Assessments - Encounter Diagnoses This section includes the primary and secondary diagnoses documented for the Encounter. Date/Time Primary/Secondary Diagnosis Diagnosis Name Provider Source Apr 04, 2024 04:40 PM PRIMARY Acute stress reaction MALINOFSKY,TER GRETCHEN [facility] [place] [facility] Apr 04, 2024 04:40 PM SECONDARY Acquired absence of stomach [part of] MALINOFSKY,TER GRETCHEN [facility] [place] [facility] Apr 04, 2024 04:40 PM SECONDARY Bipolar disorder, current episode depressed, moderate MALINOFSKY,TER GRETCHEN [facility] [place] [facility] Apr 04, 2024 04:40 PM SECONDARY Other obesity due to excess calories MALINOFSKY,TER GRETCHEN [facility] [place] [facility] Apr 04, 2024 04:40 PM SECONDARY Post-traumatic stress disorder, unspecified MALINOFSKY,TER GRETCHEN [facility] [place] [facility] Plan of Treatment: Future Appointments (+ 6 months) and Future Tests (+/- 45 days) The Plan of Treatment section includes future care activities for the patient from all [facility]. This section includes future appointments and future orders which are active, pending or scheduled. Future Appointments This section includes appointments that were scheduled to occur 6 months from the date of the Encounter, up to a maximum of 20 appointments. The data comes from all MD treatment facilities. Appointment Date/Time Appointment Type Appointme nt Facility Name Apr 11, 2024 11:00 AM AMBULATORY - [facility] Apr 15, 2024 12:30 PM AMBULATORY - PSYCHIATRY [facility] [place] [facility] Apr 18, 2024 02:00 PM AMBULATORY - PSYCHIATRY [facility] [place] [facility] Apr 19, 2024 11:30 AM AMBULATORY - REHAB MEDICIN E [facility] [place] [facility] May 09, 2024 02:00 PM AMBULATORY - PSYCHIATRY [facility] [place] [facility] May 27, 2024 11:00 AM AMBULATORY - PSYCHIATRY [facility] [place] [facility] Jun 03, 2024 11:00 AM AMBULATORY - PSYCHIATRY [facility] [place] [facility] Jun 10, 2024 11:00 AM AMBULATORY - PSYCHIATRY [facility] [place] [facility] Jun 28, 2024 11:30 AM AMBULATORY - REHAB MEDICIN E [facility] [place] [facility] Jul 08, 2024 11:00 AM AMBULATORY - PSYCHIATRY [facility] [place] [facility] Jul 15, 2024 10:30 AM AMBULATORY - PSYCHIATRY [facility] [place] [facility] Jul 15, 2024 11:00 AM AMBULATORY - PSYCHIATRY [facility] [place] [facility] Jul 22, 2024 11:00 AM AMBULATORY - PSYCHIATRY [facility] [place] [facility] Aug 12, 2024 01:00 PM AMBULATORY - PSYCHIATRY [facility] Aug 19, 2024 11:00 AM AMBULATORY - PSYCHIATRY [facility] [place] [facility] Aug 19, 2024 03:00 PM AMBULATORY - PSYCHIATRY [facility] [place] [facility] Sep 02, 2024 11:00 AM AMBULATORY - PSYCHIATRY [facility] [place] [facility] Sep 13, 2024 03:00 PM AMBULATORY - PSYCHIATRY [facility] Sep 16, 2024 08:00 AM AMBULATORY - MEDICINE [facility] [place] [facility] Sep 16, 2024 11:00 AM AMBULATORY - PSYCHIATRY [facility] [place] [facility] Social History: Smoking Status (Most current) and Tobacco Use (All prior to encounter date) This section includes the most current, and the historical, smoking and tobacco- related health factors from the MD facility where the Encounter took place. Current Smoking Status This section includes the most current smoking, or tobacco-related health factor, from the VA facility where the Encounter took place. Date/Time Current Smoking Status Comment Enedina cortez Sep 11, 2023 12:30 PM [facility] Tobacco Use History This section includes a history of the smoking, or tobacco-related health factors, that were collected on or before the date of the Encounter. The data comes from the MD facility where the Encounter took place. Date/Time Smoking Status/Tobacco Use Comment Darlene acchio Sep 30, 2022 10:00 AM VA-TOBACCO NEVER USED [place] [facility] [place] [facility] Apr 21, 2020 03:34 PM VA-TOBACCO NEVER USED MD [facility] [place] [facility] Jan 10, 2019 11:51 AM VA-TOBACCO NEVER USED [place] [facility] [place] [facility] Mar 09, 2018 11:27 AM LIFETIME NON-TOBACCO [facility]ER [facility] Advance Directives: All historical and current Section Date Range: From patient's date of to the date document was created. This section includes ALL of a patient's completed or amended MD Advance and Rescinded Directives. The entries below indicate that a directive exists for the patient, but an actual copy is not included with this document. The data comes from all MD facilities. Date Advance Directives Provider Source Feb 23, 2016 ADVANCE DIRECTIVE DISCUSSION MAHAD MCKENZIE [facility] Jan 13, 2004 ADVANCE DIRECTIVE JOSE NAJERA [facility] Radiology Reports: +/- 30 days of [...] the Encounter. The data comes from all MD treatment facilities. Date/Time Radiology Report Provider Source Apr 12, 2024 02:12 PM OUTSIDE MAMMO/SCRE ENING, INCLUDING CAD, BILAT: ALBERTO CHO [id number] -[id number] F Exm Date: APR 12, 2024@14:12 Req Phys: ZOE COPE Pat Loc: CWM/NO/PACT 5 (Req'g Loc) Img Loc: OUTSIDE GENERAL RADIOLOGY Service: Unknown Screen: Patient is unable to answer or is unsure Screen Comment: cc exam (Case [id number] COMPLETE) OUTSIDE MAMMO/SCREENING, INCLUDIN(RAD Detailed) CPT:57509 Reason for Study: annual screening mammogram Clinical History: Report Status: Electronically Filed Date Reported: APR 12, 2024 Report: Community care exam; see CPRS/JLV for outside radiology report/results Impression: Community care exam; see CPRS/JLV for outside radiology report/results Primary Diagnostic Code: BI-RADS CATEGORY 1 (Negative) VERIFIED BY: / *ELECTRONICALLY FILED* [facility] Encounter Notes: All associated encounter notes This section contains the clinical notes associated to the Encounter. Date/Time Encounter Note(s) Provider Source Apr 04, 2024 02:00 PM TELEHEALTH NOTE: LOCAL TITLE: MD [employer] CONNECT PSYCHOLOGY NOTE STANDARD TITLE: TELEHEALTH NOTE DATE OF NOTE: APR 04, 2024@14:00 ENTRY DATE: APR 04, 2024@16:26:30 AUTHOR: ALBER BROWNING EXP COSIGNER: URGENCY: STATUS: COMPLETED VA Video Connect (VVC) Standard Documentation VVC Clinician Resources Only: E911 (Emergency Call Relay Center): [phone] [facility] Crisis Line - 988 then press #1. [place] Suicide Coordinator [phone], Ext. [phone]; Back-up Ext. [phone] MD PoliceTONY [place] [phone] Introduction: Visit is being conducted by MD [facility]. identified with VISUAL RECOGNITION. Emergency Plan: confirmed and/or provided the following information in case of emergency or technology failure. PATIENT PHONE - PHONE NUMBER [CELLULAR] - Is patient phone number correct, if not, enter below: 's phone number: ALBERTO CHO [address] [place], [place], [address] 's present location and address for appointment: above address [place]'s emergency contact name and phone number: on file [place] reported that location is private and safe: Yes Informed Consent: [place] informed of the risks and benefits of Telehealth video care. [place] has the right to refuse video services. If refuses video visit, a zhzw-mr-jxah visit will be scheduled. verbalized consent for this video visit: Yes provided consent for any other persons present for visit: N/A If yes, who and relationship to patient: Secure visit: Visit was locked for security and privacy:Yes ........................ ........................ ........................ Alberto Cho attended 55 minutes individual psychotherapy on [facility] with this clinical psychologist. PROBLEM: As before, dialogue with Amanda is strained d/t differences in priorities with their adult children. She cannot put her foot down/say no to their kids about money because they will go to him and he will say yes. He is willing to work lots of jobs to earn money. Yet, [place]'s own funds are depleted, because he expects her to share the costs. Before we , I had $35,ooo savings and no credit card debt. Now I have no savings, and have accumulated debt. For example, I don't know why Sara (daughter) who has $22,000 in savings cannot pay for her own car insurance. Why must I pay for it? She also c/o not taking time to do self-compassion workbook, although she always gets a lot out of it. BEHAVIORAL OBSERVATION: She is stressed by this problem. She is happy that she is doing well in her diet/exercise regimen, although it is not easy. INTERVENTION: (1) Invited her focus first of all on her own budget, and simply saying no to Amanda. (2) Asked her how it could be easier to get to self-compassion workbook [she said she'll do it with friends who like the workbook too]. (3) Invited her to thank herself for self-care. ........................ .............. Related to: Service Connected Condition, [facility] Diagnoses: Acute stress disorder ([facility] [id number]) - Acute stress reaction (ICD-10-CM F43.0) (Primary) Bipolar affective disorder, currently depressed, moderate ([facility] [id number]) - Bipolar disorder, current episode depressed, moderate (ICD-10-CM F31.32) Post-traumatic stress disorder ([facility] [id number]) - Post-traumatic stress disorder, unspecified (ICD-10-CM F43.10) History of sleeve gastrectomy ([facility] [id number]) - Acquired absence of stomach [part of] (ICD-10-CM Z90.3) Obesity ([facility] [id number]) - Other obesity due to excess calories (ICD-10-CM E66.09) Procedures: Psychotherapy 38-52 min - Synchronous Telemedicine Service - Clinical Psychologist /guadalupe/ ALBER BROWNING,PhD Neuropsychologist Signed: 04/04/2024 16:41 Receipt Acknowledged By: 04/18/2024 15:55 /guadalupe/ KATHRYN AQUINO, PH.D. PSYCHOLOGIST ALBER BROWNING [facility]
--- OUTSIDE RECORDS SUMMARY | 2024-12-25 15:16 | XMS_ITS | Encounter Summary ---
Author Name [facility] Address [address] [place] [address] Care Team Providers Care Hydraulic Elevator Constructor Name Role Phone ZOE COPE Primary Care [...] Name Patient's Relationship to Policy [facility] Feb 04, 2019 [id number] [id number] [phone] GABRIELLE CHO PATIENT [facility] [employer] [facility] Feb 04, 2019 [id number] [phone] GABRIELLE CHO PATIENT MEDICARE (WNR) MEDICARE (M) PART A Feb 05, 2000 PART A [id number] [phone] GABRIELLE HUGO PATIENT MEDICARE (WNR) MEDICARE (M) PART A Feb 05, 2000 PART A [id number] [phone] GABRIELLE CHO PATIENT MEDICARE (WNR) MEDICARE (M) PART A Feb 05, 2000 PART A [id number] [phone] GABRIELLE HUGO PATIENT Selected Encounter This section includes the information on record at ID for the Encounter. Date/Time Encounter Type Encounter Description Reason Provider Source Feb 28, 2024 03:17 PM OFF/OP EST DECEMBER X REQ PHY/[facility]HP [facility] IND ICD-10-CM F31.32 Bipolar disorder, current episode depressed, moderate TAMIR GORDON [facility] Encounter Template Text not used by ID Assessments - Encounter Diagnoses This section includes the primary and secondary diagnoses documented for the Encounter. Date/Time Primary/Secondary Diagnosis Diagnosis Name Provider Source Feb 28, 2024 03:52 PM PRIMARY Bipolar disorder, current episode depressed, moderate [facility] [place] [facility] Plan of Treatment: Future Appointments (+ 6 months) and Future Tests (+/- 45 days) The Plan of Treatment section includes future care activities for the patient from all [facility]. This section includes future appointments and future orders which are active, pending or scheduled. Future Appointments This section includes appointments that were scheduled to occur 6 months from the date of the Encounter, up to a maximum of 20 appointments. The data comes from all ID treatment facilities. Appointment Date/Time Appointment Type Appointme nt Facility Name Feb 29, 2024 04:30 PM AMBULATORY - PSYCHIATRY [facility] [place] [facility] Mar 06, 2024 02:30 PM AMBULATORY - MEDICINE [facility] [place] [facility] Mar 15, 2024 02:00 PM AMBULATORY - PSYCHIATRY [facility] Mar 18, 2024 12:30 PM AMBULATORY - PSYCHIATRY [facility] [place] [facility] Mar 21, 2024 02:00 PM AMBULATORY - PSYCHIATRY [facility] [place] [facility] Apr 04, 2024 10:30 AM AMBULATORY - MEDICINE [facility] [place] [facility] Apr 04, 2024 02:00 PM AMBULATORY - PSYCHIATRY [facility] [place] [facility] Apr 11, 2024 11:00 AM AMBULATORY - REHAB MEDICIN E [facility] [place] [facility] Apr 15, 2024 12:30 PM AMBULATORY - PS[facility]CHIATRY [facility] [place] [facility] Apr 18, 2024 02:00 PM AMBULATORY - PS[facility]CHIATRY [facility] [place] [facility] Apr 19, 2024 11:30 AM AMBULATORY - REHAB MEDICIN E [facility] [place] [facility] May 09, 2024 02:00 PM AMBULATORY - PSYCHIATRY [facility] [place] [facility] May 27, 2024 11:00 AM AMBULATORY - PSYCHIATRY [facility] [place] [facility] Jun 03, 2024 11:00 AM AMBULATORY - PSYCHIATRY [facility] [place] [facility] Jun 10, 2024 11:00 AM AMBULATORY - PSYCHIATRY [facility] [place] [facility] Jun 28, 2024 11:30 AM AMBULATORY - REHAB MEDICIN E [facility] [place] [facility] Jul 08, 2024 11:00 AM AMBULATORY - PSYCHIATRY [facility] [place] [facility] Jul 15, 2024 10:30 AM AMBULATORY - PSYCHIATRY [facility] [place] [facility] Jul 15, 2024 11:00 AM AMBULATORY - PSYCHIATRY [facility] [place] [facility] Jul 22, 2024 11:00 AM AMBULATORY - PSYCHIATRY [facility] [place] [facility] Social History: Smoking Status (Most current) and Tobacco Use (All prior to encounter date) This section includes the most current, and the historical, smoking and tobacco- related health factors from the ID facility where the Encounter took place. Current Smoking Status This section includes the most current smoking, or tobacco-related health factor, from the ID facility where the Encounter took place. Date/Time Current Smoking Status Comment Facil ity Sep 11, 2023 12:30 PM VA-TOBACCO NEVER USED [facility] Tobacco Use History This section includes a history of the smoking, or tobacco-related health factors, that were collected on or before the date of the Encounter. The data comes from the ID facility where the Encounter took place. Date/Time Smoking Status/Tobacco Use Comment F acility Sep 30, 2022 10:00 AM VA-TOBACCO NEVER USED [facility] [place] [facility] Apr 21, 2020 03:34 PM VA-TOBACCO NEVER USED [facility] [place] [facility] Jan 10, 2019 11:51 AM VA-TOBACCO NEVER USED [facility] [place] [facility] Mar 09, 2018 11:27 AM LIFETIME NON-TOBACCO USER [facility] Advance Directives: All historical and current Section Date Range: From patient's date of to the date document was created. This section includes ALL of a patient's completed or amended ID Advance and Rescinded Directives. The entries below indicate that a directive exists for the patient, but an actual copy is not included with this document. The data comes from all ID facilities. Date Advance Directives Provider Source Feb 23, 2016 ADVANCE DIRECTIVE DISCUSSION MAHAD MCKENZIE [facility] Jan 13, 2004 ADVANCE DIRECTIVE [facility] Encounter Notes: All associated encounter notes This section contains the clinical notes associated to the Encounter. Date/Time Encounter Note(s) Provider Source Feb 28, 2024 03:17 PM MENTAL HEALTH TELE PHONE ENCOUNTER NOTE: LOCAL TITLE: TELEPHONE NOTE/MENTAL HEALTH STANDARD TITLE: MENTAL HEALTH TELEPHONE ENCOUNTER NOTE DATE OF NOTE: FEB 28, 2024@15:17 ENTRY DATE: FEB 28, 2024@15:17:33 AUTHOR: RANDI GORDON COSIGNER: URGENCY: STATUS: COMPLETED S: Alexandra Cho (identified by full name and full SSN and ) left a for the OP [facility], She had a medication question about a new medication she started an immediate release bupropion. B/A: The above message was sent to the OP [facility] thread for further triage as this is a patient of Dr. Flores's who is out on [place] at this time. R: RN reviewed the 's chart and called her back to further discuss her concerns. explains that she has made the successful transition to Bupropion IR 100mg BID (from the Bupropion XL 300mg daily). This medication change was made by Dr. Flores in consultation with the Hobucken's surgeon - Hobucken recently had a gastric sleeve surgery. Hobucken wanted to report that she is tolerating the medication well and w/o side effects. She was not sure if she should increase the dose to a TDD of 300mg or keep at current dose until next appt. RN explained that per Dr. Flores's most recent addendum note on 02/13/24, she is to stay at the Bupropion IR 100mg AM and 100mg early PM dose (TDD = 200mg) until seen for f/u on 03/18/24: Will have her take [Bupropion IR] 100 mg q AM initially for one to two days to see how she feels on this. If she feels fine, she can increase to 100 mg BID (with the second daily dose in the early afternoon). Encouraged Alberto to let me know if she has any side effects or concerns after making the switch. Hobucken verbalized understanding, states she is taking her early PM dose no later than 1400 and denies any side effects. RN explained she would copy MD Flores to this triage note for further review upon her return. verbalized understanding, no further questions or concerns expressed, understands how to utilize Crisis/911 for any emergent concerns. C: Tom /guadalupe/ RANDI GORDON MSN, RN [facility] REGISTERED NURSE Signed: 02/28/2024 15:52 Receipt Acknowledged By: 03/04/2024 09:38 /guadalupe/ EVERTON FLORES MD PSYCHIATRIST RANDI GORDON [facility]
--- OUTSIDE RECORDS SUMMARY | 2024-12-25 15:16 | XMS_ITS | Continuity of Care Document ---
Author Name [employer] Organization [employer] Care Team Providers Care Public Services Assistant Name Role Phone [employer] Unavailable Unavailable Problems Combined list of problems from Department of Defense and Veterans Affairs facilities. It does not include entries that were removed or entered in error. Problem Status Onset Date Problem Type Date of Resolution Comments Source History of sleeve gastrectomy Active 024 Condition [facility] Abnormal Glandular Papanicolaou Smear of Cervix Active Condition Jul 07, 2008 Entered By: BRUNO LOZA Comment: pap=SUMAN w/colpo neg,EMB negDec 2007 Entered By: BRUNO LOZA Comment: pap=HGSIL, ectocx neg, ECC negMar 2008 Entered By: BRUNO LOZA Comment: - cervical LEEP= CIN3 w/margins clearApr 2008 Entered By: BRUNO LOZA Comment: ([facility])Jun 24, 2009 Entered By: BRUNO LOZA Comment: pap's= ok [facility] ALCOHOL ABUSE,UNSPECIFIED Active Condition [facility] ATTENTION DEFICIT DISORDER Active Condition [facility] Benign essential hypertension Active Condition [facility] Benign paroxysmal positional vertigo Active Condition [facility] Binge eating disorder Active Condition [facility] BIPOLAR AFF, DEPR-UNSPEC Active Condition [facility] Bipolar affective disorder, currently depressed, moderate Active Condition [facility] BN - Bulimia nervosa (SNOMED CT 31725501) Active Condition Jun 24, 2009 Entered By: BRUNO LOZA Comment: 70%[facility] Borderline Personality Disorder * (ICD-9-CM 301.83) Active Condition [facility] BULIMIA Active Condition [facility] Bulimia Nervosa * (ICD-9-CM 307.51/783.6) Active Condition [facility] CANNABIS ABUSE,UNSPECIFIED Active Condition [facility] Cerebral arteriovenous malformation Active Condition Jan 06, 2023 Entered By: ZOE COPE Comment: 12/26/22 normal MRA of brain w+w/o contrast no high flow malformations seen [facility] Cerebral Arteriovenous Malformations Active Condition Oct 11, 2005 Entered By: NINFA FLOOD Comment: surgery at [place] 2007 Entered By: BRUNO LOZA Comment: left temporal area [facility] Cervical intraepithelial neoplasia grade 2 Active Condition [facility] Closed fracture ankle, trimalleolar Active Condition [facility] Constipation Active Condition [facility] Contusion of unspecified part of lower limb (ICD-9-CM 924.5) Active Condition [facility] DEPRESS DISORDER-UNSPEC Active Condition [place] [facility] Edema Active Condition [facility] Gastroesophageal reflux disease (SNOMED CT 075603807) Active Condition [facility] Hemorrhoids Active Condition 2008 Entered By: BRUNO LOZA Comment: s/p hemorrhoidectomy x 2, still w/hemorrhoids,feb [facility] Hemorrhoids Active Condition [facility] Hyperlipidemia Active Condition Feb Entered By: NINFA FLOOD Comment: LDL goal <160 [facility] Hypertension Active Condition [facility] Hypothyroid Active Condition [facility] Hypothyroidism (SNOMED CT 93088687) Active Condition [facility] Impaired fasting glucose Active Condition [facility] Impaired fasting glycaemia (SNOMED CT 150886083) Active Condition [facility] Intermittent claudication (SNOMED CT 50655592) Active Condition 2008 Entered By: BRUNO LOZA Comment: s/p right femoral A. baloon arterioplasty from cerebralJul 2007 Entered By: BRUNO LOZA Comment: AVM surgical procedure, 2004 [facility] Kyphosis of cervicothoracic spine Active Condition [facility] Major Depressive Disorder, Recurrent, Unspecified (ICD-9-CM 296.30) Active Condition [facility] Menopausal flushing Active Condition [facility] Mixed bipolar affective disorder, moderate (SNOMED CT 097875923) Active Condition [facility] Mixed hyperlipidemia Active Condition [facility] Noncompliance with medication regimen (SNOMED CT 694430632) Active Condition [facility] Noncompliance with therapeutic regimen Active Condition [facility] Nonunion of fracture Active Condition 2008 Entered By: BRUNO LOZA Comment: left middle finger w/3 screws placed [facility] Obesity Active Condition [facility] Obesity (SNOMED CT 713780419) Active Condition Jun 24, 2009 Entered By: BRUNO LOZA Comment: BMI= 34 [facility] Obstructive sleep apnea of adult Active Condition [facility] Obstructive sleep apnea syndrome Active Condition [facility] Oligomenorrhea Active Condition Feb 042007 Entered By: BRUNO LOZA Comment: menses = irreg irreg off OCP's, probably PCOS [facility] Pain in joint involving hand (ICD-9-CM 719.44) Active Condition [facility] Pain of left ankle joint Active Condition [facility] Pain, neck NEC (ICD-9-CM 723.1) Active Condition [facility] Personality Disorder NOS * (ICD-9-CM 301.9) Active Condition [facility] POLYSUBSTANCE DEPENDENCE, IN REMISSION Active Condition [facility] Post-traumatic stress disorder Active Condition [facility] Posttraumatic stress disorder (SNOMED CT 10057918) Active Condition [facility] Rosacea Active Condition [facility] Skin Tags Active Condition Nov 25 09 Entered By: BURNO LOZA Comment: - bil.vulvar-inne r thigh skin tags,along panty line [facility] Vaginitis and vulvovaginitis (ICD-9-CM 616.10) Active Condition Jun 24 09 Entered By: BRUNO LOZA Comment: recurrant post-coital BV [facility] Vitamin D deficiency Active Condition [facility] Acute stress disorder Inactive Condition 12/19/2024 [facility] Cannabis abuse Inactive Condition 12/19/2024 [facility] [employer] Inactive Condition 07/07/2008 [facility] Health Maintenance (ICD-9-CM V65.9) Inactive Condition 07/07/2008 PRABHU [facility] POLYSUBSTANCE DEPENDENCE, UNSPECIFIED Inactive Condition 06/25/2009 [facility] W/ MIXED EMOTION/CONDUCT DISTURBANCE Inactive Condition 06/25/2009 [facility] Diagnosis: ICD-10-CM F31.32 Bipolar disorder, current episode depressed, moderate Active Diagnosis [facility] Diagnosis: ICD-10-CM F43.0 Acute stress reaction Active Diagnosis [facility] Diagnosis: ICD-10-CM R21 Rash and other nonspecific skin eruption Active Diagnosis [facility] Diagnosis: ICD-10-CM Z63.79 Other stressful life events affecting family and household Active Diagnosis [facility] Diagnosis: ICD-10-CM I10 Essential (primary) hypertension Active Diagnosis [facility] Diagnosis: ICD-10-CM F43.10 Post-traumatic stress disorder, unspecified Active Diagnosis [facility] Diagnosis: ICD-10-CM Z62.820 Parent-biological child conflict Active Diagnosis [facility] Diagnosis: ICD-10-CM K64.9 Unspecified hemorrhoids Active Diagnosis [facility] Diagnosis: ICD-10-CM Z63.8 Other specified problems related to primary support group Active Diagnosis [facility] Diagnosis: ICD-10-CM Z63.0 Problems in relationship with spouse or partner Active Diagnosis [facility] [place] Diagnosis: ICD-10-CM M25.521 Pain in right elbow Active Diagnosis [facility] Diagnosis: ICD-10-CM H00.015 Hordeolum externum left lower eyelid Active Diagnosis [facility] Diagnosis: ICD-10-CM E66.09 Other obesity due to excess calories Active Diagnosis [facility] Diagnosis: ICD-10-CM M77.12 Lateral epicondylitis, left elbow Active Diagnosis [facility] Diagnosis: ICD-10-CM G47.33 Obstructive sleep apnea (adult) (pediatric) Active Diagnosis [facility] Diagnosis: ICD-10-CM Z63.9 Problem related to primary support group, unspecified Active Diagnosis [facility] Diagnosis: ICD-10-CM F50.81 Binge eating disorder Active Diagnosis [facility] Diagnosis: ICD-10-CM N95.1 Menopausal and female climacteric states Active Diagnosis [facility] Medications Combined list of outpatient medications from Department of Defense and [facility] Affairs facilities.Medications provided include 1) outpatient medications from the last 15 months, and 2) patient-reported medications. Medication Details Route Status Patient Instructions Prescription Expires Prescription Number Last Dispense Date Ordering Provider Order Date Order Qty Source ADAPALENE 0.1% GEL,TOP APPLY SMALL AMOUNT TOPICALL Y ONCE DAILY TOPICA L ACTIVE 10/19/2025 [id number] ZOE COPE 2024 45 [facility] AMOXICILLIN TRIHYDRATE 500MG CAP TAKE ONE CAPSULE BY MOUTH THREE TIMES A DAY ORAL 03/18/2024 [id number] Sanya KENT W 2023 15 [facility] atorvastati n (U/D) 20 MG ORAL TAB TAKE ONE-HALF TABLET BY MOUTH ONCE DAILY FOR HIGH CHOLESTE ROL 11/10/2024 [id number] ZOE COPENE 2023 45 Amanda ashley [facility] ATORVASTATI N CA 20MG TAB TAKE ONE-HALF TABLET BY MOUTH ONCE DAILY FOR HIGH CHOLESTE ROL ORAL DISCONT INUED BY PROVIDE R 11/10/2024 [id number] ZOE COPE 2023 45 [facility] BUPROPION HCL 100MG TAB TAKE ONE AND ONE-HALF TABLETS BY MOUTH TWICE DAILY FOR DEPRESSI ON TAKE THE 2ND DAILY DOSE IN THE EARLY AFTERNOO N. ORAL ACTIVE 10/18/2025 [id number] Bianka FLORESELYCarlos 2024 270 [facility] BUPROPION HCL 100MG TAB TAKE ONE AND ONE-HALF TABLETS BY MOUTH TWICE DAILY FOR DEPRESSI ON TAKE THE 2ND DAILY DOSE IN THE EARLY AFTERNOO N. ORAL DISCONT INUED BY PROVIDE R 08/20/2025 [id number] 5 Bianka FLORES 2024 90 [facility] BUPROPION HCL 100MG TAB TAKE ONE AND ONE-HALF TABLETS BY MOUTH TWICE DAILY FOR DEPRESSI ON TAKE THE 2ND DAILY DOSE IN THE EARLY AFTERNOO N. ORAL DISCONT INUED BY PROVIDE R 04/16/2025 [id number] 4 Bianka FLORES 2023 90 [facility] BUPROPION HCL 100MG TAB TAKE ONE AND ONE-HALF TABLETS BY MOUTH TWICE DAILY DOSE INCREASE . TAKE THE 2ND DAILY DOSE IN THE EARLY AFTERNOO N. ORAL DISCONT INUED BY PROVIDE R 03/19/2025 [id number] Bianka FLORES 2023 90 [facility] BUPROPION HCL 100MG TAB TAKE ONE TABLET BY MOUTH TWICE DAILY FOR DEPRESSI ON SWITCHIN G FROM XL TO IR. TAKE THE SECOND DAILY DOSE IN THE EARLY AFTERNOO N. SWITCHIN G FROM XL TO IR. TAKE THE SECOND DAILY DOSE IN THE EARLY AFTERNOO N. ORAL DISCONT INUED BY PROVIDE R 02/13/2025 [id number] 4 Bianka FLORES 2023 60 [facility] BUPROPION HCL 300MG 24HR TAB,SA TAKE ONE TABLET BY MOUTH ONCE DAILY FOR DEPRESSI ON ORAL DISCONT INUED BY PROVIDE R 06/26/2024 [id number] Bianka FLORES 2022 90 [facility] buPROPion HCl XL 300 MG ORAL TB24 TAKE ONE TABLET BY MOUTH ONCE DAILY FOR DEPRESSI ON 06/26/2024 [id number] [place] FLORES 2023 90 [facility] CETIRIZINE HCL 10MG TAB TAKE ONE TABLET BY MOUTH ONCE DAILY FOR ALLERGIE S ORAL ACTIVE 05/01/2025 [id number] 4 ANATOLIYZOE SANDOVAL 2023 90 [facility] cholecalcif (VIT D3) 2,000 UNIT ORAL TAB TAKE ONE TABLET BY MOUTH ONCE DAILY FOR VITAMIN D DEFICIEN CY 11/10/2024 [id number] 4 ANATOLIYZOE SANDOVAL 2023 100 [facility] CHOLECALCIF GAUDENCIO 50MCG (2,000UNIT) TAB TAKE ONE TABLET BY MOUTH ONCE DAILY FOR VITAMIN D DEFICIEN CY ORAL 11/10/2024 [id number] 4 ANATOLIYZOE 2023 100 [facility] Compounded Prilosec Capsule Conventiona l 20 mg Oral TAKE ONE CAPSULE BY MOUTH EVERY MORNING 30 MINUTES BEFORE BREAKFAS T 11/10/2024 [id number] ZOE COPE 2023 90 [facility] DOCUSATE NA 100MG CAP TAKE ONE CAPSULE BY MOUTH TWICE DAILY NEEDED TO SOFTEN STOOL ORAL 11/03/2024 [id number] 5 RA DHRUV NÚÑEZ 2024 20 [place] Estradiol (Estrace) Tablet 0.5mg Oral TAKE ONE TABLET BY MOUTH ONCE DAILY FOR POST MENOPAUS AL SYMPTOMS 11/10/2024 [id number] ZOE COPE 2023 90 [facility] Estradiol (Estrace) Tablet 0.5mg Oral TAKE ONE TABLET BY MOUTH ONCE DAILY FOR POST MENOPAUS AL SYMPTOMS Discont inued 12/29/2023 [id number] ZOE COPE 2023 90 [facility] ESTRADIOL 0.5MG TAB TAKE ONE TABLET BY MOUTH ONCE DAILY FOR POST MENOPAUS AL SYMPTOMS ORAL ACTIVE 10/19/2025 [id number] 5 ZOE COPE 2024 90 [facility] ESTRADIOL 0.5MG TAB TAKE ONE TABLET BY MOUTH ONCE DAILY FOR POST MENOPAUS AL SYMPTOMS ORAL DISCONT INUED 11/10/2024 [id number] 4 ANATOLIY, ZOE ASHLEY 2023 90 [facility] ESTRADIOL 0.5MG TAB TAKE ONE TABLET BY MOUTH ONCE DAILY FOR POST MENOPAUS AL SYMPTOMS ORAL DISCONT INUED 12/29/2023 [id number] ANATOLIY, ZOE ASHLEY 2022 90 [facility] FLUTICASONE PROPIONATE 50MCG/SPRAY SOLN,NASAL, 16GM INSTILL 2 SPRAYS INTO EACH NOSTRIL ONCE DAILY FOR NASAL IRRITATI ON/INFLA MMATION NASAL ACTIVE 05/01/2025 [id number] 5 ANATOLIY, ZOE ASHLEY 2023 1 [facility] HYDROCORTIS ONE ACETATE 1%/PRAMOXIN E HCL 1% AEROSOL,RTL INSERT 1 APPLICAT ORFUL RECTALLY FOUR TIMES DAILY NEEDED FOR HEMORRHO IDS RECTAL ACTIVE 10/05/2025 [id number] RA DHRUV NÚÑEZ 2024 10 [place] hydrOXYzine pamoate (U/D) 25 MG ORAL CAP TAKE ONE CAPSULE BY MOUTH THREE TIMES A DAY AND TAKE ONE CAPSULE THREE TIMES DAILY NEEDED FOR ANXIETY 09/11/2024 [id number] [place] FLORES 2023 180 [facility] HYDROXYZINE PAMOATE 25MG CAP TAKE ONE CAPSULE BY MOUTH THREE TIMES A DAY AND TAKE ONE CAPSULE THREE TIMES DAILY NEEDED FOR ANXIETY ORAL ACTIVE 10/18/2025 [id number] 5 Bianka FLORES 2024 360 [facility] HYDROXYZINE PAMOATE 25MG CAP TAKE ONE CAPSULE BY MOUTH THREE TIMES A DAY AND TAKE ONE CAPSULE THREE TIMES DAILY NEEDED FOR ANXIETY ORAL DISCONT INUED BY PROVIDE R 04/16/2025 [id number] Bianka FLORES 2023 180 [facility] HYDROXYZINE PAMOATE 25MG CAP TAKE ONE CAPSULE BY MOUTH THREE TIMES A DAY AND TAKE ONE CAPSULE THREE TIMES DAILY NEEDED FOR ANXIETY ORAL DISCONT INUED BY PROVIDE R 03/19/2025 [id number] 4 Bianka FLORES 2023 180 [facility] HYDROXYZINE PAMOATE 25MG CAP TAKE ONE CAPSULE BY MOUTH THREE TIMES A DAY AND TAKE ONE CAPSULE THREE TIMES DAILY NEEDED FOR ANXIETY ORAL DISCONT INUED BY PROVIDE R 09/11/2024 [id number] 4 Bianka FLORES 2023 180 [facility] IBUPROFEN 600MG TAB TAKE ONE TABLET BY MOUTH THREE TIMES DAILY NEEDED FOR INFLAMMA TION TAKE WITH FOOD ORAL 11/03/2024 [id number] RA DHRUV NÑÚEZ 2024 30 [place] LEVOTHYROXI NE NA 112MCG TAB TAKE ONE TABLET BY MOUTH EVERY MORNING 30 MINUTES BEFORE BREAKFAS T FOR THYROID - TAKE ON AN EMPTY STOMACH WITH A FULL GLASS OF WATER ORAL ACTIVE 10/19/2025 [id number] ZOE COPE 2024 90 [facility] LEVOTHYROXI NE NA 112MCG TAB TAKE ONE TABLET BY MOUTH EVERY MORNING 30 MINUTES BEFORE BREAKFAS T FOR THYROID - TAKE ON AN EMPTY STOMACH WITH A FULL GLASS OF WATER ORAL DISCONT INUED 11/10/2024 [id number] ZOE COPE 2023 90 [facility] LEVOTHYROXI NE NA 112MCG TAB (SYNTHROID) TAKE ONE TABLET BY MOUTH EVERY MORNING 30 MINUTES BEFORE BREAKFAS T FOR THYROID - TAKE ON AN EMPTY STOMACH WITH A FULL GLASS OF WATER ORAL DISCONT INUED 11/17/2023 [id number] ZOE COPE 2022 90 [facility] lisinopril (U/D) 20 MG ORAL TAB TAKE ONE TABLET BY MOUTH ONCE DAILY TO CONTROL BLOOD PRESSURE CHANGE IN DOSE 11/10/2024 [id number] ANATOLIY, ZOE ASHLEY 2023 90 [facility] lisinopril (U/D) 20 MG ORAL TAB TAKE ONE TABLET BY MOUTH DAILY FOR BLOOD PRESSURE COPIED FROM [id number] A [facility] 631 11/01/2023 [id number] 4 [place] LITTLEJOHN 2023 10 Rony stoddard [facility] lisinopril (U/D) 20 MG ORAL TAB TAKE ONE TABLET BY MOUTH ONCE DAILY TO CONTROL BLOOD PRESSURE CHANGE IN DOSE Discont inued 11/17/2023 [id number] ANATOLIY ZOE ASHLEY 2023 90 [facility] LISINOPRIL 20MG TAB TAKE ONE TABLET BY MOUTH ONCE DAILY TO CONTROL BLOOD PRESSURE CHANGE IN DOSE ORAL DISCONT INUED BY PROVIDE R 11/10/2024 [id number] 4 FLOR COPEA ASHLEY 2023 90 [facility] LISINOPRIL 20MG TAB TAKE ONE TABLET BY MOUTH ONCE DAILY TO CONTROL BLOOD PRESSURE CHANGE IN DOSE ORAL DISCONT INUED 11/17/2023 [id number] 4 FLOR COPEA ASHLEY 2022 90 [facility] LISINOPRIL 20MG TAB TAKE ONE TABLET BY MOUTH DAILY FOR BLOOD PRESSURE COPIED FROM [id number] A [facility] 631 ORAL 11/01/2023 [id number] 4 Bianka LITTLEJOHN 2023 10 [facility] losartan (U/D) 25 MG ORAL TAB TAKE ONE TABLET BY MOUTH ONCE DAILY FOR BLOOD PRESSURE /HEART 02/08/2024 [id number] 4 FLOR COPEA ASHLEY 2023 90 [facility] LOSARTAN 25MG TAB TAKE ONE TABLET BY MOUTH ONCE DAILY FOR BLOOD PRESSURE /HEART ORAL 02/08/2024 [id number] ANATOLIY ZOE ASHLEY 2023 90 [facility] LURASIDONE 80 MG ORAL TAB TAKE ONE TABLET BY MOUTH ONCE DAILY FOR BIPOLAR DEPRESSI ON 05/29/2024 [id number] [place] FLORES 2023 90 [facility] LURASIDONE HCL 80MG TAB TAKE ONE TABLET BY MOUTH ONCE DAILY FOR BIPOLAR DEPRESSI ON ORAL ACTIVE 10/18/2025 [id number] Bianka FLORES 2024 90 [facility] LURASIDONE HCL 80MG TAB TAKE ONE TABLET BY MOUTH ONCE DAILY FOR BIPOLAR DEPRESSI ON ORAL DISCONT INUED BY PROVIDE R 03/19/2025 [id number] Bianka FLORES 2023 90 [facility] LURASIDONE HCL 80MG TAB TAKE ONE TABLET BY MOUTH ONCE DAILY FOR BIPOLAR DEPRESSI ON ORAL DISCONT INUED BY PROVIDE R 05/29/2024 [id number] Bianka FLORES 2022 90 [facility] MUPIROCIN 2% OINT,TOP APPLY THIN LAYER TOPICALL Y TWICE DAILY NEEDED TOPICA L ACTIVE 10/19/2025 [id number] ANATOLIY, ZOE ASHLEY 2024 22 [facility] OMEPRAZOLE 20MG CAP,EC TAKE ONE CAPSULE BY MOUTH EVERY MORNING 30 MINUTES BEFORE BREAKFAS T ORAL ACTIVE 10/19/2025 [id number] 5 ANATOLIY, ZOE ASHLEY 2024 90 [facility] OMEPRAZOLE 20MG CAP,EC TAKE ONE CAPSULE BY MOUTH EVERY MORNING 30 MINUTES BEFORE BREAKFAS T ORAL DISCONT INUED 11/10/2024 [id number] 4 ANATOLIY, ZOE ASHLEY 2023 90 [facility] PROGESTERON E 100MG CAP TAKE ONE CAPSULE BY MOUTH ONCE DAILY TO PROTECT UTERINE LINING ORAL ACTIVE 10/19/2025 [id number] 5 ANATOLIY, ZOE ASHLEY 2024 90 [facility] PROGESTERON E 100MG CAP TAKE ONE CAPSULE BY MOUTH ONCE DAILY TO PROTECT UTERINE LINING ORAL DISCONT INUED 11/10/2024 [id number] 5 ANATOLIYZOE SANDOVALNE 2023 90 [facility] PROGESTERON E 100MG CAP TAKE ONE CAPSULE BY MOUTH ONCE DAILY TO PROTECT UTERINE LINING ORAL DISCONT INUED 01/21/2024 [id number] ANATOLIY, ZOE ASHLEY 2022 90 [facility] Progesteron e 100mg, (Prometrium ), Capsule, Oral TAKE ONE CAPSULE BY MOUTH ONCE DAILY TO PROTECT UTERINE LINING 11/10/2024 [id number] ANATOLIY ZOE ASHLEY 2023 90 [facility] Progesteron e 100mg, (Prometrium ), Capsule, Oral TAKE ONE CAPSULE BY MOUTH ONCE DAILY TO PROTECT UTERINE LINING Discont inued 01/21/2024 [id number] ANATOLIY ZOE ASHLEY 2023 90 [facility] TRIAMCINOLO NE ACETONIDE 0.1% CREAM,TOP APPLY SMALL AMOUNT TOPICALL Y TWICE A DAY FOR SKIN IRRITATI ON TOPICA L ACTIVE 01/01/2025 [id number] 5 Bianka FORTUNE 2024 80 [facility] Immunizations Combined list of available immunizations from the Department of Defense and Veterans Affairs facilities. 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 Status Comments Source RSV, BIVALENT, PROTEIN SUBUNIT RSVPREF, DILUENT RECONSTITUTED , 0.5 ML, PF 2024 [facility] RIGHT DELTO ID [id number] 305 complet ed [facility] [place], Dilutenet [id number] [facility] ZOSTER RECOMBINANT 1 2024 [facility] LEFT DELTO ID [id number] 187 complet ed [facility] [place], Dilutent [id number] 01/20/26 [facility] COVID-19 (PFIZER), MRNA, LNP-S, PF, 30 MCG/0.3 ML DOSE 3 2021 208 complet ed [facility] COVID-19 (PFIZER), MRNA, LNP-S, PF, 30 MCG/0.3 ML DOSE 2 2020 208 complet ed PFR; [id number]; 1 [facility] COVID-19 (PFIZER), MRNA, LNP-S, PF, 30 MCG/0.3 ML DOSE 1 2020 208 complet ed PFR; [id number]; 1 [facility] INFLUENZA, SEASONAL, INJECTABLE, PRESERVATIVE FREE 2015 140 complet ed [facility] TDAP 2013 115 complet [facility] INFLUENZA, SEASONAL, INJECTABLE, PRESERVATIVE FREE 2013 140 complet ed [facility] INFLUENZA, SEASONAL, INJECTABLE, PRESERVATIVE FREE 2012 140 complet ed [facility] INFLUENZA, SEASONAL, INJECTABLE, PRESERVATIVE FREE 2012 140 complet ed [facility] INFLUENZA, SEASONAL, INJECTABLE, PRESERVATIVE FREE 2010 140 complet [facility] FLU 3YRS DONE (HISTORICAL) 2009 88 complet [facility] INFLUENZA, UNSPECIFIED FORMULATION 2008 88 complet [facility] INFLUENZA, UNSPECIFIED FORMULATION 2007 88 complet [facility] TD(ADULT) UNSPECIFIED FORMULATION 2003 139 complet ed [facility] Results Combined list of recent chemistry, hematology and other laboratory results from Department of Defense and Veterans Affairs, ranging from 15 months to all on record, depending upon the facility. Order Name Results Value Reference Range Date Interpretation Specimen Comments Source LYME SEROLOGY PANEL BORRELIA BURGDORFER I AB.IGG AND IGM WITH REFLEX TO IMMUNOASSA Y PANEL - SERUM OR PLASMA Negative 10/18 Specimen Type: SERUM Comment: The LYME SEROLOGY PANEL was performed using the FDA-approve d Carlos IRVIN Borrelia burdorferi modified two-tier test system. This modified methodology uses a second EIA in place of a western immunoblot assay, which the FDA has determined is substantia lly equivalent to or better than standard two-tier testing using western blot. Supplementa l testing with a second EIA meets CDC guidelines for Lyme disease testing. Performance characteris tics of the panel were validated at the [facility]. Results are considered positive only if the initial screening EIA is positive or equivocal, and either or both supplementa l EIAs (for IgM and IgG) are positive. Diagnosis of Lyme disease should not be based solely on laboratory results. Clinical and exposure history must be considered. Positive antibody results reflect prior immunologic exposure, and do not necessarily indicate active infection. False positive results are possible in patients with other spirochetal infections, infectious mononucleos is, and connective tissue disorders. Negative results do not exclude B. burgdorferi infection. Only 10-40% of patients with erythema migrans alone have detectable antibodies. False negative results are possible, if specimens are drawn too soon after infection before an antibody response. Antibody induction may be aborted by early antibiotic therapy. Results in immunosuppr essed individuals should be interpreted with caution. If Lyme disease is strongly suspected, but antibody was not detected, a second specimen collected about 2-4 weeks after the first should be tested. This test is NOT for use in screening individuals without signs, symptoms or exposure history. Physicians should report all cases of Lyme disease to their state and local health departments , if applicable. Ordering Provider: SUZI COPE SA Report Released Date/Time: Oct 18, 2024 09:12 AM Reporting Lab: [facility] [id number] [facility] [address] Performing Lab: [facility] [address] [facility] [address] [facility] LYME SEROLOGY PANEL BORRELIA BURGDORFER I AB [INTERPRET ATION] IN SERUM BY IA.MTTT Negative 10/18 Specimen Type: SERUM Comment: The LYME SEROLOGY PANEL was performed using the FDA-approve d Carlos IRVIN Borrelia burdorferi modified two-tier test system. This modified methodology uses a second EIA in place of a western immunoblot assay, which the FDA has determined is substantia lly equivalent to or better than standard two-tier testing using western blot. Supplementa l testing with a second EIA meets CDC guidelines for Lyme disease testing. Performance characteris tics of the panel were validated at the [facility]. Results are considered positive only if the initial screening EIA is positive or equivocal, and either or both supplementa l EIAs (for IgM and IgG) are positive. Diagnosis of Lyme disease should not be based solely on laboratory results. Clinical and exposure history must be considered. Positive antibody results reflect prior immunologic exposure, and do not necessarily indicate active infection. False positive results are possible in patients with other spirochetal infections, infectious mononucleos is, and connective tissue disorders. Negative results do not exclude B. burgdorferi infection. Only 10-40% of patients with erythema migrans alone have detectable antibodies. False negative results are possible, if specimens are drawn too soon after infection before an antibody response. Antibody induction may be aborted by early antibiotic therapy. Results in immunosuppr essed individuals should be interpreted with caution. If Lyme disease is strongly suspected, but antibody was not detected, a second specimen collected about 2-4 weeks after the first should be tested. This test is NOT for use in screening individuals without signs, symptoms or exposure history. Physicians should report all cases of Lyme disease to their state and local health departments , if applicable. Ordering Provider: SUZI COPE SA Report Released Date/Time: Oct 18, 2024 09:12 AM Reporting Lab: [facility] [address] [facility] [address] Performing Lab: [facility] [address] [facility] [address] [facility] EHRLICHI A CHAFFEEN SIS Ab PANEL EHRLICHIA CHAFFEENSI S IGG AB [PRESENCE] IN SERUM <1:64 10/18 Specimen Type: SERUM Comment: REFERENCE RANGE: <1:64 REFERENCE RANGE: <1:20 Antibody Not Detected Ehrlichia chaffeenis has been identified as the causative agent of Human Monocytic Ehrlichiosi s (HME). Infected individuals produce specific antibodies to E. chaffeensis that can be detected by an immuno- fluorescent antibody (IFA) test. Single IgG IFA titers of 1:64 or greater indicate exposure to E. chaffeensis . A four-fold rise in IgG titers between acute and convalescen t samples and/or the presence of IgM antibody against E. chaffeensis suggest recent or current infection. This test was developed and its analytical performance characteris tics have been determined by [facility], [place], [place]. It has not been cleared or approved by the U.S. Food and Drug Administrat ion. This assay has been validated pursuant to the CLIA regulations and is used for clinical purposes. Test Performed by [facility] [employer], [address] [place] [address] Jey Meza M.D., Ph.D., Director of Laboratorie s , CLIA [id number] TEST PERFORMED AT: , Ordering Provider: SUZI COPE SA Report Released Date/Time: Oct 18, 2024 09:12 AM Reporting Lab: [facility] [address] [facility] [address] Performing Lab: [facility] [id number] [place] [address] EHRLICHI A CHAFFEEN SIS Ab PANEL EHRLICHIA CHAFFEENSI S IGM AB [PRESENCE] IN SERUM <1:20 10/18 Specimen Type: SERUM Comment: REFERENCE RANGE: <1:64 REFERENCE RANGE: <1:20 Antibody Not Detected Ehrlichia chaffeenis has been identified as the causative agent of Human Monocytic Ehrlichiosi s (HME). Infected individuals produce specific antibodies to E. chaffeensis that can be detected by an immuno- fluorescent antibody (IFA) test. Single IgG IFA titers of 1:64 or greater indicate exposure to E. chaffeensis . A four-fold rise in IgG titers between acute and convalescen t samples and/or the presence of IgM antibody against E. chaffeensis suggest recent or current infection. This test was developed and its analytical performance characteris tics have been determined by [facility] It has not been cleared or approved by the U.S. Food and Drug Administrat ion. This assay has been validated pursuant to the CLIA regulations and is used for clinical purposes. Test Performed by [facility] [employer], [address] [place], [place] Jey Meza M.D., Ph.D., Director of Laboratorie s , CLIA [id number] TEST PERFORMED AT: , Ordering Provider: SUZI COPE SA Report Released Date/Time: Oct 18, 2024 09:12 AM Reporting Lab: [facility] [address] [facility] [address] Performing Lab: [facility] [address], [address] [place] [address] [facility] EHRLICHI A CHAFFEEN SIS Ab PANEL EHRLICHIA CHAFFEENSI S AB INTER SEE NOTE 10/18 Specimen Type: SERUM Comment: REFERENCE RANGE: <1:64 REFERENCE RANGE: <1:20 Antibody Not Detected Ehrlichia chaffeenis has been identified as the causative agent of Human Monocytic Ehrlichiosi s (HME). Infected individuals produce specific antibodies to E. chaffeensis that can be detected by an immuno- fluorescent antibody (IFA) test. Single IgG IFA titers of 1:64 or greater indicate exposure to E. chaffeensis . A four-fold rise in IgG titers between acute and convalescen t samples and/or the presence of IgM antibody against E. chaffeensis suggest recent or current infection. This test was developed and its analytical performance characteris tics have been determined by [facility] [place] It has not been cleared or approved by the U.S. Food and Drug Administrat ion. This assay has been validated pursuant to the CLIA regulations and is used for clinical purposes. Test Performed by [facility], [facility], [address] [place] [address] Jey Meza M.D., Ph.D., Director of Laboratorie s , CLIA [id number] TEST PERFORMED AT: , Ordering Provider: SUZI COPE SA Report Released Date/Time: Oct 18, 2024 09:12 AM Reporting Lab: [facility] [address] [facility] [address] Performing Lab: [facility] [address] [facility], [address] [place] [address] [facility]USE [facility] ANAPLASM A AND EHRLICHI A AB PANEL EHRLICHIA CHAFFEENSI S IGG AB [PRESENCE] IN SERUM <1:64 10/18 Specimen Type: SERUM Comment: REFERENCE RANGE: <1:64 REFERENCE RANGE: <1:20 Antibody Not Detected Ehrlichia chaffeenis has been identified as the causative agent of Human Monocytic Ehrlichiosi s (HME). Infected individuals produce specific antibodies to E. chaffeensis that can be detected by an immuno- fluorescent antibody (IFA) test. Single IgG IFA titers of 1:64 or greater indicate exposure to E. chaffeensis . A four-fold rise in IgG titers between acute and convalescen t samples and/or the presence of IgM antibody against E. chaffeensis suggest recent or current infection. This test was developed and its analytical performance characteris tics have been determined by [facility] It has not been cleared or approved by the U.S. Food and Drug Administrat ion. This assay has been validated pursuant to the CLIA regulations and is used for clinical purposes. REFERENCE RANGE: <1:64 REFERENCE RANGE: <1:20 Antibody Not Detected Anaplasma phagocytoph ilum is the tick-borne agent causing Human Granulocyti c Ehrlichiosi s (HGE). HGE is distinct and separate from Human Monocytic Ehrlichiosi s (HME), caused by Ehrlichia chaffeensis . Serologic crossreacti vity between A. phagocyto- philum and E. chaffeensis is minimal (5-15%). This test was developed and its analytical performance characteris tics have been determined by [facility]. It has not been cleared or approved by the U.S. Food and Drug Administrat ion. This assay has been validated pursuant to the CLIA regulations and is used for clinical purposes. Test Performed by [facility], [employer] [place], [address] [place], [place] Jey Meza M.D., Ph.D., Director of Laboratorie s , CLIA [id number] TEST PERFORMED AT: , Ordering Provider: SUZI COPE SA Report Released Date/Time: Oct 18, 2024 09:12 AM Reporting Lab: [facility] [address] [facility] [address] Performing Lab: [facility] [address] [address] [facility] ANAPLASM A AND EHRLICHI A AB PANEL EHRLICHIA CHAFFEENSI S IGM AB [PRESENCE] IN SERUM <1:20 10/18 Specimen Type: SERUM Comment: REFERENCE RANGE: <1:64 REFERENCE RANGE: <1:20 Antibody Not Detected Ehrlichia chaffeenis has been identified as the causative agent of Human Monocytic Ehrlichiosi s (HME). Infected individuals produce specific antibodies to E. chaffeensis that can be detected by an immuno- fluorescent antibody (IFA) test. Single IgG IFA titers of 1:64 or greater indicate exposure to E. chaffeensis . A four-fold rise in IgG titers between acute and convalescen t samples and/or the presence of IgM antibody against E. chaffeensis suggest recent or current infection. This test was developed and its analytical performance characteris tics have been determined by [facility] It has not been cleared or approved by the U.S. Food and Drug Administrat ion. This assay has been validated pursuant to the CLIA regulations and is used for clinical purposes. REFERENCE RANGE: <1:64 REFERENCE RANGE: <1:20 Antibody Not Detected Anaplasma phagocytoph ilum is the tick-borne agent causing Human Granulocyti c Ehrlichiosi s (HGE). HGE is distinct and separate from Human Monocytic Ehrlichiosi s (HME), caused by Ehrlichia chaffeensis . Serologic crossreacti vity between A. phagocyto- philum and E. chaffeensis is minimal (5-15%). This test was developed and its analytical performance characteris tics have been determined by [facility] It has not been cleared or approved by the U.S. Food and Drug Administrat ion. This assay has been validated pursuant to the CLIA regulations and is used for clinical purposes. Test Performed by [employer] [facility], [facility] [place], [address] [place], [place] Jey Meza M.D., Ph.D., Director of Laboratorie s , CLIA [id number] TEST PERFORMED AT: , Ordering Provider: SUZI COPE SA Report Released Date/Time: Oct 18, 2024 09:12 AM Reporting Lab: [facility] [address] [facility] [address] Performing Lab: [facility] [address] [address] [facility] ANAPLASM A AND EHRLICHI A AB PANEL ANAPLASMA PHAGOCYTOP HILUM IGG AB [TITER] IN SERUM BY IMMUNOFLUO RESCENCE <1:64 10/18 Specimen Type: SERUM Comment: REFERENCE RANGE: <1:64 REFERENCE RANGE: <1:20 Antibody Not Detected Ehrlichia chaffeenis has been identified as the causative agent of Human Monocytic Ehrlichiosi s (HME). Infected individuals produce specific antibodies to E. chaffeensis that can be detected by an immuno- fluorescent antibody (IFA) test. Single IgG IFA titers of 1:64 or greater indicate exposure to E. chaffeensis . A four-fold rise in IgG titers between acute and convalescen t samples and/or the presence of IgM antibody against E. chaffeensis suggest recent or current infection. This test was developed and its analytical performance characteris tics have been determined by [employer] [place], [place]. It has not been cleared or approved by the U.S. Food and Drug Administrat ion. This assay has been validated pursuant to the CLIA regulations and is used for clinical purposes. REFERENCE RANGE: <1:64 REFERENCE RANGE: <1:20 Antibody Not Detected Anaplasma phagocytoph ilum is the tick-borne agent causing Human Granulocyti c Ehrlichiosi s (HGE). HGE is distinct and separate from Human Monocytic Ehrlichiosi s (HME), caused by Ehrlichia chaffeensis . Serologic crossreacti vity between A. phagocyto- philum and E. chaffeensis is minimal (5-15%). This test was developed and its analytical performance characteris tics have been determined by [facility]. It has not been cleared or approved by the U.S. Food and Drug Administrat ion. This assay has been validated pursuant to the CLIA regulations and is used for clinical purposes. Test Performed by [facility] [place], [facility] [place], [address] [place], [place] Jey Meza M.D., Ph.D., Director of Laboratorie s , CLIA [id number] TEST PERFORMED AT: , Ordering Provider: SUZI COPE SA Report Released Date/Time: Oct 18, 2024 09:12 AM Reporting Lab: [facility] [address] [facility] [address] Performing Lab: [facility] [address] [address] [facility] ANAPLASM A AND EHRLICHI A AB PANEL ANAPLASMA PHAGOCYTOP HILUM IGM AB [TITER] IN SERUM BY IMMUNOFLUO RESCENCE <1:20 10/18 Specimen Type: SERUM Comment: REFERENCE RANGE: <1:64 REFERENCE RANGE: <1:20 Antibody Not Detected Ehrlichia chaffeenis has been identified as the causative agent of Human Monocytic Ehrlichiosi s (HME). Infected individuals produce specific antibodies to E. chaffeensis that can be detected by an immuno- fluorescent antibody (IFA) test. Single IgG IFA titers of 1:64 or greater indicate exposure to E. chaffeensis . A four-fold rise in IgG titers between acute and convalescen t samples and/or the presence of IgM antibody against E. chaffeensis suggest recent or current infection. This test was developed and its analytical performance characteris tics have been determined by [facility] [place]. It has not been cleared or approved by the U.S. Food and Drug Administrat ion. This assay has been validated pursuant to the CLIA regulations and is used for clinical purposes. REFERENCE RANGE: <1:64 REFERENCE RANGE: <1:20 Antibody Not Detected Anaplasma phagocytoph ilum is the tick-borne agent causing Human Granulocyti c Ehrlichiosi s (HGE). HGE is distinct and separate from Human Monocytic Ehrlichiosi s (HME), caused by Ehrlichia chaffeensis . Serologic crossreacti vity between A. phagocyto- philum and E. chaffeensis is minimal (5-15%). This test was developed and its analytical performance characteris tics have been determined by [employer] [place], [place]. It has not been cleared or approved by the U.S. Food and Drug Administrat ion. This assay has been validated pursuant to the CLIA regulations and is used for clinical purposes. Test Performed by [facility], [facility], [address] [place], [place] Jey Meza M.D., Ph.D., Director of Laboratorie s , CLIA [id number] TEST PERFORMED AT: , Ordering Provider: SUZI COPE SA Report Released Date/Time: Oct 18, 2024 09:12 AM Reporting Lab: [facility] [address] [facility] [address] Performing Lab: [facility] [address] [address] [facility] ANAPLASM A AND EHRLICHI A AB PANEL EHRLICHIA CHAFFEENSI S AB INTER SEE NOTE 10/18 Specimen Type: SERUM Comment: REFERENCE RANGE: <1:64 REFERENCE RANGE: <1:20 Antibody Not Detected Ehrlichia chaffeenis has been identified as the causative agent of Human Monocytic Ehrlichiosi s (HME). Infected individuals produce specific antibodies to E. chaffeensis that can be detected by an immuno- fluorescent antibody (IFA) test. Single IgG IFA titers of 1:64 or greater indicate exposure to E. chaffeensis . A four-fold rise in IgG titers between acute and convalescen t samples and/or the presence of IgM antibody against E. chaffeensis suggest recent or current infection. This test was developed and its analytical performance characteris tics have been determined by [employer] [place], [place]. It has not been cleared or approved by the U.S. Food and Drug Administrat ion. This assay has been validated pursuant to the CLIA regulations and is used for clinical purposes. REFERENCE RANGE: <1:64 REFERENCE RANGE: <1:20 Antibody Not Detected Anaplasma phagocytoph ilum is the tick-borne agent causing Human Granulocyti c Ehrlichiosi s (HGE). HGE is distinct and separate from Human Monocytic Ehrlichiosi s (HME), caused by Ehrlichia chaffeensis . Serologic crossreacti vity between A. phagocyto- philum and E. chaffeensis is minimal (5-15%). This test was developed and its analytical performance characteris tics have been determined by [employer] [place], [place]. It has not been cleared or approved by the U.S. Food and Drug Administrat ion. This assay has been validated pursuant to the CLIA regulations and is used for clinical purposes. Test Performed by [facility], [facility], [address] [place] [address] Jey Meza M.D., Ph.D., Director of Laboratorie s , CLIA [id number] TEST PERFORMED AT: , Ordering Provider: SUZI COPE SA Report Released Date/Time: Oct 18, 2024 09:12 AM Reporting Lab: [facility] [address] [facility] [address] Performing Lab: [facility] [address] [address] [facility] ANAPLASM A AND EHRLICHI A AB PANEL A. phagocytop hilum inter SEE NOTE 10/18 Specimen Type: SERUM Comment: REFERENCE RANGE: <1:64 REFERENCE RANGE: <1:20 Antibody Not Detected Ehrlichia chaffeenis has been identified as the causative agent of Human Monocytic Ehrlichiosi s (HME). Infected individuals produce specific antibodies to E. chaffeensis that can be detected by an immuno- fluorescent antibody (IFA) test. Single IgG IFA titers of 1:64 or greater indicate exposure to E. chaffeensis . A four-fold rise in IgG titers between acute and convalescen t samples and/or the presence of IgM antibody against E. chaffeensis suggest recent or current infection. This test was developed and its analytical performance characteris tics have been determined by [employer] [place], [place]. It has not been cleared or approved by the U.S. Food and Drug Administrat ion. This assay has been validated pursuant to the CLIA regulations and is used for clinical purposes. REFERENCE RANGE: <1:64 REFERENCE RANGE: <1:20 Antibody Not Detected Anaplasma phagocytoph ilum is the tick-borne agent causing Human Granulocyti c Ehrlichiosi s (HGE). HGE is distinct and separate from Human Monocytic Ehrlichiosi s (HME), caused by Ehrlichia chaffeensis . Serologic crossreacti vity between A. phagocyto- philum and E. chaffeensis is minimal (5-15%). This test was developed and its analytical performance characteris tics have been determined by [employer] [place], [place]. It has not been cleared or approved by the U.S. Food and Drug Administrat ion. This assay has been validated pursuant to the CLIA regulations and is used for clinical purposes. Test Performed by [employer], [facility], [address] [place], [place] Jey Meza M.D., Ph.D., Director of Laboratorie s , CLIA [id number] TEST PERFORMED AT: , Ordering Provider: SUZI COPE SA Report Released Date/Time: Oct 18, 2024 09:12 AM Reporting Lab: [facility] [address] [facility] [address] Performing Lab: [facility] [address] [address] [facility] MALARIA/ BABESIA EXAM PARASITE IDENTIFIED IN BLOOD BY LIGHT MICROSCOPY Negative 10/18 Specimen Type: BLOOD Comment: Due to the cyclical shed rates of these parasites, one negative specimen does not rule out the possibility of a parasitic infection. Obtain specimens at 6-hour intervals for 36 hours for a comprehensi ve examination . Test Performed by [facility], [facility], [address] [place], [place] Jey Meza M.D., Ph.D., Director of Laboratorie s , CLIA [id number] TEST PERFORMED AT: , Ordering Provider: SUZI COPE SA Report Released Date/Time: Oct 18, 2024 09:12 AM Reporting Lab: [facility] [place] [facility] [address] [facility] [address] Performing Lab: [place] [facility] [place] [facility] [address] [facility] [place] [facility] LIPID PANEL FASTING CHOLESTERO L [MASS/VOLU ME] IN SERUM OR PLASMA 144 mg/dL 10/11 Specimen Type: SERUM No comment entered. Ordering Provider: SUZI COPE SA Report Released Date/Time: Oct 11, 2024 08:18 AM Reporting Lab: [place] [facility] [place] [facility] [address] [facility] [address] Performing Lab: [place] [facility] [place] [facility] [address] [facility] [address] [facility] [place] [facility] LIPID PANEL FASTING TRIGLYCERI DE [MASS/VOLU ME] IN SERUM OR PLASMA 64 mg/dL 0 - 150 10/11 Specimen Type: SERUM No comment entered. Ordering Provider: SUZI COPE SA Report Released Date/Time: Oct 11, 2024 08:18 AM Reporting Lab: [place] [facility] [place] [facility] [address] [facility] [address] Performing Lab: [place] [facility] [place] [facility] [address] [facility] [address] [facility] [place] [facility] LIPID PANEL FASTING CHOLESTERO L IN LDL [MASS/VOLU ME] IN SERUM OR PLASMA BY CALCULATIO N 52 mg/dL 0 - 129 10/11 Specimen Type: SERUM No comment entered. Ordering Provider: SUZI COPE SA Report Released Date/Time: Oct 11, 2024 08:18 AM Reporting Lab: [place] [facility] [place] [facility] [address] [facility] [address] Performing Lab: [place] [facility] [place] [facility] [address] [facility] [address] [place] [facility] [place] [facility] LIPID PANEL FASTING CHOLESTERO L.TOTAL/CH OLESTEROL IN HDL [MASS RATIO] IN SERUM OR PLASMA 1.8 10/11 Specimen Type: SERUM No comment entered. Ordering Provider: SUZI COPE SA Report Released Date/Time: Oct 11, 2024 08:18 AM Reporting Lab: [place] [facility] [place] [facility] [address] [facility] [address] Performing Lab: [place] [facility] [address] [facility] [address] [facility] LIPID PANEL FASTING CHOLESTERO L IN HDL [MASS/VOLU ME] IN SERUM OR PLASMA 79 mg/dL 40 - 60 10/11 H Specimen Type: SERUM No comment entered. Ordering Provider: SUZI COPE SA Report Released Date/Time: Oct 11, 2024 08:18 AM Reporting Lab: [facility] [place] [place] [facility] [address] [facility] [address] Performing Lab: [place] [facility] [address] [facility] [address] [facility] BASIC METABOLI C PANEL (non-fas ting) UREA NITROGEN [MASS/VOLU ME] IN SERUM OR PLASMA 15 mg/dL 7 - 25 10/11 Specimen Type: SERUM No comment entered. Ordering Provider: SUZI COPE SA Report Released Date/Time: Oct 11, 2024 08:18 AM Reporting Lab: [place] [facility] [place] [facility] [address] [facility] [address] Performing Lab: [place] [facility] [address] [facility] [address] [facility]ITAL[facility] TRN [facility] CENTERUSE [facility] BASIC METABOLI C PANEL (non-fas ting) GLUCOSE [MASS/VOLU ME] IN SERUM OR PLASMA 95 mg/dL 65 - 100 10/11 Specimen Type: SERUM No comment entered. Ordering Provider: SUZI COPE SA Report Released Date/Time: Oct 11, 2024 08:18 AM Reporting Lab: [facility] [place] [facility] [address] [facility] [facility] [address] Performing Lab: [facility] [place] [facility] [address] [facility] [facility] [address] [facility] [place] [facility] BASIC METABOLI C PANEL (non-fas ting) SODIUM [MOLES/VOL UME] IN SERUM OR PLASMA 139 mmol/L 135 - 145 10/11 Specimen Type: SERUM No comment entered. Ordering Provider: SUZI COPE SA Report Released Date/Time: Oct 11, 2024 08:18 AM Reporting Lab: [facility] [place] [address] [address] Performing Lab: [facility] [place] [address] [address] [facility] [place] [facility] BASIC METABOLI C PANEL (non-fas ting) POTASSIUM [MOLES/VOL UME] IN SERUM OR PLASMA 4.2 mmol/L 3.5 - 5.0 10/11 Specimen Type: SERUM No comment entered. Ordering Provider: SUZI COPE SA Report Released Date/Time: Oct 11, 2024 08:18 AM Reporting Lab: [facility] [place] [address] [address] Performing Lab: [facility] [place] [facility] [address] [facility] [address] [facility] [place] [facility] BASIC METABOLI C PANEL (non-fas ting) CHLORIDE [MOLES/VOL UME] IN SERUM OR PLASMA 105 mmol/L 100 - 110 10/11 Specimen Type: SERUM No comment entered. Ordering Provider: SUZI COPE SA Report Released Date/Time: Oct 11, 2024 08:18 AM Reporting Lab: [facility] [place] [address] [address] Performing Lab: [facility] [place] [address] [address] [facility] BASIC METABOLI C PANEL (non-fas ting) CARBON DIOXIDE, TOTAL [MOLES/VOL UME] IN SERUM OR PLASMA 27 meq/L 20 - 30 10/11 Specimen Type: SERUM No comment entered. Ordering Provider: SUZI COPE SA Report Released Date/Time: Oct 11, 2024 08:18 AM Reporting Lab: [facility]ITALRPICK[facility] CENTERN [facility] CENTERUSE[address] [address] Performing Lab: [facility]ITALRL TRN [facility] CENTERUSE[address] [address] [facility] BASIC METABOLI C PANEL (non-fas ting) CALCIUM [MASS/VOLU ME] IN SERUM OR PLASMA 9.7 mg/dL 8.5 - 10.2 10/11 Specimen Type: SERUM No comment entered. Ordering Provider: SUZI COPE SA Report Released Date/Time: Oct 11, 2024 08:18 AM Reporting Lab: [facility]PITALRPICKENS [facility] MEDICAL CENTERN [facility]ICAL CENTERUSE[address] [address] Performing Lab: [facility]PITALRPICKENS [facility] MEDICAL CENTERN [address] [address] [facility] BASIC METABOLI C PANEL (non-fas ting) CREATININE [MASS/VOLU ME] IN SERUM OR PLASMA 0.81 mg/dL 0.50 - 1.40 10/11 Specimen Type: SERUM No comment entered. Ordering Provider: SUZI COPE SA Report Released Date/Time: Oct 11, 2024 08:18 AM Reporting Lab: [facility]ITALRL TRN [facility] CENTERUSE[address] [address] Performing Lab: [facility]LY [facility]OSPITALRBEACON BEHAVIORAL HOSPITALTRN [facility] CENTERUSE[address] [address] [facility] BASIC METABOLI C PANEL (non-fas ting) GLOMERULAR FILTRATION RATE/1.73 SQ M.PREDICTE D [VOLUME RATE/AREA] IN SERUM, PLASMA OR BLOOD BY CREATININE -BASED FORMULA (CKD-EPI 2020) 87 mL/min 60 10/11 Specimen Type: SERUM No comment entered. Ordering Provider: SUZI COPE SA Report Released Date/Time: Oct 11, 2024 08:18 AM Reporting Lab: [facility] TRN [facility] CENTERUSETS [facility] [address] [facility] [address] Performing Lab: [facility] CENTERUSETS [facility] [address] [facility] [address] [facility]ITALRPICKENS COUNTY MEDICAL CENTERN [facility] CENTERUSE [facility] HEMOGLOB IN A1C PANEL HEMOGLOBIN A1C/HEMOGL OBIN.TOTAL IN BLOOD BY HPLC 5.0 4.0 - 5.6 10/11 Specimen Type: BLOOD Comment: Values obtained from A1C measurement s can vary. For atypical A1C assays, a reported value of 7.0 could actually be between 6.72 and 7.28 if measured by a reference method. A reported value of 9.0 could actually be between 8.73 and 9.27. Ref: http://www. ngsp.org/[place] Pdata.asp Ordering Provider: SUZI COPE SA Report Released Date/Time: Oct 11, 2024 08:18 AM Reporting Lab: [facility]OS[facility]ITALRL TRN [facility] CENTERUSETS [facility] [address] [facility] [address] Performing Lab: [facility]LY [facility]ITALRL TRN [facility] CENTERUSENYU [facility] [address] [facility] [address] FOR[facility]LY [facility]ITALRPICKENS [facility] CENTERN [facility] LIVER FUNCTION PROTEIN [MASS/VOLU ME] IN SERUM OR PLASMA 6.5 g/dL 6.0 - 8.3 10/11 Specimen Type: SERUM No comment entered. Ordering Provider: SUZI COPE SA Report Released Date/Time: Oct 11, 2024 08:18 AM Reporting Lab: [facility]OS[facility]ITALRL TRN [facility] CENTERUSETS [facility] [address] [facility] [address] Performing Lab: [facility]MERLY [facility]OSPITALRL TRN [facility] CENTERUSENY[facility] [address] [facility] [address] FOR[facility]LY [facility]ITALRPICKENS [facility] MED[facility] CENTERN [facility] LIVER FUNCTION ALBUMIN [MASS/VOLU ME] IN SERUM OR PLASMA 3.8 g/dL 3.5 - 5.0 10/11 Specimen Type: SERUM No comment entered. Ordering Provider: SUZI COPE SA Report Released Date/Time: Oct 11, 2024 08:18 AM Reporting Lab: [facility] [place] [facility] [address] [facility] [address] Performing Lab: [facility] [place] [facility] [address] [facility] [facility] [address] [facility] [place] [facility] LIVER FUNCTION ALKALINE PHOSPHATAS E [ENZYMATIC ACTIVITY/V OLUME] IN SERUM OR PLASMA 84 U/L 40 - 150 10/11 Specimen Type: SERUM No comment entered. Ordering Provider: SUZI COPE SA Report Released Date/Time: Oct 11, 2024 08:18 AM Reporting Lab: [facility] [place] [facility] [address] [facility] [address] Performing Lab: [facility] [place] [facility] [address] [address] [facility] [place] [facility] LIVER FUNCTION ASPARTATE AMINOTRANS FERASE [ENZYMATIC ACTIVITY/V OLUME] IN SERUM OR PLASMA 21 U/L 5 - 34 10/11 Specimen Type: SERUM No comment entered. Ordering Provider: SUZI COPE SA Report Released Date/Time: Oct 11, 2024 08:18 AM Reporting Lab: [facility] [place] [facility] [address] [facility] [address] Performing Lab: [facility] [place] [facility] [address] [address] FOR[facility]ITALRL [facility]N [place] [facility] LIVER FUNCTION ALANINE AMINOTRANS FERASE [ENZYMATIC ACTIVITY/V OLUME] IN SERUM OR PLASMA 26 U/L 10/11 Specimen Type: SERUM No comment entered. Ordering Provider: SUZI COPE SA Report Released Date/Time: Oct 11, 2024 08:18 AM Reporting Lab: [facility] [place] [facility] [address] [facility] [address] Performing Lab: [facility] [place] [facility] [address] [address] [facility] [place] [facility] LIVER FUNCTION BILIRUBIN. TOTAL [MASS/VOLU ME] IN SERUM OR PLASMA 0.8 mg/dL 0.2 - 1.2 10/11 Specimen Type: SERUM No comment entered. Ordering Provider: SUZI COPE SA Report Released Date/Time: Oct 11, 2024 08:18 AM Reporting Lab: [facility] [place] [facility] [address] [facility] [address] Performing Lab: [facility] [place] [facility] [address] [address] [facility] [place] [facility] TSH THYROTROPI N [UNITS/VOL UME] IN SERUM OR PLASMA 2.44 u[IU]/mL 0.35 - 5.00 10/11 Specimen Type: SERUM No comment entered. Ordering Provider: SUZI COPE SA Report Released Date/Time: Oct 11, 2024 08:18 AM Reporting Lab: [facility] [place] [facility] [address] [facility] [address] Performing Lab: [facility] [place] [facility] [address] [facility] [address] [facility] [place] [facility] CBC AND DIFF (AUTO) LEUKOCYTES [#/VOLUME] IN BLOOD BY AUTOMATED COUNT 7.92 10*3/uL 4.50 - 11.00 10/11 Specimen Type: BLOOD No comment entered. Ordering Provider: SUZI COPE SA Report Released Date/Time: Oct 11, 2024 08:18 AM Reporting Lab: [facility] [place] [facility] [address] [facility] [address] Performing Lab: [facility] [place] [facility] [address] [facility] [address] [facility] [place] [facility] CBC AND DIFF (AUTO) ERYTHROCYT ES [#/VOLUME] IN BLOOD BY AUTOMATED COUNT 4.64 10*6/uL 3.93 - 5.16 10/11 Specimen Type: BLOOD No comment entered. Ordering Provider: SUZI COPE SA Report Released Date/Time: Oct 11, 2024 08:18 AM Reporting Lab: [facility] [place] [facility] [address] [facility] [address] Performing Lab: [facility] [place] [facility] [address] [facility] [address] [facility] [place] [facility] CBC AND DIFF (AUTO) HEMOGLOBIN [MASS/VOLU ME] IN BLOOD 14.2 g/dL 12 - 15.2 10/11 Specimen Type: BLOOD No comment entered. Ordering Provider: SUZI COPE SA Report Released Date/Time: Oct 11, 2024 08:18 AM Reporting Lab: [facility] [place] [facility] [address] [facility] [address] Performing Lab: [facility] [place] [facility] [address] [facility] [address] [facility] [place] [facility] CBC AND DIFF (AUTO) HEMATOCRIT [VOLUME FRACTION] OF BLOOD BY AUTOMATED COUNT 41.9 36.6 - 45.6 10/11 Specimen Type: BLOOD No comment entered. Ordering Provider: SUZI COPE SA Report Released Date/Time: Oct 11, 2024 08:18 AM Reporting Lab: [facility] [place] [facility] [address] [facility] [address] Performing Lab: [facility] [place] [facility] [address] [facility] [address] [facility] [place] [facility] CBC AND DIFF (AUTO) MCV [ENTITIC VOLUME] BY AUTOMATED COUNT 90.3 fL 82 - 99 10/11 Specimen Type: BLOOD No comment entered. Ordering Provider: SUZI COPE SA Report Released Date/Time: Oct 11, 2024 08:18 AM Reporting Lab: [facility] [place] [facility] [address] [facility] [address] Performing Lab: [facility] [place] [facility] [address] [facility] [address] [facility] [place] [facility] CBC AND DIFF (AUTO) MCHC [MASS/VOLU ME] BY AUTOMATED COUNT 33.9 g/dL 30.8 - 35.1 10/11 Specimen Type: BLOOD No comment entered. Ordering Provider: SUZI COPE SA Report Released Date/Time: Oct 11, 2024 08:18 AM Reporting Lab: [facility] [place] [facility] [address] [facility] [address] Performing Lab: [facility] [place] [facility] [address] [facility] [address] [facility] [place] [facility] CBC AND DIFF (AUTO) PLATELETS [#/VOLUME] IN BLOOD BY AUTOMATED COUNT 246 10*3/uL 140 - 360 10/11 Specimen Type: BLOOD No comment entered. Ordering Provider: SUZI COPE SA Report Released Date/Time: Oct 11, 2024 08:18 AM Reporting Lab: [facility] [place] [facility] [address] [facility] [facility] [address] Performing Lab: [facility] [place] [facility] [address] [facility] [address] [facility] [place] [facility] CBC AND DIFF (AUTO) ERYTHROCYT E DISTRIBUTI ON WIDTH [RATIO] BY AUTOMATED COUNT 14.5 12.0 - 16.0 10/11 Specimen Type: BLOOD No comment entered. Ordering Provider: SUZI COPE SA Report Released Date/Time: Oct 11, 2024 08:18 AM Reporting Lab: [facility] [place] [facility] [address] [facility] [facility] [address] Performing Lab: [facility] [place] [facility] [address] [facility] [address] [facility] [place] [facility] CBC AND DIFF (AUTO) MONOCYTES [#/VOLUME] IN BLOOD BY AUTOMATED COUNT 0.49 10*3/uL 0.30 - 1.10 10/11 Specimen Type: BLOOD No comment entered. Ordering Provider: SUZI COPE SA Report Released Date/Time: Oct 11, 2024 08:18 AM Reporting Lab: [facility] [place] [facility] [address] [facility] [facility] [address] Performing Lab: [facility] [place] [facility] [address] [facility] [address] [facility] [place] [facility] CBC AND DIFF (AUTO) MCH [ENTITIC MASS] BY AUTOMATED COUNT 30.6 pg 26.2 - 32.6 10/11 Specimen Type: BLOOD No comment entered. Ordering Provider: SUZI COPE SA Report Released Date/Time: Oct 11, 2024 08:18 AM Reporting Lab: [facility] [place] [facility] [address] [facility] [address] Performing Lab: [facility] [place] [facility] [address] [facility] [address] [facility] [place] [facility] CBC AND DIFF (AUTO) NEUTROPHIL S/100 LEUKOCYTES IN BLOOD BY AUTOMATED COUNT 58.1 43.7 - 75.8 10/11 Specimen Type: BLOOD No comment entered. Ordering Provider: SUZI COPE SA Report Released Date/Time: Oct 11, 2024 08:18 AM Reporting Lab: [facility] [place] [facility] [address] [facility] [address] Performing Lab: [facility] [place] [facility] [address] [facility] [address] [facility] [place] CBC AND DIFF (AUTO) LYMPHOCYTE S/100 LEUKOCYTES IN BLOOD BY AUTOMATED COUNT 33.3 14.0 - 42.3 10/11 Specimen Type: BLOOD No comment entered. Ordering Provider: SUZI COPE SA Report Released Date/Time: Oct 11, 2024 08:18 AM Reporting Lab: [facility] [place] [facility] [address] [facility] [facility] [address] Performing Lab: [facility] [place] [facility] [address] [facility] [address] [facility] [place] CBC AND DIFF (AUTO) MONOCYTES/ 100 LEUKOCYTES IN BLOOD BY AUTOMATED COUNT 6.2 5.1 - 13.7 10/11 Specimen Type: BLOOD No comment entered. Ordering Provider: SUZI COPE SA Report Released Date/Time: Oct 11, 2024 08:18 AM Reporting Lab: [facility] [place] [facility] [address] [facility] [address] Performing Lab: [facility] [place] [facility] [address] [facility] [address] [facility] [place] CBC AND DIFF (AUTO) EOSINOPHIL S/100 LEUKOCYTES IN BLOOD BY AUTOMATED COUNT 1.6 0.4 - 6.8 10/11 Specimen Type: BLOOD No comment entered. Ordering Provider: SUZI COPE SA Report Released Date/Time: Oct 11, 2024 08:18 AM Reporting Lab: [facility] [place] [facility] [address] [facility] [address] Performing Lab: [facility] [place] [facility] [address] [facility] [address] [facility] [place] CBC AND DIFF (AUTO) BASOPHILS/ 100 LEUKOCYTES IN BLOOD BY AUTOMATED COUNT 0.5 0.1 - 2.0 10/11 Specimen Type: BLOOD No comment entered. Ordering Provider: SUZI COPE SA Report Released Date/Time: Oct 11, 2024 08:18 AM Reporting Lab: [facility] [place] [facility] [address] [facility] [address] Performing Lab: [facility] [place] [facility] [address] [facility] [address] [facility] CBC AND DIFF (AUTO) NEUTROPHIL S [#/VOLUME] IN BLOOD BY AUTOMATED COUNT 4.60 10*3/uL 2.20 - 7.60 10/11 Specimen Type: BLOOD No comment entered. Ordering Provider: SUZI COPE SA Report Released Date/Time: Oct 11, 2024 08:18 AM Reporting Lab: [facility] [place] [facility] [address] [facility] [address] Performing Lab: [facility] [place] [facility] [address] [facility] [facility] [address] [facility] CBC AND DIFF (AUTO) LYMPHOCYTE S [#/VOLUME] IN BLOOD BY AUTOMATED COUNT 2.64 10*3/uL 1.00 - 3.20 10/11 Specimen Type: BLOOD No comment entered. Ordering Provider: SUZI COPE SA Report Released Date/Time: Oct 11, 2024 08:18 AM Reporting Lab: [facility] [place] [facility] [address] [facility] [address] Performing Lab: [facility] [place] [facility] [address] [facility] [address] [facility] CBC AND DIFF (AUTO) EOSINOPHIL S [#/VOLUME] IN BLOOD BY AUTOMATED COUNT 0.13 10*3/uL 0.03 - 0.44 10/11 Specimen Type: BLOOD No comment entered. Ordering Provider: SUZI COPE SA Report Released Date/Time: Oct 11, 2024 08:18 AM Reporting Lab: [facility] [place] [address] [address] Performing Lab: [facility] [place] [address] [address] [facility] [place] [facility] CBC AND DIFF (AUTO) BASOPHILS [#/VOLUME] IN BLOOD BY AUTOMATED COUNT 0.04 10*3/uL 0.01 - 0.13 10/11 Specimen Type: BLOOD No comment entered. Ordering Provider: SUZI COPE SA Report Released Date/Time: Oct 11, 2024 08:18 AM Reporting Lab: [facility] [place] [address] [address] Performing Lab: [facility] [place] [address] [address] [facility]ITALRL WSTRN [facility]ENTERCHUSE [facility] CBC AND DIFF (AUTO) IMMATURE GRANULOCYT ES/100 LEUKOCYTES IN BLOOD BY AUTOMATED COUNT 0.3 0.0 - 0.7 10/11 Specimen Type: BLOOD No comment entered. Ordering Provider: SUZI COPE SA Report Released Date/Time: Oct 11, 2024 08:18 AM Reporting Lab: [facility] [place] [address] [address] Performing Lab: [facility] [place] [address] [address] [facility] [place] [facility] CBC AND DIFF (AUTO) IMMATURE GRANULOCYT ES [#/VOLUME] IN BLOOD BY AUTOMATED COUNT 0.02 10*3/uL 0.00 - 0.06 10/11 Specimen Type: BLOOD No comment entered. Ordering Provider: SUZI COPE SA Report Released Date/Time: Oct 11, 2024 08:18 AM Reporting Lab: [facility] [place] [address] [address] Performing Lab: [facility] [place] [facility] [address] [facility] [address] [facility] [place] [facility] CBC AND DIFF (AUTO) NUCLEATED ERYTHROCYT ES/100 LEUKOCYTES [RATIO] IN BLOOD BY AUTOMATED COUNT 0.0 0.0 - 0.0 10/11 Specimen Type: BLOOD No comment entered. Ordering Provider: SUZI COPE SA Report Released Date/Time: Oct 11, 2024 08:18 AM Reporting Lab: [facility] [place] [facility] [address] [facility] [address] Performing Lab: [facility] [place] [facility] [address] [facility] [address] [facility] [place] [facility] CBC AND DIFF (AUTO) NUCLEATED ERYTHROCYT ES [#/VOLUME] IN BLOOD BY AUTOMATED COUNT 0.00 10*3/uL 0.00 - 0.00 10/11 Specimen Type: BLOOD No comment entered. Ordering Provider: SUZI COPE SA Report Released Date/Time: Oct 11, 2024 08:18 AM Reporting Lab: [facility] [place] [facility] [address] [facility] [address] Performing Lab: [place] [facility]CHUSETS [facility] [address] [facility] [address] [facility]ITALRL TRN [facility]ENTERUSE [facility] Vital Signs Combined list of inpatient and outpatient Vital Signs from Department of Defense and Veterans Affairs, ranging from 12 months to all on record, depending upon the facility. Vital Sign Value Date Comments Source SYSTOLIC BLOOD PRESSURE 128 12/03/19 25 09:36:00 [facility] DIASTOLIC BLOOD PRESSURE 81 025 09:36:00 [facility] PULSE OXIMETRY 100 12/02/2024 09:36:00 [facility] PAIN 1 12/02/2024 09:36:00 [facility] TEMPERATURE 98.5 12/02/2024 09:36:00 [facility] PULSE 62 12/02/2024 09:36:00 [facility] RESPIRATION 20 12/02/2024 09:36:00 [facility] SYSTOLIC BLOOD PRESSURE 101 10/19/19 25 08:29:52 [facility] DIASTOLIC BLOOD PRESSURE 68 025 08:29:52 [facility] PULSE OXIMETRY 98 10/18/2024 08:29:52 [facility] WEIGHT 166 10/18/2024 08:29:52 [facility] BMI 27 kg/m2 10/18/2024 08:29:52 [facility] PULSE 64 10/18/2024 08:29:52 [facility] RESPIRATION 18 10/18/2024 08:29:52 [facility] SYSTOLIC BLOOD PRESSURE 130 10/04/19 08:03:00 [facility] DIASTOLIC BLOOD PRESSURE 79 025 08:03:00 [facility] PULSE OXIMETRY 96 10/04/2024 08:03:00 [facility] PAIN 6 10/04/2024 08:03:00 [facility] TEMPERATURE 98 10/04/2024 08:03:00 [facility] PULSE 77 10/04/2024 08:03:00 [facility] RESPIRATION 18 10/04/2024 08:03:00 [facility] SYSTOLIC BLOOD PRESSURE 131 02/17/20 09:54:00 [facility] DIASTOLIC BLOOD PRESSURE 84 024 09:54:00 [facility] PULSE OXIMETRY 99 02/17/2024 09:54:00 [facility] PAIN 3 02/17/2024 09:54:00 [facility] TEMPERATURE 98.3 02/17/2024 09:54:00 [facility] PULSE 65 02/17/2024 09:54:00 [facility] RESPIRATION 16 02/17/2024 09:54:00 [facility] SYSTOLIC BLOOD PRESSURE 110 02/12/20 24 13:34:56 [facility] DIASTOLIC BLOOD PRESSURE 69 024 13:34:56 [facility] PULSE OXIMETRY 96 02/12/2024 13:34:56 [facility] WEIGHT 213.6 02/12/2024 13:34:56 [facility] BMI 35 kg/m2 02/12/2024 13:34:56 [facility] PAIN 0 02/12/2024 13:34:56 [facility] TEMPERATURE 99 02/12/2024 13:34:56 [facility] PULSE 69 02/12/2024 13:34:56 [facility] RESPIRATION 14 02/12/2024 13:34:56 [facility] Encounters Combined list of: 1) Encounters from [facility] facilities going backup to the last 18 months, not all [facility] inpatient encounters are included; 2) Encounters from the Department of Defense facilities going backup to 280 months. Location Location Details Encounter Type Encounter Number Reason For Visit Attending Provider ADM Date DC Date Status Disposition Source [facility] QNHP OL DIG ASSMT&MGMT 5-10 [id number] Diagnos is: ICD-10- CM E66.09 Other obesity due to excess calorie s Bianka MARTINEZ 06/28 [facility] Outpatient [facility]counter [id number] 06/28 [facility] Out[facility]counter [id number] HARRY VILLATORO 07/10 [facility] PSYTX W PT 45 MINUTES [id number] Diagnos is: ICD-10- CM F31.32 Bipolar disorde r, current episode depress ed, moderat e ALBER BROWNING 07/13 [facility] [place] [facility] PSYTX W/PT 50 MIN [id number] Diagnos is: ICD-10- CM F43.10 Post-tr aumatic stress disorde r, unspeci fihelena PEOPLESACEJOSÉ MIGUELBiankaSAVANNAHZach SARABIA 07/18 [facility] Outpatient Encounter [id number] 07/21 [facility] Outpatient Encounter [id number] 07/24 [facility] FAMILY PSYTX W/PT 50 MIN [id number] Diagnos is: ICD-10- CM Z62.820 Parent- biologi sydni child conflic lorena PEOPLESBianka MCMAHON 07/25 [facility] PSYTX W/PT 50 MIN [id number] Diagnos is: ICD-10- CM Z62.820 Parent- biologi sydni child conflic lorena Bianka AQUINO 08/03 [facility] DOMICILLI DEMETRIA Outpatient Encounter [id number] 08/09 [facility] DOMICIL LIARY [facility] Outpatient Encounter [id number] 08/09 [facility] OFFICE O/P EST MOD 30 MIN [id number] Diagnos is: ICD-10- CM N95.1 [place] irma and female climact vida states Ezequiel COPE 08/09 [facility] [facility] Outpatient Encounter [id number] AGUSTIN BEGUM 08/11 [facility] Out[facility] Encounter [id number] AGUSTIN BEGUM 08/16 [facility] PSYTX W PT 60 MINUTES [id number] Diagnos is: ICD-10- CM F31.32 Bipolar disorde r, current episode depress ed, moderat e MALINOFSKY ,ALBER 08/17 [facility] Outpatient Encounter [id number] 08/18 [facility] [place] PSYTX W PT 45 MINUTES [id number] [id number] Diagnos is: ICD-10- CM Z62.820 Parent- biologi sydni child Bianka Silva 08/28 [place] [facility] MANUAL THERAPY / REGIONS [id number] Diagnos is: ICD-10- CM M77.12 Lateral epicond ylitis, left elbow MACHON,DEMETRICE LIE E 08/30 [facility] PSYTX W PT 30 MINUTES [id number] Diagnos is: ICD-10- CM F31.32 Bipolar disorde r, current episode depress ed, moderat e MALINOFSKY ,ALBER 08/31 [facility] Outpatient Encounter [id number] HARRY VILLATORO 09/07 [facility] [place] 15 [id number] Diagnos is: ICD-10- CM M77.12 Lateral epicond ylitis, left elbow MACHON,DEMETRICE LIE E 09/08 [facility] OFFICE O/P EST LOW 20 MIN [id number] Diagnos is: ICD-10- CM F31.32 Bipolar disorde r, current episode depress ed, moderat e GABRIELLE FLORES 09/11 [facility] Outpatient Encounter [id number] KAIDEN CASEY L 09/12 [facility] [place] 15 [id number] Diagnos is: ICD-10- CM M77.12 Lateral epicond ylitis, left elbow MACHON,DEMETRICE LIE E 09/13 [facility] Outpatient Encounter [id number] KAIDEN CASEY L 09/13 [facility] PSYTX W PT 45 MINUTES [id number] Diagnos is: ICD-10- CM F43.10 Post-tr aumatic stress disorde r, unspeci fied ALBER BROWNING 09/14 [facility] [place] 15 [id number] Diagnos is: ICD-10- CM M77.12 Lateral epicond ylitis, left elbow MACHON,DEMETRICE LIE E 09/18 [facility] Outpatient Encounter [id number] 09/29 [facility] PSYTX W PT 45 MINUTES [id number] Diagnos is: ICD-10- CM F50.81 Binge eating disorde r MALINOFSJONE ,ALBER [facility] [place] 15 [id number] Diagnos is: ICD-10- CM M77.12 Lateral epicond ylitis, left elbow MACHON,DEMETRICE LIE E 10/15 [facility] Outpatient Encounter [id number] 10/17 [facility] PSYTX W PT 45 MINUTES [id number] Diagnos is: ICD-10- CM F43.10 Post-tr aumatic stress disorde r, unspeci fied TRESSAINOFSJONE ,ALBER 10/18 [facility] [place] 15 [id number] Diagnos is: ICD-10- CM M77.12 Lateral epicond ylitis, left elbow MACHON,DEMETRICE LIE E 10/19 [facility] Outpatient Encounter [id number] 10/22 [facility] Outpatient Encounter [id number] KAIDEN CASEY L 10/29 [facility] PSYTX W PT 45 MINUTES [id number] Diagnos is: ICD-10- CM F43.10 Post-tr aumatic stress disorde r, unspeci fied MALINOFSKY ,ALBER 11/01 [facility] Outpatient Encounter [id number] CHRISTO RESENDIZ 11/09 [facility] OFFICE O/P EST SF 10 MIN [id number] Diagnos is: ICD-10- CM F31.32 Bipolar disorde r, current episode depress ed, moderat e GABRIELLE FLORESUELJOSHUA 11/12 [facility] [place] 15 [id number] Diagnos is: ICD-10- CM M77.12 Lateral epicond ylitis, left elbow MACHON,DEMETRICE LIE E 11/22 [facility] GROUP PSYCHOTHER APY [id number] Diagnos is: ICD-10- CM F43.10 Post-tr aumatic stress disorde r, unspeci fied MALINOFSKY ,ALBER 11/22 [facility] Outpatient Encounter [id number] 11/23 [facility] Outpatient Encounter [id number] 11/27 [facility] Outpatient Encounter [id number] 11/28 [facility] Outpatient Encounter [id number] 11/30 [facility] PSYTX W PT 30 MINUTES [id number] Diagnos is: ICD-10- CM Z63.9 Problem related to primary support group, unspeci fied MALINOFSKY ,ALBER 12/06 [facility] PSYTX W PT 45 MINUTES [id number] Diagnos is: ICD-10- CM F43.10 Post-tr aumatic stress disorde r, unspeci fied MALINOFSKY ,ALBER 12/20 [facility] Outpatient Encounter [id number] 12/21 [facility] Outpatient Encounter [id number] 12/24 [facility] Outpatient Encounter [id number] 01/01 [facility] Outpatient Encounter [id number] 01/08 [facility] Outpatient Encounter [id number] 01/10 [facility] [place] 15 [id number] Diagnos is: ICD-10- CM M77.12 Lateral epicond ylitis, left elbow MACHON,DEMETRICE LIE E 01/10 [facility] PSYTX W PT 45 MINUTES [id number] Diagnos is: ICD-10- CM F31.32 Bipolar disorde r, current episode depress ed, moderat e MALINOFSKY ,ALBER 01/10 [facility] POS AIRWAY PRESSURE FILTER [id number] Diagnos is: ICD-10- CM G47.33 Obstruc tive sleep apnea (adult) (pediat arias) ST TOMAS,JUAN ANTONIO E P 01/10 [facility] OFFICE O/P EST LOW 20 MIN [id number] Diagnos is: ICD-10- CM F43.10 Post-tr aumatic stress disorde r, unspeci fied GABRIELLE FLORES 01/14 [facility] Outpatient Encounter [id number] 01/17 [facility] [place] 15 [id number] Diagnos is: ICD-10- CM M77.12 Lateral epicond ylitis, left elbow MACHON,DEMETRICE LIE E 01/21 [facility] PSYTX W PT 30 MINUTES [id number] Diagnos is: ICD-10- CM F31.32 Bipolar disorde r, current episode depress ed, moderat e MALINOFSKY ,ALBER 01/24 [facility] Outpatient Encounter [id number] 01/28 [facility] [place] 15 [id number] Diagnos is: ICD-10- CM M77.12 Lateral epicond ylitis, left elbow MACHON,DEMETRICE LIE E 01/29 [facility] Outpatient Encounter [id number] 01/29 [facility] CRISIS INTERVENTI ON PER HOUR [id number] Diagnos is: ICD-10- CM F31.32 Bipolar disorde r, current episode depress ed, moderat e ALBER BROWNING 01/31 [facility] Outpatient Encounter [id number] 01/31 [facility] OFFICE O/P EST SF 10 MIN [id number] Diagnos is: ICD-10- CM F31.32 Bipolar disorde r, current episode depress ed, moderat e GABRIELLE FLORES CQUELYN 02/11 [facility] OFFICE O/P EST MOD 30 MIN [id number] Diagnos is: ICD-10- CM E66.09 Other obesity due to excess calorie s Ezequiel COPE ROSAZach RAMIREZ 02/11 [facility] [place] PSYTX W/PT 50 MIN [id number] [id number] Diagnos is: ICD-10- CM Z62.820 Parent- biologi sydni child conflic Bianka Santiago 02/14 [facility] IEOBEY [facility] EMERGENCY DEPT VISIT MOD MDM [id number] [id number] Diagnos is: ICD-10- CM H00.015 Hordeol um externu m left lower eyelid BADDORF,SA RAH W 02/16 [facility] [place] [facility] Outpatient Encounter [id number] 02/21 [facility] OFF/OP EST MAY X REQ PHY/QHP [id number] [id number] Diagnos is: ICD-10- CM F31.32 Bipolar disorde r, current episode depress ed, moderat Kishan Mirza ATRICIA A 02/27 [facility] Outpatient Encounter [id number] ALBER BROWNING 02/28 [facility] PSYTX W PT 30 MINUTES [id number] Diagnos is: ICD-10- CM F43.0 Acute stress reactio n ALBER BROWNING 02/28 [facility] Outpatient Encounter [id number] Venessa BLUNT H 03/04 [facility] Outpatient Encounter [id number] 03/06 [facility]/PT 50 MIN [id number] [id number] Diagnos is: ICD-10- CM Z62.820 Parent- biologi sydni child conflic Bianka Santiago 03/15 [place] [facility] OFFICE O/P EST LOW 20 MIN [id number] Diagnos is: ICD-10- CM F43.10 Post-tr aumatic stress disorde r, unspeci fied GABRIELLE FLORES 03/18 [facility] PSYTX W PT 45 MINUTES [id number] Diagnos is: ICD-10- CM F43.10 Post-tr aumatic stress disorde r, unspeci fied ALBER BROWNING 03/21 [facility] Outpatient Encounter [id number] HARRY VILLATORO 03/22 [facility] PSYTX W PT 45 MINUTES [id number] [id number] Diagnos is: ICD-10- CM F43.0 Acute stress reactio n ALBER BROWNING 04/04 [facility] MANUAL THERAPY / REGIONS [id number] Diagnos is: ICD-10- CM M25.521 Pain in right elbow MACHONDEMETRICE LIE E 04/11 [facility] Outpatient Encounter [id number] 04/12 [facility] OFFICE O/P EST SF 10 MIN [id number] [id number] Diagnos is: ICD-10- CM F31.32 Bipolar disorde r, current episode depress ed, moderat e GABRIELLE FLORES 04/15 [facility] Outpatient Encounter [id number] 04/16 [facility] PSYTX W PT 45 MINUTES [id number] Diagnos is: ICD-10- CM F43.10 Post-tr aumatic stress disorde r, unspeci fied MALINOFSKY ,ALBER 04/18 [facility] [place] 15 [id number] Diagnos is: ICD-10- CM M25.521 Pain in right elbow MACHON,DEMETRICE LIE E 04/19 [facility] Out[facility] Encounter [id number] 04/23 [facility] Outpatient Encounter [id number] PICHARRY Begum H 04/26 [facility] PSYTX W PT 30 MINUTES [id number] Diagnos is: ICD-10- CM F43.10 Post-tr aumatic stress disorde r, unspeci fied MALINOFSKY ,ALBER 05/02 [facility] PSYTX W PT 30 MINUTES [id number] [id number] Diagnos is: ICD-10- CM F43.10 Post-tr aumatic stress disorde r, unspeci fied MALINOFSKY ,ALBER 05/09 [facility] PSYTX W PT 30 MINUTES [id number] [id number] Diagnos is: ICD-10- CM F43.10 Post-tr aumatic stress disorde r, unspeci fied MALINOFSKY ,ALBER 05/27 [facility] Outpatient Encounter [id number] TRESSAINOALBER RAMSEY 05/30 [facility] PSYTX W PT 45 MINUTES [id number] [id number] Diagnos is: ICD-10- CM F43.0 Acute stress reactio n MALINOALBER RAMSEY 06/03 [facility] Out[facility] Encounter [id number] DEMETRICE OSBORNE LIE E 06/06 [facility] Outpatient Encounter [id number] ALBER BROWNING 06/07 [facility] PSYTX W PT 30 MINUTES [id number] [id number] Diagnos is: ICD-10- CM F43.0 Acute stress reactio n ALBER BROWNING 06/10 [facility] Outpatient Encounter [id number] GARBIELLE FLORES CQUELYN 06/20 [facility] [place] EA 15 [id number] 1. Diagnos is: ICD-10- CM M25.521 Pain in right elbow DEMETRICE OSBORNE LIE E 06/28 [facility] PSYTX W PT 30 MINUTES [id number] [id number] Diagnos is: ICD-10- CM F43.0 Acute stress reactio n MALALBER MARTIN 07/08 [facility] Out[facility] Encounter [id number] 07/15 [facility] PSYTX W PT 30 MINUTES [id number] 1. Diagnos is: ICD-10- CM F43.0 Acute stress reactio n MALINOFSSONIA BECERRILA 07/15 [facility] Outpatient Encounter [id number] 07/16 [facility] PSYTX W PT 45 MINUTES [id number] 1. Diagnos is: ICD-10- CM F43.10 Post-tr aumatic stress disorde r, unspeci fied ALBER BROWNING 07/22 [facility] LD FAMILY PSYTX W/PT 50 MIN [id number] [id number] Diagnos is: ICD-10- CM Z63.0 Problem s in relatio nship with spouse or partner Bianka AQUINO 08/12 [place] [facility] PSYTX W PT 45 MINUTES [id number] [id number] Diagnos is: ICD-10- CM F43.0 Acute stress reactio n ALBER BROWNING 08/19 [facility] OFFICE O/P EST MOD 30 MIN [id number] [id number] Diagnos is: ICD-10- CM F43.10 Post-tr aumatic stress disorde r, unspeci fied GABRIELLE FLORES 08/19 [facility] Out[facility] Encounter [id number] 08/27 [facility] PSYTX W PT 45 MINUTES [id number] [id number] Diagnos is: ICD-10- CM F43.0 Acute stress reactio n ALBER BROWNING 09/02 [facility] [place] FAMILY PSYTX W/PT 50 MIN [id number] [id number] Diagnos is: ICD-10- CM F43.10 Post-tr aumatic stress disorde r, unspeci fied VINOCOBianka VALDEZ 09/13 [place] [facility] PSYTX W PT 45 MINUTES [id number] [id number] Diagnos is: ICD-10- CM Z63.8 Other specifi ed problem s related to primary support group ALBER BROWNING 09/16 [facility] [place] FAMILY PSYTX W/PT 50 MIN [id number] [id number] Diagnos is: ICD-10- CM F43.10 Post-tr aumatic stress disorde r, unspeci fied VINBianka MCMAHON 09/24 [place] [facility] Outpatient Encounter [id number] 10/04 [facility]OP EST DECEMBER X REQ PHY/QHP [id number] [id number] Diagnos is: ICD-10- CM K64.9 Unspeci fied hemorrh oiRIOS Thompson IC K 10/04 [facility] W/PT 50 MIN 63366-9.63 [id number] Diagnos is: ICD-10- CM Z62.820 Parent- biologi sydni child conflic t Bianka AQUINO 10/09 [place] [facility] CASE MANAGEMENT [id number] [id number] Diagnos is: ICD-10- CM F43.10 Post-tr aumatic stress disorde r, unspeci fied ALBER BROWNING 10/14 [facility] OFFICE O/P EST SF 10 MIN [id number] [id number] Diagnos is: ICD-10- CM F31.32 Bipolar disorde r, current episode depress ed, moderat e GABRIELLE FLORES CQUELYN 10/17 [facility] Outpatient Encounter [id number] 10/17 [facility] Outpatient Encounter [id number] 10/18 [facility] OFFICE O/P EST MOD 30 MIN [id number] [id number] Diagnos is: ICD-10- CM I10 Essenti al (primar y) hyperte nsion ANATOLIY,L ROSA ASHLEY 10/18 [facility] PSYTX W PT 45 MINUTES [id number] [id number] Diagnos is: ICD-10- CM Z63.79 Other stressf ul life events affecti ng family and househo ld ALBER BROWNING 10/28 [facility] PSYTX W PT 30 MINUTES [id number] [id number] Diagnos is: ICD-10- CM F43.0 Acute stress reactio n ALBER BROWNING 11/25 [facility] EMERGENCY DEPT VISIT LOW MDM [id number] [id number] Diagnos is: ICD-10- CM R21 Rash and other nonspec ific skin eruptio n KAMILLE FORTUNE 12/02 [facility] PSYTX W PT 45 MINUTES [id number] Diagnos is: ICD-10- CM F43.0 Acute stress reactio n ALBER BROWNING 12/09 [facility] OFFICE O/P EST LOW 20 MIN [id number] Diagnos is: ICD-10- CM F31.32 Bipolar disorde r, current episode depress ed, GABRIELLE Pack 12[facility] Procedures Combined list of: 1) Procedures from Department of Veterans Affairs facilities going back up to thelast 18 months, not all [place] non-surgical procedures are included; 2) All procedures from the Department of Defense facilities. Procedure Procedure Type Code Date Perfomer Comments Sourc e CAUTERIZATION OF HEMORRHOIDS 09/15/1995 [facility] OTHER PROCTOSIGMOIDOSCOPY 08/01/1995 [facility] DILATION OF ANAL SPHINCTER 08/01/1995 [facility] Social History Combined list of available smoking, tobacco, and other social history from Department of Defense and Veterans Affairs facilities. Social History Type Response Date Comment Sourc e Tobacco smoking status NHIS [place]-TOBACCO NEVER USED 09/11/2023 [facility] [place] [facility] History of tobacco use [place]-TO[place]AC[place] NEVER USED 09/30/2022 [facility] [place] [facility] History of tobacco use [place]-TOBAC[place] NEVER USED 05/26/2021 [facility] History of tobacco use [place]-TOBAC[place] NEVER USED 04/21/2020 [facility] [place] [place] [facility] History of tobacco use [place]-TOBAC[place] NEVER USED 01/10/2019 [facility] [place] [place] [facility] History of tobacco use LIFETIME NON-TOBACCO USER 03/09/2018 [facility] History [facility] tobacco use LIFETIME NON-USER OF TOBACCO 02/06/2007 [facility] History of tobacco use TOBACCO USE SCREENING 06/07/2005 [facility] History of tobacco use TOBACCO USE SCREENING 03/23/2004 [facility] History of tobacco use CURRENT NON-TOBACCO USER 09/18/2002 [facility] This section is an empty social history section. [facility] Plan of Care List of future care activities from Department [facility] facilities. Additional future care activities may be listed in the Assessment and Plan section. Date/Time Care Activity Care Activity Detail Facili ty 01/06/2025 AMBULATORY - PSYCHIATRY AMBULATORY - PS[facility]C [facility] [facility] Advance Directives List of completed, amended, or rescinded Advance Directives on record at [facility] facilities. An actual copy of the Directive is not included. Date Advance Directive Provider Source 02/23/2016 ADVANCE DIRECTIVE DISCUSSION MAHAD MCKENZIE [facility] 01/13/2004 ADVANCE DIRECTIVE JOSE NAJERA [facility]
--- OUTSIDE RECORDS SUMMARY | 2024-12-25 15:16 | XMS_ITS ---
Author Name [facility] [place] Address [address] [place] [address] Care Team Providers Care Houseman Name Role Phone ZOE COPE Primary Care [...] Desai's Name Patient's Relationship to Policy Desai [facility] Feb 04, 2019 [id number] GABRIELLE CHO PATIENT [facility] [place] [facility] Feb 04, 2019 [id number] GABRIELLE CHO PATIENT MEDICARE (WNR) MEDICARE (M) PART A Feb 05, 2000 PART A [id number] GABRIELLE HUGO PATIENT MEDICARE (WNR) MEDICARE (M) PART A Feb 05, 2000 PART A [id number] GABRIELLE CHO PATIENT MEDICARE (WNR) MEDICARE (M) PART A Feb 05, 2000 PART A [id number] [phone] GABRIELLE HUGO PATIENT Selected Encounter This section includes the information on record at [place] for the Encounter. Date/Time Encounter Type Encounter Description Reason Provider Source Apr 11, 2024 11:00 AM MANUAL THERAPY 1/> [facility] ICD-10-CM M25.521 Pain in right elbow BEV OSBORNE IHMarilyn Encounter Template Text not used by [place] Assessments - Encounter Diagnoses This section includes the primary and secondary diagnoses documented for the Encounter. Date/Time Primary/Secondary Diagnosis Diagnosis Name Provider Source Apr 11, 2024 03:56 PM PRIMARY Pain in right elbow BEV OSBORNE [place] [facility] [place] [facility] Plan of Treatment: Future Appointments (+ 6 months) and Future Tests (+/- 45 days) The Plan of Treatment section includes future care activities for the patient from all [place] treatmentfacilities. This section includes future appointments and future orders which are active, pending or scheduled. Future Appointments This section includes appointments that were scheduled to occur 6 months from the date of the Encounter, up to a maximum of 20 appointments. The data comes from all [place] treatment facilities. Appointment Date/Time Appointment Type Appointme nt Facility Name Apr 15, 2024 12:30 PM AMBULATORY - PSYCHIATRY [facility] [place] [facility] Apr 18, 2024 02:00 PM AMBULATORY - PSYCHIATRY [facility] [place] [facility] Apr 19, 2024 11:30 AM AMBULATORY - REHAB MEDICIN E [facility] [place] [facility] May 09, 2024 02:00 PM AMBULATORY - PSYCHIATRY [facility] [place] [facility] May 27, 2024 11:00 AM AMBULATORY - PSYCHIATRY [facility] [place] [facility] Jun 03, 2024 11:00 AM AMBULATORY - PSYCHIATRY [facility] [place] [facility] Jun 10, 2024 11:00 AM AMBULATORY - PSYCHIATRY [facility] [place] [facility] Jun 28, 2024 11:30 AM AMBULATORY - REHAB MEDICIN E [facility] [place] [facility] Jul 08, 2024 11:00 AM AMBULATORY - PSYCHIATRY [facility] [place] [facility] Jul 15, 2024 10:30 AM AMBULATORY - PSYCHIATRY [facility] [place] [facility] Jul 15, 2024 11:00 AM AMBULATORY - PSYCHIATRY [facility] [place] [facility] Jul 22, 2024 11:00 AM AMBULATORY - PSYCHIATRY [facility] [place] [facility] Aug 12, 2024 01:00 PM AMBULATORY - PSYCHIATRY [facility] Aug 19, 2024 11:00 AM AMBULATORY - PSYCHIATRY [facility] [place] [facility] Aug 19, 2024 03:00 PM AMBULATORY - PSYCHIATRY [facility] [place] [facility] Sep 02, 2024 11:00 AM AMBULATORY - PSYCHIATRY [facility] [place] [facility] Sep 13, 2024 03:00 PM AMBULATORY - PSYCHIATRY [facility] Sep 16, 2024 08:00 AM AMBULATORY - MEDICINE [facility] [place] [facility] Sep 16, 2024 11:00 AM AMBULATORY - PSYCHIATRY [facility] [place] [facility] Sep 24, 2024 01:00 PM AMBULATORY - PSYCHIATRY [facility] Social History: Smoking Status (Most current) and Tobacco Use (All prior to encounter date) This section includes the most current, and the historical, smoking and tobacco- related health factors from the [place] facility where the Encounter took place. Current Smoking Status This section includes the most current smoking, or tobacco-related health factor, from the [place] facility where the Encounter took place. Date/Time Current Smoking Status Comment Facil dana Sep 11, 2023 12:30 PM VA-TOBACCO NEVER USED [place] [facility] [place] [facility] Tobacco Use History This section includes a history of the smoking, or tobacco-related health factors, that were collected on or before the date of the Encounter. The data comes from the [place] facility where the Encounter took place. Date/Time Smoking Status/Tobacco Use Comment F acchio Sep 30, 2022 10:00 AM VA-TOBACCO NEVER USED [facility] [place] [facility] Apr 21, 2020 03:34 PM VA-TOBACCO NEVER USED [facility] [place] [facility] Jan 10, 2019 11:51 AM VA-TOBACCO NEVER USED [facility] [place] [facility] Mar 09, 2018 11:27 AM LIFETIME NON-TOBACCO USER [facility] [place] [facility] Advance Directives: All historical and current Section Date Range: From patient's date of to the date document was created. This section includes ALL of a patient's completed or amended VA Advance and Rescinded Directives. The entries below indicate that a directive exists for the patient, but an actual copy is not included with this document. The data comes from all [place] facilities. Date Advance Directives Provider Source Feb 23, 2016 ADVANCE DIRECTIVE DISCUSSION MAHAD MCKENZIE [facility] Jan 13, 2004 ADVANCE DIRECTIVE JOSE NAJERA [facility] Radiology Reports: +/- 30 days of the [...] the Encounter. The data comes from all [place] treatment facilities. Date/Time Radiology Report Provider Source Apr 12, 2024 02:12 PM OUTSIDE MAMMO/SCRE ENING, INCLUDING CAD, BILAT: ALBERTO CHO [id number] -[id number] F Exm Date: APR 12, 2024@14:12 Req Phys: ZOE COPE Pat Loc: CWM/NO/PACT 5 (Req'g Loc) Img Loc: OUTSIDE GENERAL RADIOLOGY Service: Unknown Screen: Patient is unable to answer or is unsure Screen Comment: cc exam (Case [id number] COMPLETE) OUTSIDE MAMMO/SCREENING, INCLUDIN(RAD Detailed) CPT:64819 Reason for Study: annual screening mammogram Clinical History: Report Status: Electronically Filed Date Reported: APR 12, 2024 Report: Community care exam; see CPRS/JLV for outside radiology report/results Impression: Community care exam; see CPRS/JLV for outside radiology report/results Primary Diagnostic Code: BI-RADS CATEGORY 1 (Negative) VERIFIED BY: / *ELECTRONICALLY FILED* [facility] [place] [facility] Encounter Notes: All associated encounter notes This section contains the clinical notes associated to the Encounter. Date/Time Encounter Note(s) Provider Source Apr 11, 2024 10:52 AM OCCUPATIONAL MEDIC INE CONSULT: LOCAL TITLE: CONSULT REPORT/OCCUPATIONAL THERAPY STANDARD TITLE: OCCUPATIONAL MEDICINE CONSULT DATE OF NOTE: APR 11, 2024@10:52 ENTRY DATE: APR 11, 2024@10:53:13 AUTHOR: BEV OSBORNE COSIGNER: ZOE COPE URGENCY: STATUS: COMPLETED Initial Evaluation date: Apr Progress Note Date: Treatment #: eval Treatment time: 38 minutes Diagnosis: Pain in right Elbow(ICD-10-CM M25.521) Provider: Adi OT Treatment Precautions: Patient identified by full name and date of S: Ms. Cho is a 49 y/o 70% SC female who was referred to OT for R non-dominant elbow pain. She was seen in the OT clinic on 04/11/2024. She is known to this television script writer from previous OT sessions. PMH: Active problems - Computerized Problem List is the source for the followin. Acute stress disorder 2. History of sleeve gastrectomy 3. Cannabis abuse 4. Bipolar affective disorder, currently depressed, moderate 5. Binge eating disorder 6. Kyphosis of cervicothoracic spine 7. Cerebral arteriovenous malformation 8. Menopausal flushing 9. Rosacea 10. Impaired fasting glucose 11. Obstructive sleep apnea of adult 12. Post-traumatic stress disorder 13. Benign essential hypertension 14. Hypothyroid 15. Obesity 16. Hemorrhoids 17. Pain of left ankle joint SEA: pt reports that she has developed the same exact thing on her R as she had on her L. she developed it ~6 weeks ago. she's been wearing her brace on the R and it still hurts. she forgot about the stretches. Imaging: none of the elbow in CPRS Pain Level: 0/10 at rest, increasing to 7-8/10 at worse Pain Location: mobile wad/common extensor tendon Aggravating Factors: lifting items w/ palm down, supinating Alleviating Factors: avoiding lifting O: Pt is R hand dominant. 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 She has a puppy. 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 She has 5 kids and hangs out w/ them and her friends. Clinical Presentation: no edema nor erythema noted throughout forearm/lateral elbow Palpation: ttp and tightness throughout mobile wad/common extensor tendon Special Tests: Cozen's: (+) R Alex's: (+) R Resisted Pronation: (-) R Resisted Supination: (+) R Stop Attacher Strength Per Dynamometer: measured in pounds per pressure (norms: age) [R] [L] 1. 36# (norm:55#) 55# (norm:50#) 2. 39# 54# 3. 46# 51# Ext Elbow: 8# 50# (+) for 7/10 on L Sensation: pt denies paresthesia's; nocturnal or otherwise. TX: *US 1.4 w/cm2 100% 3MHz over R mobile wad/common extensor tendon x8' *mobilization/FDM/IASTM to R mobile wad/common extensor tendon x9' *reviewed prayer stretch and wrist extensor stretch w/ elbow extended, 30 second hold each, pt able to r/d and v/u. Access Code: [email or web address] URL: [email or web address] Date: 08/30/2023 Prepared by: [facility] Exercises - Wrist Prayer Stretch - 1 x daily - 7 x weekly - 3 sets - 3 reps - 30 hold - Standing Wrist Flexion Stretch - 1 x daily - 7 x weekly - 3 sets - 3 reps - 30 hold ASSESSMENT: Alberto is a 49 y/o female whom presents to the OT clinic w/ s/s of R dominant lateral epicondylitis as evidenced by pt report, clinical presentation and positive provocative testing. She recently recovered from L lateral epicondylitis so started wearing her counterforce brace. She did, however, forget about her stretches. She will begin to implement these. She did report her forearm was sore but felt better following tx. PLAN: Plan to see 1-2x/week for 4-6 weeks for modalities (ionto, US, ice, heat), ther-ex, mobilization/FDM/IASTM as indicated, splinting/bracing/sleeve wear prn, HEP and patient education. Patient is in agreement with this POC. LTG's: 1. pain <3-4/10 at all times 2. pt will report 50% improvement since initiating tx STG's: 1. initiate HEP 2. trial modalities (US, ionto) for pain/symptom management 3. patient will report decreased pain in R lateral elbow to <8/10 at worst 4. compliant with brace/sleeve wear 5. improve R finish saw operator by 10-15# The practitioner's co-signature on this note signifies agreement with plan of care and clinical diagnosis code. /guadalupe/ Bev Osborne MS OTR/Ezequiel, CHT Occupational Therapist Signed: 04/11/2024 15:56 /guadalupe/ CHRIST DICK Nurse Practitioner Cosigned: 04/12/2024 16:02 BEV OSBORNE [facility]
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
--- OUTSIDE RECORDS SUMMARY | 2024-12-25 15:16 | XMS_ITS | Encounter Summary ---
Author Name [facility] [place] [facility] [place] [facility] [place] Address [address] [place] [address] Care Team Providers Care Supervisor [employer] Name Role Phone ZOE COPE Primary Care [...] Name Patient's Relationship to Policy Desai [facility] Feb 04, 2019 [id number] [facility] HIGH DEDUCTIBL E HEALTH PLAN HDHP Feb 04, 2019 [id number] GABRIELLE CHO PATIENT MEDICARE (WNR) MEDICARE (M) PART A Feb 05, 2000 PART A [id number] [id number] GABRIELLE HUGO PATIENT MEDICARE (WNR) MEDICARE (M) PART A Feb 05, 2000 PART A [id number] GABRIELLE CHO PATIENT MEDICARE (WNR) MEDICARE (M) PART A Feb 05, 2000 PART A [id number] GABRIELLE HUGO PATIENT Selected Encounter This section includes the information on record at [place] for the Encounter. Date/Time Encounter Type Encounter Description Reason Provider Source Jan 11, 2024 10:30 AM [place] MDLTY 1+ULTRASOUND EA 15 OCCUPATIONAL THERAPY ICD-10-CM M77.12 Lateral epicondylitis , left elbow MACHON,BEV E IHE Encounter Template Text not used by [place] Assessments - Encounter Diagnoses This section includes the primary and secondary diagnoses documented for the Encounter. Date/Time Primary/Secondary Diagnosis Diagnosis Name Provider Source Jan 11, 2024 02:16 PM PRIMARY Lateral epicondylitis, left elbow MACHON,BEV E [place] [facility] Plan of Treatment: Future Appointments (+ 6 months) and Future Tests (+/- 45 days) The Plan of Treatment section includes future care activities for the patient from all [place] treatmentfacilities. This section includes future appointments and future orders which are active, pending or scheduled. Future Appointments This section includes appointments that were scheduled to occur 6 months from the date of the Encounter, up to a maximum of 20 appointments. The data comes from all [place] treatment facilities. Appointment Date/Time Appointment Type Appointme nt Facility Name Jan 15, 2024 12:30 PM AMBULATORY [place]RY [place] [facility] [place] [facility] Jan 22, 2024 10:30 AM AMBULATORY - REHAB MEDICIN [place] [facility] [place] [facility] Jan 25, 2024 02:00 PM AMBUL[place]ORY [place] [facility] Jan 30, 2024 10:00 AM AMBULATORY - REHAB MEDICIN E [place] [facility] [place] [facility] Feb 01, 2024 02:00 PM AMBUL[place]ORY [place] [facility] [facility] Feb 12, 2024 12:30 PM AMB[place] [facility] [facility] Feb 12, 2024 01:30 PM AMBULATORY - MEDICINE [place] [facility] [place] [facility] 2024 03:00 PM AMBULATORY - PSYCHIATRY [facility] Feb 17, 2024 09:37 AM AMBULATORY - NONE [facility] Feb 22, 2024 02:00 PM AMBULATORY - PS[place]CHIATRY [place] [facility] [place] [facility] Feb 29, 2024 04:30 PM AMBULATORY - PSYCHIATRY [facility] Mar 06, 2024 02:30 PM AMBULATORY - MEDICINE [facility] [place] [facility] Mar 15, 2024 02:00 PM AMBULATORY - PSYCHIATRY [facility] Mar 18, 2024 12:30 PM AMBULATORY - PSYCHIATRY [facility] Mar 21, 2024 02:00 PM AMBULATORY - PSYCHIATRY [facility] [place] [facility] Apr 04, 2024 10:30 AM AMBULATORY - MEDICINE [facility] [place] [facility] Apr 04, 2024 02:00 PM AMBULATORY - PSYCHIATRY [facility] [place] [facility] Apr 11, 2024 11:00 AM AMBULATORY - REHAB MEDICIN E [facility] [place] [facility] Apr 15, 2024 12:30 PM AMBULATORY - PSYCHIATRY [facility] [place] [facility] Apr 18, 2024 02:00 PM AMBULATORY - PSYCHIATRY [facility] [facility] Social History: Smoking Status (Most current) and Tobacco Use (All prior to encounter date) This section includes the most current, and the historical, smoking and tobacco- related health factors from the [place] facility where the Encounter took place. Current Smoking Status This section includes the most current smoking, or tobacco-related health factor, from the [place] facility where the Encounter took place. Date/Time Current Smoking Status Comment Enedina cortez Sep 11, 2023 12:30 PM VA-TOBACCO NEVER USED [facility] [place] [facility] Tobacco Use History This section includes a history of the smoking, or tobacco-related health factors, that were collected on or before the date of the Encounter. The data comes from the [place] facility where the Encounter took place. Date/Time Smoking Status/Tobacco Use Comment Darlene harden Sep 30, 2022 10:00 AM VA-TOBACCO NEVER USED [facility] [place] [facility] Apr 21, 2020 03:34 PM VA-TOBACCO NEVER USED [place] [facility] [place] [facility] Jan 10, 2019 11:51 AM VA-TOBACCO NEVER USED [place] [facility] [place] [facility] Mar 09, 2018 11:27 AM LIFETIME NON-TOBACCO USER [place] [facility] [place] [facility] Advance Directives: All historical and current Section Date Range: From patient's date of to the date document was created. This section includes ALL of a patient's completed or amended VA Advance and Rescinded Directives. The entries below indicate that a directive exists for the patient, but an actual copy is not included with this document. The data comes from all [place] facilities. Date Advance Directives Provider Source Feb 23, 2016 ADVANCE DIRECTIVE DISCUSSION MAHAD MCKENZIE [facility] Jan 13, 2004 ADVANCE DIRECTIVE JOSE NAJERA [facility] Encounter Notes: All associated encounter notes This section contains the clinical notes associated to the Encounter. Date/Time Encounter Note(s) Provider Source Jan 11, 2024 10:36 AM OCCUPATIONAL THERAPY NOTE: LOCAL TITLE: OCCUPATIONAL THERAPY STANDARD TITLE: OCCUPATIONAL THERAPY NOTE DATE OF NOTE: JAN 11, 2024@10:36 ENTRY DATE: JAN 11, 2024@10:36:21 AUTHOR: BEV OSBORNE COSIGNER: URGENCY: STATUS: COMPLETED Initial Evaluation date: Aug Progress Note Date: Treatment #: 8 Treatment time: 30 minutes Diagnosis: Lateral Epicondylitis, left Elbow(ICD-10-CM M77.12) Provider: Adi OT Treatment Precautions: Patient identified by full name and date of SUBJECTIVE: Pt reports that her elbow is so much better. She feels she has made progress. 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 88# (norm:55#) 30# (norm:50#) 47# 2. 81# 47# 59# 3. 72# 27# 62# Ext Elbow: 68# 14# 46# (+) for 4/10 on L THERAPEUTIC EXERCISE: MINUTES: MANUAL THERAPY: *mobilization/FDM/IASTM to [...] ASSESSMENT: pt tolerated tx well this date. 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 Pt reports 83% progress since initiating tx. Ttp and tightness noted throughout mobile wad. Pt was interested in continuing tx in order to continue to improve her elbow. PLAN: continue w/ OT POC; modify tx as needed. pt to book more appointments. pt is in agreement w/ this POC. This treatment was primarily performed by KATIUSKA Britton, however, IBev, OTR/ANTOINETTE Nieves, was present during the course of this treatment in its entirety providing direct supervision for this student, I agree with treatment and plan of care as stated above. /guadalupe/ Bev Osborne MS OTR/ANTOINETTE Nieves Occupational Therapist Signed: 01/11/2024 14:16 Receipt Acknowledged By: 01/11/2024 14:20 /guadalupe/ EMIGDIO PAGAN OCCUPATIONAL THERAPY STUDENT BEV OSBORNE [place] [facility]
--- OUTSIDE RECORDS SUMMARY | 2024-12-25 15:16 | XMS_ITS | Encounter Summary ---
Author Name [facility] [place] [facility] [place] [facility] [place] Address [address] [place] [address] Care Team Providers Care Deburrer Strip Name Role Phone ZOE COPE Primary Care [...] Desai's Name Patient's Relationship to Policy Desai [facility] Feb 04, 2019 [id number] [phone] [id number] GABRIELLE CHO PATIENT [facility] [place] [facility] Feb 04, 2019 [id number] [id number] GABRIELLE CHO PATIENT MEDICARE (WNR) MEDICARE (M) PART A Feb 05, 2000 PART A [id number] GABRIELLE HUGO PATIENT MEDICARE (WNR) MEDICARE (M) PART A Feb 05, 2000 PART A [id number] [phone] GABRIELLE VAZQUEZ PATIENT MEDICARE (WNR) MEDICARE (M) PART A Feb 05, 2000 PART A [id number] GABRIELLE HUGO PATIENT Selected Encounter This section includes the information on record at [place] for the Encounter. Date/Time Encounter Type Encounter Description Reason Provider Source Aug 19, 2024 11:00 AM PSYTX W PT [facility]ES [facility] - IND ICD-10-CM F43.0 Acute stress reaction MALINOFSKY,TER GRETCHEN E Encounter Template Text not used by [place] Assessments - Encounter Diagnoses This section includes the primary and secondary diagnoses documented for the Encounter. Date/Time Primary/Secondary Diagnosis Diagnosis Name Provider Source Aug 19, 2024 12:11 PM PRIMARY Acute stress reaction MALINOFSJONE,TER GRETCHEN [facility] Aug 19, 2024 12:11 PM SECONDARY Other stressful life events affecting family and household CATIEFSJONETER GRETCHEN [facility] Aug 19, 2024 12:11 PM SECONDARY Post-traumatic stress disorder, unspecified MALINOFSKY,TER GRETCHEN [facility] Plan of Treatment: Future Appointments (+ 6 months) and Future Tests (+/- 45 days) The Plan of Treatment section includes future care activities for the patient from all [place] treatmentfacilities. This section includes future appointments and future orders which are active, pending or scheduled. Future Appointments This section includes appointments that were scheduled to occur 6 months from the date of the Encounter, up to a maximum of 20 appointments. The data comes from all [place] treatment facilities. Appointment Date/Time Appointment Type Appointme nt Facility Name Sep 02, 2024 11:00 AM AMBULATORY - PSYCHIATRY [facility] Sep 13, 2024 03:00 PM AMBULATORY - PSYCHIATRY [facility] Sep 16, 2024 08:00 AM AMBULATORY - MEDICINE [facility] Sep 16, 2024 11:00 AM AMBULATORY - PSYCHIATRY [facility] Sep 24, 2024 01:00 PM AMBULATORY - PSYCHIATRY [facility] Oct 04, 2024 08:30 AM AMBULATORY - MEDICINE LEISA LEYVA Oct 09, 2024 09:00 AM AMBULATORY - PSYCHIATRY MARITZA ZENG Oct 14, 2024 11:00 AM AMBULATORY - PSYCHIATRY [facility] Oct 16, 2024 04:00 PM AMBULATORY - MEDICINE [facility] Oct 17, 2024 10:00 AM AMBULATORY - PSYCHIATRY [facility] Oct 18, 2024 08:30 AM AMBULATORY - MEDICINE [facility] Oct 28, 2024 11:00 AM AMBULATORY - PSYCHIATRY [facility] Nov 25, 2024 11:00 AM AMBULATORY - PSYCHIATRY [facility] Dec 02, 2024 09:27 AM AMBULATORY - NONE [facility] December 09, 2024 11:00 AM AMBULATORY - PSYCHIATRY [facility] December 19, 2024 11:00 AM AMBULATORY - PSYCHIATRY [facility] Jan 06, 2025 11:00 AM AMBULATORY - PSYCHIATRY [facility] Jan 16, 2025 09:00 AM AMBULATORY - MEDICINE DE [facility] Jan 20, 2025 11:00 AM AMBULATORY - PSYCHIATRY [facility] Feb 03, 2025 11:00 AM AMBULATORY - PSYCHIATRY [facility] Active, Pending, and Scheduled Orders This section includes a listing of several types of active, pending, and scheduled orders, including clinic medications orders, diagnostic test orders, procedure orders and consult orders; where the start date of the order is 45 days before the date of the Encounter or 45 days after the date of theEncounter. The data comes from all [place] treatment facilities. Test Date/Time Test Type Test Details Facility Name Aug 28, 2024 01:19 PM Consult Order COMMUNITY CARE-GEN SURGERY Cons Pedal [employer] Choice [facility] Social History: Smoking Status (Most current) and Tobacco Use (All prior to encounter date) This section includes the most current, and the historical, smoking and tobacco- related health factors from the [place] facility where the Encounter took place. Current Smoking Status This section includes the most current smoking, or tobacco-related health factor, from the [place] facility where the Encounter took place. Date/Time Current Smoking Status Comment Enedina cortez Sep 11, 2023 12:30 PM VA-TOBACCO NEVER USED [facility] Tobacco Use History This section includes a history of the smoking, or tobacco-related health factors, that were collected on or before the date of the Encounter. The data comes from the [place] facility where the Encounter took place. Date/Time Smoking Status/Tobacco Use Comment Darlene acchio Sep 30, 2022 10:00 AM VA-TOBACCO NEVER USED [facility] Apr 21, 2020 03:34 PM VA-TOBACCO NEVER USED [facility] Jan 10, 2019 11:51 AM VA-TOBACCO NEVER USED [facility] Mar 09, 2018 11:27 AM LIFETIME NON-TOBACCO USER [facility] Advance Directives: All historical and current Section Date Range: From patient's date of to the date document was created. This section includes ALL of a patient's completed or amended [place] Advance and Rescinded Directives. The entries below indicate that a directive exists for the patient, but an actual copy is not included with this document. The data comes from all [place] facilities. Date Advance Directives Provider Source Feb 23, 2016 ADVANCE DIRECTIVE DISCUSSION MAHAD MCKENZIE [facility] Jan 13, 2004 ADVANCE DIRECTIVE JOSE NAJERA [facility] Encounter Notes: All associated encounter notes This section contains the clinical notes associated to the Encounter. Date/Time Encounter Note(s) Provider Source Aug 19, 2024 11:50 AM TELEHEALTH NOTE: LOCAL TITLE: [facility] PSYCHOLOGY NOTE STANDARD TITLE: TELEHEALTH NOTE DATE OF NOTE: AUG 19, 2024@11:50 ENTRY DATE: AUG 19, 2024@11:50:53 AUTHOR: ALBER BROWNING EXP COSIGNER: URGENCY: STATUS: COMPLETED [facility] ([facility]) Standard Documentation V[facility] Clinician Resources Only: E911 (Emergency Call Relay Center): [phone] [facility] [place] Crisis Line - 988 then press #1. [facility] Suicide Coordinator [phone], Ext. [phone]; Back-up Ext. [phone] [place] , Reanna IJMENEZ [phone] Introduction: Visit is being conducted by [place] Video Connect. Cross identified with VISUAL RECOGNITION. Emergency Plan: confirmed and/or provided the following information in case of emergency or technology failure. PATIENT PHONE - PHONE NUMBER [CELLULAR] - Is patient phone number correct, if not, enter below: Cross's phone number: ALBERTO CHO [address] [place], [place], [address] 's present location and address for appointment: home address above Cross's emergency contact name and phone number: on file Cross reported that location is private and safe: Yes Informed Consent: Cross informed of the risks and benefits of Telehealth video care. Cross has the right to refuse video services. If refuses video visit, a [id number] visit will be scheduled. Cross verbalized consent for this video visit: Yes Cross provided consent for any other persons present for visit: N/A If yes, who and relationship to patient: Secure visit: Visit was locked for security and privacy:Yes ........................ ........................ ........................ ........ PROBLEM: Family Problem #1 Samir is coming to spend a week with them in [facility]. Amanda decided to invite him even though he is unmedicated. Alberto is stressed by what has happened in the past with Samir unmedicated. Family Problem #2: Amanda and Alberto will go to visit her father and stepmom Myrna because they were asked to visit. They ask that Amanda fixes their fence. Amanda and Alberto will stay at father's house. Father and stepmom have dementia, and there are multiple problems with them continuing to live in their house. They have someone who comes in 3x weekly to clean. Father's house is not pleasant to visit because of accidents from bladder and bowel incontinence. Father is 'showering' in the kitchen sink. Father's choice is to remain at home rather than move to assisted living. INTERVENTION: Family Problem #1: How to: Balance endless parental love with tough love: a dialectic How to: Mental preparation is grounding and will help follow-through of her preferred response. The pyramid of behaviors that can happen: preparing for your response (1) Charlie Brunnern's discussion is inappropriate: walk out (2) You hear sounds that seem violent: call out to Amanda to ask if you should call Police. Family Problem #2: Alberto can consider phone calls rather than visits in the future, and explain why to father. ........................ ........................ ........................ .... Related to: Service Connected Condition, [facility] Diagnoses: Acute stress disorder (SCT [id number]) - Acute stress reaction (ICD-10-CM F43.0) (Primary) Post-traumatic stress disorder (SCT [id number]) - Post-traumatic stress disorder, unspecified (ICD-10-CM F43.10) Other Stressful Life Events Affecting Family and Household (ICD-10-CM Z63.79) Procedures: Psychotherapy 38-52 min - Clinical Psychologist /guadalupe/ ALBER BROWNING,PhD Neuropsychologist Signed: 08/19/2024 12:12 ALBER BROWNING [facility]
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
--- OUTSIDE RECORDS SUMMARY | 2024-12-25 15:16 | XMS_ITS ---
Author Name [facility] [place] Organization [place] Address [address] [place] [address] Care Team Providers Care Director Audience Marketing Name Role Phone ZOE COPE Primary Care [...] Name Patient's Relationship to Policy Desai [facility] Feb 04, 2019 [id number] GABRIELLE CHO PATIENT HEALTH [place] HIGH DEDUCTIBL E HEALTH PLAN HDHP Feb 04, 2019 [id number] GABRIELLE CHO PATIENT MEDICARE (WNR) MEDICARE (M) PART A Feb 05, 2000 PART A [id number] [phone] GABRIELLE HUGO PATIENT MEDICARE (WNR) MEDICARE (M) PART A Feb 05, 2000 PART A [id number] [phone] GABRIELLE CHO PATIENT MEDICARE (WNR) MEDICARE (M) PART A Feb 05, 2000 PART A [id number] GABRIELLE HUGO PATIENT Selected Encounter This section includes the information on record at [place] for the Encounter. Date/Time Encounter Type Encounter Description Reason Provider Source December 19, 2024 11:00 AM OFFICE O/P EST LOW 20 MIN [facility] CLINIC - IND ICD-10-CM F31.32 Bipolar disorder, current episode depressed, moderate MARK,JOSE ALFREDO NICOL E Encounter Template Text not used by [place] Assessments - Encounter Diagnoses This section includes the primary and secondary diagnoses documented for the Encounter. Date/Time Primary/Secondary Diagnosis Diagnosis Name Provider Source December 19, 2024 11:17 AM PRIMARY Bipolar disorder, current episode depressed, moderate MARKJOSE ALFREDO NICOL [place] [facility] [place] [facility] December 19, 2024 11:17 AM SECONDARY Acute stress reaction MARKJOSE ALFREDO NICOL [place] [facility] [place] [facility] December 19, 2024 11:17 AM SECONDARY Post-traumatic stress disorder, unspecified MARKJOSE ALFREDO [place] [facility] [place] [facility] Plan of Treatment: Future Appointments (+ 6 months) and Future Tests (+/- 45 days) The Plan of Treatment section includes future care activities for the patient from all [place] treatmentfacilities. This section includes future appointments and future orders which are active, pending or scheduled. Future Appointments This section includes appointments that were scheduled to occur 6 months from the date of the Encounter, up to a maximum of 20 appointments. The data comes from all [place] treatment facilities. Appointment Date/Time Appointment Type Appointme nt Facility Name Jan 06, 2025 11:00 AM AMBULATORY - PSYCHIATRY [place] [facility] [place] [facility] Jan 16, 2025 09:00 AM AMBULATORY - MEDICINE SD C [facility] [place] [facility] Jan 20, 2025 11:00 AM AMBULATORY - PSYCHIATRY [place] [facility] [place] [facility] Feb 03, 2025 11:00 AM AMBULATORY - PSYCHIATRY [place] [facility] [place] [facility] Mar 13, 2025 11:00 AM AMBULATORY - PSYCHIATRY [place] [facility] [place] [facility] May 27, 2025 09:00 AM AMBULATORY - MEDICINE [facility] Social History: Smoking Status (Most current) and Tobacco Use (All prior to encounter date) This section includes the most current, and the historical, smoking and tobacco- related health factors from the [place] facility where the Encounter took place. Current Smoking Status This section includes the most current smoking, or tobacco-related health factor, from the [place] facility where the Encounter took place. Date/Time Current Smoking Status Comment Enedina ity Sep 11, 2023 12:30 PM VA-TOBACCO [facility] Tobacco Use History This section includes a history of the smoking, or tobacco-related health factors, that were collected on or before the date of the Encounter. The data comes from the SD facility where the Encounter took place. Date/Time Smoking Status/Tobacco Use Comment F acchio Sep 30, 2022 10:00 AM VA-TOBACCO NEVER USED [place] [facility] Apr 21, 2020 03:34 PM VA-TOBACCO NEVER USED SD [facility] Jan 10, 2019 11:51 AM VA-TOBACCO NEVER USED SD [facility] Mar 09, 2018 11:27 AM LIFETIME NON-TOBACCO USER [facility] Advance Directives: All historical and current Section Date Range: From patient's date of to the date document was created. This section includes ALL of a patient's completed or amended [place] Advance and Rescinded Directives. The entries below indicate that a directive exists for the patient, but an actual copy is not included with this document. The data comes from all [place] facilities. Date Advance Directives Provider Source Feb 23, 2016 ADVANCE DIRECTIVE DISCUSSION MAHAD MCKENZIE [facility] Jan 13, 2004 ADVANCE DIRECTIVE JOSE NAJERA [facility] Encounter Notes: All associated encounter notes This section contains the clinical notes associated to the Encounter. Date/Time Encounter Note(s) Provider Source December 19, 2024 11:04 AM TELEHEALTH NOTE: LOCAL TITLE: [place] VIDEO CONNECT PSYCHIATRIST NOTE STANDARD TITLE: TELEHEALTH NOTE DATE OF NOTE: DECEMBER 19, 2024@11:04 ENTRY DATE: DECEMBER 19, 2024@11:04:32 AUTHOR: EVERTON FLORES EXP COSIGNER: URGENCY: STATUS: COMPLETED [place] Video Connect (VVC) Standard Documentation [facility] Clinician Resources Only: E911 (Emergency Call Relay Center): [phone] National Veterans Crisis Line - 988 then press #1. [facility] Suicide Coordinator [phone], Ext. [phone]; Back-up Ext. [phone] [place] Police, Reanna JIMENEZ [phone] Introduction: Visit is being conducted by [place] [employer]. Kim identified with 2 identifiers: [X] Full Name [X] Date of [ ] VA ID Card Emergency Plan: confirmed and/or provided the following information in case of emergency or technology failure. PATIENT PHONE - PHONE NUMBER [CELLULAR] - Is patient phone number correct, if not, enter below: 's phone number: ALBERTO CHO [address] [place], [place], [phone] Kim's present location and address for appointment: [address] [place], [place] 's emergency contact name and phone number: None given reported that location is private and safe: Yes Informed Consent: Kim informed of the risks and benefits of Telehealth video care. has the right to refuse video services. If refuses video visit, a [id number] visit will be scheduled. verbalized consent for this video visit: Yes provided consent for any other persons present for visit: N/A If yes, who and relationship to patient: Secure visit: Visit was locked for security and privacy:Yes Does this visit involve laterality/specific side of body? N/A ALBERTO CHO, a 49 year old WHITE FEMALE was seen by [facility] today for scheduled mental health follow-up. MENTAL HEALTH NOTE: was seen by [facility] today for 25 min for routine mental health follow up. Two forms of identification was used. DIAGNOSES AND PROBLEMS TREATED THIS VISIT: Bipolar Disorder Type I, MRE Depressed without psychotic features, PTSD-Chronic, MST, History of Bulimia Eating Disorder, S/P Weight Loss Surgery SUBJECTIVE: Alberto says that she is doing well. She says one of her sons just had his second child and will be getting later this year in May. Alberto is down in [place] (her happy place) now but will be heading back up here to [place] soon for her son's Celine. Alberto says that since her last appointment she was down in [place] helping her father and step mother. She got them both into an assisted living facility and she and her Amanda are looking to fix their house to get it on the market to sell. The goal is for Alberto's father and step mother to move up to [place] to live in an assisted living facility near Alberto and her brother. Alberto says her mental health has been good overall despite the stress of everything going on with her father and step mother. Rey continues in therapy with Dr. Najera every other week. She feels her current medication regimen works well for her. She denies any side effects from them. SUBSTANCE ABUSE: Caffeine: Tobacco: denies Cocaine: denies [...] Latuda, wellbutrin, naltrexone, hydroxyzine, ambien, Depakote, Paxil, Hiller (said she had lab abnormality with it and was stopped), Prozac, sertraline, lexapro, abilify, gabapentin, Prazosin, Geodon, Lamictal, and seroquel (had a lot of weight gain with it) Current meds: Active and Recently Outpatient Medications (excluding Supplies): Active Outpatient Medications Status 1) ADAPALENE 0.1% TOP GEL APPLY SMALL AMOUNT TOPICALLY ONCE ACTIVE DAILY Indication: FOR ACNE 2) BUPROPION HCL 100MG TAB TAKE ONE AND ONE-HALF TABLETS BY ACTIVE MOUTH TWICE DAILY TAKE THE 2ND DAILY DOSE IN THE EARLY AFTERNOON. Indication: FOR DEPRESSION 3) CETIRIZINE HCL 10MG TAB TAKE ONE TABLET BY MOUTH ONCE DAILY ACTIVE FOR ALLERGIES 4) ESTRADIOL 0.5MG TAB TAKE ONE TABLET BY MOUTH ONCE DAILY ACTIVE Indication: FOR POST MENOPAUSAL SYMPTOMS 5) FLUTICASONE PROP 50MCG 120D NASAL INHL INSTILL 2 SPRAYS INTO ACTIVE EACH NOSTRIL ONCE DAILY Indication: FOR NASAL IRRITATION/INFLAMMATION 6) HYDROCORTISONE 1/PRAMOXINE 1% RTL FOAM INSERT 1 ACTIVE APPLICATORFUL RECTALLY FOUR TIMES DAILY NEEDED Indication: FOR HEMORRHOIDS 7) HYDROXYZINE PAMOATE 25MG CAP TAKE ONE CAPSULE BY MOUTH THREE ACTIVE TIMES A DAY AND TAKE ONE CAPSULE THREE TIMES DAILY NEEDED Indication: FOR ANXIETY 8) LEVOTHYROXINE NA 112MCG TAB TAKE ONE TABLET BY MOUTH EVERY ACTIVE MORNING 30 MINUTES BEFORE BREAKFAST FOR THYROID - TAKE ON AN EMPTY STOMACH WITH A FULL GLASS OF WATER 9) LURASIDONE HCL 80MG TAB TAKE ONE TABLET BY MOUTH ONCE DAILY ACTIVE Indication: FOR BIPOLAR DEPRESSION 10) MUPIROCIN 2% OINT APPLY THIN LAYER TOPICALLY TWICE DAILY ACTIVE NEEDED Indication: FOR SKIN INFECTION 11) OMEPRAZOLE 20MG EC CAP TAKE ONE CAPSULE BY MOUTH EVERY ACTIVE MORNING 30 MINUTES BEFORE BREAKFAST Indication: FOR GASTROESOPHAGEAL REFLUX DISEASE 12) PROGESTERONE 100MG CAP TAKE ONE CAPSULE BY MOUTH ONCE DAILY ACTIVE Indication: TO PROTECT UTERINE LINING MEDICATION ADHERENCE: takes medications most days MEDICATION SIDE EFFECTS: none OBJECTIVE:recent labs:LAB RESULTS LAST 1440 HRS - NONE FOUND Weight: 166 lb [75.30 kg] (10/18/2024 08:29) BMI: 26.8 MENTAL STATUS EXAM: Orientation and Consciousness: Alert and fully oriented. Appearance and Behavior: Middle aged white female with long blond hair wearing eyeglasses dressed casually at her home in [place]. Eye Contact: Good. Speech: Normal rate and [...] PLAN/ DISCUSSION/ RATIONALE: 1.::: Medication management: Reviewed medication today with Alberto. She continues on Latuda 80 mg daily, Bupropion IR 150 mg BID and Hydroxyzine that she uses 50 mg at bedtime to help her sleep. She has prn doses of hydroxyzine available to her for anxiety, but she doesn't use this that often. Alberto sounds in fair spirits today. Alberto reports she is doing well with her current medication regimen. She denies any side effects from them. No changes made to her medications today. Last metabolic labs done in October 2024. Alberto continues in therapy with Dr. Najera. No Tardive Dyskinesia noted on video exam. Alberto appears in good spirits today. Next Visit: in March. Patient is aware of how to access [facility] open access clinic in [facility] during weekdays for immediate mental health [...] in the community (including Crisis Line, 911, [place] National Suicide Prevention Lifeline: 6-445-324-TALK). Patient is instructed to contact me should [...] denied suicidal and violent ideation, but the [facility] Crisis Line information and number were [...] of active outpatient prescriptions dispensed from this SD (local) and dispensed from another SD or DoD facility (remote) as well as [...] whether with a VA or non-VA provider. Homelessness/Food Insecurity Screen: In the past 2 months, have you been living in stable housing that you own, rent, or stay in as part of a household? Yes - Living in stable housing. Are you worried or concerned that in the next 2 months you may NOT have stable housing that you own, rent, or stay in as part of a household? No - Not worried about housing near future The Kim reports the following: Within the past 12 months, you worried whether your food would run out before you got money to buy more. Never true Within the past 12 months, the food you bought just didn't last and you didn't have money to get more. Never true /guadalupe/ EVERTON FLORES MD PSYCHIATRIST Signed: 12/19/2024 11:38 EVERTON FLORES [place] [facility]
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
--- OUTSIDE RECORDS SUMMARY | 2024-12-25 15:16 | XMS_ITS | Encounter Summary ---
Author Name [facility] [place] [facility] [place] Organization [facility] [place] Address [address] [place] [address] Care Team Providers Care Fire Prevention Forester Name Role Phone ZOE COPE Primary Care [...] Desai [facility] Feb 04, 2019 [id number] [phone] GABRIELLE CHO PATIENT [facility] Feb 04, 2019 [id number] [phone] GABRIELLE CHO PATIENT MEDICARE (WNR) MEDICARE (M) PART A Feb 05, 2000 PART A [id number] [phone] GABRIELLE HUGO PATIENT MEDICARE (WNR) MEDICARE (M) PART A Feb 05, 2000 PART A [id number] GABRIELLE CHO PATIENT MEDICARE (WNR) MEDICARE (M) PART A Feb 05, 2000 PART A [id number] GABRIELLE HUGO PATIENT Selected Encounter This section includes the information on record at [place] for the Encounter. Date/Time Encounter Type Encounter Description Reason Provider Source Jan 22, 2024 10:30 AM [place] MDLTY 1+ULTRASOUND EA 15 OCCUPATIONAL THERAPY ICD-10-CM M77.12 Lateral epicondylitis , left elbow MACHON,BEV E IHE Encounter Template Text not used by [place] Assessments - Encounter Diagnoses This section includes the primary and secondary diagnoses documented for the Encounter. Date/Time Primary/Secondary Diagnosis Diagnosis Name Provider Source Jan 22, 2024 01:50 PM PRIMARY Lateral epicondylitis, left elbow MACHON,BEV E [place] [facility] [place] [facility] Plan of Treatment: Future Appointments (+ [...] Appointment Type Appointme nt Facility Name Jan 25, 2024 02:00 PM AMBULATORY - PSYCHIATRY [place] [facility] [place] [facility] Jan 30, 2024 10:00 AM AMBULATORY - REHAB MEDICIN E [place] [facility] [place] [facility] Feb 01, 2024 02:00 PM AMBULATORY - PSYCHIATRY [place] [facility] [place] [facility] Feb 12, 2024 12:30 PM AMBULATORY - PSYCHIATRY [place] [facility] [place] [facility] Feb 12, 2024 01:30 PM AMBULATORY - MEDICINE MD C [facility] [place] [facility] 2024 03:00 PM AMBULATORY - PSYCHIATRY [facility] Feb 17, 2024 09:37 AM AMBULATORY - NONE [facility] Feb 22, 2024 02:00 PM AMBULATORY - PSYCHIATRY [place] [facility] [place] [facility] Feb 29, 2024 04:30 PM AMBULATORY - PSYCHIATRY [facility] [place] [facility] Mar 06, 2024 02:30 PM AMBULATORY - MEDICINE VA C [facility] [place] [facility] Mar 15, 2024 02:00 PM AMBULATORY - PSYCHIATRY [facility] Mar 18, 2024 12:30 PM AMBULATORY - PSYCHIATRY [facility] [place] [facility] Mar 21, 2024 02:00 PM AMBULATORY - PSYCHIATRY [facility] [place] [facility] Apr 04, 2024 10:30 AM AMBULATORY - MEDICINE [facility] C [facility] [place] [facility] Apr 04, 2024 02:00 PM AMBULATORY - PSYCHIATRY [facility] [place] [facility] Apr 11, 2024 11:00 AM AMBULATORY - REHAB MEDICIN E [facility] [place] [facility] Apr 15, 2024 12:30 PM AMBULATORY - PSYCHIATRY [facility] [place] [facility] Apr 18, 2024 02:00 PM AMBULATORY - PSYCHIATRY [facility] [place] [facility] Apr 19, 2024 11:30 AM AMBULATORY - REHAB MEDICIN E [facility] [place] [facility] May 09, 2024 02:00 PM AMBULATORY - PSYCHIATRY [place] [facility] [place] [facility] Social History: Smoking Status (Most current) [...] VA-TOBACCO NEVER USED [place] [facility] [place] [facility] Tobacco Use History This section includes a history of the smoking, or tobacco-related health factors, that were collected on or before the date of the Encounter. The data comes from the [place] facility where the Encounter took place. Date/Time Smoking Status/Tobacco Use Comment Darlene harden Sep 30, 2022 10:00 AM VA-TOBACCO NEVER USED [place] [facility] [place] [facility] Apr 21, 2020 03:34 PM VA-TOBACCO NEVER USED [place] [facility] [place] [facility] Jan 10, 2019 11:51 AM VA-TOBACCO NEVER USED [place] [facility] [place] [facility] Mar 09, 2018 11:27 AM LIFETIME NON-TOBACCO USER [facility] Advance Directives: All historical and current [...] 23, 2016 ADVANCE DIRECTIVE DISCUSSION MAHAD MCKENZIE [facility] Jan 13, 2004 ADVANCE DIRECTIVE JOSE NAJERA [facility] Encounter Notes: All associated encounter notes This section contains the clinical notes associated to the Encounter. Date/Time Encounter Note(s) Provider Source Jan 22, 2024 10:23 AM OCCUPATIONAL THERAPY NOTE: LOCAL TITLE: OCCUPATIONAL THERAPY STANDARD TITLE: OCCUPATIONAL THERAPY NOTE DATE OF NOTE: JAN 22, 2024@10:23 ENTRY DATE: JAN 22, 2024@10:23:20 AUTHOR: BEV OSBORNE COSIGNER: URGENCY: STATUS: COMPLETED Initial Evaluation date: Aug Progress Note Date: Treatment #: 9 Treatment time: 30 minutes Diagnosis: Lateral Epicondylitis, left Elbow(ICD-10-CM M77.12) Provider: Adi QUISPE Treatment Precautions: Patient identified by full name and date of SUBJECTIVE: Pt reports there isn't much pain. It only hurts when she lifts things palm down. Pain Level: 0/10 at rest OBJECTIVE: THERAPEUTIC [...] ASSESSMENT: pt tolerated tx well this date. She reports feeling pain only with lifting things palm down. Improved Ttp and tightness noted throughout mobile wad. Pt feels as though next week will be her last visit as she is nearly fully improved. PLAN: continue w/ OT POC. pt is in agreement w/ this POC. This treatment was primarily performed by KATIUSKA Britton, however, I, MS MICHAEL Cramer/Ezequiel, ANTOINETTE, was present during the course of this treatment in its entirety providing direct supervision for this student, I agree with treatment and plan of care as stated above. /guadalupe/ MS MICHAEL Eid/ANTOINETTE Nieves Occupational Therapist Signed: 01/22/2024 13:50 Receipt Acknowledged By: 01/22/2024 13:59 /guadalupe/ EMIGDIO PAGAN OCCUPATIONAL THERAPY STUDENT BEV OSBORNE [facility]
--- OUTSIDE RECORDS SUMMARY | 2024-12-25 15:16 | XMS_ITS | Encounter Summary ---
Author Name [facility] [place] Organization [place] Address [address] [place] [address] Care Team Providers Care Pearl Fisherman Name Role Phone ZOE COPE Primary Care [...] Desai's Name Patient's Relationship to Policy Desai [facility] Feb 04, 2019 [id number] [phone] GABRIELLE CHO PATIENT [facility] Feb 04, 2019 [id number] [phone] GABRIELLE CHO PATIENT MEDICARE (WNR) MEDICARE (M) PART A Feb 05, 2000 PART A [id number] GABRIELLE HUGO PATIENT MEDICARE (WNR) MEDICARE (M) PART A Feb 05, 2000 PART A [id number] [phone] GABRIELLE VAZQUEZ PATIENT MEDICARE (WNR) MEDICARE (M) PART A Feb 05, 2000 PART A [id number] GABRIELLE HUGO PATIENT Selected Encounter This section includes the information on record at [place] for the Encounter. Date/Time Encounter Type Encounter Description Reason Provider Source Jul 08, 2024 11:00 AM PSYTX W PT 30 [facility]ES [facility] - IND ICD-10-CM F43.0 Acute stress reaction MALINOFSKY,TER GRETCHEN IHE Encounter Template Text not used by [place] Assessments - Encounter Diagnoses This section includes the primary and secondary diagnoses documented for the Encounter. Date/Time Primary/Secondary Diagnosis Diagnosis Name Provider Source Jul 08, 2024 01:59 PM PRIMARY Acute stress reaction MALINOFSKY,TER GRETCHEN [place] [facility] [place] [facility] Jul 08, 2024 01:59 PM SECONDARY Post-traumatic stress disorder, unspecified MALINOFSKY,TER GRETCHEN [place] [facility] [place] [facility] Plan of Treatment: Future Appointments (+ 6 months) and Future Tests (+/- 45 days) The Plan of Treatment section includes future care activities for the patient [facility] [place] [facility] This section includes future appointments and future orders which are active, pending or scheduled. Future Appointments This section includes appointments that were scheduled to occur 6 months from the date of the Encounter, up to a maximum of 20 appointments. The data comes from all [place] treatment facilities. Appointment Date/Time Appointment Type Appointme nt Facility Name Jul 15, 2024 10:30 AM AMBULATORY - PSYCHIATRY [place] [facility] [place] [facility] Jul 15, 2024 11:00 AM AMBULATORY - PSYCHIATRY [place] [facility] [place] [facility] Jul 22, 2024 11:00 AM AMBULATORY - PS[place]CHIATRY [place] [facility] [place] [facility] Aug 12, 2024 01:00 PM AMBULATORY - PSYCHIATRY [facility] Aug 19, 2024 11:00 AM AMBULATORY - PSYCHIATRY [place] [facility] [place] [facility] Aug 19, 2024 03:00 PM AMBULATORY - PSYCHIATRY [place] [facility] [place] [facility] Sep 02, 2024 11:00 AM AMBULATORY - PSYCHIATRY [place] [facility] [place] [facility] Sep 13, 2024 03:00 PM AMBULATORY - PSYCHIATRY [facility] Sep 16, 2024 08:00 AM AMBULATORY - MEDICINE [facility] [place] [facility] Sep 16, 2024 11:00 AM AMBULATORY - PSYCHIATRY [facility] [place] [facility] Sep 24, 2024 01:00 PM AMBULATORY - PSYCHIATRY [facility] Oct 04, 2024 08:30 AM AMBULATORY - MEDICINE [facility] Oct 09, 2024 09:00 AM AMBULATORY - PSYCHIATRY [facility] Oct 14, 2024 11:00 AM AMBULATORY - PSYCHIATRY [place] [facility] [place] [facility] Oct 16, 2024 04:00 PM AMBULATORY - MEDICINE [place] [facility] [place] [facility] Oct 17, 2024 10:00 AM AMBULATORY - PSYCHIATRY [place] [facility] [place] [facility] Oct 18, 2024 08:30 AM AMBULATORY - MEDICINE [place] [facility] [place] [facility] Oct 28, 2024 11:00 AM AMBULATORY - PSYCHIATRY [facility] [place] [facility] Nov 25, 2024 11:00 AM AMBULATORY - PSYCHIATRY [place] [facility] [place] [facility] Dec 02, 2024 09:27 AM AMBULATORY - [facility] Social History: Smoking Status (Most [...] VA-TOBACCO NEVER USED [place] [facility] [place] [facility] Tobacco Use History This section includes a history of the smoking, or tobacco-related health factors, that were collected on or before the date of the Encounter. The data comes from the [place] facility where the Encounter took place. Date/Time Smoking Status/Tobacco Use Comment Darlene harden Sep 30, 2022 10:00 AM VA-TOBACCO NEVER USED [place] [facility] [place] [facility] Apr 21, 2020 03:34 PM VA-TOBACCO NEVER USED [place] [facility] [place] [facility] Jan 10, 2019 11:51 AM [facility]TOBACCO [facility] Mar 09, 2018 11:27 AM LIFETIME NON-TOBACCO USER [facility] Advance Directives: All historical and [...] 23, 2016 ADVANCE DIRECTIVE DISCUSSION MAHAD MCKENZIE [facility] Jan 13, 2004 ADVANCE DIRECTIVE JOSE NAJERA [facility] Encounter Notes: All associated encounter notes This section contains the clinical notes associated to the Encounter. Date/Time Encounter Note(s) Provider Source Jul 08, 2024 01:17 PM TELEHEALTH NOTE: LOCAL TITLE: VA VIDEO CONNECT PSYCHOLOGY NOTE STANDARD TITLE: TELEHEALTH NOTE DATE OF NOTE: JUL 08, 2024@13:17 ENTRY DATE: JUL 08, 2024@13:18:02 AUTHOR: ALBER BROWNING EXP COSIGNER: URGENCY: STATUS: COMPLETED VA VIDEO CONNECT PSYCHOLOGY NOTE Has ADDENDA VA Video Connect (VVC) Standard Documentation VVC Clinician Resources Only: E911 (Emergency Call Relay Center): [phone] National Veterans Crisis Line - 988 then press #1. [facility] Suicide Coordinator [phone], Ext. [phone]; Back-up Ext. [phone] [place] PoliceTONY [place] [phone] Introduction: Visit is being conducted by [place] [employer]. [place] identified with VISUAL RECOGNITION. Emergency Plan: confirmed and/or provided the following information in case of emergency or technology failure. PATIENT PHONE - PHONE NUMBER [CELLULAR] - Is patient phone number correct, if not, enter below: [place]'s phone number: ALBERTO CHO [address] [place], [place], [address] 's present location and address for appointment: in her daughter's vehicle, alone, near her home in [place]'s emergency contact name and phone number: on file [place] reported that location is private and safe: Yes Informed Consent: informed of the risks and benefits of Telehealth video care. has the right to refuse video services. If refuses video visit, a [id number] visit will be scheduled. [place] verbalized consent for this video visit: Yes provided consent for any other persons present for visit: N/A If yes, who and relationship to patient: Secure visit: Visit was locked for security and privacy:Yes .......................... .......................... .................... Alberto Cho attended 30 minutes of this individual psychotherap session with clinical psychologist. PROBLEM: Crisis regarding stuart Dawson. DIAGNOSIS: Acute Stress Reaction PTSD SESSION FOCUS: Alexandra Dominguez is feeling overwhelmed by the prospect that son Fam Cho might be killed in a car accident, by his own disorganization and lack of foresight d/t untreated mental illness. Son Fam Cho age 25 is a himself. He was diagnosed during inpatient [facility] psych admission, with bipolar mood disorder with psychosis, substance abuse. He started using alcohol to excess while he was in the . His mother, Alexandra Cho, states that he has been refusing IM medication. She states they just found out the diagnosis is bipolar mood d/o. She said that son's father Amanda had previously misunderstood it to be schizophrenia. Alexandra Dominguez has observed the psychosis to be intermittent in its expression. She mentions also that he verbalizes mistrust regarding treatment and therefore is avoiding [place] care. She adds that he drinks alcohol a lot. Fam has been in 6 motor vehicle accidents in the past 2 1/2 years. Alexandra Dominguez states that Fam was at their house for Thanksgiving. She was anxious the entire time about what he might impulsively do. But, she tried to calm herself by grounding and relaxation strategies. Alexandra Dominguez conceptualized her stress reactions as being triggered by Fam's actions. INTERVENTION: This typewriter ribbon winder explained that what Alexandra Dominguez is repeatedly going through is trauma itself, not merely being triggered. TW explained that Criterion A is met every time she learns about her son's next potentially fatal, self- destructive action. This typewriter ribbon winder offered to alert Fam Cho's [facility] sales project coordinator about the repeated risks to himself, without medication, so that said TX coordinator can warn [place]'s treatment team. This typewriter ribbon winder suggested Alexandra Dominguez herself have an appointment with her (Fam's father) and their family/couples therapist Dr. Henok Aquino. BEHAVIORAL OBSERVATIONS: [place] Alberto Cho appears highly stressed. She appeared partly relieved with some of the explanation and suggested first intervention steps suggested today. PLAN: Requesting review of this note by [facility] tx coordinator Julia Rahman. RTC: next week and the week after. .......................... .......................... ................... Related to: Service Connected Condition, [facility] Diagnoses: Acute stress disorder (SCT [id number]) - Acute stress reaction (ICD-10-CM F43.0) (Primary) Post-traumatic stress disorder (SCT [id number]) - Post-traumatic stress disorder, unspecified (ICD-10-CM F43.10) Procedures: Psychotherapy 16-37 min - Synchronous Telemedicine Service - Clinical Psychologist /guadalupe/ ALBER BROWNING,PhD Neuropsychologist Signed: 07/08/2024 13:59 Receipt Acknowledged By: 07/08/2024 14:40 /guadalupe/ Julia Rahman [facility] Residential Appraiser 07/09/2024 09:02 /guadalupe/ HENOK AQUINO, PH.D. PSYCHOLOGIST 07/10/2024 ADDENDUM STATUS: COMPLETED I called and left a message asking Ms Hugo to call back at her convenience to schedule. /guadalupe/ HENOK AQUINO, PH.D. PSYCHOLOGIST Signed: 07/10/2024 11:57 [facility]
--- OUTSIDE RECORDS SUMMARY | 2024-12-25 15:16 | XMS_ITS ---
Author Name [facility] [place] [facility] [place] Address [address] [place] [address] Care Team Providers Care Architectural Inspector Name Role Phone ZOE COPE Primary Care [...] Desai's Name Patient's Relationship to Policy Desai [facility] Feb 04, 2019 [id number] [phone] GABRIELLE CHO PATIENT [facility] HIGH DEDUCTIBL E HEALTH PLAN HDHP Feb 04, 2019 [id number] GABRIELLE CHO PATIENT MEDICARE (WNR) MEDICARE (M) PART A Feb 05, 2000 PART A [id number] [phone] GABRIELLE HUGO PATIENT MEDICARE (WNR) MEDICARE (M) PART A Feb 05, 2000 PART A [id number] GABRIELLE CHO PATIENT MEDICARE ([place]NR) MEDICARE (M) PART A Feb 05, 2000 PART A [id number] [phone] GABRIELLE HUGO PATIENT Selected Encounter This section includes the information on record at [place] for the Encounter. Date/Time Encounter Type Encounter Description Reason Provider Source Oct 14, 2024 11:00 AM [facility] - IND ICD-10-CM F43.10 Post-traumatic stress disorder, unspecified MALINOFSKY,TE SVETA IHE Encounter Template Text not used by [place] Assessments - Encounter Diagnoses This section includes the primary and secondary diagnoses documented for the Encounter. Date/Time Primary/Secondary Diagnosis Diagnosis Name Provider Source Oct 16, 2024 07:44 AM PRIMARY Post-traumatic stress disorder, unspecified MALINOFSKY,TER GRETCHEN [facility] [place] [facility] Oct 16, 2024 07:44 AM SECONDARY Other stressful life events affecting family and household CATIEBRAULIO,TER GRETCHEN [facility] [place] [facility] Plan of Treatment: Future Appointments (+ 6 months) and Future Tests (+/- 45 days) The Plan of Treatment section includes future care activities for the patient [facility] This section includes future appointments and future orders which are active, pending or scheduled. Future Appointments This section includes appointments that were scheduled to occur 6 months from the date of the Encounter, up to a maximum of 20 appointments. The data comes from all [place] treatment facilities. Appointment Date/Time Appointment Type Appointme nt Facility Name Oct 16, 2024 04:00 PM AMBULATORY - MEDICINE [facility] [place] [facility] Oct 17, 2024 10:00 AM AMBULATORY - PSYCHIATRY [facility] [place] [facility] Oct 18, 2024 08:30 AM AMBULATORY - MEDICINE [facility] [place] [facility] Oct 28, 2024 11:00 AM AMBULATORY - PSYCHIATRY [facility] [place] [facility] Nov 25, 2024 11:00 AM AMBULATORY - PSYCHIATRY [facility] [place] [facility] Dec 02, 2024 09:27 AM AMBULATORY - [facility] December 09, 2024 11:00 AM AMBULATORY - PSYCHIATRY [facility] [place] [facility] December 19, 2024 11:00 AM AMBULATORY - PS[place]CHIATRY [facility] [place] [facility] Jan 06, 2025 11:00 AM AMBULATORY - PS[place]CHIATRY [facility] [place] [facility] Jan 16, 2025 09:00 AM AMBULATORY [place] [facility] Jan 20, 2025 11:00 AM [facility] Feb 03, 2025 11:00 AM AMBULATORY - [place]IATRY [place] Mar 13, 2025 11:00 AM AMBULATORY - [facility] Active, Pending, and Scheduled Orders This section includes a listing of several types of active, pending, and scheduled orders, including clinic medications orders, diagnostic test orders, procedure orders and consult orders; where the start date of the order is 45 days before the date of the Encounter or 45 days after the date of theEncounter. The data comes from all [place] treatment facilities. Test Date/Time Test Type Test Details Facility Name Oct 04, 2024 09:28 AM Consult Order COMMUNITY CARE-GEN SURGERY Cons Interactive Media Project Manager's Choice [facility] Lab Results: +/- 30 days of the encounter This section includes the Chemistry and Hematology Lab Results on record with [place] for the patient. Radiology Reports and Pathology Reports are provided separately, in subsequent sections. Lab Results This section contains the Chemistry/Hematology Results that were resulted 30 days before or 30 daysafter the date of the Encounter. Date/Time Source Result Type Result - Unit Interpretation Reference Range Specimen Type Comment Oct 18, 2024 09:37 AM [facility] LYME SEROLOGY PANEL SERUM Specimen Type: [...] of the panel were validated at the [facility]. Results are considered [...] Oct 18, 2024 09:12 AM Reporting Lab: [facility] [address] [address] Performing Lab: [facility] [address] [facility] [address] TIER 1 LYME SCREENING EIA Negative Negat noah LYME AB FINAL INTERPRETATION Negative Ne gative Oct 18, 2024 09:37 AM [facility] EHRLICHIA CHAFFEENSIS Ab PANEL SERUM Specimen [...] analytical performance characteristics have been determined by [facility], [place], [place]. It has not been cleared or approved by the U.S. Food and Drug Administration. This assay has been validated pursuant to the CLIA regulations and is used for clinical purposes. Test Performed by [facility] [employer] [place], [address] [place], [place] Jey Meza M.D., Ph.D., Director of Laboratories , CLIA [id number] TEST PERFORMED AT: , Ordering Provider: ZOE COPE Report Released Date/Time: Oct 18, 2024 09:12 AM Reporting Lab: [facility] [address] [address] Performing Lab: [facility] [address] [address] E. chaffeensis Ab IgG <1:64 SEE BELOW E. chaffeensis Ab IgM <1:20 SEE BELOW EHRLICHIA CHAFFEENSIS AB INTER SEE NOTE Oct 18, 2024 09:37 AM [facility] ANAPLASMA AND EHRLICHIA AB PANEL SERUM [...] analytical performance characteristics have been determined by [employer], [place]. It has not been cleared or [...] analytical performance characteristics have been determined by [facility]. It has not been cleared or approved by the U.S. Food and Drug Administration. This assay has been validated pursuant to the CLIA regulations and is used for clinical purposes. Test Performed by [employer] [place], [address] [place] [address] Jey Meza M.D., Ph.D., Director of Laboratories , CLIA [id number] TEST PERFORMED AT: , Ordering Provider: ZOE COPE Report Released Date/Time: Oct 18, 2024 09:12 AM Reporting Lab: [facility] [address] [address] Performing Lab: [facility] [address] [address] E. chaffeensis Ab IgG <1:64 SEE BELOW E. chaffeensis Ab IgM <1:20 SEE BELOW A.phagocytophilum Ab IgG <1:64 SEE BEL OW A.phagocytophilum Ab IgM <1:20 SEE BEL OW EHRLICHIA CHAFFEENSIS AB INTER SEE NOTE A. phagocytophilum inter SEE NOTE Oct 18, 2024 09:37 AM [facility] MALARIA/BABESIA EXAM BLOOD Specimen Type: BLO OD Comment: Due to the cyclical shed rates of these parasites, one negative specimen does not rule out the possibility of a parasitic infection. Obtain specimens at 6-hour intervals for 36 hours for a comprehensive examination. Test Performed by [employer] [place], [address] [place] [address] Jey Meza M.D., Ph.D., Director of Laboratories , CLIA [id number] TEST PERFORMED AT: , Ordering Provider: ZOE COPE Report Released Date/Time: Oct 18, 2024 09:12 AM Reporting Lab: [address] [place] [address] Performing Lab: [facility] [address] [address] MALARIA/BABESIA EXAM Negative Negative Oct 11, 2024 08:19 AM [facility] HEMOGLOBIN A1C PANEL BLOOD Specimen Type: [...] Oct 11, 2024 08:18 AM Reporting Lab: [facility] [address] [address] Performing Lab: [address] [address] HEMOGLOBIN A1C 5.0 4.0-5.6 Oct 11, 2024 08:19 AM [facility] BASIC METABOLIC PANEL (non-fasting) SERUM Spe cimen Type: SERUM No comment entered. Ordering Provider: ZOE COPE Report Released Date/Time: Oct 11, 2024 08:18 AM Reporting Lab: [facility] [address] [address] Performing Lab: [address] [address] UREA NITROGEN 15 mg/dL 7-25 GLUCOSE 95 mg/dL 65-100 SODIUM 139 mmol/L 135-145 POTASSIUM 4.2 mmol/L 3.5-5.0 CHLORIDE 105 mmol/L 100-110 CO2 27 meq/L 20-30 CALCIUM 9.7 mg/dL 8.5-10.2 CREATININE, Serum 0.81 mg/dL 0.50-1.40 eGFR(CKD-EPI 2020) 87 mL/min >60 Oct 11, 2024 08:19 AM [facility] LIPID PANEL FASTING SERUM Specimen Type: SERU M No comment entered. Ordering Provider: ZOE COPE Report Released Date/Time: Oct 11, 2024 08:18 AM Reporting Lab: [facility] [address] [address] Performing Lab: [facility] [address] [address] CHOLESTEROL 144 mg/dL TRIGLYCERIDE 64 mg/dL 0-150 LDL calculated 52 mg/dL 0-129 CHOL/HDL 1.8 HDL CHOLESTEROL 79 mg/dL H 40-60 Oct 11, 2024 08:19 AM [facility] LIVER FUNCTION SERUM Specimen Type: SERUM No comment entered. Ordering Provider: ZOE COPE Report Released Date/Time: Oct 11, 2024 08:18 AM Reporting Lab: [facility] [address] [address] Performing Lab: [address] [address] PROTEIN,TOTAL 6.5 g/dL 6.0-8.3 ALBUMIN 3.8 g/dL 3.5-5.0 ALKALINE PHOSPHATASE 84 U/L 40-150 AST 21 U/L 5-34 ALT 26 U/L BILIRUBIN, TOTAL 0.8 mg/dL 0.2-1.2 Oct 11, 2024 08:19 AM [facility] TSH SERUM Specimen Type: SERUM No comment entered. Ordering Provider: ZOE COPE Report Released Date/Time: Oct 11, 2024 08:18 AM Reporting Lab: [facility] [address] [address] Performing Lab: [facility] [address] [address] TSH 2.44 u[IU]/mL 0.35-5.00 Oct 11, 2024 08:19 AM [facility] CBC AND DIFF (AUTO) BLOOD Specimen Type: BLOO D No comment entered. Ordering Provider: ZOE COPE Report Released Date/Time: Oct 11, 2024 08:18 AM Reporting Lab: [facility] [address] [address] Performing Lab: [facility] [address] [address] WBC 7.92 10*3/uL 4.50-11.00 RBC 4.64 10*6/uL [...] and tobacco- related health factors from the [place] facility where the Encounter took place. Current Smoking Status This section includes the most current smoking, or tobacco-related health factor, from the [place] facility where the Encounter took place. Date/Time Current Smoking Status Octavia cortez Sep 11, 2023 12:30 PM VA-TOBACCO NEVER USED [facility] Tobacco Use History This section includes a history of the smoking, or tobacco-related health factors, that were collected on or before the date of the Encounter. The data comes from the [place] facility where the Encounter took place. Date/Time [...] [place] [facility] Mar 09, 2018 11:27 AM LIFETIME NON-TOBACCO USER [facility] [facility] [place] [facility] Advance Directives: All historical and current Section Date Range: From patient's date of to the date document was created. This section includes ALL of a patient's completed or amended [place] Advance and Rescinded Directives. The entries below indicate that a directive exists for the patient, but an actual copy is not included with this document. The data comes from all [place] facilities. Date Advance Directives Provider Source Feb 23, 2016 ADVANCE DIRECTIVE DISCUSSION MAHAD MCKENZIE [facility] Jan 13, 2004 ADVANCE DIRECTIVE JOSE NAJERA [facility] Encounter Notes: All associated encounter notes This section contains the clinical notes associated to the Encounter. Date/Time Encounter Note(s) Provider Source Oct 14, 2024 11:00 AM TELEHEALTH NOTE: LOCAL TITLE: [facility] PSYCHOLOGY NOTE STANDARD TITLE: TELEHEALTH NOTE DATE OF NOTE: OCT 14, 2024@11:00 ENTRY DATE: OCT 14, 2024@15:26:45 AUTHOR: ALBER BROWNING EXP COSIGNER: URGENCY: STATUS: COMPLETED [facility] ([facility]VC) Standard Documentation VVC Clinician Resources Only: E911 (Emergency Call Relay Center): [phone] National [facility] Crisis Line - 988 then press #1. TONY Suicide Coordinator [phone], Ext. [phone]; Back-up Ext. [phone] [place] TONY [place] [phone] Introduction: Visit is being conducted by [place] [facility]. identified with VISUAL RECOGNITION. Emergency Plan: [place] confirmed and/or provided the following information in case of emergency or technology failure. PATIENT PHONE - PHONE NUMBER [CELLULAR] - [phone] Is patient phone number correct, if not, enter below: 's phone number: ALBERTO CHO [address], [place], [address] [place]'s present location and address for appointment: above address 's emergency contact name and phone number: on file, Amanda Arriagaan reported that location is private and safe: Yes Informed Consent: [place] informed of the risks and benefits of Telehealth video care. has the right to refuse video services. If refuses video visit, a [id number] visit will be scheduled. verbalized consent for this video visit: Yes provided consent for any other persons present for visit: N/A If yes, who and relationship to patient: Secure visit: Visit was locked for security and privacy:Yes ........................ ........................ ........................ ........ Alberto Cho attended individual psychotherapy for 32 minutes. She also requested a letter for an emotional support animal (case management). 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 She reports he admits he should not be drinking, says he is not drinking at the moment. She reports again that his dx is bipolar. She reports he is not taking meds nor seeing a therapist. PROGRESS: She reports that she used grounding, and making a before/during/after plan to manage anxiety during a big family gettogether where Amanda's first attended. This worked well with her, the plan that included where she would be, so as to avoid too much conversation with the ex-, while still including herself in the gathering. She was pleased with how it worked out. She managed also by leaning on hydroxyzine . I asked her about alpha stim: I forgot I had it, haven't used it in 8 months . She is also helped by Nikhil, whom she regards as her therapy dog, and asks for a letter so that she can take him into hotelrooms. .................... Related to: Service Connected Condition, [facility] Diagnoses: Post-traumatic stress disorder ([facility] [id number]) - Post-traumatic stress disorder, unspecified (ICD-10-CM F43.10) (Primary) Other Stressful Life Events Affecting Family and Household (ICD-10-CM Z63.79) Procedures: Psychotherapy 16-37 min - Synchronous Telemedicine Service Rendered Via Telephone - Clinical Psychologist Case Management,ea 15 min - Clinical Psychologist /guadalupe/ ALBER BROWNING,PhD Neuropsychologist Signed: 10/16/2024 07:45 ALBER BROWNING [facility] [place] [facility]
--- OUTSIDE RECORDS SUMMARY | 2024-12-25 15:17 | XMS_ITS | Encounter Summary ---
Author Name [facility] [place] [facility] [place] [facility] [facility] [place] Address [address] [place] [address] Care Team Providers Care Telephone Station Installer Name Role Phone ZOE COPE Primary Care Provider HUEY Thomas Primary Care Provider Unavailekta e Insurance Providers: [...] Relationship to Policy Desai [facility] Feb 04, 2019 [id number] GABRIELLE CHO PATIENT [facility] [employer] Feb 04, 2019 [id number] GABRIELLE CHO PATIENT MEDICARE (WNR) MEDICARE (M) PART A Feb 05, 2000 PART A [id number] GABRIELLE HUGO PATIENT MEDICARE (WNR) MEDICARE (M) PART A Feb 05, 2000 PART A [id number] GABRIELLE CHO PATIENT MEDICARE (WNR) MEDICARE (M) PART A Feb 05, 2000 PART A [id number] GABRIELLE HUGO PATIENT Selected Encounter This section includes the information on record at [place] for the Encounter. Date/Time Encounter Type Encounter Description Reason Provider Source Dec 02, 2024 09:27 AM EMERGENCY DEPT VISIT [facility] ICD-10-CM R21 Rash and other nonspecific skin eruption KEYONNA FORTUNE Marilyn Encounter Template Text not used by [place] Assessments - Encounter Diagnoses This section includes the primary and secondary diagnoses documented for the Encounter. Date/Time Primary/Secondary Diagnosis Diagnosis Name Provider Source Dec 02, 2024 10:09 AM PRIMARY Rash and other nonspecific skin eruption KEYONNA FORTUNE [facility] Plan of Treatment: Future Appointments (+ 6 months) and Future Tests (+/- 45 days) The Plan of Treatment section includes future care activities for the patient from all [place] treatmentfacilities. This section includes future appointments and future orders which are active, pending or scheduled. Future Appointments This section includes appointments that were scheduled to occur 6 months from the date of the Encounter, up to a maximum of 20 appointments. The data comes from all [place] treatment facilities. Appointment Date/Time Appointment Type Appointme nt Facility Name December 09, 2024 11:00 AM AM[place]ULATORY [place] [facility] [place] [facility] December 19, 2024 11:00 AM AMBULATORY - [place]ATRY [place] [facility] [place] [facility] Jan 06, 2025 11:00 AM AMBULATORY - PS[place]IATRY [facility] [place] [facility] Jan 16, 2025 09:00 AM AMBULATORY - MEDICINE [place] [facility] [place] [facility] Jan 20, 2025 11:00 AM AMBULATORY - PS[place]IATRY [facility] [place] [facility] Feb 03, 2025 11:00 AM AMBULATORY - PS[place]IATRY [facility] [place] [facility] Mar 13, 2025 11:00 AM AMBULATORY - PS[place]CHIATRY [facility] [place] [facility] May 27, 2025 09:00 AM AMBULATORY - MEDICINE [place] [facility] [place] [facility] Vital Signs: All taken on the encounter date This section contains inpatient and outpatient Vital Signs collected on the date of the Encounter. Date/Time Temperature Pulse Blood Pressure Respiratory Rate SP02 Pain Height Weight Body Mass Index Source Dec 02, 2024 09:38 AM 1 [facility] Dec 02, 2024 09:36 AM 98.5 62 128/81 20 100 1 [facility] Social History: Smoking Status (Most current) and Tobacco Use (All prior to encounter date) This section includes the most current, and the historical, smoking and tobacco- related health factors from the [place] facility where the Encounter took place. Current Smoking Status This section includes the most current smoking, or tobacco-related health factor, from the [place] facility where the Encounter took place. Date/Time Current Smoking Status Comment Facil ity Feb 06, 2007 01:58 PM LIFETIME NON-USER OF TOBACCO [facility] Tobacco Use History This section includes a history of the smoking, or tobacco-related health factors, that were collected on or before the date of the Encounter. The data comes from the [place] facility where the Encounter took place. Date/Time Smoking Status/Tobacco Use Comment F acility Jun 07, 2005 05:16 PM TOBACCO USE SCREENING [facility] Mar 23, 2004 08:37 AM TOBACCO USE SCREENING [facility] Advance Directives: All historical and current Section Date Range: From patient's date of to the date document was created. This section includes ALL of a patient's completed or amended [place] Advance and Rescinded Directives. The entries below indicate that a directive exists for the patient, but an actual copy is not included with this document. The data comes from all [place] facilities. Date Advance Directives Provider Source Feb 23, 2016 ADVANCE DIRECTIVE DISCUSSION MAHAD MCKENZIE [facility] Jan 13, 2004 ADVANCE DIRECTIVE JOSE NAJERA [facility] Encounter Notes: All associated encounter notes This section contains the clinical notes associated to the Encounter. Date/Time Encounter Note(s) Provider Source Dec 02, 2024 09:57 AM EMERGENCY DEPT DIS CHARGE NOTE: LOCAL TITLE: LOW ACUITY (PART 5) DISCHARGE/EDUCATION STANDARD TITLE: EMERGENCY DEPT DISCHARGE NOTE DATE OF NOTE: DEC 02, 2024@09:57 ENTRY DATE: DEC 02, 2024@09:57:59 AUTHOR: DELIA FORTUNE COSIGNER: URGENCY: STATUS: COMPLETED IDN [id number] (PART 5) DISCHARGE DISPOSITION/INSTRUCTIONS Patient Wristband Removal: Patient wristband was removed and destroyed by placing in secure shred bin. Patient is being discharged home. Primary Care Provider: Future Appointment(s): No data available Disposition: Discharged After care sheet given? Yes Follow-up Activity-Limitations: No Restrictions Condition on Discharge: Satisfactory Date/Time of Discharge: Nov@09:58 Patient Instructions: Keep areas dry and cool. If you develop increased rash formation swelling of the lips tongue throat wheezing or shortness of breath return to the emergency room immediately otherwise follow-up with primary care as needed. PATIENT EDUCATION ASSESSMENT LEARNING BARRIERS: No Barriers READING LIMITATIONS: None LEARNING PREFERENCES: One-on-One, Print DISCHARGE INSTRUCTIONS PERTINENT TO DIAGNOSIS WERE GIVEN TO THE PATIENT/CAREGIVER TEACHING STRATEGY: One-to-One Verbal Discussion EDUCATION PROVIDED TO:Patient EVALUATION OF PATIENT/FAMILY RESPONSE: Can Demonstrate Plaza Skill The treatment that I received was: MD Exam My Physician's Name is: justino KHAN [facility] 09/30/03 REVISION APPROVED [facility] 04/03/13 /guadalupe/ DELIA FORTUNE Signed: 12/02/2024 09:59 DELIA FORTUNE [facility] Dec 02, 2024 09:52 AM PHYSICIAN EMERGENC Y DEPT E & M NOTE: LOCAL TITLE: LOW ACUITY (PART 3) PROVIDER EXAMINATION STANDARD TITLE: PHYSICIAN EMERGENCY DEPT E & M NOTE DATE OF NOTE: DEC 02, 2024@09:52 ENTRY DATE: DEC 02, 2024@09:52:22 AUTHOR: DELIA FORTUNE COSIGNER: URGENCY: STATUS: COMPLETED CC: Rash upper extremities HPI 49 y/o FEMALE c/o rash on upper extremities. Patient says that she is developing extremely pruritic rash on her upper extremities over the last month. She has tried Lotrimin and lotion without any relief. She said the Lotrimin actually made it worse. She denies any allergies. She said it started on her left ring finger when not wearing rings. She said that it is spread and blotchy pattern upper arms. No involvement of the torso neck face lips tongue wheezing or shortness of breath. No lower extremity involvement. No history of skin issues. No new medications lotions laundry detergents etc. Here for further evaluation. Review of Systems Pertinent positives and negatives as per HPI, otherwise negative. PAST MEDICAL HISTORY: (derived from medical record and patient interview) Hyperlipidemia Vertigo Reflux Sleep apnea Obesity Hypothyroidism Bipolar Vitamin D deficiency Edema Hypertension ADD Cerebral AV disorder hyperlipidemia Personality disorder SOCIAL/FAMILY HISTORY: Polysubstance abuse in remission ALLERGIES/Adverse Drug Reactions (ADR): Patient has answered NKA Active Outpatient Medications (including Supplies): No Medications Found Medications are automatically populated into the medical record based on active medications in the [facility]. Medications were unable to be verified otherwise. PHYSICAL EXAM VITAL SIGNS: 36.9 C [98.5 F] (12/02/2024 09:36) 62 (12/02/2024 09:36) 20 (12/02/2024 09:36) 128/81 (12/02/2024 09:36) Oxygen Saturation: 1 (12/02/2024 09:38) 167.6 cm [66 in] (01/04/2018 08:43) 113.85 kg [251 lb] (02/01/2018 08:05) GENERAL APPEARANCE: Alert and cooperative, no acute distress. EXTREMITIES: See skin NEUROLOGICAL: Alert and oriented. Light touch intact SKIN: Erythematous rash ranging in size from a couple millimeters up to a couple centimeters. No real advancing border some generalized erythema with some minor scaling of the skin. Involvement is on the posterior as well as the anterior arms. No sign of secondary cellulitis or excoriations. No petechiae or pustules. PSYCHIATRIC: Normal judgment and reason. LAB/ANCILLARY SERVICES EMERGENCY DEPARTMENT COURSE/TREATMENT ASSESSMENT/PLAN 1. Rash, will start on Solu-Medrol topical steroids. Return with worsening symptoms low suspicion for fungal infection as Lotrimin made the rash worse. 2. 3. Results discussed with patient/family prior to disposition from ER. FINAL DIAGNOSIS 1. 2. Rash 3. 4. 5. DISCHARGE INSTRUCTIONS DIAGNOSIS: Rash NEW MEDICATIONS: Solu-Medrol IM and topical steroids INSTRUCTIONS:Keep areas dry and cool. If you develop increased rash formation swelling of the lips tongue throat wheezing or shortness of breath return to the emergency room immediately otherwise follow-up with primary care as needed. RETURN TO ER FOR: Worsening rash swelling of the lips tongue throat wheezing or shortness of breath FOLLOW UP: Primary care /es/ DELIA FORTUNE Signed: 12/02/2024 10:00 DELIA FORTUNE [facility] Dec 02, 2024 09:37 AM NURSING EMERGENCY DEPT TRIAGE NOTE: LOCAL TITLE: ER IDN PRIMARY [id number] (PART 1) NURSING TRIAGE ASSESS STANDARD TITLE: NURSING EMERGENCY DEPT TRIAGE NOTE DATE OF NOTE: DEC 02, 2024@09:37 ENTRY DATE: DEC 02, 2024@09:37:06 AUTHOR: NATE STEPHENSON EXP COSIGNER: URGENCY: STATUS: COMPLETED Emergency Department/Urgent Care Center Triage Patient age:49 Sex in chart: FEMALE Mode of Arrival: Private vehicle Mode of Mobility: * Walk 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 Pt denies exposure to poison oak/aaliyah. Pt states she had recent negative lyme disease test done. Pt states OTC meds not working. Pt AAOx4, NAD. Level of Consciousness (AVPU): Alert = Appears aware of and responsive to the environment on their own. Follows commands, opens eyes spontaneously, and tracks objects. Vital Signs: Vital signs previously recorded this visit: Date Vital Measurement Qualifiers 12/02/2024 09:36 Temp F (C) 98.5 (36.9) Oral Pulse 62 Respir 20 BP 128/81 Pain 1 POx (L/Min)(%) 100 Pain: DVPRS Scale Location: [facility] Pain Rating Scale (DVPRS): Pain Score: 1 Patient's acceptable pain goal: The patient is medically able to conceive. Last normal menstrual period (LNMP): unk The patient states that they are not . Suicide Screen: [place] Suicide Severity Rating Scale (C-SSRS) screener 1. [...] required due to responses to other questions. Emergency Severity Index (BETZY) level: Level 4 Fall Risk Screen: Patient does not meet criteria to be considered as increased fall risk. Violence Risk Screen: Current Violence Risk Are you having current thoughts of violence? No Are you having current thoughts of homicide? No Actions taken: No action needed Exposure to Violence and Abuse Risk Pre-Screen: Are you worried for your safety, that you will be hurt or harmed? No Has anyone tried to force you to sign papers or use your money against your will? No Previously documented allergies: Patient has answered NKA Current Problems: KARO - Active Problems 35 Active Problems PROBLEM LAST MOD PROVIDER Benign paroxysmal positional vertigo 01/04/2018 HUEY PIERRE Mixed hyperlipidemia 01/04/2018 HUEY PIERRE Binge eating disorder 07/27/2017 CHINYERE SINGH Obstructive sleep apnea syndrome 03/31/2017 HUEY PIERRE Noncompliance with therapeutic regimen 06/28/2016 BIPS,JESUS Closed trimalleolar fracture 02/10/2016 HODA PARADA Cervical intraepithelial neoplasia grade 2 05/21/2015 HUEY PIERRE Vitamin D deficiency 05/21/2015 HUEY PIERRE Personal History of Noncompliance with Medical 07/18/2013 HUEY PIERRE Treatment, Presenting Hazards to Health Hypothyroidism (SNOMED CT 71558598) 03/31/2017 HUEY PIERRE Impaired fasting glycaemia (SNOMED CT 079836410) 05/21/2015 HUEY PIERRE Essential Hypertension 11/12/2010 PRIYANKA LORD Edema 11/12/2010 PRIYANKA LORD Gastroesophageal reflux disease (SNOMED CT 03/31/2017 HUEY PIERRE Cynthia [id number]) ATTENTION DEFICIT DISORDER 03/05/2010 RICHARD URIARTE Pain in joint involving hand (ICD-9-CM 719.44) 02/11/2010 MAURICIO PETERSON Pain, neck NEC (ICD-9-CM 723.1) 02/11/2010 MAURICIO PETERSON Contusion of unspecified part of lower limb 07/27/2009 RAVI FLOOD (ICD-9-CM 924.5) Obesity (SNOMED CT 452801267) 03/31/2017 GABBYOSBALDO SandersZach Marie BMI= 34 Vaginitis and vulvovaginitis (ICD-9-CM 616.10) 06/24/2009 BRUNO LOZA recurrant post-coital BV Skin Tags 11/25/2008 BRUNO LOZA - bilat.vulvar-inner thigh skin tags,along panty line Abnormal Glandular Papanicolaou Smear of Cervix 05/31/2011 BRUNO LOZA 1. pap=SUMAN w/colpo neg,EMB neg 2. pap=HGSIL, ectocx neg, ECC neg 3. - cervical LEEP= CIN3 w/margins clear 4. ([facility]) 5. , pap's= ok Hemorrhoids 2008 BRUNO LOZA S/p hemorrhoidectomy x 2, still w/hemorrhoids, Oligomenorrhea 2008 BRUNO LOZA menses = irreg irreg off OCP's, probably PCOS Hyperlipidemia 02/13/2008 RAVI FLOOD LDL goal <160 Nonunion of fracture 2008 LESLY LOZAINE C Left middle finger w/3 screws placed Intermittent claudication (SNOMED CT 40283695) 08/25/2015 HUEY PIERRE 1. S/p right femoral A. baloon arterioplasty from cerebral 2. AVM surgical procedure, 2004 Cerebral Arteriovenous Malformations 2008 RAVI FLOOD 1. Surgery at [place] 2004 2. Left temporal area Posttraumatic stress disorder (SNOMED CT 06/15/2015 0 [id number]) POLYSUBSTANCE DEPENDENCE, IN REMISSION 08/19/2004 ELGIN MAGALLON Mixed bipolar affective disorder, moderate 06/23/2015 GREG BELLO (SNOMED CT 751397596) Personality Disorder NOS * (ICD-9-CM 301.9) 10/11/2005 ZELDA VILLAFUERTE ALCOHOL ABUSE,UNSPECIFIED 04/20/2004 FANNIE HERNANDEZ CANNABIS ABUSE,UNSPECIFIED 04/20/2004 FANNIE HERNANDEZ Bulimia Nervosa 02/19/2016 JAIME POLLOCK 70%SC /es/ NATE STEPHENSON RN Signed: 12/02/2024 09:40 NATE STEPHENSON [facility]
--- OUTSIDE RECORDS SUMMARY | 2024-12-25 15:17 | XMS_ITS | Encounter Summary ---
Author Name [facility] [place] [facility] [facility] [place] Address [address] [place] [address] Care Team Providers Care Bioinformatics Software Engineer Name Role Phone ZOE COPE Primary [...] Relationship to Policy Desai [facility] Feb 04, 2019 [id number] [phone] GABRIELLE CHO PATIENT [facility] [place] [facility] Feb 04, 2019 [id number] [phone] [id number] [phone] GABRIELLE CHO PATIENT MEDICARE ([place]NR) MEDICARE (M) PART A Feb 05, 2000 PART A [id number] GABRIELLE HUGO PATIENT MEDICARE (WNR) MEDICARE (M) PART A Feb 05, 2000 PART A [id number] GABRIELLE CHO PATIENT MEDICARE (WNR) MEDICARE (M) PART A Feb 05, 2000 PART A [id number] [phone] GABRIELLE HUGO PATIENT Selected Encounter This section includes the information on record at [place] for the [place]counter. Date/Time Encounter Type Encounter Description Reason Provider Source Jun 10, 2024 11:00 AM PSYTX W PT 30 [facility]ES [facility] - IND ICD-10-CM F43.0 Acute stress reaction MALINOFSKY,TER GRETCHEN IHE Encounter Template Text not used by [place] Assessments - Encounter Diagnoses This section includes the primary and secondary diagnoses documented for the Encounter. Date/Time Primary/Secondary Diagnosis Diagnosis Name Provider Source Jun 10, 2024 04:39 PM PRIMARY Acute stress reaction MALINOFSKY,TE SVETA [facility] [place] [facility] Jun 10, 2024 04:39 PM SECONDARY Bipolar disorder, current episode depressed, moderate MALINOFSKY,TE SVETA [facility] [place] [facility] Jun 10, 2024 04:39 PM SECONDARY Cannabis abuse, uncomplicated MALINOFSKY,TE SVETA [facility] [place] [facility] Jun 10, 2024 04:39 PM SECONDARY Post-traumatic stress disorder, unspecified MALINOFSKY,TE SVETA [facility] [place] [facility] Plan of Treatment: Future Appointments (+ 6 months) and Future Tests (+/- 45 days) The Plan of Treatment section includes future care activities for the patient from all [place] treatmentfacilities. This section includes future appointments and future orders which are active, pending or scheduled. Future Appointments This section includes appointments that were scheduled to occur 6 months from the date of the Encounter, up to a maximum of 20 appointments. The data comes from all [place] treatment facilities. Appointment Date/Time Appointment Type Appointme nt Facility Name Jun 28, 2024 11:30 AM AMBULATORY - REHAB MEDICIN E [facility] [place] [facility] Jul 08, 2024 11:00 AM AMBULATORY - [facility]IAT[facility] [place] [facility] Jul 15, 2024 10:30 AM AMBULATORY [facility]AT[facility] [place] [facility] Jul 15, 2024 11:00 AM AMBULATORY - PS[facility]IAT[facility] [place] [facility] Jul 22, 2024 11:00 AM AMBULATORY - PS[facility]CHIATRY [facility] [place] [facility] Aug 12, 2024 01:00 PM AMBULATORY - PSYCHIATRY [facility] Aug 19, 2024 11:00 AM AMBULATORY - PS[facility]IATRY [facility] [place] [facility] Aug 19, 2024 03:00 PM AMBULATORY - PSYCHIATRY [facility] [place] [facility] Sep 02, 2024 11:00 AM AMBULATORY - PS[facility]CHIATRY [facility] [place] [facility] Sep 13, 2024 03:00 PM AMBULATORY - PSYCHIATRY [facility] Sep 16, 2024 08:00 AM AM[facility]ULATORY [facility]INE [facility] [place] [facility] Sep 16, 2024 11:00 AM AMBULATORY - PS[facility]CHIATRY [facility] [place] [facility] Sep 24, 2024 01:00 PM AMBULATORY - PSYCHIATRY [facility] Oct 04, 2024 08:30 AM AMBULATORY - MEDICINE [facility] Oct 09, 2024 09:00 AM AMBULATORY - PSYCHIATRY [facility] Oct 14, 2024 11:00 AM AMBULATORY - PS[facility]IAT[facility] [place] [facility] Oct 16, 2024 04:00 PM AM[facility]ULATORY [facility] [place] [facility] Oct 17, 2024 10:00 AM AMBULATORY - PS[facility]CHIATRY [facility] [place] [facility] Oct 18, 2024 08:30 AM AM[facility]ULATORY [facility] [place] [facility] Oct 28, 2024 11:00 AM AMBULATORY - PS[facility]CHIATRY [facility] [place] [facility] Social History: Smoking Status (Most current) [...] 11, 2023 12:30 PM [facility] Tobacco Use History This section includes a history of the smoking, or tobacco-related health factors, that were collected on or before the date of the Encounter. The data comes from the [place] facility where the Encounter took place. Date/Time Smoking Status/Tobacco Use Comment F acility Sep 30, 2022 10:00 AM VA-TOBACCO NEVER USED [facility] [place] [facility] Apr 21, 2020 03:34 PM VA-TOBACCO NEVER USED [facility] [place] [facility] Jan 10, 2019 11:51 AM VA-TOBACCO NEVER USED [facility] [place] [facility] Mar 09, 2018 11:27 AM LIFETIME NON-TOBACCO USER [facility] [place] [facility] Advance Directives: All historical and current [...] 23, 2016 ADVANCE DIRECTIVE DISCUSSION MAHAD MCKENZIE [facility] Jan 13, 2004 ADVANCE DIRECTIVE [facility] Encounter Notes: All associated encounter notes This section contains the clinical notes associated to the Encounter. Date/Time Encounter Note(s) Provider Source Jun 10, 2024 04:30 PM TELEHEALTH NOTE: LOCAL TITLE: [facility]CT PSYCHOLOGY NOTE STANDARD TITLE: TELEHEALTH NOTE DATE OF NOTE: JUN 10, 2024@16:30 ENTRY DATE: JUN 10, 2024@16:30:50 AUTHOR: ALBER BROWNING EXP COSIGNER: URGENCY: STATUS: COMPLETED [facility] Connect ([facility]VC) Standard Documentation VVC Clinician Resources Only: E911 (Emergency Call Relay Center): [phone] National [facility] Crisis Line - 988 then press #1. [place] Suicide Coordinator [phone], Ext. [phone]; Back-up Ext. [phone] [facility] PoliceTONY [place] [phone] Introduction: Visit is being conducted by [place] [employer] [facility]. identified with VISUAL RECOGNITION. Emergency Plan: [place] confirmed and/or provided the following information in case of emergency or technology failure. PATIENT PHONE - PHONE NUMBER [CELLULAR] - Is patient phone number correct, if not, enter below: [place]'s phone number: ALBERTO CHO [address] [place], [place], [address] 's present location and address for appointment: [place]'s emergency contact name and phone number: on file reported that location is private and safe: Yes Informed Consent: [place] informed of the risks and benefits of Telehealth video care. has the right to refuse video services. If refuses video visit, a [id number] visit will be scheduled. [place] verbalized consent for this video visit: Yes [place] provided consent for any other persons present for visit: N/A If yes, who and relationship to patient: Secure visit: Visit was locked for security and privacy:Yes ........................ ........................ ........................ ... Alberto Cho attended 30 minutes of this individual session with clinical psychologist. PROBLEM: Crisis regarding stuart Dawson. DIAGNOSIS: Acute Stress Reaction PTSD SESSION FOCUS: Fam is traveling the country ([place] and now [place]) looking for a place that he can fit in . He might be starting to realize the schizophrenia. enrico Dominguez is feeling overwhelmed by the prospect that he might drive off a gabriela . Amanda, [place]'s , manages by keeping himself very busy. [place] herself is in bed, unable to self-motivate. She wants to declutter and start packing. She admits she ruminates on the negative. Their plan is to return to [place], [place], in time for a wedding. PROBLEM: Although contacting [facility] was recommended at our last visit, they did not follow through. PROGRESS: She did start looking at the [employer] material and had a good question. (She could not proceed before getting the answer today.) INTERVENTION: Strongly recommended they contact [facility] Mental [facility]. Advised [place] that this is beyond them to tackle Samir's schizophrenia episodes on their own. They need an agency to manage. PLAN: meet again at next Monday after holiday. ........................ ........................ ...................... Related to: Service Connected Condition, [facility] Diagnoses: Acute stress disorder (SCT [id number]) - Acute stress reaction (ICD-10-CM F43.0) (Primary) Cannabis abuse (SCT [id number]) - Cannabis abuse, uncomplicated (ICD-10-CM F12.10) Bipolar affective disorder, currently depressed, moderate (SCT [id number]) - Bipolar disorder, current episode depressed, moderate (ICD-10-CM F31.32) Post-traumatic stress disorder (SCT [id number]) - Post-traumatic stress disorder, unspecified (ICD-10-CM F43.10) Procedures: Psychotherapy 16-37 min - Synchronous Telemedicine Service - Clinical Psychologist /guadalupe/ ALBER BROWNING,PhD Neuropsychologist Signed: 06/10/2024 16:40 ALBER BROWNING [facility]
--- OUTSIDE RECORDS SUMMARY | 2024-12-25 15:17 | XMS_ITS | Encounter Summary ---
Author Name [facility] [place] [facility] [place] [facility] [facility] [place] Address [address] [place] [address] Care Team Providers Care Car Starter Name Role Phone ZOE COPE Primary Care [...] Name Patient's Relationship to Policy [facility] Feb 04, 2019 [id number] GABRIELLE CHO PATIENT [facility]ALTH [place] [facility] Feb 04, 2019 [id number] GABRIELLE CHO PATIENT MEDICARE (WNR) MEDICARE (M) PART A Feb 05, 2000 PART A [id number] GABRIELLE HUGO PATIENT MEDICARE (WNR) MEDICARE (M) PART A Feb 05, 2000 PART A [id number] [phone] GABRIELLE CHO PATIENT MEDICARE (WNR) MEDICARE (M) PART A Feb 05, 2000 PART A [id number] [phone] GABRIELLE HUGO PATIENT Selected Encounter This section includes the information on record at [place] for the Encounter. Date/Time Encounter Type Encounter Description Reason Provider Source Aug 19, 2024 03:00 PM OFFICE O/P EST MOD 30 MIN [facility] - IND ICD-10-CM F43.10 Post-traumatic stress disorder, unspecified JOSE ALFREDO FLORES IHMarilyn Encounter Template Text not used by [place] Assessments - Encounter Diagnoses This section includes the primary and secondary diagnoses documented for the Encounter. Date/Time Primary/Secondary Diagnosis Diagnosis Name Provider Source Aug 19, 2024 04:21 PM PRIMARY Post-traumatic stress disorder, unspecified JEF FLORES [facility] [place] [facility] Aug 19, 2024 04:21 PM SECONDARY Acute stress reaction JEF FLORES [facility] [place] [facility] Aug 19, 2024 04:21 PM SECONDARY Bipolar disorder, current episode depressed, moderate JEF FLORES ELJOSHUA [facility] [place] [facility] Aug 19, 2024 04:21 PM SECONDARY Cannabis abuse, uncomplicated JEF FLORES ELJOSHUA [facility] [place] [facility] Plan of Treatment: Future Appointments (+ 6 months) and Future Tests (+/- 45 days) The Plan of Treatment section includes future care activities for the patient from all [place] treatmentfacilities. This section includes future appointments and future orders which are active, pending or scheduled. Future Appointments This section includes appointments that were scheduled to occur 6 months from the date of the Encounter, up to a maximum of 20 appointments. The data comes from all [place] treatment facilities. Appointment Date/Time Appointment Type Appointme nt Facility Name Sep 02, 2024 11:00 AM AMBULATORY - PSYCHIATRY [facility] [place] [facility] Sep 13, 2024 03:00 PM AMBULATORY - PSYCHIATRY [facility] Sep 16, 2024 08:00 AM [facility] Sep 16, 2024 11:00 AM AMBULATORY [facility] [place] [facility] Sep 24, 2024 01:00 PM AMBULATORY - PSYCHIATRY [facility] Oct 04, 2024 08:30 AM AMBULATORY - MEDICINE [facility] Oct 09, 2024 09:00 AM AMBULATORY - PSYCHIATRY [facility] Oct 14, 2024 11:00 AM AMBULATORY - [facility]IATRY [facility] [place] [facility] Oct 16, 2024 04:00 PM AMBULATORY - MEDICINE [facility] [place] [facility] Oct 17, 2024 10:00 AM AMBULATORY - PS[facility]IATRY [facility] [place] [facility] Oct 18, 2024 08:30 AM AMBULATORY - MEDICINE [facility] [place] [facility] Oct 28, 2024 11:00 AM AMBULATORY - PS[facility]CHIATRY [facility] [place] [facility] Nov 25, 2024 11:00 AM AMBULATORY - PS[facility]IATRY [facility] [place] [facility] Dec 02, 2024 09:27 AM AMBULATORY - [facility] December 09, 2024 11:00 AM AMBULATORY - PSYCHIATRY [facility] [place] [facility] December 19, 2024 11:00 AM AMBULATORY - PSYCHIATRY [facility] [place] [facility] Jan 06, 2025 11:00 AM AMBULATORY - PS[facility]CHIATRY [facility] [place] [facility] Jan 16, 2025 09:00 AM AMBULATORY - MEDICINE [place] [facility] [place] [facility] Jan 20, 2025 11:00 AM AMBULATORY - PS[facility]CHIATRY [facility] [place] [facility] Feb 03, 2025 11:00 AM AMBULATORY - PS[facility]CHIATRY [facility] [place] [facility] Active, Pending, and Scheduled Orders This section includes a listing of several types of active, pending, and scheduled orders, including clinic medications orders, diagnostic test orders, procedure orders and consult orders; where the start date of the order is 45 days before the date of the Encounter or 45 days after the date of theEncounter. The data comes from all [place] treatment facilities. Test Date/Time Test Type Test Details Facility Name Aug 28, 2024 01:19 PM Consult Order COMMUNITY CARE-GEN SURGERY Cons Residence Supervisor's Choice [facility] [place] [facility] Social History: Smoking Status (Most current) and Tobacco Use (All prior to encounter date) This section includes the most current, and the historical, smoking and tobacco- related health factors from the [place] facility where the Encounter took place. Current Smoking Status This section includes the most current smoking, or tobacco-related health factor, from the [place] facility where the Encounter took place. Date/Time Current Smoking Status Comment Enedina dana Sep 11, 2023 12:30 PM VA-TOBACCO NEVER USED [facility] Tobacco Use History This section includes a history of the smoking, or tobacco-related health factors, that were collected on or before the date of the Encounter. The data comes from the [place] facility where the Encounter took place. Date/Time Smoking Status/Tobacco Use Comment F acchio Sep 30, 2022 10:00 AM [facility]TOBACCO [facility] Apr 21, 2020 03:34 PM [facility]TOBACCO [facility] Jan 10, 2019 11:51 AM VA-TOBACCO [facility] Mar 09, 2018 11:27 AM LIFETIME NON-TOBACCO USER [facility] Advance Directives: All historical and current Section Date Range: From patient's date of to the date document was created. This section includes ALL of a patient's completed or amended [place] Advance and Rescinded Directives. The entries below indicate that a directive exists for the patient, but an actual copy is not included with this document. The data comes from all [place] facilities. Date Advance Directives Provider Source Feb 23, 2016 ADVANCE DIRECTIVE DISCUSSION MAHAD [facility] Jan 13, 2004 ADVANCE DIRECTIVE JOSE [facility] Encounter Notes: All associated encounter notes This section contains the clinical notes associated to the Encounter. Date/Time Encounter Note(s) Provider Source Aug 19, 2024 04:08 PM MENTAL HEALTH TREATMENT PLAN NOTE: LOCAL TITLE: MH TREATMENT PLAN STANDARD TITLE: MENTAL HEALTH TREATMENT PLAN NOTE DATE OF NOTE: AUG 19, 2024@16:08:33 ENTRY DATE: AUG 19, 2024@16:08:46 AUTHOR: EVERTON FLORES EXP COSIGNER: URGENCY: STATUS: COMPLETED MH TREATMENT PLAN - Aug, @ 04:08PM Visit Date: Aug, @ 15:00 - CWM/NO/VVC/MHC/MARK PASTEURIZER: ALBER BROWNING / MARGA Chapman STRENGTHS: Provider Identified: Expressed desire/motivation for change Active partnership in [place] Accepts guidance/feedback Financial security Works well with others Has available spiritual support Has supportive family and/or friends Hope Ability to care for others Capable of [place] Able to maintain IADLs Good Hygiene Engages regularly in leisure or recreational interests Kindness and generosity Social intelligence Good communicator Good parent/caregiver NEEDS: Lucid and aware of current situation TREATMENT PLAN: Problem: OVEREATING Status: ACTIVE Goal: Eat healthy Status: ACTIVE Objective: Reduce over-eating by self-care Status: ACTIVE Projected Target: 08/02/2022 Intervention: [place] and Provider discussed plan for self care (07/26/2021 and 08/02/2021). feels this plan is do-able. Status: ACTIVE Discipline: Mental Health Clinic Time Frame: Five times every 2 months for 12 months Providers: ALBER BROWNING: PSYCHOLOGIST Problem: Bipolar disorder Status: ACTIVE Comments: Bipolar Disorder Stable 09/11/2023 (by EVERTON FLORES) Goal: states, I want to maintain at the current level. My medicines and therapy are going very well. Status: ACTIVE Comments: I would like my mood to remain stable. 08/19/2024 (by EVERTON FLORES) Bipolar Disorder is currently stable. 08/19/2024 (by EVERTON FLORES) I would like my bipolar disorder to remain stable. 09/11/2023 (by EVERTON FLORES) Objective: This is to be accomplished by [place] taking medications as agreed upon/prescribed and keeping follow-up appointments every 3 months as well as 's self-report. Status: ACTIVE Projected Target: 11/10/2021 Comments: I plan to continue my medication for my mood. 08/19/2024 (by EVERTON FLORES) I would like my mood to remain stable. 08/19/2024 (by EVERTON FLORES) I plan to continue my medication to help with my bipolar disorder. 09/11/2023 (by EVERTON FLORES) Intervention: Provider will review objective/subjective and collaborate with regarding need for medication changes/continuations, etc. Status: ACTIVE Discipline: Mental Health Clinic Time Frame: PRN for years Providers: MOY BUTT: PSYCHIATRIST Comments: RTC every 2-3 months or as needed for medication management. 08/19/2024 (by EVERTON FLORES) RTC every 2-3 months or as needed. 09/11/2023 (by EVERTON FLORES) DISCIPLINE: Mental Health Clinic Entered Treatment: 11/15/2019 @ 03:42PM Review Date: 09/10/2024 Anticipated Discharge: None PATIENT ACTION: PATIENT AGREED TO PLAN DISCUSSED. FAMILY ACTION: PATIENT'S FAMILY NOT AVAILABLE. INTERDISCIPLINARY TEAM: MOY BUTT: PSYCHIATRIST ALBER BROWNING: PSYCHOLOGIST COMMUNICATION: Relevant treatment options, including evidence-based interventions, were considered and discussed with the [place]. NO A copy of the treatment plan was given to the . NO Risks, benefits, and potential complications were discussed with the . NO /guadalupe/ EVERTON FLORES MD PSYCHIATRIST Signed: 08/19/2024 16:08 Receipt Acknowledged By: 08/25/2024 16:18 /es/ ALBER BROWNING,PhD Neuropsychologist EVERTON FLORES [facility] Aug 19, 2024 03:10 PM TELEHEALTH NOTE: LOCAL TITLE: [place] VIDEO CONNECT PSYCHIATRIST NOTE STANDARD TITLE: TELEHEALTH NOTE DATE OF NOTE: AUG 19, 2024@15:10 ENTRY DATE: AUG 19, 2024@15:10:20 AUTHOR: EVERTON FLORES EXP COSIGNER: URGENCY: STATUS: COMPLETED [place] Video Connect (VVC) Standard Documentation VVC Clinician Resources Only: E911 (Emergency Call Relay Center): [phone] National Veterans Crisis Line - 988 then press #1. TONY Suicide Coordinator [phone], Ext. [phone]; Back-up Ext. [phone] [place] TONY Yang [place] [phone] Introduction: Visit is being conducted by [place] [employer]. identified with 2 identifiers: [X] Full Name [X] Date of [ ] VA ID Card Emergency Plan: [facility] confirmed and/or provided the following information in case of emergency or technology failure. PATIENT PHONE - PHONE NUMBER [CELLULAR] - Is patient phone number correct, if not, enter below: 's phone number: ALBERTO CHO [address] [place], [place], [address] G[place]on's present location and address for appointment: [address] [place] [address] 's emergency contact name and phone number: None given today [place] reported that location is private and safe: Yes Informed Consent: informed of the risks and benefits of Telehealth video care. has the right to refuse video services. If refuses video visit, a [id number]-[id number] visit will be scheduled. verbalized consent for this video visit: Yes provided consent for any other persons present for visit: N/A If yes, who and relationship to patient: Secure visit: Visit was locked for security and privacy:Yes ALBERTO CHO, a 49 year old WHITE FEMALE was seen for scheduled follow-up. MENTAL HEALTH NOTE: [place] in [place] [facility] [place]. Two forms of identification was used. DIAGNOSES AND PROBLEMS TREATED THIS VISIT: Bipolar Disorder Type I, MRE Depressed without psychotic features, PTSD-Chronic, MST, History of Bulimia Eating Disorder, now stable, Cannabis Use Disorder, S/P Weight Loss Surgery SUBJECTIVE: Alberto says that she is doing alright. She says her son comes down for a visit for 7 days starting tonight. Rey is worried about how this will go. Her son hasn't been on medications. She worries that his visit will be chaotic and stressful for her. Her and her 's place in [place] is small and there isn't a lot of room for when they have company. Alberto has been maintaining her 104 pound weight loss, but needs to lose another 15 pounds to get down to 150 pounds. Alberto has not been as focused lately to do this. She hasn't been able to work out like she normally does due to it being cold there and her elliptical being out on the porch which is cold. She plans to put on layers of clothes and try to get out there soon. Alberto has plans to visit her father and his soon and this is not something she looks forward to. She finds it frustrating that they reach out to her to help them with things that they should be able to have done by contractors they hire. Alberto says her father and his don't take care of themselves and because of that are not in the best of health. She visited her mother recently and this was completely different. Her mother and her mother's partner were able to go to the beach and have taken care of themselves so they are better able to function as older adults now. Alberto thinks this will be her last trip to visit her father for awhile. She finds it just too stressful to be there. Alberto's jeep needs repairs that they have to take it to a friend a few hours away to fix. Her and Amanda are down to one vehicle currently. Alberto doesn't plan to come back from [place] until October. SUBSTANCE ABUSE: Caffeine: Tobacco: denies Cocaine: denies [...] Latuda, wellbutrin, naltrexone, hydroxyzine, ambien, Depakote, Paxil, [place] (said she had lab abnormality with it [...] NEEDED Indication: FOR ANXIETY 8) LEVOTHYROXINE NA (SYNTHROID) 112MCG TAB TAKE ONE TABLET BY ACTIVE MOUTH EVERY MORNING 30 MINUTES BEFORE BREAKFAST FOR THYROID - TAKE ON AN EMPTY STOMACH WITH A FULL GLASS OF WATER 9) LISINOPRIL 20MG TAB TAKE ONE TABLET BY MOUTH ONCE DAILY TO ACTIVE CONTROL BLOOD PRESSURE CHANGE IN DOSE 10) LURASIDONE HCL 80MG TAB TAKE ONE TABLET BY MOUTH ONCE DAILY ACTIVE (S) Indication: FOR BIPOLAR DEPRESSION 11) OMEPRAZOLE 20MG [...] Alert and fully oriented. Appearance and Behavior: Older white female with longer blond hair dressed casually wearing eyeglasses at home (wood paneling visible behind her). Eye Contact: Good. Speech: Normal rate and volume. Mood/Affect: ok. Affect: euthymic. Thought Production/Content: Logical, sequential & [...] often. Alberto sounds in fair spirits today. She has some stressful events coming up in her life and is trying to manage these as best she can. Alberto reports she is doing well with her current medication regimen. She denies any side effects from them. No changes made to her medications today. She is planning to see her [facility] PCP and have labs done in October when she returns from [place]. Will look for these results then. Alberto continues in therapy with Dr. Browning. No Tardive Dyskinesia noted on video exam. Next Visit: in October. Patient is aware of how to access [facility] open access clinic in [facility] during weekdays for immediate mental health [...] in the community (including Crisis Line, 911, [place] National Suicide Prevention Lifeline: 3-184-404-TALK). Patient is instructed to contact me should [...] ER in the event of an emergency. Suicide Screen: C-SSRS Screening [place]-Suicide Severity Rating Scale (C-SSRS Screener) 1. Over the past month, have you [...] required due to responses to other questions. BMI>30/>24.99 High Risk: Patient declines to discuss weight management. Patient declined weight discussion. Discussed revisiting at a future visit. Alcohol Use Screen (AUDIT-C): Alcohol Screen: SCREEN FOR ALCOHOL (AUDIT-C) An alcohol screening test (AUDIT-C) was negative (score=0). 1. How often did you have a drink containing alcohol in the past year? Consider a drink to be a 12 ounce can or bottle of regular beer, 8 ounces of malt liquor, a 5 ounce glass of table wine, or a 1.5 ounce shot of liquor (like scotch, gin, or vodka). Never 2. How many drinks containing alcohol did you have on a typical day when you were drinking in the past year? Response not required due to responses to other questions. 3. How often did you have 4 or more drinks on one occasion in the past year? Response not required due to responses to other questions. Medication Reconciliation: Outpatient: Has the patient been taking medications as documented in the EMLR? YES: The patient has been taking medications as documented in the EMLR. Essential Medication List for Review used to complete this medication reconciliation. INCLUDED IN THIS LIST: Alphabetical list of active outpatient prescriptions dispensed from this [place] (local) and dispensed from another [place] or [facility] facility (remote) as well as inpatient orders [...] whether with a VA or non-VA provider. Sexual Orientation: The patient thinks of their sexual orientation as: Straight or Heterosexual /guadalupe/ EVERTON FLORES MD PSYCHIATRIST Signed: 08/19/2024 16:21 EVERTON FLORES [facility]
--- OUTSIDE RECORDS SUMMARY | 2024-12-25 15:17 | XMS_ITS ---
Author Name [place] Address [address] [place] [address] Care Team Providers Care Blueprint Blocker Name Role Phone ZOE COPE Primary Care [...] Name Patient's Relationship to Policy Desai [facility] Feb 04, 2019 [id number] [phone] GABRIELLE CHO PATIENT [facility] [place] [facility] Feb 04, 2019 [id number] [phone] GABRIELLE CHO PATIENT MEDICARE (WNR) MEDICARE (M) PART A Feb 05, 2000 PART A [id number] GABRIELLE HUGO PATIENT MEDICARE (WNR) MEDICARE (M) PART A Feb 05, 2000 PART A [id number] [phone] GABRIELLE VAZQUEZ PATIENT MEDICARE (WNR) MEDICARE (M) PART A Feb 05, 2000 PART A [id number] GABRIELLE HUGO PATIENT Selected Encounter This section includes the information on record at [place] for the Encounter. Date/Time Encounter Type Encounter Description Reason Provider Source Feb 12, 2024 01:30 PM OFFICE O/P EST MOD 30 MIN PRIMARY CARE/MEDICINE ICD-10-CM E66.09 Other obesity due to excess calories ANATOLIY,ZOE ASHLEY [facility] Encounter Template Text not used by [place] Assessments - Encounter Diagnoses This section includes the primary and secondary diagnoses documented for the Encounter. Date/Time Primary/Secondary Diagnosis Diagnosis Name Provider Source Feb 12, 2024 03:01 PM PRIMARY Other obesity due to excess calories ANATOLIY,ZOE ASHLEY [place] [facility] [facility] Feb 12, 2024 03:01 PM SECONDARY Hypothyroidism, unspecified ANATOLIY,ZOE ASHLEY [place] [facility] [facility] Feb 12, 2024 03:01 PM SECONDARY Menopausal and female climacteric states ANATOLIY,ZOE ASHLEY [place] [facility] [facility] Feb 12, 2024 03:01 PM SECONDARY Post-traumatic stress disorder, unspecified ANATOLIY,ZOE ASHLEY [place] [facility] [facility] Plan of Treatment: Future Appointments (+ 6 [...] Date/Time Appointment Type Appointme nt Facility Name 2024 03:00 PM AMBULATORY - PSYCHIATRY [facility] Feb 17, 2024 09:37 AM AMBULATORY - NONE [facility] Feb 22, 2024 02:00 PM AMBULATORY - PSYCHIATRY [facility] Feb 29, 2024 04:30 PM AM[facility]UL[facility] [place] [facility] Mar 06, 2024 02:30 PM AMBULATORY - MEDICINE [facility] [place] [facility] Mar 15, 2024 02:00 PM AMBULATORY - PSYCHIATRY [facility] Mar 18, 2024 12:30 PM AMBULATORY - PS[facility]CHIATRY [facility] [place] [facility] Mar 21, 2024 02:00 PM AMBULATORY - PSYCHIATRY [facility] [place] [facility] Apr 04, 2024 10:30 AM AMBULATORY - MEDICINE [facility] [place] [facility] Apr 04, 2024 02:00 PM AMBULATORY - PSYCHIATRY [facility] [place] [facility] Apr 11, 2024 11:00 AM AMBULATORY - REHAB MEDICIN E [facility] [place] [facility] Apr 15, 2024 12:30 PM AMBULATORY - PSYCHIATRY [facility] [place] [facility] Apr 18, 2024 02:00 PM AMBULATORY - PSYCHIATRY [facility] [place] [facility] Apr 19, 2024 11:30 AM AMBULATORY - REHAB MEDICIN E [facility] [place] [facility] May 09, 2024 02:00 PM AMBULATORY - PSYCHIATRY [facility] [place] [facility] May 27, 2024 11:00 AM AMBULATORY - PSYCHIATRY [facility] [place] [facility] Jun 03, 2024 11:00 AM AMBULATORY - PSYCHIATRY [facility] [place] [facility] Jun 10, 2024 11:00 AM AMBULATORY - PSYCHIATRY [facility] [place] [facility] Jun 28, 2024 11:30 AM AMBULATORY - REHAB MEDICIN E [facility] [place] [facility] Jul 08, 2024 11:00 AM AMBULATORY - PSYCHIATRY [facility] [place] [facility] Vital Signs: All taken on the encounter date This section contains inpatient and outpatient Vital Signs collected on the date of the Encounter. Date/Time Temperature Pulse Blood Pressure Respiratory Rate SP02 Pain Height Weight Body Mass Index Source Feb 12, 2024 01:34 PM 99 69 110/69 14 96 0 213.6 35 [place] [facility] [place] [facility] Social History: Smoking Status (Most current) and [...] 2023 12:30 PM [facility] Tobacco Use History This section includes a history of the smoking, or tobacco-related health factors, that were collected on or before the date of the Encounter. The data comes from the [place] facility where the Encounter took place. Date/Time Smoking Status/Tobacco Use Comment Darlene harden Sep 30, 2022 10:00 AM [place]TO[place]ACCO NEVER USED [place] [facility] Apr 21, 2020 03:34 PM VA-TOBACCO NEVER USED [place] [facility] [facility] [facility] Jan 10, 2019 11:51 AM [facility] Mar 09, 2018 11:27 AM LIFETIME NON-TOBACCO USER [facility] Advance Directives: All historical and current [...] 23, 2016 ADVANCE DIRECTIVE DISCUSSION MAHAD MCKENZIE [facility] Jan 13, 2004 ADVANCE DIRECTIVE JOSE ANJERA [facility] Encounter Notes: All associated encounter notes This section contains the clinical notes associated to the Encounter. Date/Time Encounter Note(s) Provider Source Feb 12, 2024 01:53 PM PRIMARY CARE NURSE PRACTITIONER OUTPATIENT NOTE: LOCAL TITLE: NURSE PRACTITIONER OUTPATIENT NOTE STANDARD TITLE: PRIMARY CARE NURSE PRACTITIONER OUTPATIENT NOTE DATE OF NOTE: FEB 12, 2024@13:53 ENTRY DATE: FEB 12, 2024@13:53:32 AUTHOR: ZOE COPE EXP COSIGNER: URGENCY: STATUS: COMPLETED Chief complaint: Pt is a 48 who comes in for follow up of medical problems as noted below. HPI: Obesity, Alberto got a Lap band procedure through [facility] at the time of surgery she was about 270lbs now down to 213 she feels great and so happy with continued results. She is still on shakes only and has upcoming follow up hypothyroid her TSH has been euthyroid and she cont. her levothyroxine routine With all her weight loss she thought she felt left breast lump but now wondering if just a rib she is due for mammogram She is currently stable on Estrogen and Progesterone for kyle/post-menopausal sx no concern with taking medications. Could consider Dcing in next few years Bipolar and PTSD , working with and feels stable PMH: Active problems - Computerized Problem List is the source for the followin. Acute stress disorder 2. Cannabis abuse 3. Bipolar affective disorder, currently depressed, moderate 4. Binge eating disorder 5. Kyphosis of cervicothoracic spine 6. Cerebral arteriovenous malformation 12/26/22 normal MRA of brain w+w/o contrast no high flow malformations seen 7. Menopausal flushing 8. Rosacea 9. Impaired fasting glucose 10. Obstructive sleep apnea of adult 11. Post-traumatic stress disorder 12. Benign essential hypertension 13. Hypothyroid 14. Obesity 15. Hemorrhoids 16. Pain of left ankle joint Allergies: Patient has answered NKA The following VA and Non-VA meds were reconciled with patient: Active and Recently Outpatient Medications (excluding Supplies): Active Outpatient Medications Status 1) ATORVASTATIN CALCIUM 20MG TAB TAKE ONE-HALF TABLET BY ACTIVE MOUTH ONCE DAILY FOR HIGH CHOLESTEROL 2) BUPROPION HCL 300MG 24HR SA TAB TAKE ONE TABLET BY ACTIVE MOUTH ONCE DAILY FOR DEPRESSION 3) CETIRIZINE HCL 10MG TAB [...] ONCE ACTIVE DAILY TO PROTECT UTERINE LINING Inactive Outpatient Medications Status 1) LOSARTAN 25MG TAB TAKE ONE TABLET BY MOUTH ONCE DAILY FOR BLOOD PRESSURE/HEART 12 Total Medications Allergies: Patient has answered NKA VITAL SIGNS: 99 F [37.2 C] (02/12/2024 13:34) 69 (02/12/2024 13:34) 14 (02/12/2024 13:34) 110/69 (02/12/2024 13:34) 0 (02/12/2024 13:34) 66 in [167.6 cm] (02/09/2022 11:19) 213.6 lb [96.89 kg] (02/12/2024 13:34) BMI: 34.5 ROS General: no fever, no unexplained weight loss or gain HEENT: denies vision changes, CV: denies CP, SOB, palpitations Lung: denies Dyspnea, cough, wheezing Abd: denies constipation, diarrhea, reflux, abdominal pain Breast: felt a lump but since she lost weight feels more like a rib : denies vaginal pain, discharge, pruritis denies hematuria or dysuria; no urinary incontinence Ext: denies edema, weakness, falls Skin: denies rash or other lesions Psych: denies SI PHYSI CHASIDY EXAM Steel Cutter today: Althea casey RN General: No acute distress, speech is clear, forming sentences. CV: S1S2, RRR, no m/r/g Lung: CTAB, no wheeze, rhonchi, or crackles, good breath sounds to bases b/l Breast: breasts symmetrical, no puckering or dimpling, no lumps or masses palpated, no axillary tenderness or adenopathy bilaterally, no nipple drainage, what she pointed to was clearly a rib palpated Ext: no edema, warm and well perfused bilat. Skin: no lesions or rashes NEURO CN II-XII grossly intact, gait steady without shuffle MENTAL A&Ox3 Appropriate, Pleasant, Cooperative LAB RESULTS LAST 1440 HRS - NONE FOUND Future Clinic Visits 2024 15:00 CWM/SO/VVC/MHC/JOSHVINOCO 02/22/2024 14:00 CWM/NO/VVC/MHC/PSYCHOLOGY 02/29/2024 14:00 CWM/NO/VVC/MHC/PSYCHOLOGY ASSESSMENT AND PLAN: #Obesity -Doing very well post op, had lap band -Lost 58 lbs. so far -Follows with [facility] WT loss #hypothyroid -TSH has been euthyroid -cont. levothyroxine 112mcg #Kyle menopause -stable on Estrogen and Progesterone for kyle/post-menopausal -consider Dcing in next few years #PTSD -Follows with MH and feels stable Return to clinic to see me in 6 months, RTC sooner if needed. Clinical Reminders Medication Reconciliation: Outpatient: Has the patient been taking medications as documented in the EMLR? YES: The patient has been taking medications as documented in the EMLR. Essential Medication List for Review used to complete this medication reconciliation. INCLUDED IN THIS LIST: Alphabetical list of active outpatient prescriptions dispensed from this [place] (local) and dispensed from another [place] or [place] facility (remote) as well as [...] provider. /guadalupe/ CHRIST DICK Nurse Practitioner Signed: 02/12/2024 15:01 ZOE COPE [place] [facility] [facility] [place] [facility] Feb 12, 2024 01:36 PM PREVENTIVE MEDICINE NURSING NOTE: LOCAL TITLE: CLINICAL REMINDERS/NURSING STANDARD TITLE: PREVENTIVE MEDICINE NURSING NOTE DATE OF NOTE: FEB 12, 2024@13:36 ENTRY DATE: FEB 12, 2024@13:36:15 AUTHOR: ALTHEA CASEY EXP COSIGNER: URGENCY: STATUS: COMPLETED Advance Directive Screen MH AD: Patient does not have a completed advance directive on file at any facility, [place] or outside. S/he is not interested in completing one at this time. The patient received education about Advance Directives and written notification of his/her rights. Influenza Immunization: No influenza vaccination was received during the recent influenza season. COVID-19 Immunization: Refused Moderna Monovalent COVID-19 vaccine Immunization: COVID-19 (MODERNA), MRNA, LNP-S, PF, 50 MCG/0.5 ML (AGES 12+ YEARS) Refusal Reason: PATIENT DECISION Patient refuses all immunization(s) in the COVID-19 group Date Documented: 02/12/24 13:37 Td / Tdap Immunization: The patient declines to receive the recommended dose of Td/Tdap vaccine. Immunization: TD(ADULT) UNSPECIFIED FORMULATION Refusal Reason: PATIENT DECISION Patient refuses all immunization(s) in the Td group Comment: Wants to wait to receive the tetanus shot Date Documented: 02/12/24 13:38 Herpes Zoster (Shingles) Vaccine: The patient declines to receive the recommended dose of zoster (shingles) vaccine. Immunization: ZOSTER RECOMBINANT Refusal Reason: PATIENT DECISION Patient refuses all immunization(s) in the ZOSTER group Date Documented: 02/12/24 13:38 /guadalupe/ ALTHEA CASEY, MSN, RN, CNL PRIMARY CARE TEAM NURSE Signed: 02/12/2024 13:38 ALTHEA CASEY [facility]
--- OUTSIDE RECORDS SUMMARY | 2024-12-25 15:17 | XMS_ITS | Encounter Summary ---
Author Name [facility] [place] Address [address] [place] [address] Care Team Providers Care Bladder Trimmer Name Role Phone ZOE COPE Primary Care [...] Name Patient's Relationship to Policy Desai [facility] Feb 04, 2019 [id number] GABRIELLE CHO PATIENT [facility] HIGH DEDUCTIBL E HEALTH PLAN HDHP Feb 04, 2019 [id number] GABRIELLE CHO PATIENT MEDICARE (WNR) MEDICARE (M) PART A Feb 05, 2000 PART A [id number] GABRIELLE HUGO PATIENT MEDICARE (WNR) MEDICARE (M) PART A Feb 05, 2000 PART A [id number] GABRIELLE CHO PATIENT MEDICARE (WNR) MEDICARE (M) PART A Feb 05, 2000 PART A [id number] [phone] GABRIELLE HUGO PATIENT Selected Encounter This section includes the information on record at [place] for the Encounter. Date/Time Encounter Type Encounter Description Reason Provider Source Jun 28, 2024 11:30 AM [place] MDLTY 1+ULTRASOUND EA 15 OCCUPATIONAL THERAPY ICD-10-CM M25.521 Pain in right elbow BEV OSBORNE IHMarilyn Encounter Template Text not used by [place] Assessments - Encounter Diagnoses This section includes the primary and secondary diagnoses documented for the Encounter. Date/Time Primary/Secondary Diagnosis Diagnosis Name Provider Source Jun 28, 2024 01:51 PM PRIMARY Pain in right elbow BEV OSBORNE [place] [facility] [facility] [facility] Plan of Treatment: Future Appointments [...] Appointment Type Appointme nt Facility Name Jul 08, 2024 11:00 AM AMBULATORY - PSYCHIATRY [place] [facility] [place] [facility] Jul 15, 2024 10:30 AM AMBULATORY - PSYCHIATRY [place] [facility] [place] [facility] Jul 15, 2024 11:00 AM AMBULATORY - PSYCHIATRY [place] [facility] [place] [facility] Jul 22, 2024 11:00 AM AMBULATORY - PSYCHIATRY [place] [facility] [place] [facility] Aug 12, 2024 01:00 PM AMBULATORY - PSYCHIATRY [facility] Aug 19, 2024 11:00 AM AMBULATORY - PSYCHIATRY [place] [facility] [place] [facility] Aug 19, 2024 03:00 PM AMBULATORY - PSYCHIATRY [place] [facility] [place] [facility] Sep 02, 2024 11:00 AM AMBULATORY - PSYCHIATRY [place] [facility] [place] [facility] Sep 13, 2024 03:00 PM AMBULATORY - PSYCHIATRY [facility] Sep 16, 2024 08:00 AM AMBULATORY - MEDICINE [facility] [place] [facility] Sep 16, 2024 11:00 AM AMBULATORY - PSYCHIATRY [facility] [place] [facility] Sep 24, 2024 01:00 PM AMBULATORY - PSYCHIATRY [facility] Oct 04, 2024 08:30 AM [facility] Oct 09, 2024 09:00 AM AMBULATORY - PSYCHIATRY [facility] Oct 14, 2024 11:00 AM AMBULATORY - PSYCHIATRY [facility] [place] [facility] Oct 16, 2024 04:00 PM AMBULATORY - MEDICINE [facility] [place] [facility] Oct 17, 2024 10:00 AM AMBULATORY - PSYCHIATRY [facility] [place] [facility] Oct 18, 2024 08:30 AM AMBULATORY - MEDICINE [facility] [place] [facility] Oct 28, 2024 11:00 AM AMBULATORY - PSYCHIATRY [facility] [place] [facility] Nov 25, 2024 11:00 AM AMBULATORY - PSYCHIATRY [facility] [place] [facility] Social History: Smoking Status (Most [...] VA-TOBACCO NEVER USED [place] [facility] [place] [facility] Tobacco Use History This section includes a history of the smoking, or tobacco-related health factors, that were collected on or before the date of the Encounter. The data comes from the [place] facility where the Encounter took place. Date/Time Smoking Status/Tobacco Use Comment Darlene harden Sep 30, 2022 10:00 AM VA-TOBACCO NEVER USED [place] [facility] [place] [facility] Apr 21, 2020 03:34 PM VA-TOBACCO NEVER USED [place] [facility] [place] [facility] Jan 10, 2019 11:51 AM VA-TOBACCO NEVER USED [place] [facility] [place] [facility] Mar 09, 2018 11:27 AM LIFETIME NON-TOBACCO USER [place] [facility] Advance Directives: All historical and current Section [...] 23, 2016 ADVANCE DIRECTIVE DISCUSSION MAHAD MCKENZIE [facility] Jan 13, 2004 ADVANCE DIRECTIVE JOSE NAJERA [facility] Encounter Notes: All associated encounter notes This section contains the clinical notes associated to the Encounter. Date/Time Encounter Note(s) Provider Source Jun 28, 2024 11:30 AM OCCUPATIONAL THERAPY DISCHARGE NOTE: LOCAL TITLE: OCCUPATIONAL THERAPY DISCHARGE NOTE STANDARD TITLE: OCCUPATIONAL THERAPY DISCHARGE NOTE DATE OF NOTE: JUN 28, 2024@11:30 ENTRY DATE: JUN 28, 2024@13:50:06 AUTHOR: BEV OSBORNE COSIGNER: ZOE COPE URGENCY: STATUS: COMPLETED Initial Evaluation date: Apr Progress Note Date: Treatment #: 3 Treatment time: 28 minutes Diagnosis: Pain in right Elbow(ICD-10-CM M25.521) Provider: Adi OT Treatment Precautions: Patient identified by full name and date of SUBJECTIVE: Pt reports that the stretches are helping. Nothing over a 3-4/10 at worst. Pain Level: 0/10 OBJECTIVE: THERAPEUTIC EXERCISE: MINUTES: [...] care during this clinical encounter. ASSESSMENT: pt is doing well. this will likely be the last session before she returns to [place]. persistent tightness but w/ decreased ttp. pt reported feeling good following tx. she will continue w/ her stretches. PLAN: D/C w/ [facility]. [place] back until October. Pt is in agreement w/ this POC. /guadalupe/ Bev Osborne, MS OTR/Ezequiel, CHT Occupational Therapist Signed: 06/28/2024 13:51 /guadalupe/ CHRIST DICK Nurse Practitioner Cosigned: 06/28/2024 14:58 [facility]
--- OUTSIDE RECORDS SUMMARY | 2024-12-25 15:17 | XMS_ITS | Encounter Summary ---
Author Name [facility] [place] [facility] [place] Address [address] [place] [address] Care Team Providers Care Bin Piler Name Role Phone ZOE COPE Primary Care [...] Desai's Name Patient's Relationship to Policy Desai [facility] Feb 04, 2019 [id number] GABRIELLE CHO PATIENT [facility] [place] HIGH DEDUCTIBL E HEALTH PLAN HDHP Feb 04, 2019 [id number] GABRIELLE CHO PATIENT MEDICARE (WNR) MEDICARE (M) PART A Feb 05, 2000 PART A [id number] [phone] GABRIELLE HUGO PATIENT MEDICARE (WNR) MEDICARE (M) PART A Feb 05, 2000 PART A [id number] GABRIELLE CHO PATIENT MEDICARE (WNR) MEDICARE (M) PART A Feb 05, 2000 PART A [id number] [phone] GABRIELLE HUGO PATIENT Selected Encounter This section includes the information on record at [place] for the Encounter. Date/Time Encounter Type Encounter Description Reason Provider Source Feb 29, 2024 04:30 PM PSYTX W PT 30 MINUTES [facility] - IND ICD-10-CM F43.0 Acute stress reaction MALINOFSKY,TER GRETCHEN IHE Encounter Template Text not used by [place] Assessments - Encounter Diagnoses This section includes the primary and secondary diagnoses documented for the Encounter. Date/Time Primary/Secondary Diagnosis Diagnosis Name Provider Source Feb 29, 2024 07:00 PM PRIMARY Acute stress reaction CATIEFSJONE,TE SVETA [place] [facility] [place] [facility] Feb 29, 2024 07:00 PM SECONDARY Problems in relationship with spouse or partner WILL BROWNING SVETA [place] [facility] [place] [facility] Plan of Treatment: Future Appointments (+ 6 months) and Future Tests (+/- 45 days) The Plan of Treatment section includes future care activities for the patient from all [place] [facility] This section includes future appointments and future orders which are active, pending or scheduled. Future Appointments This section includes appointments that were scheduled to occur 6 months from the date of the Encounter, up to a maximum of 20 appointments. The data comes from all [place] treatment facilities. Appointment Date/Time Appointment Type Appointme nt Facility Name Mar 06, 2024 02:30 PM AMBULATORY - MEDICINE [place] [facility] [place] [facility] Mar 15, 2024 02:00 PM AMBULATORY - PSYCHIATRY [facility] Mar 18, 2024 12:30 PM AMBULATORY - PSYCHIATRY [place] [facility] [place] [facility] Mar 21, 2024 02:00 PM AMBULATORY - [facility] [place] [facility] Apr 04, 2024 10:30 AM AMBULATORY - MEDICINE [place] [facility] [place] [facility] Apr 04, 2024 02:00 PM AMBULATORY - PSYCHIATRY [place] [facility] [place] [facility] Apr 11, 2024 11:00 AM AMBULATORY - REHAB MEDICIN E [facility] [place] [facility] Apr 15, 2024 12:30 PM AMBULATORY - PSYCHIATRY [facility] [place] [facility] Apr 18, 2024 02:00 PM AMBULATORY - PSYCHIATRY [facility] [place] [facility] Apr 19, 2024 11:30 AM AMBULATORY - REHAB MEDICIN E [facility] [place] [facility] May 09, 2024 02:00 PM AMBULATORY - PSYCHIATRY [facility] [place] [facility] May 27, 2024 11:00 AM AMBULATORY - PSYCHIATRY [facility] [place] [facility] Jun 03, 2024 11:00 AM AMBULATORY - PSYCHIATRY [facility] [place] [facility] Jun 10, 2024 11:00 AM AMBULATORY - PSYCHIATRY [facility] [place] [facility] Jun 28, 2024 11:30 AM AMBULATORY - REHAB MEDICIN E [facility] [place] [facility] Jul 08, 2024 11:00 AM AMBULATORY - PSYCHIATRY [facility] [place] [facility] Jul 15, 2024 10:30 AM AMBULATORY - PSYCHIATRY [facility] [place] [facility] Jul 15, 2024 11:00 AM AMBULATORY - PSYCHIATRY [facility] [place] [facility] Jul 22, 2024 11:00 AM AMBULATORY - PSYCHIATRY [facility] [place] [facility] Aug 12, 2024 01:00 PM AMBULATORY - PSYCHIATRY [facility] Social History: Smoking Status (Most current) and Tobacco Use (All prior to encounter date) This section includes the most current, and the historical, smoking and tobacco- related health factors from the [place] facility where the Encounter took place. Current Smoking Status This section includes the most current smoking, or tobacco-related health factor, from the [place] facility where the Encounter took place. Date/Time Current Smoking Status Comment Enedina ity Sep 11, 2023 12:30 PM VA[facility]TO[facility]ACCO [facility] Tobacco Use History This section includes a history of the smoking, or tobacco-related health factors, that were collected on or before the date of the Encounter. The data comes from the [place] facility where the Encounter took place. Date/Time Smoking Status/Tobacco Use Comment F acility Sep 30, 2022 10:00 AM VA-TOBACCO NEVER USED [facility] [place] [facility] Apr 21, 2020 03:34 PM VA-TOBACCO NEVER USED [facility] [place] [facility] Jan 10, 2019 11:51 AM VA-TOBACCO NEVER USED [facility] [place] [facility] Mar 09, 2018 11:27 AM LIFETIME NON-TOBACCO USER [facility] [place] [facility] Advance Directives: All historical and current Section Date Range: From patient's date of to the date document was created. This section includes ALL of a patient's completed or amended [place] Advance and Rescinded Directives. The entries below indicate that a directive exists for the patient, but an actual copy is not included with this document. The data comes from all [place] facilities. Date Advance Directives Provider Source Feb 23, 2016 ADVANCE DIRECTIVE DISCUSSION MAHAD MCKENZIE [facility] Jan 13, 2004 ADVANCE DIRECTIVE JOSE NAJERA [facility] Encounter Notes: All associated encounter notes This section contains the clinical notes associated to the Encounter. Date/Time Encounter Note(s) Provider Source Feb 29, 2024 06:43 PM TELEHEALTH NOTE: LOCAL TITLE: [facility] VIDEO CONNECT PSYCHOLOGY NOTE STANDARD TITLE: TELEHEALTH NOTE DATE OF NOTE: FEB 29, 2024@18:43 ENTRY DATE: FEB 29, 2024@18:44:01 AUTHOR: ALBER BROWNING EXP COSIGNER: URGENCY: STATUS: COMPLETED [facility] VIDEO CONNECT PSYCHOLOGY NOTE Has ADDENDA [facility] Video Connect (VVC) Standard Documentation VVC Clinician Resources Only: E911 (Emergency Call Relay Center): [phone] National Veterans Crisis Line - 988 then press #1. [facility] Suicide Coordinator [phone], Ext. [phone]; Back-up Ext. [phone] [place] Police, Reanna JIMENEZ [phone] Introduction: Visit is being conducted by [place] [facility]. [place] identified with VISUAL RECOGNITION Emergency Plan: confirmed and/or provided the following information in case of emergency or technology failure. PATIENT PHONE - PHONE NUMBER [CELLULAR] - Is patient phone number correct, if not, enter below: 's phone number: ALBERTO CHO [address], [place], [address] 's present location and address for appointment: home above 's emergency contact name and phone number: on file [place] reported that location is private and safe: Yes Informed Consent: informed of the risks and benefits of Telehealth video care. [place] has the right to refuse video services. If refuses video visit, a wdda-to-uxxe visit will be scheduled. verbalized consent for this video visit: Yes provided consent for any other persons present for visit: N/A If yes, who and relationship to patient: Secure visit: Visit was locked for security and privacy:Yes ........................ ........................ ............ Alberto Cho was able to attend only 22 minutes of today's session. This session was cut short, when Amanda entered and told her she had to call [employer] to provide an authorization for daughter's car insurance. She looked quite upset about having to leave the session, which was for her self care, for this phone call to insurance company right at that moment. Their daughter wanted to fruit picker machine operator her new car this evening, which meant that Alexandra had to leave the session immediately to make that call before end of business day.Alexandra looks so torn and upset, so I asked her if she wanted to reschedule, and so we left the session. She states that things have worsened in relationship/communicati on between her and Amanda. (1) I cannot say anthing without irritating Amanda. (2) I am unable to lay out a plan. I do not want to leave everything last- minute. (3) She states she and Amanda are not communicating well. I thought I heard one thing, but he did not. We're both in our head. We cannot leave a converation with the same thing [understanding/idea]. (4) When the communication breaks down, he laughs while I'm devastated. (5) He's scary to approach when he's irritable. He gives annoying looks, or rolls his eyes. (6) She has yet to get a compliment from Amanda for her weight loss and improved appearance. She is doing extra workouts and walking the dog a lot. She states that their adult children are too dependent, not planning for themselves, involving Amanda and her too much. Yet, she wants to be helpful in major milestones. She is critical of their biological mother for taking credit for milestones without lifting a finger to help them. LATER, she filled out Patient Health Inventory PHI on line, and stated that COMMUNICATION with was her priority health goal. PLAN: (1) Make up session with TW on Monday. (2) They have another session with Dr. Good, family therapy, coming up soon. Related to: Service Connected Condition, [facility] Diagnoses: Acute stress disorder ([facility] [id number]) - Acute stress reaction (ICD-10-CM F43.0) (Primary) Problems in Relationship with Spouse or Partner (ICD-10-CM Z63.0) Procedures: Psychotherapy 16-37 min - Synchronous Telemedicine Service - Clinical Psychologist /guadalupe/ ALBER BROWNING,PhD Neuropsychologist Signed: 02/29/2024 19:04 Receipt Acknowledged By: 03/01/2024 10:42 /guadalupe/ KATHRYN GOOD, PH.D. PSYCHOLOGIST 02/29/2024 ADDENDUM STATUS: COMPLETED Encounter: Does NOT include 'telestroke'. /leola BROWNING,PhD Neuropsychologist Signed: 02/29/2024 19:06 ALBER BROWNING [facility]
--- OUTSIDE RECORDS SUMMARY | 2024-12-25 15:17 | XMS_ITS | Encounter Summary ---
Author Name [facility] [place] [facility] [place] [facility] [place] Address [address] [place] [address] Care Team Providers Care Retail Special Event Associate Name Role Phone ZOE COPE Primary Care [...] Desai's Name Patient's Relationship to Policy Desai [facility] Feb 04, 2019 [id number] GABRIELLE CHO PATIENT HEALTH [place]ILL[place] HIGH DEDUCTIBL E HEALTH PLAN HDHP Feb 04, 2019 [id number] [phone] GABRIELLE CHO PATIENT MEDICARE (WNR) MEDICARE (M) PART A Feb 05, 2000 PART A [id number] [phone] GABRIELLE HUGO PATIENT MEDICARE (WNR) MEDICARE (M) PART A Feb 05, 2000 PART A [id number] [phone] GABRIELLE CHO PATIENT MEDICARE (WNR) MEDICARE (M) PART A Feb 05, 2000 PART A [id number] [phone] GABRIELLE HUGO PATIENT Selected Encounter This section includes the information on record at [place] for the Encounter. Date/Time Encounter Type Encounter Description Reason Provider Source Apr 18, 2024 02:00 PM PSYTX W PT 45 MINUTES [facility]IC - IND ICD-10-CM F43.10 Post-traumatic stress disorder, unspecified MALINOFSKY,TER GRETCHEN IHE Encounter Template Text not used by [place] Assessments - Encounter Diagnoses This section includes the primary and secondary diagnoses documented for the Encounter. 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 of] MALINOFSKY,TE SVETA [facility] [place] [facility] Apr 18, 2024 03:09 PM SECONDARY Bipolar disorder, current episode depressed, moderate MALINOFSKY,TE SVETA [facility] [place] [facility] Apr 18, 2024 03:09 PM SECONDARY Cannabis abuse, uncomplicated MALINOFSKY,TE SVETA [facility] [place] [facility] Plan of Treatment: Future Appointments (+ 6 months) and Future Tests (+/- 45 days) The Plan of Treatment section includes future care activities for the patient from all [place] [facility]. This section includes future appointments and future orders which are active, pending or scheduled. Future Appointments This section includes appointments that were scheduled to occur 6 months from the date of the Encounter, up to a maximum of 20 appointments. The data comes from all [place] treatment facilities. Appointment Date/Time Appointment Type Appointme nt Facility Name Apr 19, 2024 11:30 AM AMBULATORY - REHAB MEDICIN E [facility] [place] [facility] May 09, 2024 02:00 PM AMBULATORY - PSYCHIATRY [place] [facility] [place] [facility] May 27, 2024 11:00 AM AMBULATORY - PSYCHIATRY [facility] [place] [facility] Jun 03, 2024 11:00 AM AMBULATORY - PSYCHIATRY [facility] [place] [facility] Jun 10, 2024 11:00 AM AMBULATORY - PSYCHIATRY [facility] [place] [facility] Jun 28, 2024 11:30 AM AMBULATORY - REHAB MEDICIN E [facility] [place] [facility] Jul 08, 2024 11:00 AM AMBULATORY - PSYCHIATRY [facility] [place] [facility] Jul 15, 2024 10:30 AM AMBULATORY - PSYCHIATRY [facility] [place] [facility] Jul 15, 2024 11:00 AM AMBULATORY - PSYCHIATRY [facility] [place] [facility] Jul 22, 2024 11:00 AM AMBULATORY - PSYCHIATRY [facility] [place] [facility] Aug 12, 2024 01:00 PM AMBULATORY - PSYCHIATRY [facility] Aug 19, 2024 11:00 AM AMBULATORY - PSYCHIATRY [facility] [place] [facility] Aug 19, 2024 03:00 PM AMBULATORY - PSYCHIATRY [facility] [place] [facility] Sep 02, 2024 11:00 AM AMBULATORY - PSYCHIATRY [facility] [place] [facility] Sep 13, 2024 03:00 PM AMBULATORY - PSYCHIATRY [facility] Sep 16, 2024 08:00 AM AMBULATORY - MEDICINE [place] [facility] [place] [facility] Sep 16, 2024 11:00 AM AMBULATORY - PSYCHIATRY [facility] [place] [facility] Sep 24, 2024 01:00 PM AMBULATORY - PSYCHIATRY [facility] Oct 04, 2024 08:30 AM AMBULATORY - MEDICINE [facility] Oct 09, 2024 09:00 AM AMBULATORY - PSYCHIATRY [facility] Social [...] PM VA-TOBACCO [facility] Tobacco Use History This section includes a history of the smoking, or tobacco-related health factors, that were collected on or before the date of the Encounter. The data comes from the [place] facility where the Encounter took place. Date/Time Smoking Status/Tobacco Use Comment F acility Sep 30, 2022 10:00 AM VA-TOBACCO NEVER USED [place] [facility] [place] [facility] Apr 21, 2020 03:34 PM VA-TOBACCO NEVER USED [facility] [place] [facility] Jan 10, 2019 11:51 AM VA-TOBACCO NEVER USED [place] [facility] [place] [facility] Mar 09, 2018 11:27 AM LIFETIME NON-TOBACCO USER [place] [facility] [place] [facility] Advance Directives: All historical and [...] 23, 2016 ADVANCE DIRECTIVE DISCUSSION MAHAD MCKENZIE [facility] Jan 13, 2004 ADVANCE DIRECTIVE JOSE NAJERA [facility] Radiology Reports: +/- 30 days of [...] the Encounter. The data comes from all [place] treatment facilities. Date/Time Radiology Report Provider Source Apr 12, 2024 02:12 PM OUTSIDE MAMMO/SCRE ENING, INCLUDING CAD, BILAT: ALBERTO CHO [id number] -[id number] F Exm Date: APR 12, 2024@14:12 Req Phys: ZOE COPE Pat Loc: CWM/NO/PACT 5 (Req'g Loc) Img Loc: OUTSIDE GENERAL RADIOLOGY Service: Unknown Screen: Patient is unable to answer or is unsure Screen Comment: cc exam (Case [id number] COMPLETE) OUTSIDE MAMMO/SCREENING, INCLUDIN(RAD Detailed) CPT:99693 Reason for Study: annual screening mammogram Clinical History: Report Status: Electronically Filed Date Reported: APR 12, 2024 Report: Community care exam; see CPRS/JLV for outside radiology report/results Impression: Community care exam; see CPRS/JLV for outside radiology report/results Primary Diagnostic Code: BI-RADS CATEGORY 1 (Negative) VERIFIED BY: / *ELECTRONICALLY FILED* [place] [facility] [place] [facility] Encounter Notes: All associated encounter notes This section contains the clinical notes associated to the Encounter. Date/Time Encounter Note(s) Provider Source Apr 18, 2024 02:00 PM TELEHEALTH NOTE: LOCAL TITLE: [employer] [facility] PSYCHOLOGY NOTE STANDARD TITLE: TELEHEALTH NOTE DATE OF NOTE: APR 18, 2024@14:00 ENTRY DATE: APR 18, 2024@14:46:29 AUTHOR: ALBER BROWNING COSIGNER: URGENCY: STATUS: COMPLETED [facility] Video Connect (VVC) Standard Documentation VVC Clinician Resources Only: E911 (Emergency Call Relay Center): [phone] National Veterans Crisis Line - 988 then press #1. [facility] Suicide Coordinator [phone], Ext. [phone]; Back-up Ext. [phone] [place] Police, Reanna JIMENEZ [phone] Introduction: Visit is being conducted by [place] [employer]. identified with VISUAL RECOGNITION Emergency Plan: confirmed and/or provided the following information in case of emergency or technology failure. PATIENT PHONE - PHONE NUMBER [CELLULAR] - Is patient phone number correct, if not, enter below: [place]'s phone number: ALBERTO CHO [address] [place], [place], [address] 's present location and address for appointment: in [facility], ready to go to [place] soon [place]'s emergency contact name and phone number: on file [place] reported that location is private and safe: Yes Informed Consent: informed of the risks and benefits of Telehealth video care. has the right to refuse video services. If refuses video visit, a pnui-dx-afud visit will be scheduled. verbalized consent for this video visit: Yes provided consent for any other persons present for visit: N/A If yes, who and relationship to patient: Secure visit: Visit was locked for security and privacy:Yes ........................ ........................ ...................... Alberto Cho attended 45 minutes of individual psychotherapy. SESSION FOCUS: Issues and intervention, as below. 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 How she can use her behavioral analytic skill for her own goals, including: (1) getting her daily 90 minute exercise done, as required for her bariatric program; (2) reducing stress/anxiety related to family issues, while also understanding her own ways of avoiding: linking/pairing with accessing compassion/meditation workbook and social rewards e.g., sharing workbook time and discussion with her friends who are also using the same workbook; (3) accepting the symptoms of schizophrenia in son, and that includes lack of awareness between states of the psychosis/non-psychosis. Basic information was provided in this session, along with suggestion to consider guidelines and support from a state association. BEHAVIORAL OBSERVATIONS: Relatively calm today, as she looks forward to being in their [facility] soon. ........................ ........................ ........................ .... 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] (ICD-10-CM Z90.3) Cannabis abuse ([facility] [id number]) - Cannabis abuse, uncomplicated (ICD-10-CM F12.10) Bipolar affective disorder, currently depressed, moderate ([facility] [id number]) - Bipolar disorder, current episode depressed, moderate (ICD-10-CM F31.32) Post-traumatic stress disorder ([facility] [id number]) - Post-traumatic stress disorder, unspecified (ICD-10-CM F43.10) (Primary) Procedures: Psychotherapy 38-52 min - Clinical Psychologist - Synchronous Telemedicine Service /guadalupe/ ALBER BROWNING,PhD Neuropsychologist Signed: 04/18/2024 15:12 ALBER BROWNING [place] [facility]
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
--- OUTSIDE RECORDS SUMMARY | 2024-12-25 15:17 | XMS_ITS | Encounter Summary ---
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 Role Phone ZOE COPE Primary Care [...] Name Patient's Relationship to Policy Desai [facility] Feb 04, 2019 [id number] GABRIELLE CHO PATIENT [facility] HIGH DEDUCTIBL E HEALTH PLAN [facility] Feb 04, 2019 [id number] GABRIELLE CHO PATIENT MEDICARE (WNR) MEDICARE (M) PART A Feb 05, 2000 PART A [id number] GABRIELLE HUGO PATIENT MEDICARE (WNR) MEDICARE (M) PART A Feb 05, 2000 PART A [id number] GABRIELLE CHO PATIENT MEDICARE (WNR) MEDICARE (M) PART A Feb 05, 2000 PART A [id number] [phone] GABRIELLE HUGO PATIENT Selected Encounter This section includes the information on record at [place] for the Encounter. Date/Time Encounter Type Encounter Description Reason Provider Source Sep 24, 2024 01:00 PM FAMILY PSYTX W/PT [facility] - IND ICD-10-CM F43.10 Post-traumatic stress disorder, unspecified STEPH AQUINO Marilyn Encounter Template Text not used by [place] Assessments - Encounter Diagnoses This section includes the primary and secondary diagnoses documented for the Encounter. Date/Time Primary/Secondary Diagnosis Diagnosis Name Provider Source Sep 24, 2024 04:13 PM PRIMARY Post-traumatic stress disorder, unspecified KATHRYN AQUINO [place] Plan of Treatment: Future Appointments (+ 6 months) and Future Tests (+/- 45 days) The Plan of Treatment section includes future care activities for the patient from [facility] [place] [facility] This section includes future appointments and future orders which are active, pending or scheduled. Future Appointments This section includes appointments that were scheduled to occur 6 months from the date of the Encounter, up to a maximum of 20 appointments. The data comes from all [place] treatment facilities. Appointment Date/Time Appointment Type Appointme nt Facility Name Oct 04, 2024 08:30 AM AMBULATORY - MEDICINE [facility] Oct 09, 2024 09:00 AM AMBULATORY - PSYCHIATRY [facility] Oct 14, 2024 11:00 AM AMBULATORY [place]AT[place] [facility] [place] [facility] Oct 16, 2024 04:00 PM AMBULATORY [place]ICINE [place] [facility] [place] [facility] Oct 17, 2024 10:00 AM AMBULATORY [place] [facility] [place] [facility] Oct 18, 2024 08:30 AM AMBULATORY [place]ICINE [place] [facility] [place] [facility] Oct 28, 2024 11:00 AM AMBULATORY [place]ATRY [place] [facility] [place] [facility] Nov 25, 2024 11:00 AM AMBULATORY [place]ATRY [place] [facility] [place] [facility] Dec 02, 2024 09:27 AM AMBULATORY - NONE [facility] December 09, 2024 11:00 AM AMBULATORY [place]ATRY [place] [facility] [place] [facility] December 19, 2024 11:00 AM AMBULATORY [place]ATRY [place] [facility] [place] [facility] Jan 06, 2025 11:00 AM AMBULATORY [place]ATRY [place] [facility] [place] [facility] Jan 16, 2025 09:00 AM AMBULATORY [place]ICINE [place] [facility] [place] [place] [facility] Jan 20, 2025 11:00 AM AMBULATORY - [place]IATRY [place] [facility] [place] [facility] Feb 03, 2025 11:00 AM AM[place]ULATORY [place] [facility] [place] [facility] Mar 13, 2025 11:00 AM [facility] Active, Pending, and Scheduled Orders This section includes a listing of several types of active, pending, and scheduled orders, including clinic medications orders, diagnostic test orders, procedure orders and consult orders; where the start date of the order is 45 days before the date of the Encounter or 45 days after the date of theEncounter. The data comes from all [place] treatment facilities. Test Date/Time Test Type Test Details Facility Name Aug 28, 2024 01:19 PM Consult Order COMMUNITY CARE-GEN SURGERY Cons Day Spa [facility] Oct 04, 2024 09:28 AM Consult Order COMMUNITY CARE[facility]GEN SURGERY Cons [place] [facility] Lab Results: +/- 30 days [...] Type Comment Oct 18, 2024 09:37 AM [facility] LYME SEROLOGY PANEL SERUM Specimen Type: [...] of the panel were validated at the [facility] Molecular Diagnostics Laboratory. Results are considered [...] Oct 18, 2024 09:12 AM Reporting Lab: [facility] [address] [facility] [address] Performing Lab: [address] [address] TIER 1 LYME SCREENING EIA Negative Negat noah LYME AB FINAL INTERPRETATION Negative Ne gative Oct 18, 2024 09:37 AM [facility] EHRLICHIA CHAFFEENSIS Ab PANEL SERUM Specimen [...] analytical performance characteristics have been determined by [place] It has not been cleared or approved by the U.S. Food and Drug Administration. This assay has been validated pursuant to the CLIA regulations and is used for clinical purposes. Test Performed by [facility], [employer] [facility], [address] [place], [place] Jey Meza M.D., Ph.D., Director of Laboratories , CLIA [id number] TEST PERFORMED AT: , Ordering Provider: ZOE COPE Report Released Date/Time: Oct 18, 2024 09:12 AM Reporting Lab: [facility] [address] [facility] [address] Performing Lab: [facility] [address] [address] E. chaffeensis Ab IgG <1:64 SEE BELOW E. chaffeensis Ab IgM <1:20 SEE BELOW EHRLICHIA CHAFFEENSIS AB INTER SEE NOTE Oct 18, 2024 09:37 AM [facility] ANAPLASMA AND EHRLICHIA AB PANEL SERUM [...] analytical performance characteristics have been determined by [employer] [place]. It has not been cleared or [...] analytical performance characteristics have been determined by [place] It has not been cleared or approved by the U.S. Food and Drug Administration. This assay has been validated pursuant to the CLIA regulations and is used for clinical purposes. Test Performed by [facility] [place], [address] [place] [address] Jey Meza M.D., Ph.D., Director of Laboratories , CLIA [id number] TEST PERFORMED AT: , Ordering Provider: ZOE COPE Report Released Date/Time: Oct 18, 2024 09:12 AM Reporting Lab: [facility] [address] [facility] [address] Performing Lab: [facility] [address] [address] E. chaffeensis Ab IgG <1:64 SEE BELOW E. chaffeensis Ab IgM <1:20 SEE BELOW A.phagocytophilum Ab IgG <1:64 SEE BEL OW A.phagocytophilum Ab IgM <1:20 SEE BEL OW EHRLICHIA CHAFFEENSIS AB INTER SEE NOTE A. phagocytophilum inter SEE NOTE Oct 18, 2024 09:37 AM [facility] MALARIA/BABESIA EXAM BLOOD Specimen Type: BLO OD Comment: Due to the cyclical shed rates of these parasites, one negative specimen does not rule out the possibility of a parasitic infection. Obtain specimens at 6-hour intervals for 36 hours for a comprehensive examination. Test Performed by [facility] [facility], [address] [place], [place] Jey Meza M.D., Ph.D., Director of Laboratories , CLIA [id number] TEST PERFORMED AT: , Ordering Provider: ZOE COPE Report Released Date/Time: Oct 18, 2024 09:12 AM Reporting Lab: [facility] [address] [facility] [address] Performing Lab: [facility] [address] [address] MALARIA/BABESIA EXAM Negative Negative Oct 11, 2024 08:19 AM [facility] LIPID PANEL FASTING SERUM Specimen Type: SERU M No comment entered. Ordering Provider: ZOE COPE Report Released Date/Time: Oct 11, 2024 08:18 AM Reporting Lab: [facility] [address] [facility] [address] Performing Lab: [facility] [address] [facility] [address] CHOLESTEROL 144 mg/dL TRIGLYCERIDE 64 mg/dL 0-150 LDL calculated 52 mg/dL 0-129 CHOL/HDL 1.8 HDL CHOLESTEROL 79 mg/dL H 40-60 Oct 11, 2024 08:19 AM [facility] BASIC METABOLIC PANEL (non-fasting) SERUM Spe cimen Type: SERUM No comment entered. Ordering Provider: ZOE COPE Report Released Date/Time: Oct 11, 2024 08:18 AM Reporting Lab: [facility] [address] [facility] [address] Performing Lab: [facility] [address] [address] UREA NITROGEN 15 mg/dL 7-25 GLUCOSE 95 mg/dL 65-100 SODIUM 139 mmol/L 135-145 POTASSIUM 4.2 mmol/L 3.5-5.0 CHLORIDE 105 mmol/L 100-110 CO2 27 meq/L 20-30 CALCIUM 9.7 mg/dL 8.5-10.2 CREATININE, Serum 0.81 mg/dL 0.50-1.40 eGFR(CKD-EPI 2020) 87 mL/min >60 Oct 11, 2024 08:19 AM [facility] HEMOGLOBIN A1C PANEL BLOOD Specimen Type: [...] Oct 11, 2024 08:18 AM Reporting Lab: [facility] [address] [facility] [address] Performing Lab: [address] [address] HEMOGLOBIN A1C 5.0 4.0-5.6 Oct 11, 2024 08:19 AM [facility] TSH SERUM Specimen Type: SERUM No comment entered. Ordering Provider: ZOE COPE Report Released Date/Time: Oct 11, 2024 08:18 AM Reporting Lab: [facility] [address] [facility] [address] Performing Lab: [facility] [address] [facility] [address] TSH 2.44 u[IU]/mL 0.35-5.00 Oct 11, 2024 08:19 AM [facility] LIVER FUNCTION SERUM Specimen Type: SERUM No comment entered. Ordering Provider: ZOE COPE Report Released Date/Time: Oct 11, 2024 08:18 AM Reporting Lab: [facility] [address] [facility] [address] Performing Lab: [address] [address] PROTEIN,TOTAL 6.5 g/dL 6.0-8.3 ALBUMIN 3.8 g/dL 3.5-5.0 ALKALINE PHOSPHATASE 84 U/L 40-150 AST 21 U/L 5-34 ALT 26 U/L BILIRUBIN, TOTAL 0.8 mg/dL 0.2-1.2 Oct 11, 2024 08:19 AM [facility] CBC AND DIFF (AUTO) BLOOD Specimen Type: BLOO D No comment entered. Ordering Provider: ZOE COPE Report Released Date/Time: Oct 11, 2024 08:18 AM Reporting Lab: [facility] [address] [facility] [address] Performing Lab: [facility] [address] [facility] [address] WBC 7.92 10*3/uL 4.50-11.00 RBC 4.64 10*6/uL [...] and tobacco- related health factors from the [place] facility where the Encounter took place. Current Smoking Status This section includes the most current smoking, or tobacco-related health factor, from the [place] facility where the Encounter took place. Date/Time Current Smoking Status Comment Enedina cortez May 26, 2021 01:30 PM VA-TOBACCO NEVER USED [place] Advance Directives: All historical and current Section Date Range: From patient's date of to the date document was created. This section includes ALL of a patient's completed or amended [place] Advance and Rescinded Directives. The entries below indicate that a directive exists for the patient, but an actual copy is not included with this document. The data comes from all [place] facilities. Date Advance Directives Provider Source Feb 23, 2016 ADVANCE DIRECTIVE DISCUSSION MAHAD MCKENZIE [facility] Jan 13, 2004 ADVANCE DIRECTIVE [facility] Encounter Notes: All associated encounter notes This section contains the clinical notes associated to the Encounter. Date/Time Encounter Note(s) Provider Source Sep 24, 2024 03:54 PM PSYCHOLOGY NOTE: LOCAL TITLE: PSYCHOLOGY NOTE STANDARD TITLE: PSYCHOLOGY NOTE DATE OF NOTE: SEP 24, 2024@15:54 ENTRY DATE: SEP 24, 2024@15:54:43 AUTHOR: KATHRYN AQUINO EXP COSIGNER: URGENCY: STATUS: COMPLETED [facility] Video Connect (VVC) Standard Documentation VVC Clinician Resources Only: E911 (Emergency Call Relay Center): [phone] [facility] Crisis Line - 988 then press #1. [facility] Suicide Coordinator [phone], Ext. [phone]; Back-up Ext. [phone] [place] Police, Reanna JIMENEZ [phone] Introduction: Visit is being conducted by [place] [employer]. Redford identified with 2 identifiers: [X] Full Name [ ] Date of [ ] VA ID Card Emergency Plan: Redford confirmed and/or provided the following information in case of emergency or technology failure. PATIENT PHONE - PHONE NUMBER [CELLULAR] - Is patient phone number correct, if not, enter below: 's phone number: ALBERTO BETHEL CHO [address] [place], [place], [address] Redford's present location and address for appointment: Home - as above. 's emergency contact name and phone number: Her , Amanda - as on file. Redford reported that location is private and safe: Yes Informed Consent: Redford informed of the risks and benefits of Telehealth video care. has the right to refuse video services. If refuses video visit, a [id number] visit will be scheduled. verbalized consent for this video visit: Yes provided consent for any other persons present for visit: Yes If yes, who and relationship to patient:Her , Amanda Secure visit: Visit was locked for security and privacy:Yes VISIT DURATION 45 minutes Redford identified with 2 identifiers: Facial Recognition DIAGNOSES: PTSD; Relationship Distress with Intimate Partner/Spouse [employer] STATEMENT OF GOALS/CONCERNS: Alberto and Amanda noted that things have been rather good since our last session, in that their kids haven't needed much. However, Alberto indicated that she is somewhat apprehensive about their upcoming trip to [place]. She expressed appreciation for Amanda's willingness to interrupt his work without complaint today. She noted that she's sometimes reluctant to remind him of our sessions for fear of iliciting a grumpy response. She stated that she kept a list of her concerns regarding the upcoming trip, as we discussed last week, and shared them with us. SESSION FOCUS: Effective communication. INTERVENTIONS: Psychotherapeutic Interventions: I asked Alberto if she'd tried the technique that we discussed last week and she stated that she had, with good effect. I praised the way Alberto communicated with Amanda at the beginning of today's session. I also gave Amanda feedback about the way his demeanor might sometimes be interpreted as gruff or grumpy . We focused, however, on creating a different way of responding when Alberto shares concerns. We considered their tendency to go into fix it mode and we considered alternatives. I modeled different ways of responsing. ASSESSMENT: RISK ASSESSMENT: Denies current suicidal ideation PLAN FOR FOLLOW-UP: Next session planned for: 10/09. /guadalupe/ KATHRYN AQUINO, PH.D. PSYCHOLOGIST Signed: 09/24/2024 16:13 KATHRYN AQUINO
--- OUTSIDE RECORDS SUMMARY | 2024-12-25 15:17 | XMS_ITS | Encounter Summary ---
Author Name [facility] [facility] [place] Address [address] [place] [address] Care Team Providers Care Transportation Driver Name Role Phone ZOE COPE Primary [...] Name Patient's Relationship to Policy Desai [facility] Feb 04, 2019 [id number] [phone] GABRIELLE CHO PATIENT [facility] [place] [facility] Feb 04, 2019 [id number] [phone] GABRIELLE CHO PATIENT MEDICARE (WNR) MEDICARE (M) PART A Feb 05, 2000 PART A [id number] GABRIELLE HUGO PATIENT MEDICARE (WNR) MEDICARE (M) PART A Feb 05, 2000 PART A [id number] [phone] GABRIELLE VAZQUEZ PATIENT MEDICARE (WNR) MEDICARE (M) PART A Feb 05, 2000 PART A [id number] GABRIELLE HUGO PATIENT Selected Encounter This section includes the information on record at [place] for the Encounter. Date/Time Encounter Type Encounter Description Reason Provider Source Sep 16, 2024 11:00 AM PSYTX W PT 45 [facility]UTES [facility] - IND ICD-10-CM Z63.8 Other specified problems related to primary support group MALINOFSKY,TER GRETCHEN E Encounter Template Text not used by [place] Assessments - Encounter Diagnoses This section includes the primary and secondary diagnoses documented for the Encounter. 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] MALINOFSKY,TER GRETCHEN [facility] [place] [facility] Sep 16, 2024 12:07 PM SECONDARY Other obesity due to excess calories MALINOFSKY,TER GRETCHEN [facility] [place] [facility] Plan of Treatment: Future Appointments (+ 6 [...] Appointment Type Appointme nt Facility Name Sep 24, 2024 01:00 PM AMBULATORY - PSYCHIATRY [facility] Oct 04, 2024 08:30 AM AMBULATORY - MEDICINE [facility] Oct 09, 2024 09:00 AM AMBULATORY - PSYCHIATRY [facility] Oct 14, 2024 11:00 AM [facility] [facility] [place] [facility] Oct 16, 2024 04:00 PM [facility] [place] [facility] [place] [facility] Oct 17, 2024 10:00 AM [facility] [place] [facility] Oct 18, 2024 08:30 AM [facility] [place] [facility] Oct 28, 2024 11:00 AM AMBULATORY - [facility] [place] [facility] Nov 25, 2024 11:00 AM AMBULATORY - [facility] [place] [facility] Dec 02, 2024 09:27 AM AM[facility]ULATORY - [facility] December 09, 2024 11:00 AM [facility]BUL[facility] [place] [facility] December 19, 2024 11:00 AM [facility] Jan 06, 2025 11:00 AM [facility] Jan 16, 2025 09:00 AM [facility] [place] [facility] Jan 20, 2025 11:00 AM AMBULATORY - [facility] [place] [facility] Feb 03, 2025 11:00 AM AMBULATORY - [facility] [place] [facility] Mar 13, 2025 11:00 AM AMBULATORY - [facility] [place] [facility] Active, Pending, and Scheduled Orders This section includes a listing of several types of active, pending, and scheduled orders, including clinic medications orders, diagnostic test orders, procedure orders and consult orders; where the start date of the order is 45 days before the date of the Encounter or 45 days after the date of theEncounter. The data comes from all [place] treatment facilities. Test Date/Time Test Type Test Details Facility Name Aug 28, 2024 01:19 PM Consult Order COMMUNITY CARE-GEN SURGERY Cons Blow Pit Operator's Choice [facility] [place] [facility] Oct 04, 2024 09:28 AM Consult Order COMMUNITY CARE-GEN SURGERY Cons Blow [facility] Operator[facility] [place] [facility] Lab Results: +/- 30 days of the [...] Type Comment Oct 11, 2024 08:19 AM [facility] LIPID PANEL FASTING SERUM Specimen Type: SERUM No comment entered. Ordering Provider: ZOE COPE Report Released Date/Time: Oct 11, 2024 08:18 AM Reporting Lab: [facility] [address] [facility] [address] Performing Lab: [facility] [address] [address] CHOLESTEROL 144 mg/dL TRIGLYCERIDE 64 mg/dL 0-150 LDL calculated 52 mg/dL 0-129 CHOL/HDL 1.8 HDL CHOLESTEROL 79 mg/dL H 40-60 Oct 11, 2024 08:19 AM [facility] BASIC METABOLIC PANEL (non-fasting) SERUM Spe cimen Type: SERUM No comment entered. Ordering Provider: ZOE COPE Report Released Date/Time: Oct 11, 2024 08:18 AM Reporting Lab: [facility] [address] [facility] [address] Performing Lab: [facility] [address] [facility] [facility] [address] UREA NITROGEN 15 mg/dL 7-25 GLUCOSE 95 mg/dL 65-100 SODIUM 139 mmol/L 135-145 POTASSIUM 4.2 mmol/L 3.5-5.0 CHLORIDE 105 mmol/L 100-110 CO2 27 meq/L 20-30 CALCIUM 9.7 mg/dL 8.5-10.2 CREATININE, Serum 0.81 mg/dL 0.50-1.40 eGFR(CKD-EPI 2020) 87 mL/min >60 Oct 11, 2024 08:19 AM [facility] HEMOGLOBIN A1C PANEL BLOOD Specimen Type: [...] AM Reporting Lab: [facility] [place] [facility] [address] [facility] [address] Performing Lab: [facility] [address] [facility] [address] HEMOGLOBIN A1C 5.0 4.0-5.6 Oct 11, 2024 08:19 AM [facility] LIVER FUNCTION SERUM Specimen Type: SERUM No comment entered. Ordering Provider: ZOE COPE Report Released Date/Time: Oct 11, 2024 08:18 AM Reporting Lab: [facility] [place] [facility] [address] [facility] [address] Performing Lab: [place] [facility] [place] [facility] [address] [facility] [facility] [address] PROTEIN,TOTAL 6.5 g/dL 6.0-8.3 ALBUMIN 3.8 g/dL 3.5-5.0 ALKALINE PHOSPHATASE 84 U/L 40-150 AST 21 U/L 5-34 ALT 26 U/L BILIRUBIN, TOTAL 0.8 mg/dL 0.2-1.2 Oct 11, 2024 08:19 AM [facility] TSH SERUM Specimen Type: SERUM No comment entered. Ordering Provider: ZOE COPE Report Released Date/Time: Oct 11, 2024 08:18 AM Reporting Lab: [facility] [place] [facility] [address] [facility] [address] Performing Lab: [place] [facility] [place] [facility] [address] [facility] [address] TSH 2.44 u[IU]/mL 0.35-5.00 Oct 11, 2024 08:19 AM [facility] [place] [facility] CBC AND DIFF (AUTO) BLOOD Specimen Type: BLOO D No comment entered. Ordering Provider: ZOE COPE Report Released Date/Time: Oct 11, 2024 08:18 AM Reporting Lab: [facility] [place] [facility] [address] [facility] [address] Performing Lab: [place] [facility] [place] [facility] [address] [facility] [address] WBC 7.92 10*3/uL 4.50-11.00 RBC 4.64 10*6/uL [...] Enedina ity Sep 11, 2023 12:30 PM [place]-TO[place]ACCO NEVER USED [place] [facility] [place] [facility] Tobacco Use History This section includes a history of the smoking, or tobacco-related health factors, that were collected on or before the date of the Encounter. The data comes from the [place] facility where the Encounter took place. Date/Time Smoking Status/Tobacco Use Comment F acility Sep 30, 2022 10:00 AM [facility]-TOBACCO NEVER USED [facility] [place] [facility] Apr 21, 2020 03:34 PM VA-TOBACCO NEVER USED [facility] Jan 10, 2019 11:51 AM VA-TOBACCO NEVER USED [facility] Mar 09, 2018 11:27 AM LIFETIME NON-TOBACCO USER [facility] [place] [facility] Advance Directives: All historical and current Section [...] 23, 2016 ADVANCE DIRECTIVE DISCUSSION MAHAD MCKENZIE [facility] Jan 13, 2004 ADVANCE DIRECTIVE JOSE NAJERA [facility] Encounter Notes: All associated encounter notes This section contains the clinical notes associated to the Encounter. Date/Time Encounter Note(s) Provider Source Sep 16, 2024 11:39 AM TELEHEALTH NOTE: LOCAL TITLE: [place] VIDEO CONNECT PSYCHOLOGY NOTE STANDARD TITLE: TELEHEALTH NOTE DATE OF NOTE: SEP 16, 2024@11:39 ENTRY DATE: SEP 16, 2024@11:39:17 AUTHOR: ALBER BROWNING EXP COSIGNER: URGENCY: STATUS: COMPLETED [facility] ([facility]VC) Standard Documentation VVC Clinician Resources Only: E911 (Emergency Call Relay Center): [phone] National Veterans Crisis Line - 988 then press #1. [facility] Suicide Coordinator [phone], Ext. [phone]; Back-up Ext. [phone] [place] Police, Reanna JIMENEZ [phone] Introduction: Visit is being conducted by [place] [employer]. Magalia identified with VISUAL RECOGNITION Emergency Plan: confirmed and/or provided the following information in case of emergency or technology failure. PATIENT PHONE - PHONE NUMBER [CELLULAR] - Is patient phone number correct, if not, enter below: 's phone number: ALBERTO CHO [address], [place], [address] Magalia's present location and address for appointment: above address Magalia's emergency contact name and phone number: Amanda, reported that location is private and safe: Yes Informed Consent: informed of the risks and benefits of Telehealth video care. has the right to refuse video services. If refuses video visit, a [id number] visit will be scheduled. verbalized consent for this video visit: Yes provided consent for any other persons present for visit: N/A If yes, who and relationship to patient: Secure visit: Visit was locked for security and privacy:Yes ......................... ......................... ............... Alberto Cho attended 38 minutes of individual psychotherapy. SESSION FOCUS: (1) She has 1 1/2 weeks reprieve from cooking for family. The cooking was not helping her own weight management plan. Now, she states she has asked Amanda for his ok for her not to cook every night. She can feel satisfied and lose weight with shakes and bars. She states he is fine with this. (2) Debt. She mentions that Chai has his wedding coming up. Chai, and his fiancee/mother of his child, have decided to have their wedding at an expensive location: [place] in [place]. Bio grandmother has made the decision that some of the wedding costs would be shared by the family on both sides. So, there is a cost of $4K that will be the responsibility of Amanda and Alberto. That $4K would be the last of our savings. But Amanda said that he will be able to make up for it when he gets social security income that is past due for him. Alberto c/o that she went into this marriage without debt and a savings account holding $30K. Now, she has no savigs at all, and has amassed credit card debt. She wants to look into debt consolidation. All told, she is uncomfortable about her own financial status as a result of family issues. I advised that this is a couples issue for couples therapy. (3) Father-son relationship impacts . Bio mom and bio grandmom are not following through on their decision to take Samir to and from college, while he does not have a car. Amanda prefers not to get involved in any discussions with them, having learned from hard experience. So, Amanda will take on the driving for Samir. Alberto will do this driving, because she cares for Amanda: she will do it for Amanda. But, she has feelings about Amadna being placed in this situation. There are also feelings about Samir's responsibility and Amanda's father role in promoting (or not) responsibility. This is another issue that can be discussed in couples therapy. INTERVENTION: Supportive clarification. Regarding #2, this is a couples issue for couples therapy. Regarding #3, helping Samir by driving for him is ego-syntonic insofar as she wants to help Amanda. But, she has feelings about Amanda being placed in this situation by Samir's biomom+biograndmom. There are also feelings about Samir's responsibility and Amanda's father role in promoting (or not) responsibility. This is another issue that can be discussed in couples therapy. 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
--- OUTSIDE RECORDS SUMMARY | 2024-12-25 15:17 | XMS_ITS | Encounter Summary ---
Author Name [facility] [place] Address [address] [place] [address] Care Team Providers Care Workday Consultant Name Role Phone ZOE COPE Primary [...] Patient's Relationship to Policy Desai [facility] Feb 04, 2019 [id number] GABRIELLE CHO PATIENT [facility] [place] [facility] Feb 04, 2019 [id number] GABRIELLE CHO PATIENT MEDICARE (WNR) MEDICARE (M) PART A Feb 05, 2000 PART A [id number] GABRIELLE HUGO PATIENT MEDICARE (WNR) MEDICARE (M) PART A Feb 05, 2000 PART A [id number] [phone] GABRIELLE VAZQUEZ PATIENT MEDICARE (WNR) MEDICARE (M) PART A Feb 05, 2000 PART A [id number] GABRIELLE HUGO PATIENT Selected Encounter This section includes the information on record at [place] for the Encounter. Date/Time Encounter Type Encounter Description Reason Provider Source Sep 02, 2024 11:00 AM PSYTX W PT 45 [facility]ES [facility] - IND ICD-10-CM F43.0 Acute stress reaction MALINOFSKY,TER GRETCHEN IHE Encounter Template Text not used by [place] Assessments - Encounter Diagnoses This section includes the primary and secondary diagnoses documented for the Encounter. Date/Time Primary/Secondary Diagnosis Diagnosis Name Provider Source Sep 02, 2024 04:02 PM PRIMARY Acute stress reaction MALINOFSKY,TER GRETCHEN [facility] [place] [facility] Sep 02, 2024 04:02 PM SECONDARY Post-traumatic stress disorder, unspecified MALINOFSKY,TER GRETCHEN [facility] [place] [facility] Plan of Treatment: Future Appointments (+ 6 months) and Future Tests (+/- 45 days) The Plan of Treatment section includes future care activities for the [facility] This section includes future appointments and future orders which are active, pending or scheduled. Future Appointments This section includes appointments that were scheduled to occur 6 months from the date of the Encounter, up to a maximum of 20 appointments. The data comes from all [place] treatment facilities. Appointment Date/Time Appointment Type Appointme nt Facility Name Sep 13, 2024 03:00 PM AMBULATORY - PSYCHIATRY [facility] Sep 16, 2024 08:00 AM AMBULATORY - MEDICINE [facility] [place] [facility] Sep 16, 2024 11:00 AM AMBULATORY - PS[facility]CHIATRY [facility] [place] [facility] Sep 24, 2024 01:00 PM AMBULATORY - PSYCHIATRY [facility] Oct 04, 2024 08:30 AM AMBULATORY - MEDICINE [facility] Oct 09, 2024 09:00 AM AMBULATORY - PSYCHIATRY [facility] Oct 14, 2024 11:00 AM AMBULATORY - PSYCHIATRY [facility] [place] [facility] Oct 16, 2024 04:00 PM AM[facility]ULATORY [facility]ICINE [facility] [place] [facility] Oct 17, 2024 10:00 AM AMBULATORY - PS[facility]CHIATRY [facility] [place] [facility] Oct 18, 2024 08:30 AM AMBULATORY - MEDICINE [facility] [place] [facility] Oct 28, 2024 11:00 AM AMBULATORY - PS[facility]CHIATRY [facility] [place] [facility] Nov 25, 2024 11:00 AM AMBULATORY - PS[facility]CHIATRY [facility] [place] [facility] Dec 02, 2024 09:27 AM [facility]ATORY - [facility] December 09, 2024 11:00 AM AMBULATORY - PSYCHIATRY [facility] [place] [facility] December 19, 2024 11:00 AM AMBULATORY - PS[facility]CHIATRY [facility] [place] [facility] Jan 06, 2025 11:00 AM AMBULATORY - PSYCHIATRY [facility] [place] [facility] Jan 16, 2025 09:00 AM AMBULATORY - MEDICINE [facility] [place] [facility] Jan 20, 2025 11:00 AM AMBULATORY - PS[facility]CHIATRY [facility] [place] [facility] Feb 03, 2025 11:00 AM AMBULATORY - PSYCHIATRY [facility] [place] [facility] Active, Pending, and Scheduled Orders This section includes a listing of several types of active, pending, and scheduled orders, including clinic medications orders, diagnostic test orders, procedure orders and consult orders; where the start date of the order is 45 days before the date of the Encounter or 45 days after the date of theEncounter. The data comes from all [place] treatment facilities. Test Date/Time Test Type Test Details Facility Name Aug 28, 2024 01:19 PM Consult Order COMMUNITY CARE-GEN SURGERY Cons Manager Policy's Choice [facility] [place] [facility] Oct 04, 2024 09:28 AM Consult Order COMMUNITY CARE-GEN SURGERY Cons Manager Policy's Choice [facility] [place] [facility] Social History: Smoking Status (Most current) and Tobacco Use (All prior to encounter date) This section includes the most current, and the historical, smoking and tobacco- related health factors from the [facility] facility where the Encounter took place. Current Smoking Status This section includes the most current smoking, or tobacco-related health factor, from the [place] facility where the Encounter took place. Date/Time Current Smoking Status Comment Enedina cortez Sep 11, 2023 12:30 PM [facility] Tobacco Use History This section includes a history of the smoking, or tobacco-related health factors, that were collected on or before the date of the Encounter. The data comes from the [place] facility where the Encounter took place. Date/Time Smoking Status/Tobacco Use Comment Darlene acchio Sep 30, 2022 10:00 AM VA-TOBACCO NEVER USED [facility] [place] [facility] Apr 21, 2020 03:34 PM VA-TOBACCO NEVER USED [facility] [place] [facility] Jan 10, 2019 11:51 AM VA-TOBACCO NEVER USED [facility] [place] [facility] Mar 09, 2018 11:27 AM LIFET[facility] Advance Directives: All historical and current Section Date Range: From patient's date of to the date document was created. This section includes ALL of a patient's completed or amended [place] Advance and Rescinded Directives. The entries below indicate that a directive exists for the patient, but an actual copy is not included with this document. The data comes from all [place] facilities. Date Advance Directives Provider Source Feb 23, 2016 ADVANCE DIRECTIVE DISCUSSION [facility] Jan 13, 2004 ADVANCE DIRECTIVE JOSE NAJERA [facility] Encounter Notes: All associated encounter notes This section contains the clinical notes associated to the Encounter. Date/Time Encounter Note(s) Provider Source Sep 02, 2024 11:00 AM TELEHEALTH NOTE: LOCAL TITLE: [facility] VIDEO CONNECT PSYCHOLOGY NOTE STANDARD TITLE: TELEHEALTH NOTE DATE OF NOTE: SEP 02, 2024@11:00 ENTRY DATE: SEP 02, 2024@15:34:26 AUTHOR: ALBER BROWNING EXP COSIGNER: URGENCY: STATUS: COMPLETED [facility] Video Connect (VVC) Standard Documentation VVC Clinician Resources Only: E911 (Emergency Call Relay Center): [phone] National Veterans Crisis Line - 768 then press #1. TONY Suicide Coordinator [phone], Ext. [phone]; Back-up Ext. [phone] [place] Police, Reanna JIMENEZ [phone] Introduction: Visit is being conducted by [place] [facility] Connect. identified with 2 identifiers: [X] Full Name [ ] Date of [ ] VA ID Card Emergency Plan: [place] confirmed and/or provided the following information in case of emergency or technology failure. PATIENT PHONE - PHONE NUMBER [CELLULAR] - Is patient phone number correct, if not, enter below: [place]'s phone number: ALBERTO CHO [address] [place], [place], [address] [place]'s present location and address for appointment: her father's house in [place]'s emergency contact name and phone number: Amanda, reported that location is private and safe: Yes Informed Consent: [place] informed of the risks and benefits of Telehealth video care. has the right to refuse video services. If refuses video visit, a [id number] visit will be scheduled. verbalized consent for this video visit: Yes provided consent for any other persons present for visit: N/A If yes, who and relationship to patient: Secure visit: Visit was locked for security and privacy:Yes ......................... ......................... ................ PROBLEM: Family Problem #1a Samir is not managing his money well. He has money from [facility] but does not want to spend it on getting to college. Instead, he is counting on unreliable family members (bio Mom) to give him rides to college. He is spending his money on eating out and fishing. Family Problem #1b Raghu, younger stuart, has accepted his bio Mom as co- account desai on his savings account which holds the $3K from the [employer] settlement. Raghu quit his job although he received a promotion. Alberto is worried that bio Mom will empty out Raghu's account. Family Problem #2: Amanda and Alberto are currently visiting her father and stepmom Myrna because they were asked to visit. They asked that Amanda fix their fence. Father and stepmom have dementia, and there are multiple problems with them continuing to live in their house. They have someone who comes in 3x weekly to clean. Father's house is not pleasant to visit because of accidents from bladder and bowel incontinence. Father is 'showering' in the kitchen sink while waiting for shower to get handicap accessible grab bars. Father's choice is to remain at home rather than move to assisted living. Alberto's father fell and hurt his leg (fortunately while Alberto and Amanda were there). To make matters more complicated, Alberto's father terminated care with his PCP and is in-between PCPs. Plus his Myrna is blind. Neigher father nor Myrna have LifeLine. They both simply carry cellphones. 'S SESSION FOCUS: (ABOVE) INTERVENTION AREAS: Decision-making capacities of above-described family members and what Alberto herself could realistically expect of herself in these circumstances. The extra challenges of being between the young and old generations and having to help both. What is realistic and what is needed? RECOMMENDATIONS: As Samir entered the [place] when Alberto and Amanda , he was already an adult then. As Raghu was still a teen when Alberto and Amanda , and he accepted Alberto as his mother, then she is his mother. However, he also retains his bio Mom; and the two Moms don't talk to each other. Thus, this is a dynamic where at best Alberto can only wait for Raghu to approach her to ask for her help. She must leave other scenarios to his father Amanda. With her own father, although her brother is the medical POA , she is still her father's daughter. Plus, her brother is not much around the father and does not appear to be obtaining professional advice. Yet, Alberto should know her own emotional limits while looking squarely at her father's safety risks. As her father presents fall risk, and fall risk is dangerous as a fall might be accompanied by concussion. A concussion in an elderly man could result in a stroke; an unrecognized bleed could result in . Therefore, my immediate recommendation is to contact Elder care service in father's area, for what they can offer in terms of protective services (Life Line, decision-making capacity evaluation, nursing visits, etc.) Remember to take care of oneself. She said she would take a walk after today's session. ......................... ......................... .............. Related to: Service Connected Condition, [facility] Diagnoses: Acute stress disorder ([facility] [id number]) - Acute stress reaction (ICD-10-CM F43.0) (Primary) Post-traumatic stress disorder ([facility] [id number]) - Post-traumatic stress disorder, unspecified (ICD-10-CM F43.10) Procedures: Psychotherapy 38-52 min - Clinical Psychologist - Synchronous Telemedicine Service // ALBER BROWNING,PhD Neuropsychologist Signed: 09/02/2024 16:[address] [facility]
--- OUTSIDE RECORDS SUMMARY | 2024-12-25 15:17 | XMS_ITS ---
Author Name [facility] [facility] [place] Address [address] [place] [address] Care Team Providers Care Supervisor Correspondence Section Name Role Phone ZOE COPE Primary Care [...] Name Patient's Relationship to Policy [facility] Feb 04, 2019 [id number] GABRIELLE CHO PATIENT HEALTH CLARE HIGH DEDUCTIBL E HEALTH PLAN HD[facility] Feb 04, 2019 [id number] GABRIELLE CHO PATIENT MEDICARE (WNR) MEDICARE (M) PART A Feb 05, 2000 PART A [id number] [phone] GABRIELLE HUGO PATIENT MEDICARE (WNR) MEDICARE (M) PART A Feb 05, 2000 PART A [id number] GABRIELLE CHO PATIENT MEDICARE (WNR) MEDICARE (M) PART A Feb 05, 2000 PART A [id number] GABRIELLE HUGO PATIENT Selected Encounter This section includes the information on record at CT for the Encounter. Date/Time Encounter Type Encounter Description Reason Provider Source Jan 15, 2024 12:30 PM OFFICE O/P EST LOW 20 [facility] - IND ICD-10-CM F43.10 Post-traumatic stress disorder, unspecified JOSE ALFREDO FLORES IHMarilyn Encounter Template Text not used by CT Assessments - Encounter Diagnoses This section includes the primary and secondary diagnoses documented for the Encounter. Date/Time Primary/Secondary Diagnosis Diagnosis Name Provider Source Jan 15, 2024 02:27 PM PRIMARY Post-traumatic stress disorder, unspecified JEF FLORES [facility] [place] [facility] Jan 15, 2024 02:27 PM SECONDARY Binge eating disorder JEF FLORES [facility] [place] [facility] Jan 15, 2024 02:27 PM SECONDARY Bipolar disorder, current episode depressed, moderate JEF FLORES [facility] [place] [facility] Jan 15, 2024 02:27 PM SECONDARY Cannabis abuse, uncomplicated JEF FLORES [facility] [place] [facility] Plan of Treatment: Future Appointments (+ 6 months) and Future Tests (+/- 45 days) The Plan of Treatment section includes future care activities for the patient from all [place] treatmentfacilities. This section includes future appointments and future orders which are active, pending or scheduled. Future Appointments This section includes appointments that were scheduled to occur 6 months from the date of the Encounter, up to a maximum of 20 appointments. The data comes from all [place] treatment facilities. Appointment Date/Time Appointment Type Appointme nt Facility Name Jan 22, 2024 10:30 AM [facility] [place] [facility] Jan 25, 2024 02:00 PM AMBULATORY [facility] PS[facility]CHIATRY [facility] [place] [facility] Jan 30, 2024 10:00 AM AMBULATORY - [facility]AB MEDICIN [facility] [place] [facility] Feb 01, 2024 02:00 PM AMBULATORY - PS[facility]IATRY [facility] [place] [facility] Feb 12, 2024 12:30 PM AMBULATORY - PS[facility]CHIATRY [facility] [place] [facility] Feb 12, 2024 01:30 PM AMBULATORY [facility] MEDICINE [facility] [place] [facility] 2024 03:00 PM AMBULATORY - PSYCHIATRY [facility] Feb 17, 2024 09:37 AM AMBULATORY - NONE [facility] Feb 22, 2024 02:00 PM AMBULATORY [facility] PS[facility]IATRY [facility] [place] [facility] Feb 29, 2024 04:30 PM AMBULATORY - PS[facility]CHIATRY [facility] [place] [facility] Mar 06, 2024 02:30 PM AMBULATORY [facility] MEDICINE [facility] [place] [facility] Mar 15, 2024 02:00 PM AMBULATORY - PSYCHIATRY [facility] Mar 18, 2024 12:30 PM AMBULATORY - PS[facility]IATRY [facility] [place] [facility] Mar 21, 2024 02:00 PM AMBULATORY - PS[facility]CHIATRY [facility] [place] [facility] Apr 04, 2024 10:30 AM AMBULATORY [facility] MEDICINE [facility] [place] [facility] Apr 04, 2024 02:00 PM AMBULATORY - PS[facility]CHIATRY [facility] [place] [facility] Apr 11, 2024 11:00 AM AMBULATORY - REHAB MEDICIN E [facility] [place] [facility] Apr 15, 2024 12:30 PM AMBULATORY - PS[facility]CHIATRY [facility] [place] [facility] Apr 18, 2024 02:00 PM AMBULATORY - PSYCHIATRY [facility] [place] [facility] Apr 19, 2024 11:30 AM AMBULATORY - REHAB MEDICIN E [facility] [place] [facility] Social History: Smoking Status (Most current) and Tobacco Use (All prior to encounter date) This section includes the most current, and the historical, smoking and tobacco- related health factors from the [facility] facility where the Encounter took place. Current Smoking Status This section includes the most current smoking, or tobacco-related health factor, from the [place] facility where the Encounter took place. Date/Time Current Smoking Status Comment Enedina cortez Sep 11, 2023 12:30 PM VA-TOBACCO NEVER USED [facility] [place] [facility] Tobacco Use History This section includes a history of the smoking, or tobacco-related health factors, that were collected on or before the date of the Encounter. The data comes from the [place] facility where the Encounter took place. Date/Time Smoking Status/Tobacco Use Comment Darlene harden Sep 30, 2022 10:00 AM VA-TOBACCO NEVER USED [facility] [place] [facility] Apr 21, 2020 03:34 PM VA-TOBACCO NEVER USED [facility] [place] [facility] Jan 10, 2019 11:51 AM VA-TOBACCO NEVER USED [facility] [place] [facility] Mar 09, 2018 11:27 AM LIFETIME [facility]ACCO [facility] Advance Directives: All historical and current Section Date Range: From patient's date of to the date document was created. This section includes ALL of a patient's completed or amended VA Advance and Rescinded Directives. The entries below indicate that a directive exists for the patient, but an actual copy is not included with this document. The data comes from all [place] facilities. Date Advance Directives Provider Source Feb 23, 2016 ADVANCE DIRECTIVE DISCUSSION MAHAD MCKENZIE [facility] Jan 13, 2004 ADVANCE DIRECTIVE JOSE NAJERA [facility] Encounter Notes: All associated encounter notes This section contains the clinical notes associated to the Encounter. Date/Time Encounter Note(s) Provider Source Jan 15, 2024 01:03 PM TELEHEALTH NOTE: LOCAL TITLE: CT VIDEO CONNECT PSYCHIATRIST NOTE STANDARD TITLE: TELEHEALTH NOTE DATE OF NOTE: JAN 15, 2024@13:03 ENTRY DATE: JAN 15, 2024@13:03:44 AUTHOR: EVERTON FLORES EXP COSIGNER: URGENCY: STATUS: COMPLETED ALBERTO CHO, a 48 year old WHITE FEMALE was seen by [facility] today for scheduled mental health follow-up. MENTAL HEALTH NOTE: was seen by [facility] today for 25 min for routine mental health follow up. Two forms of identification was used. DIAGNOSES AND PROBLEMS TREATED THIS VISIT: Bipolar Disorder Type I, MRE Depressed without psychotic features, PTSD-Chronic, MST, History of Bulimia Eating Disorder, now stable, Cannabis Use Disorder, S/P Weight Loss Surgery SUBJECTIVE: Alberto says that she is managing, but feeling more stressed lately. She says that she is on track with her weight loss goals and with the surgery that she had. She has lost over 70 pounds so far. She is still on a liquid diet for another week when she can start introducing a special bar recommended by her Weight Loss Surgeon. Alberto says that she plans to continue doing what she needs to in order to lose the most weight she can. She is maintaining her hydration, which she says is more challenging now after the surgery. She can't drink the water too fast or else it will cause her stomach to stretch and she will not feel well. Alberto is frustrated with her alokon who has chronic mental illness and isn't taking care of his mental illness. He was doing better when he was receiving an antipsychotic injectable, but he has chosen not to continue with this and has really deteriorated. Alberto and her worry about him. Alberto says he ended up getting into a car accident on the highway outside of [place] the other night and called her and her . Her , Amanda when out to get him and then the next day picked up his car with a trailer. Alberto said the car wasn't drivable in its condition then. She was hoping that he wouldn't be able to get it fixed as she worries about him getting into another accident. Alberto says that her other stuart was kicked out of the house he was living in by his mother and was homeless. Alberto and her Amanda agreed that he could move back in temporarily with them, though Alberto's step daughter rents the home and now she is upset that her brother is living there again. Alberto and her Amanda plan to return to [place] in another week to a week and a half. She is happiest when she is in [place]. Alberto continues in therapy with Dr. Najera. Alberto says her current medications are working well. She denies any side effects from them and is tolerating them without issue. She is exercising which she doesn't enjoy, but knows is important for her weight loss. She uses an elliptical machine now in her basement, but since they don't have an elliptical in [place] she walks there. She works out to a goal of 300 calories. Alberto says she was told to stop her oral control before the GI surgery due to the risk of blood clots. She has to remain off of the hormones for a month. But she will be able to restart these soon. She also can't smoke any cannabis since having the procedure done. SUBSTANCE ABUSE: Caffeine: Tobacco: denies Cocaine: denies [...] Latuda, wellbutrin, naltrexone, hydroxyzine, ambien, Depakote, Paxil, [place] (said she had lab abnormality with it [...] CONTROL BLOOD PRESSURE CHANGE IN DOSE 9) LOSARTAN 25MG TAB TAKE ONE TABLET BY MOUTH ONCE DAILY HOLD FOR BLOOD PRESSURE/HEART 10) LURASIDONE HCL 80MG TAB TAKE ONE TABLET BY MOUTH ONCE ACTIVE DAILY FOR BIPOLAR DEPRESSION 11) OMEPRAZOLE 20MG EC CAP TAKE ONE CAPSULE BY MOUTH ACTIVE EVERY MORNING 30 MINUTES BEFORE BREAKFAST 12) PROGESTERONE 100MG CAP TAKE ONE CAPSULE BY MOUTH ONCE ACTIVE DAILY TO PROTECT UTERINE LINING MEDICATION ADHERENCE: takes medications most days MEDICATION SIDE EFFECTS: none OBJECTIVE:recent labs:LAB RESULTS LAST 1440 HRS - NONE FOUND Weight: 268.5 lb [121.79 kg] (08/09/2023 14:19) BMI: 43.4 MENTAL STATUS EXAM: Orientation and Consciousness: Alert and fully oriented. Appearance and Behavior: Middle aged white female with long blond hair dressed casually at home. Eye Contact: Good. Speech: Normal rate and volume. Mood/Affect: ok. Affect: mildly irritable. Thought Production/Content: Logical, sequential & relevant to discussion. Perceptual Disturbances: None. Attention, concentration and memory based on answers to session questions: Good. Insight/Judgment: Both good. SI/HI: Neither elicited. Ability to Provide informed consent: Yes. ASSESSMENT:48 year old WHITE FEMALE, presents today for mental health follow up. TREATMENT PLAN/ DISCUSSION/ RATIONALE: 1.::: Medication management: Reviewed medications with Alberto today. She continues on Latuda 80 mg daily, Wellbutrin XL 300 mg daily for anxiety and depression, hydroxzyine 25 mg TID and as needed for anxiety. She had metabolic labs done in August which look good. She continues in therapy with Dr. Najera. Alberto had a gastic sleeve procedure for weight loss done end of December and has lost a lot of weight and continues to work on losing more weight. Alberto seems in fair spirits today. She describes more anxiety in her life lately, but she is managing the best she can. She has been off of her hormones due to the risks of blot clots from her recent surgery. She has to remain off of the hormones for a month after surgery. She is looking forward to being able to restart these (says her hot flashes are an issue and she feels more irritable). No changes to her medications today. Will plan to talk with her about the XL form of wellbutrin, to make sure that this is an ok formulation given her gastric weight loss surgery. Usually long acting medications are not as well absorbed in those who have had gastric weight loss surgery. I suspect her surgeon is aware of her current mental health medications and would have indicated to her if he felt she shouldn't remain on the XL form and should be switched to the IR form. But will plan to discuss with Alberto at next visit to be sure. No evidence of TD noted on video exam. No change to her medications today. Next Visit: in 1-3 months. Patient is aware of how to access [facility] open access clinic in [facility] during weekdays for immediate mental health [...] in the community (including Crisis Line, 911, [place] National Suicide Prevention Lifeline: 7-001-193-RVVB). Patient is instructed to contact me should [...] denied suicidal and violent ideation, but the [facility] Crisis Line information and number were given [...] of active outpatient prescriptions dispensed from this [place] (local) and dispensed from another [place] or [facility]D facility (remote) as well as [...] provider. /guadalupe/ EVERTON FLORES MD PSYCHIATRIST Signed: 01/15/2024 14:[address] [facility]
--- OUTSIDE RECORDS SUMMARY | 2024-12-25 15:18 | XMS_ITS | Patient Health Record ---
Author Organization [facility] Address [address] [place] [address] Reason For Referral No Information Plan Of Treatment No Information Insurance Providers Payer Name Payer Address Payer Phone Subscriber Number Group Number Insured Name Patient Relationship to Insured Coverage Start Date Coverage End Date [employer] [address] [place] [id number] [phone] [id number] Alberto Francisco Self - patient is the insured
--- OUTSIDE RECORDS SUMMARY | 2024-12-25 15:18 | XMS_ITS ---
Author Name [facility] [facility] [place] [facility] [place] [facility] [place] Address [address] [place] [address] Care Team Providers Care Bioengineer Name Role Phone ZOE COPE Primary Care [...] Name Patient's Relationship to Policy [facility] Feb 04, 2019 [id number] GABRIELLE CHO PATIENT [facility] Feb 04, 2019 [id number] GABRIELLE CHO PATIENT MEDICARE (WNR) MEDICARE (M) PART A Feb 05, 2000 PART A [id number] GABRIELLE HUGO PATIENT MEDICARE (WNR) MEDICARE (M) PART A Feb 05, 2000 PART A [id number] [phone] GABRIELLE VAZQUEZ PATIENT MEDICARE (WNR) MEDICARE (M) PART A Feb 05, 2000 PART A [id number] [phone] GABRIELLE HUGO PATIENT Selected Encounter This section includes the information on record at [place] for the Encounter. Date/Time Encounter Type Encounter Description Reason Provider Source Feb 12, 2024 12:30 PM OFFICE O/P EST SF 10 [facility] - IND ICD-10-CM F31.32 Bipolar disorder, current episode depressed, moderate MARK,JOSE ALFREDO CAMARENA IHMarilyn Encounter Template Text not used by [place] Assessments - Encounter Diagnoses This section includes the primary and secondary diagnoses documented for the Encounter. Date/Time Primary/Secondary Diagnosis Diagnosis Name Provider Source Feb 12, 2024 01:22 PM PRIMARY Bipolar disorder, current episode depressed, moderate JEF FLORES [facility] [place] [facility] Feb 12, 2024 01:22 PM SECONDARY Acute stress reaction JEF FLORES JOSHUA [facility] [place] [facility] Feb 12, 2024 01:22 PM SECONDARY Binge eating disorder JEF FLORES JOSHUA [facility] [place] [facility] Feb 12, 2024 01:22 PM SECONDARY Cannabis abuse, uncomplicated JEF FLORES ELJOSHUA [place] [facility] [place] [facility] Feb 12, 2024 01:22 PM SECONDARY Post-traumatic stress disorder, unspecified JEF FLORES JOSHUA [facility] [place] [facility] Plan of Treatment: Future Appointments (+ 6 months) and Future Tests (+/- 45 days) The Plan of Treatment section includes future care activities for the patient from all [place] [facility] This section includes future appointments and future orders which are active, pending or scheduled. Future Appointments This section includes appointments that were scheduled to occur 6 months from the date of the Encounter, up to a maximum of 20 appointments. The data comes from all [place] treatment facilities. Appointment Date/Time Appointment Type Appointme nt Facility Name 2024 03:00 PM AMBULATORY - PSYCHIATRY [facility] Feb 17, 2024 09:37 AM AMBULATORY - NONE [facility] Feb 22, 2024 02:00 PM [facility] [place] [facility] Feb 29, 2024 04:30 PM [facility] [place] [facility] Mar 06, 2024 02:30 PM AMBULATORY [facility] MEDICINE [facility] [place] [facility] Mar 15, 2024 02:00 PM AMBULATORY - PSYCHIATRY [facility] Mar 18, 2024 12:30 PM AM[facility] [place] [facility] Mar 21, 2024 02:00 PM AMB[facility] [place] [facility] Apr 04, 2024 10:30 AM AM[facility]ULATORY [facility]ICINE [facility] [place] [facility] Apr 04, 2024 02:00 PM AMBULATORY - [facility] [place] [facility] Apr 11, 2024 11:00 AM AMBULATORY - REHAB MEDICIN [facility] [place] [facility] Apr 15, 2024 12:30 PM AMBULATORY - [facility] [place] [facility] Apr 18, 2024 02:00 PM AMBULATORY - [facility]RY [facility] [place] [facility] Apr 19, 2024 11:30 AM AMBULATORY - REHAB MEDICIN E [facility] [place] [facility] May 09, 2024 02:00 PM AMBULATORY - PS[facility]IATRY [facility] [place] [facility] May 27, 2024 11:00 AM AMBULATORY - [facility] [place] [facility] Jun 03, 2024 11:00 AM AMBULATORY - PS[facility]IATRY [facility] [place] [facility] Jun 10, 2024 11:00 AM AMBULATORY - PS[facility]IATRY [facility] [place] [facility] Jun 28, 2024 11:30 AM AMBULATORY - REHAB MEDICIN E [facility] [place] [facility] Jul 08, 2024 11:00 AM AMBULATORY - PS[facility]IATRY [facility] [place] [facility] Vital Signs: All taken on the encounter date This section contains inpatient and outpatient Vital Signs collected on the date of the Encounter. Date/Time Temperature Pulse Blood Pressure Respiratory Rate SP02 Pain Height Weight Body Mass Index Source Feb 12, 2024 01:34 PM 99 69 110/69 14 96 0 213.6 35 [facility] [place] [facility] Social History: Smoking Status (Most current) and Tobacco Use (All prior to encounter date) This section includes the most current, and the historical, smoking and tobacco- related health factors from the [place] facility where the Encounter took place. Current Smoking Status This section includes the most current smoking, or tobacco-related health factor, from the [place] facility where the Encounter took place. Date/Time Current Smoking Status Comment Enedina cortez Sep 11, 2023 12:30 PM VA-TOBACCO NEVER USED [facility] Tobacco Use History This section includes a history of the smoking, or tobacco-related health factors, that were collected on or before the date of the Encounter. The data comes from the [place] facility where the Encounter took place. Date/Time Smoking Status/Tobacco Use Comment Darlene harden Sep 30, 2022 10:00 AM [facility] Apr 21, 2020 03:34 PM [facility] [place] [facility] Jan 10, 2019 11:51 AM VA-TOBACCO NEVER USED [place] [facility] Mar 09, 2018 11:27 AM LIFETIME NON-TOBACCO [facility]ER [facility] Advance Directives: All historical and current [...] 2004 ADVANCE DIRECTIVE JOSE NAJERA [facility] Encounter Notes: All associated encounter notes This section contains the clinical notes associated to the Encounter. Date/Time Encounter Note(s) Provider Source Feb 12, 2024 12:53 PM TELEHEALTH NOTE: LOCAL TITLE: [facility] VIDEO CONNECT PSYCHIATRIST NOTE STANDARD TITLE: TELEHEALTH NOTE DATE OF NOTE: FEB 12, 2024@12:53 ENTRY DATE: FEB 12, 2024@12:53:13 AUTHOR: EVERTON FLORES EXP COSIGNER: URGENCY: STATUS: COMPLETED [facility] VIDEO CONNECT PSYCHIATRIST NOTE Has ADDENDA [place] Video Connect (VVC) Standard Documentation [facility] Clinician Resources Only: E911 (Emergency Call Relay Center): [phone] National Veterans Crisis Line - 988 then press #1. TONY Suicide Coordinator [phone], Ext. [phone]; Back-up Ext. [phone] [place] TONY Yang [place] [phone] Introduction: Visit is being conducted by [place] [facility]. identified with 2 identifiers: [X] Full Name [X] Date of [ ] VA ID Card Emergency Plan: [facility] confirmed and/or provided the following information in case of emergency or technology failure. PATIENT PHONE - PHONE NUMBER [CELLULAR] - Is patient phone number correct, if not, enter below: Orefield's phone number: ALBERTO CHO [address], [place], [address] Orefield's present location and address for appointment: [address] [place] [id number] O[facility]ield's emergency contact name and phone number: None given reported that location is private and safe: Yes Informed Consent: [facility] informed of the risks and benefits of Telehealth video care. [facility] has the right to refuse video services. If refuses video visit, a [id number] visit will be scheduled. verbalized consent for this video visit: Yes provided consent for any other persons present for visit: N/A If yes, who and relationship to patient: Secure visit: Visit was locked for security and privacy:Yes ALBERTO CHO, a 48 year old WHITE FEMALE was seen by [facility] today for scheduled mental health follow-up. MENTAL HEALTH NOTE: was seen by [facility] today for 15 min for routine mental health follow up. Two forms of identification was used. DIAGNOSES AND PROBLEMS TREATED THIS VISIT: Bipolar Disorder Type I, MRE Depressed without psychotic features, PTSD-Chronic, MST, History of Bulimia Eating Disorder, now stable, Cannabis Use Disorder, S/P Weight Loss Surgery SUBJECTIVE: Alberto says that she is doing alright. She has been feeling more stressed with her children lately. She and her have not been in agreement either about how best to address some of the issues their children are having. Alberto says she reached her boiling point yesterday and had to finally get it out. She was able to communicate with her kids about the things that she has issues with lately, but says she could have been a little more tactful in how she communicated this to them. Alberto feels her gives in too much with them and doesn't expect more from them, which further creates the scenario where Alberto and her are expected to keep doing things for them, when they are adults and should take on more responsibility for themselves. Alberto says that she and her have couples therapy soon and she plans to bring up some of these issues in their session. Alberto hopes that her will see that a lot of their stress could be resolved by his communicating more clearly with their children and not enabling them so much. She and her leave for [place] tomorrow. Which is another issue of contention for Alberto. They had planned to leave the 13 of February; however, her thought the was Monday and not Monday. Alberto had wanted another day to be able to get some errands she needed to get done accomplished before they left. Alberto continues on her current medications. She denies any side effects from her mental health medications. SUBSTANCE ABUSE: Caffeine: Tobacco: denies Cocaine: [...] Latuda, wellbutrin, naltrexone, hydroxyzine, ambien, Depakote, Paxil, Laton (said she had lab abnormality with it [...] DAILY FOR BLOOD PRESSURE/HEART 12 Total Medications MEDICATION ADHERENCE: takes medications most days MEDICATION SIDE EFFECTS: none OBJECTIVE:recent labs:LAB RESULTS LAST 1440 HRS - NONE FOUND Weight: 268.5 lb [121.79 kg] (08/09/2023 14:19) BMI: 43.4 MENTAL STATUS EXAM: Orientation and Consciousness: Alert and fully oriented. Appearance and Behavior: Middle aged white female with long blond hair dressed casually sitting in her car in the [employer] parking lot. Eye Contact: Good. Speech: Normal rate and volume. Mood/Affect: stressed, but managing. Affect: euthymic. Thought Production/Content: Logical, sequential & relevant to discussion. Perceptual Disturbances: None. Attention, concentration and memory based on answers to session questions: Good. Insight/Judgment: Both good. SI/HI: Neither elicited. Ability to Provide informed consent: Yes. ASSESSMENT:48 year old WHITE FEMALE, presents today for mental health follow up. TREATMENT PLAN/ DISCUSSION/ RATIONALE: 1.::: Medication management: Reviewed medications with Alberto today. She does not need refills at this time. She continues on Latuda 80 mg daily, Wellbutrin XL 300 mg daily for anxiety and depression and hydroxzyine 25 mg TID and 25 mg TID as needed for anxiety. Alberto denies any side effects from the latuda, wellbutrin or hydroxyzine. She had metabolic labs done in August which look good. She continues in therapy with Dr. Najera. And will be starting couples therapy with Dr. Good. Alberto had a gastic sleeve procedure for weight loss done end of December and has lost a lot of weight and continues to work on losing more weight. Alberto seems in fair spirits today. She describes more anxiety in her life lately, but she is managing the best she can. No changes to her medications today. Reached out to Alberto after the appointment time today to discuss her use of wellbutrin XL in the setting of her weight loss surgery. I would like Alberto to talk with her weight loss surgeon about her wellbutrin XL to make sure this medication is ok for her to take after her procedure. Sometimes, in those patients who have had weight loss surgery, the XL form of medications is not recommended due to the inability to break down the longer acting medication post surgery. Alberto has an appt. tomorrow with her weight loss surgeon and she will ask about this more (I explained that there are three formulations of wellbutrin -IR, SR and XL) and she will discuss whether it is ok from her surgeon's standpoint for her to remain on the XL form or if she should be switched to another formulation of wellbutrin. Alberto will send me a secure message with what she finds out from her surgeon. No evidence of TD noted on video exam. No change to her medications today. Next Visit: in 1 month. Patient is aware of how to access [facility] open [facility] in [employer] during weekdays for immediate mental health needs [...] in the community (including Crisis Line, 911, [place] National Suicide Prevention Lifeline: 1-284-781-QZOX). Patient is instructed to contact me should [...] of active outpatient prescriptions dispensed from this [place] (local) and dispensed from another [place] or [facility] facility (remote) as well as inpatient orders [...] whether with a VA or non-VA provider. Medication Reconciliation: Outpatient: Has the patient been taking medications as documented in the EMLR? YES: The patient has been taking medications as documented in the EMLR. Essential Medication List for Review used to complete this medication reconciliation. INCLUDED IN THIS LIST: Alphabetical list of active outpatient prescriptions dispensed from this [facility] (local) and dispensed from another [place] or [facility] facility (remote) as well as inpatient orders [...] provider. /guadalupe/ EVERTON FLORES MD PSYCHIATRIST Signed: 02/12/2024 19:04 02/13/2024 ADDENDUM STATUS: ANGELA Le spoke with her weight loss surgeon this morning about the Wellbutrin XL and he recommended she be switched to the IR form due to her recent weight loss surgery and the lack of absorption of the XL form of the Wellbutrin as a result. Will switch Alberto to the IR form of Wellbutrin. Will have her take 100 mg qAM initially for one to two days to see how she feels on this. If she feels fine, she can increase to 100 mg BID (with the second daily dose in the early afternoon). Encouraged Alberto to let me know if she has any side effects or concerns after making the switch. She is on her way to [place] now for a week. She would like the medication mailed to her house here and she will start it when she gets back. Recommend she continue on the XL form for now until she can make the switch over so she doesn't have withdrawal symptoms on her vacation. /guadalupe/ EVERTON FLORES MD PSYCHIATRIST Signed: 02/13/2024 10:58 EVERTON FLORES [facility]
[2024-12-25 16:00] VITALS: BMI 26.8
--- NOTE | 2024-12-26 08:55 | P.CONAN_ITS ---
Documented by User: Binta Dhillon NP 12/26/24 08:56 HPI - Anesthesia Eval Consult details Narrative: 49yo F for EUA, Hemorrhoidectomy s/p gastric sleeve 12/2023 with GA-ETT 7 PMFSH Active Problems Active Problems: All Active Problems Prolapsed hemorrhoids (Acute) Overweight (Acute) Constipated (Acute) Intra-abdominal adhesions (Acute) S/P laparoscopic sleeve gastrectomy (Acute) Hypothyroidism (Acute) Liver fibrosis (Acute) BMI 38.0-38.9,adult (Acute) Obesity (Acute) Vitamin B1 deficiency (Acute) Vitamin D deficiency (Acute) Abnormal EKG (Acute) Bipolar 1 disorder (Acute) Anxiety (Acute) Depression (Acute) PTSD (post-traumatic stress disorder) (Acute) GERD (gastroesophageal reflux disease) (Acute) Hyperlipidemia (Acute) Hypertension (Acute) Sleep apnea treated with continuous positive airway pressure (CPAP) (Acute) Past Medical History Medical History Prolapsed hemorrhoids Wears glasses Wears contact lenses Hypothyroidism YI on CPAP Abnormal EKG Bipolar 1 disorder Anxiety Depression PTSD (post-traumatic stress disorder) GERD (gastroesophageal reflux disease) Hyperlipidemia Hypertension Sleep apnea treated with continuous positive airway pressure (CPAP) Morbid (severe) obesity due to excess calories Family History Family history of problems with anesthesia: No Surgical History Surgical History Hx of laparoscopic partial gastrectomy History of loop electrical excision procedure (LEEP) History of esophagogastroduodenoscopy (EGD) (11/29/23) History of ankle surgery Hx of brain surgery Hx of cholecystectomy Hx of hand surgery Hx of knee surgery Hx of tonsillectomy Hx of wisdom tooth extraction History of Problems with Anesthesia: No Social History Social History Household Members: Spouse and Children Housing: House Are you a primary daycare manager to a significant other at home: No Do you presently have visiting nurse or other home services: No Alcohol intake: current Alcohol intake frequency: a few times a week Alcohol type: beer Patient Tobacco Use Status: Never used Tobacco e-Cigarette/Vaping Use: Never Used Use of substances other than those prescribed or required for medical reasons: Yes Substance Use Type: Marijuana Substance Use Frequency: Daily Have you been hit, kicked, punched, or otherwise hurt by someone within the past year? If so, by whom?: No Are you DNR?: No Advance Directives: No Advance Directives Information Provided: Yes Patient : No Poor oral hygiene: No service: Yes Current occupational status: retired Cognitive needs: No Hearing needs: No Vision needs: Yes (Patient wears contacts.) Meds Allergies Allergy/AdvReac Type Severity Reaction Status Date / Time No Known Allergies Allergy Verified 12/27/24 07:11 Home Medications ?Medication ?Instructions ?Recorded ?Confirmed ?Last Taken ?Type atorvastatin 20 mg tablet 20 mg PO Q OTHER DAY 09/05/23 12/25/24 12/23/23 History estradiol 0.5 mg tablet (Estrace) 0.5 mg PO DAILY 09/05/23 12/25/24 12/23/23 History hydroxyzine pamoate 25 mg capsule 25 mg PO TID PRN anixety 09/05/23 12/25/24 Unknown History levothyroxine 112 mcg capsule 112 mcg PO DAILY@0600 09/05/23 12/27/24 12/27/24 History lisinopril 20 mg tablet 20 mg PO DAILY 09/05/23 12/25/24 01/02/24 History lurasidone 80 mg tablet 80 mg PO DAILY 09/05/23 12/25/24 01/01/24 History progesterone micronized 100 mg 100 mg PO DAILY 09/05/23 12/25/24 12/23/23 History capsule bupropion HCl 100 mg tablet 100 mg PO BID 03/05/24 12/25/24 Unknown History Exam Height,Weight and Vital Signs: Height 5 ft 5 in Weight 73.028 kg Assessment and Plan Assessment Anesthesia Assessment: Chart Reviewed Final Anesthetic Review Family History of Problems with Anesthesia: No History of Problems with Anesthesia: No Documented by User: Belem Heredia MD 12/27/24 08:08 PMFSH Active Problems Active Problems: * All Active Problems Prolapsed hemorrhoids (Acute) Overweight (Acute) Constipated (Acute) Intra-abdominal adhesions (Acute) S/P laparoscopic sleeve gastrectomy (Acute) Hypothyroidism (Acute) Liver fibrosis (Acute) BMI 38.0-38.9,adult (Acute) Obesity (Acute) Vitamin B1 deficiency (Acute) Vitamin D deficiency (Acute) Abnormal EKG (Acute) Bipolar 1 disorder (Acute) Anxiety (Acute) Depression (Acute) PTSD (post-traumatic stress disorder) (Acute) GERD (gastroesophageal reflux disease) (Acute) Hyperlipidemia (Acute) Hypertension (Acute) Sleep apnea treated with continuous positive airway pressure (CPAP) (Acute) Past Medical History Medical History Prolapsed hemorrhoids Wears glasses Wears contact lenses Hypothyroidism YI on CPAP Abnormal EKG Bipolar 1 disorder Anxiety Depression PTSD (post-traumatic stress disorder) GERD (gastroesophageal reflux disease) Hyperlipidemia Hypertension Sleep apnea treated with continuous positive airway pressure (CPAP) Morbid (severe) obesity due to excess calories Surgical History Surgical History Hx of laparoscopic partial gastrectomy History of loop electrical excision procedure (LEEP) History of esophagogastroduodenoscopy (EGD) (11/29/23) History of ankle surgery Hx of brain surgery Hx of cholecystectomy Hx of hand surgery Hx of knee surgery Hx of tonsillectomy Hx of wisdom tooth extraction Social History Social History Household Members: Spouse and Children Housing: House Are you a primary daycare manager to a significant other at home: No Do you presently have visiting nurse or other home services: No Alcohol intake: current Alcohol intake frequency: a few times a week Alcohol type: beer Patient Tobacco Use Status: Never used Tobacco e-Cigarette/Vaping Use: Never Used Use of substances other than those prescribed or required for medical reasons: Yes Substance Use Type: Marijuana Substance Use Frequency: Daily Have you been hit, kicked, punched, or otherwise hurt by someone within the past year? If so, by whom?: No Are you DNR?: No Advance Directives: No Advance Directives Information Provided: Yes Patient : No Poor oral hygiene: No service: Yes Current occupational status: retired Cognitive needs: No Hearing needs: No Vision needs: Yes (Patient wears contacts.) Meds Allergies Allergy/AdvReac Type Severity Reaction Status Date / Time No Known Allergies Allergy Verified 12/27/24 07:11 Home Medications ?Medication ?Instructions ?Recorded ?Confirmed ?Last Taken ?Type atorvastatin 20 mg tablet 20 mg PO Q OTHER DAY 09/05/23 12/25/24 12/23/23 History estradiol 0.5 mg tablet (Estrace) 0.5 mg PO DAILY 09/05/23 12/25/24 12/23/23 History hydroxyzine pamoate 25 mg capsule 25 mg PO TID PRN anixety 09/05/23 12/25/24 Unknown History levothyroxine 112 mcg capsule 112 mcg PO DAILY@0600 09/05/23 12/27/24 12/27/24 H istory lisinopril 20 mg tablet 20 mg PO DAILY 09/05/23 12/25/24 01/02/24 History lurasidone 80 mg tablet 80 mg PO DAILY 09/05/23 12/25/24 01/01/24 History progesterone micronized 100 mg 100 mg PO DAILY 09/05/23 12/25/24 12/23/23 History capsule bupropion HCl 100 mg tablet 100 mg PO BID 03/05/24 12/25/24 Unknown History Exam Airway Mallampati Class: II TM Dist: >3cm Neck ROM: Full Loose/Missing/Broken Teeth: No Heart: RRR Lungs: CTA Assessment and Plan Assessment Anesthesia Assessment: Anesthesia Plan Discussed Final Anesthetic Review NPO: Yes ASA Class: II Final Preanesthetic Review: Meds/Allgs Chart Reviewed, Consent Obtained/Reviewed and Anes Risks/Benef Reviewed Patient Risk: Low Procedure Risk: Low Anesthetic Plan Anesthetic Plan: GA Disposition: Standard PACU
[2024-12-27] VITALS (12 sets, daily range): BP systolic 109–133; BP diastolic 53–82; PULSE 56–70; RESP 14–18; TEMP 36.4–36.7; O2SAT 95–100; BMI 27.1
[2024-12-27] MEDS: Lactated Ringers 1,000 ML 100 ML IVCONT (07:36)
--- NOTE | 2024-12-27 07:57 | MHC.SHP ---
Pre-Procedural Eval Section A - 24 Hr Update-Section A only Date of Service: 12/27/24 Section B - Complete if H&P > 30 days Chief Complaint: Other hemorrhoids Details of Present Illness: Long history of prolapse of hemorrhoids, discomfort; previous hemorrhoidectomies in the distant past Relevant Family History (Specify if Yes): No Relevant Social History: None Present Medications: see Short Stay Collaborative assessment Medical History: Significant History (Bipolar disorder, sleep apnea, hypertension) Allergies: Allergies Allergy/AdvReac Type Severity Reaction Status Date / Time No Known Allergies Allergy Verified 12/27/24 07:11 Review of Systems Sugical H&P ROS: Negative: Constitution, Cardiovascular, Respiratory and Genitourinary Exam Surgical H&P Exam: Normal: Heart, Normal: Lungs and Normal: Abdomen Plan Diagnosis/Plan: Unchanged I have reviewed the history and physical and performed a pertinent physical examination on my patient. No changes have occurred unless specified. Time Spent With Patient Time: Total time managing care of this patient today ____ minutes.
[2024-12-27] MEDS: Acetaminophen 325 MG TABLET 975 MG PO (07:58)
--- NOTE | 2024-12-27 09:06 | P.OP_ITS ---
Operative Note Operative Note Date of Service: 12/27/24 Narrative: Preop diagnosis: Internal and external hemorrhoids with prolapse Postop diagnosis: The same Procedure: Exam under anesthesia hemorrhoidectomy x2 columns Surgeon: Duane Yoder MD Occupational Therapy Aides Teacher: REBEKAH Morrison student The patient is a 49-year-old female who has a long history of prolapse of hemorrhoids with subsequent pain and discomfort. She had wanted to proceed with the appendectomy. She understood the technique of the planned procedure as well as the risks, benefits and alternatives. She was brought to the operating room. She was placed in prone vani-knife position under general anesthesia via endotracheal tube. The buttocks were retracted with wide tape laterally. The perianal area was prepped and draped in the usual sterile fashion. A surgical time-out was done. The patient received Cefotan 2 g IV preoperatively Examination of the anal orifice showed large external and prolapsing internal hemorrhoids on both the left and right side. I infiltrated the perianal area with lidocaine 1% I inserted the Luis Crooks retractor. I examined the anal canal circumferentially. Again these large hemorrhoidal columns were noted has a mix of external.. There were no other lesions. There was no fissure or ulceration I applied a Pierson grasper on the hemorrhoidal column on the left to retract this out of the field. I made a qmmvxn-nd-giwlp stitch at the pedicle past the dentate line with a chromic 3-0. He had an incision around this hemorrhoidal column to the perianal skin with a blade 15. I excised this hemorrhoidal column above the plane of the sphincters with scissors. I closed the incision with a running chromic 3-0 stitch. Additional hemostatic uyqvez-ln-soygy sutures were placed The same procedure was duplicated on the hemorrhoidal column on the right. Again I made a idyege-oz-eevov stitch at the pedicle and I made an incision around this hemorrhoidal column to the perianal skin. I excised this hemorrhoidal column along this incision above the plane of the sphincters with scissors. I closed the incision with a running chromic 3-0 stitch. I observed for hemostasis. Once hemostasis was confirmed, I infiltrated the perianal area with Marcaine 0.5% for postop analgesia The procedure was then completed The patient tolerated the procedure well. There were no immediate complications. Initial and final counts of sponges and instruments were correct. Estimated blood loss about 25 cc The patient was extubated without difficulty and transferred to the recovery room with stable vital signs.
[2024-12-27] MEDS: fentaNYL citrate/PF 100 MCG/2 ML VIAL 25 MCG IVPUSH ×2 (09:27→09:32)
[2024-12-27] MEDS: HYDROmorphone HCl 0.5 MG/0.5 ML SYRINGE 0.25 MG IVPUSH ×3 (09:37→09:52)
== END 2024-12-27 10:46 | disposition home or self-care (01) ==
PROVIDERS: PCP Nurse Practitioner Family; Visit Provider Surgery
PROC: (CPT 46260; principal; 2024-12-27 08:40)
DX: K64.8 Other hemorrhoids (principal); K64.4 Residual hemorrhoidal skin tags; K59.09 Other constipation; K21.9 Gastro-esophageal reflux disease without esophagitis; I10 Essential (primary) hypertension; E78.5 Hyperlipidemia, unspecified; E03.9 Hypothyroidism, unspecified; G47.33 Obstructive sleep apnea (adult) (pediatric); Z99.89 Dependence on other enabling machines and devices; F31.9 Bipolar disorder, unspecified; Z79.899 Other long term (current) drug therapy; Z90.49 Acquired absence of other specified parts of digestive tract; Z90.3 Acquired absence of stomach [part of]; Z98.890 Other specified postprocedural states
CPT/HCPCS: 46260; 88304; J1100; J1171; J1885; J2003; J2250; J2405; J2704; J2795; J3010

== ENCOUNTER → 2024-12-27 06:48 | Outpatient (BNV) | payer OTHER, SELFPAY | PROVIDERS: PCP Nurse Practitioner Family; Visit Provider Surgery | DX: K64.8 Other hemorrhoids (principal) | CPT/HCPCS: 46260 ==

== ENCOUNTER 2025-01-09 09:43 | Outpatient (AMB) | payer OTHER, SELFPAY ==
--- NOTE | 2025-01-09 09:46 | A.OFFVIS_ITS ---
Vital Signs 01/09/25 09:53 Weight 163 lb BP 115/73 Blood Pressure Location Rt brachial Position Sitting Pulse 72 Intake Visit Reasons: s/p hemorrhoidectomy Intake Note: Patient here s/p hemorrhoidectomy x2 columns on 12-27-2024. Patient c/o: incision site very painful. Alternating Tylenol and Ibuprofen. Taking Colace to prevent constipation. 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 She tolerated the procedure well. She currently describes some pain although this is improving. [facility] Medical History Prolapsed hemorrhoids Wears glasses Wears contact lenses Hypothyroidism YI on CPAP Abnormal EKG Bipolar 1 disorder Anxiety Depression PTSD (post-traumatic stress disorder) GERD (gastroesophageal reflux disease) Hyperlipidemia Hypertension Sleep apnea treated with continuous positive airway pressure (CPAP) Morbid (severe) obesity due to excess calories Surgical History Hx of laparoscopic partial gastrectomy History of loop electrical excision procedure (LEEP) History of esophagogastroduodenoscopy (EGD) (11/29/23) History of ankle surgery Hx of brain surgery Hx of cholecystectomy Hx of hand surgery Hx of knee surgery Hx of tonsillectomy Hx of wisdom tooth extraction Social History Household Members: Spouse and Children Housing: House Are you a primary home care scheduler to a significant other at home: No Do you presently have visiting nurse or other home services: No 75 years or older and lives alone: No Alcohol intake: current Alcohol intake frequency: a few times a week Alcohol type: beer Patient Tobacco Use Status: Never used Tobacco e-Cigarette/Vaping Use: Never Used Substance Use Type: Marijuana service: Yes Current occupational status: retired Cognitive needs: No Hearing needs: No Vision needs: Yes (Patient wears contacts.) Review of Systems Const Denies chills and Denies fever(s) Card Denies chest pain Resp Denies cough GI Denies abdominal pain Physical Exam Const General: comfortable and no acute distress Resp Effort & Inspection: normal respiratory effort GI Other: Rectal exam shows the hemorrhoidectomy sites to be healing well without any ongoing infection or abscess; there is still significant edema Assessment & Plan Assessment & Plan (1) Prolapsed hemorrhoids: Code(s): K64.8 - Other hemorrhoids Category: Medical Plan: Status post hemorrhoidectomy x2 columns. She is doing very well postoperatively. Her path report shows hemorrhoidal tissue Her incisions are healing well. I advised her on avoiding straining and constipation. She still has significant edema from the hemorrhoidectomy sites so I will see her in about a month here in the office for another wound check. Coding Level of Care Code Global (03998) Diagnoses Prolapsed hemorrhoids K64.8
[2025-01-09 09:53] VITALS: BP 115/73; PULSE 72
--- OUTSIDE RECORDS SUMMARY | 2025-01-09 10:57 | XMS_ITS | Patient Health Record ---
Author Organization [address] Address [address] [place] [address] Reason For Referral No Information Plan Of Treatment No Information Insurance Providers Payer Name Payer Address Payer Phone Subscriber Number Group Number Insured Name Patient Relationship to Insured Coverage Start Date Coverage End Date [employer] [address] [place] [id number] Alberto Francisco Self - patient is the insured
== END 2025-01-09 10:02 | disposition home or self-care (01) ==
LOC: HO.HGS 09:44
PROVIDERS: PCP Family Medicine; Visit Provider Surgery
DX: K64.8 Other hemorrhoids (principal)
CPT/HCPCS: 99024

== ENCOUNTER → 2025-01-09 09:43 | Outpatient (BNVA) | payer OTHER, SELFPAY | PROVIDERS: PCP Family Medicine; Visit Provider Surgery | DX: Z48.815 Encounter for surgical aftercare following surgery on the digestive system (principal); Z98.890 Other specified postprocedural states | CPT/HCPCS: 99212 ==

== ENCOUNTER 2025-01-14 12:15 | Outpatient (AMB) | payer OTHER, SELFPAY ==
--- NOTE | 2025-01-14 12:27 | MHC.OFFVISWM ---
VS Expanded 01/14/25 12:28 BP 131/62 Blood Pressure Location Rt brachial Blood Pressure Position Sitting Pulse 65 Pulse Source Pulse Oximeter Temp 97.4 F Temperature Source Temporal Artery Scan Pulse Oximetry 98 Oxygen Delivery Method Room Air Height 5 ft 5 in Weight 159 lb 9.6 oz BMI 26.6 Body Fat % 28.5 Body Fat Mass 45.4 Fat Free Mass 114 Visceral Fat Rating 6.0 Body Water % 50.8 Body Water Mass 81 Muscle Mass/Score 108.2 Basal Metabolic Rate/Score 1,517 Intake Visit Reasons: (OV) PO LSG 01/02/24 Allergies No Known Allergies Allergy (Verified 01/09/25 09:53) Medication List - Last Reconciled 01/14/25 by REBEKAH Diallo atorvastatin 20 mg PO Q OTHER DAY bupropion HCl 100 mg PO BID docusate sodium (Colace) 100 mg PO BID docusate sodium (Colace) 100 mg PO DAILY estradiol (Estrace) 0.5 mg PO DAILY hydroxyzine pamoate 25 mg PO TID PRN ibuprofen 600 mg PO Q6H PRN levothyroxine 112 mcg PO DAILY@0600 lisinopril 20 mg PO DAILY lurasidone 80 mg PO DAILY oxycodone-acetaminophen 5-325 mg 1 tab PO Q6H PRN progesterone micronized 100 mg PO DAILY HPI Comments Details: This?is a?49?yo F who is s/p LSG 01/02/2024. Presents for 1 year post op visit. Weight at last visit on 09/16/2024 was 161 pounds, weight today is 159.6 pounds, representing a 1.4 pound weight loss with a BMI today of 26.5.? No complaints of nausea, emesis, abdominal pain or reflux, or constipation. Pt had hemorrhoid surgery recently, still in pain from this, attributes her elevated BP to this. Has not been exercising much due to surgery. Present meal plan includes: 3 shakes 4:1 with 1 scoop 1 bar 4 forks protein, 4 forks veg MVI, taking hair/skin/nails OR a shake based/bar based plan with 2 shakes 2 scoops each, 1 rebuild shake, 1 bar Exercise routine includes: average calorie burn per day 600 when she was exercising Has not needed lisinopril recently. Pt reports issues of excess skin of arms, and abdomen. Primarily, her arms have excess skin of upper arms which is very heavy and causes discomfort/strain on her shoulders and upper back. She did experience some rashes last time she was in [place] which required a visit to ER and she received a steroid to attempt to manage this. The loose skin rubs against the torso/bra and causes painful friction. Raising her arms overhead is more difficult due to the heaviness of the excess skin limiting her range of motion. In the past has had raised bumps at armpit, has to clean more frequently. She is experiencing rashes of excess skin of abdomen, particularly in her belly button. She sent photos of this to Dr. Marie. Moisture collects in the skin folds which smells unpleasant and requires more frequent washing/cleaning. She has to wear a girdle at all times to help hold excess skin in place to prevent discomfort. Excess skin gets in the way of normal daily activities such as bending/squatting, skin gets in the way and is uncomfortable. The weight of the excess skin is uncomfortable and causes increased back pain. [facility] Medical History Prolapsed hemorrhoids Wears glasses Wears contact lenses Hypothyroidism YI on CPAP Abnormal EKG Bipolar 1 disorder Anxiety Depression PTSD (post-traumatic stress disorder) GERD (gastroesophageal reflux disease) Hyperlipidemia Hypertension Sleep apnea treated with continuous positive airway pressure (CPAP) Morbid (severe) obesity due to excess calories Surgical History Hx of laparoscopic partial gastrectomy History of loop electrical excision procedure (LEEP) History of esophagogastroduodenoscopy (EGD) (11/29/23) History of ankle surgery Hx of brain surgery Hx of cholecystectomy Hx of hand surgery Hx of knee surgery Hx of tonsillectomy Hx of wisdom tooth extraction Social History Household Members: Spouse and Children Housing: House Are you a primary healthcare economics manager to a significant other at home: No Do you presently have visiting nurse or other home services: No 75 years or older and lives alone: No Alcohol intake: current Alcohol intake frequency: a few times a week Alcohol type: beer Patient Tobacco Use Status: Never used Tobacco e-Cigarette/Vaping Use: Never Used Substance Use Type: Marijuana service: Yes Current occupational status: retired Cognitive needs: No Hearing needs: No Vision needs: Yes (Patient wears contacts.) Physical Exam Const General: cooperative, comfortable and no acute distress Orientation/consciousness: patient oriented x3 GI Other: soft, nontender, nondistended, incisions well healed, no hernia, no masses grade II pannus Skin Other: excess skin of bilateral upper arms, max length of 7cm from the triceps Neuro General: patient oriented x3 Assessment & Plan Assessment & Plan (1) S/P laparoscopic sleeve gastrectomy: Code(s): Z98.84 - Bariatric surgery status Category: Medical (2) Overweight: Code(s): E66.3 - Overweight Category: Medical (3) Excess skin: Code(s): L98.7 - Excessive and redundant skin and subcutaneous tissue Category: Medical Plan Sending weights monthly now to Dr. Gustafson Will resume exercise once pain improves from recent surgery. She is experiencing issues of excess skin of abdomen resulting in frequent painful rashes, as well as discomfort in activities of daily living and the need for special clothing to manage excess skin issues. In addition she is experiencing issues of excess skin of upper arms, resulting in limitation of certain activities of daily living, pain with certain movement, and skin irritation due to chafing. Clotrimazole ointment ordered for rashes. Pt will update me on improvement in skin issues. Orders: Orders Hemoglobin A1c Today Z98.84 - Bariatric surgery status Lipid Panel Today Z.84 - Bariatric surgery status Zinc Today Z.84 - Bariatric surgery status C Reactive Protein Today Z98.84 - Bariatric surgery status Insulin Today Z.84 - Bariatric surgery status Complete Blood Count Auto Diff Today Z98.84 - Bariatric surgery status IRON PROFILE Today Z.84 - Bariatric surgery status Comprehensive Met. Panel Today Z.84 - Bariatric surgery status Vitamin B12 and Folate Today Z98.84 - Bariatric surgery status Vitamin B1 Today Z98.84 - Bariatric surgery status Vitamin A Today Z98.84 - Bariatric surgery status TSH reflex Free T4 Today Z98.84 - Bariatric surgery status Ferritin Today Z98.84 - Bariatric surgery status Vitamin D 25-OH Total Today Z98.84 - Bariatric surgery status Medications: New clotrimazole 1% 1 appl topical BID 45 grams 3RF
[2025-01-14 12:28] VITALS: BP 131/62; PULSE 65; TEMP 36.3; O2SAT 98; BMI 26.6
--- OUTSIDE RECORDS SUMMARY | 2025-01-14 14:28 | XMS_ITS | Patient Health Record ---
Author Organization [address] Address [address] [place] [address] Reason For Referral No Information Plan Of Treatment No Information Insurance Providers Payer Name Payer Address Payer Phone Subscriber Number Group Number Insured Name Patient Relationship to Insured Coverage Start Date Coverage End Date [employer] [address] [place] [id number] Alberto Francisco Self - patient is the insured
== END 2025-01-14 13:09 | disposition home or self-care (01) ==
LOC: HO.HBS 12:16
PROVIDERS: PCP Family Medicine; Visit Provider Physician Assistant Surgical
DX: E66.3 Overweight (principal); Z98.84 Bariatric surgery status; L98.7 Excessive and redundant skin and subcutaneous tissue
CPT/HCPCS: 99214; G2211

== ENCOUNTER → 2025-01-14 12:15 | Outpatient (BNVA) | payer OTHER, SELFPAY | PROVIDERS: PCP Family Medicine; Visit Provider Physician Assistant Surgical | DX: Z98.84 Bariatric surgery status (principal) | CPT/HCPCS: 99212 ==

== ENCOUNTER 2025-01-29 09:31 | Outpatient (AMB) | payer OTHER, SELFPAY ==
--- NOTE | 2025-01-29 09:34 | MHC.OFFVIS ---
Vital Signs 01/29/25 09:40 Height 5 ft 5 in Weight 160 lb BMI 26.6 BP 122/75 Blood Pressure Location Rt brachial Position Sitting Pulse 71 Intake Visit Reasons: s/p hemorrhoidectomy Intake Note: Patient here s/p 1m hemorrhoidectomy on 12-27-2024. Patient c/o: no concerns. Denies diarrhea. Taking colace as needed. 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 She continues to do very well. As a matter fact, she says that no longer has problems with sitting down and with bowel movements. She denies any pain. She says she feels well overall and is very happy with the outcome. [facility] Medical History Prolapsed hemorrhoids Wears glasses Wears contact lenses Hypothyroidism YI on CPAP Abnormal EKG Bipolar 1 disorder Anxiety Depression PTSD (post-traumatic stress disorder) GERD (gastroesophageal reflux disease) Hyperlipidemia Hypertension Sleep apnea treated with continuous positive airway pressure (CPAP) Morbid (severe) obesity due to excess calories Surgical History Hx of laparoscopic partial gastrectomy History of loop electrical excision procedure (LEEP) History of esophagogastroduodenoscopy (EGD) (11/29/23) History of ankle surgery Hx of brain surgery Hx of cholecystectomy Hx of hand surgery Hx of knee surgery Hx of tonsillectomy Hx of wisdom tooth extraction Social History Household Members: Spouse and Children Housing: House Are you a primary care partner to a significant other at home: No Do you presently have visiting nurse or other home services: No 75 years or older and lives alone: No Alcohol intake: current Alcohol intake frequency: a few times a week Alcohol type: beer Patient Tobacco Use Status: Never used Tobacco e-Cigarette/Vaping Use: Never Used Substance Use Type: Marijuana service: Yes Current occupational status: retired Cognitive needs: No Hearing needs: No Vision needs: Yes (Patient wears contacts.) Review of Systems Const Denies chills and Denies fever(s) GI Denies hematochezia Physical Exam Vital Signs: Last Vital Signs Pulse 71 01/29/25 09:40 BP 122/75 01/29/25 09:40 BMI result Body Mass Index 26.6 Const General: comfortable and no acute distress Resp Effort & Inspection: normal respiratory effort GI Other: Rectal exam shows the hemorrhoidectomy sites to be well healed. She does have residual hemorrhoidal tissue Assessment & Plan Assessment & Plan (1) Prolapsed hemorrhoids: Code(s): K64.8 - Other hemorrhoids Category: Medical Plan: Status post hemorrhoidectomy. She continues to do very well. She is very happy with the outcome. Her surgical sites are well healed. She is aware that she has residual hemorrhoidal tissue. I therefore emphasized to her the importance of having regular bowel movements and avoiding constipation. I have recommended for her to continue Metamucil supplements. She can follow up on a p.r.n. basis. Coding Level of Care Code Global (46559) Diagnoses Prolapsed hemorrhoids K64.8
[2025-01-29 09:40] VITALS: BP 122/75; PULSE 71; BMI 26.6
--- OUTSIDE RECORDS SUMMARY | 2025-01-29 10:34 | XMS_ITS | Patient Health Record ---
Author Organization [facility] Address [address] [place] [address] Reason For Referral No Information Plan Of Treatment No Information Insurance Providers Payer Name Payer Address Payer Phone Subscriber Number Group Number Insured Name Patient Relationship to Insured Coverage Start Date Coverage End Date [employer] [address] [place] [id number] Alberto Francisco Self - patient is the insured
== END 2025-01-29 09:59 | disposition home or self-care (01) ==
LOC: HO.HGS 09:31
PROVIDERS: PCP Family Medicine; Visit Provider Surgery
DX: K64.8 Other hemorrhoids (principal)
CPT/HCPCS: 99024

== ENCOUNTER → 2025-01-29 09:31 | Outpatient (BNVA) | payer OTHER, SELFPAY | PROVIDERS: PCP Family Medicine; Visit Provider Surgery | DX: K64.8 Other hemorrhoids (principal); Z98.890 Other specified postprocedural states | CPT/HCPCS: 99212 ==

== ENCOUNTER 2025-02-03 08:07 | Outpatient (REF) | payer OTHER, SELFPAY ==
--- OUTSIDE RECORDS SUMMARY | 2025-02-03 08:12 | XMS_ITS | Patient Health Record ---
Author Organization [facility] Address [address] [place] [address] Reason For Referral No Information Plan Of Treatment No Information Insurance Providers Payer Name Payer Address Payer Phone Subscriber Number Group Number Insured Name Patient Relationship to Insured Coverage Start Date Coverage End Date [employer] [address] [place] [id number] Alberto Francisco Self - patient is the insured
[2025-02-03 08:38] LABS: MANUAL DIFF FLAG NO
[2025-02-03 08:54] LABS: Basophils Absolute Auto 0.1 X10*3/uL (0.0-0.2); Basophils Percent Auto 0.7 % (0-2); Eosinophils Absolute Auto 0.1 X10*3/uL (0.0-0.4); Eosinophils Percent Auto 1.9 % (0-4); Hematocrit 42.7 % (37.0-47.0); Hemoglobin 14.3 g/dl (12.0-16.0); Imm Gran Abs Auto 0.02 X10*3/uL (0.00-0.03); Imm Gran Pct Auto 0.3 % (0.0-0.4); Lymphocytes Absolute Auto 2.4 X10*3/uL (1.2-4.9); Lymphocytes Percent Auto 32.7 % (20-40); Mean Corpuscular HGB Conc 33.5 g/dl (31.0-35.0); Mean Corpuscular Hemoglobin 30.6 pg (27.0-33.0); Mean Corpuscular Volume 91.2 fL (80.0-98.0); Mean Platelet Volume 8.7 fL (9.4-12.3); Monocytes Absolute Auto 0.5 X10*3/uL (0.1-1.2); Monocytes Percent Auto 7.2 % (2-11); Neutrophils Absolute Auto 4.3 x10*3/uL (2.0-8.3); Neutrophils Percent Auto 57.2 % (45-73); Platelet Count 301 X10*3/uL (160-400); Red Blood Count 4.68 X10*6/uL (4.20-5.50); Red Cell Distribution Width 13.4 % (11.0-16.0); White Blood Count 7.5 X10*3/uL (4.8-10.8)
[2025-02-03 09:07] LABS: Estimated Average Glucose 100 mg/dL; Hemoglobin A1c % 5.1 % (<6.0)
[2025-02-03 09:40] LABS: Alanine Aminotransferase 14 U/L (0-31); Albumin Level 4.1 g/dL (3.5-5.0); Alkaline Phosphatase 91 U/L (39-117); Anion Gap 10 (12-20); Aspartate Amino Transferase 19 U/L (5-31); Bilirubin Total 0.2 mg/dL (0.0-1.0); Blood Urea Nitrogen 13 mg/dL (9-16); Calcium 9.4 mg/dL (8.4-10.2); Carbon Dioxide 29 mmol/L (22-29); Chloride 109 mmol/L (96-108); Cholesterol 164 mg/dL (<200); Estimated Glomerular Filt Rate > 60; Glucose Random 93 mg/dL (60-115); HDL Cholesterol 60 mg/dL (>40); Iron 63 mcg/dL (30-160); LDL Cholesterol Calculated 90 mg/dL (<100); Percent Iron Saturation 23 % (15-50); Potassium 5.1 mmol/L (3.3-5.1); Sodium 143 mmol/L (135-145); Total Iron Binding Capacity 269 mcg/dL (228-428); Total Protein 6.5 g/dL (6.5-8.0); Triglycerides 73 mg/dL (<150); Unsaturated Iron Binding 206 ug/dL
[2025-02-03 10:01] LABS: Folate 13.9 ng/mL (> or = 4.0); Vitamin B12 958 pg/mL (200-900)
[2025-02-03 10:05] LABS: Ferritin 108 ng/mL (10-250); Insulin 3 uU/mL (2-29); TSH reflex Free T4 4.11 uIU/mL (0.32-4.0); Vitamin D 25-OH Total 60.8 ng/mL (>30)
[2025-02-03 11:35] LABS: Free T4 (Free Thyroxine) 1.05 ng/dL (0.71-1.85)
[2025-02-06 04:39] LABS: Zinc 76 mcg/dL (60-130)
[2025-02-10 00:59] LABS: Vitamin A 58 mcg/dL (38-98)
[2025-02-10 01:44] LABS: Vitamin B1 48 nmol/L (8-30)
== END 2025-02-03 08:08 | disposition home or self-care (01) ==
LOC: HO.LAB 08:07
PROVIDERS: PCP Nurse Practitioner Family; Visit Provider Physician Assistant Surgical
DX: Z98.84 Bariatric surgery status (principal); Z13.1 Encounter for screening for diabetes mellitus
CPT/HCPCS: 36415; 80053; 80061; 82306; 82607; 82728; 82746; 83036; 83525; 83540; 84425; 84439; 84443; 84590; 84630; 85025; 86140